=== PATIENT | female | born 1940 | race Caucasian/White ===

== ENCOUNTER → 2016-04-04 | Outpatient (CLI) | payer OTHER ==
[~2016-04-04] MED LIST: ASPCH81X PO; ASPI81TA28 PO; ATOR10TA88 PO; CALC-51 PO; CARV25TA2 PO; CHOL100010 PO; CZR25 PO; LEVO100T7 PO; LOSA1TAB PO; LSX40 PO; PRT/20 PO
--- NOTE | 2016-04-04 14:06 | DIAGNOSTIC IMAGING REPORT ---
LUMBAR SPINE 5 VIEWS HISTORY: Pain ACUTE LOW BACK PAIN COMPARISON: None. FINDINGS: There is no fracture. No subluxation. Moderate to rather significant degenerative intervertebral disc changes throughout. This is most noticeable from L3 through S1. Packing disc are identified from L3 through the superior endplate of S1. Mild reactive degenerative sclerosis of the vertebral endplates. No evidence for subluxation. No compression deformity. IMPRESSION: Moderate rather significant degenerative change of the mid to lower lumbar spine. No acute bony abnormality. Electronically signed by: Sunny Gibson M.D. 04/04/2016 2:04 PM Dictated Date/Time: 04/04/2016 2:02 PM
== END | disposition home or self-care (01) ==
LOC: C.LAB1850 13:42
PROVIDERS: ATTEND Family Medicine
DX: M54.5 Low back pain (principal)

== ENCOUNTER → 2016-05-22 | Outpatient (CLI) | payer OTHER ==
--- NOTE | 2016-05-22 07:35 | DIAGNOSTIC IMAGING REPORT ---
CHEST CT WITHOUT CONTRAST CT DOSE: 253.81 mGy.cm HISTORY: Pulmonary nodule 08/14/2015 TECHNIQUE: Multiaxial CT images of the chest were performed without contrast. COMPARISON: 08/14/2015 FINDINGS: Lungs are now considered clear. No significant pulmonary nodularity. Trace pleural fluid right base is resolved. Lungs currently are considered clear. Several small hepatic cysts stable. Mild stable cardiomegaly. IMPRESSION: Improved exam with no significant pulmonary nodularity at the current time. Mild stable cardiomegaly. Electronically signed by: Sunny Gibson M.D. 05/22/2016 7:34 AM Dictated Date/Time: 05/22/2016 7:30 AM
== END | disposition home or self-care (01) ==
LOC: C.CTS 06:39
PROVIDERS: ATTEND Internal Medicine Pulmonary Disease
DX: R91.8 Other nonspecific abnormal finding of lung field (principal)

== ENCOUNTER → 2016-09-02 | Outpatient (CLI) | payer OTHER ==
--- NOTE | 2016-09-02 08:59 | DIAGNOSTIC IMAGING REPORT ---
MRI LUMBAR SPINE W/O CONTRAST CLINICAL HISTORY: M54.5,M79.604 LOW BACK PAIN WITH LEFT LEG RADICULOPATHY. TECHNIQUE: Sagittal and axial T1, T2 and STIR images were obtained. COMPARISON STUDY: Conventional radiographic study dated 04-19 OBSERVATIONS: There are no areas of marrow replacement to indicate neoplasm. Degenerative endplate marrow signal changes are present most pronounced the L3-4 and L5-S1 levels. L1-2: There is a mild circumferential disc bulge. There is mild spinal stenosis. There is mild right-sided foraminal narrowing. L2-3: There is a circumferential disc bulge. There is mild to moderate spinal stenosis. There is no significant foraminal narrowing. L3-4: There is a circumferential disc bulge. There is moderate spinal stenosis. There is bilateral foraminal narrowing left greater than right. L4-5: There is a circumferential disc bulge and small broad-based central disc protrusion. There is moderate spinal stenosis. There is mild bilateral foraminal narrowing. L5-S1: There is a circumferential disc bulge. There is no significant spinal stenosis. There is moderate right-sided foraminal narrowing. The conus medullaris and cauda equina appear normal. IMPRESSION: 1. 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 Multilevel foraminal narrowing Electronically signed by: Ward Combs M.D. 09/02/2016 8:57 AM Dictated Date/Time: 09/02/2016 8:53 AM
== END | disposition home or self-care (01) ==
LOC: C.MRI 07:20
PROVIDERS: ATTEND Family Medicine
DX: M54.5 Low back pain (principal); M79.604 Pain in right leg

== ENCOUNTER → 2016-09-27 | Outpatient (CLI) | payer OTHER ==
[~2016-09-27] MED LIST changes: -ASPI81TA28 PO; -CZR25 PO; -PRT/20 PO
--- NOTE | 2016-09-27 12:56 | MAMMOGRAPHY REPORT ---
BILATERAL DIGITAL SCREENING MAMMOGRAM WITH CAD: 09/27/2016 CLINICAL HISTORY: Routine screening. Patient has no complaints. TECHNIQUE: Current study was also evaluated with a Computer Aided Detection (CAD) system. Bilateral CC and MLO views were obtained. COMPARISON: Comparison is made to exams dated: 09/22/2015 mammogram, 09/16/2013 mammogram, 09/19/2014 m ammogram, 09/15/2012 mammogram, 09/11/2011 mammogram, and 09/10/2010 mammogram - [facility] enter. BREAST COMPOSITION: There are scattered areas of fibroglandular density in both breasts. FINDINGS: No suspicious masses, calcifications, or areas of architectural distortion are noted in ei ther breast. There has been no significant interval change compared to prior exams. Scattered bilate ral benign-appearing calcifications are not significantly changed. A pacemaker obscures portions of the left pectoralis muscle and superior breast on the MLO view. IMPRESSION: ACR BI-RADS CATEGORY 2: BENIGN There is no mammographic evidence of malignancy. A 1 year screening mammogram is recommended. The pa tient will receive written notification of the results. Approximately 10% of breast cancers are not detected with mammography. A negative mammographic report should not delay biopsy if a clinically suggestive mass is present. Batsheva Han M.D. ah/:09/27/2016 10:42:57 Director Product Management: Ramona VERA)(Aníbal), [facility] letter sent: Normal 1/2 BI-RADS Code: ACR BI-RADS Category 2: Benign
== END | disposition home or self-care (01) ==
LOC: C.MAMM 10:06
PROVIDERS: ATTEND Family Medicine
DX: Z12.31 Encounter for screening mammogram for malignant neoplasm of breast (principal)

== ENCOUNTER → 2016-10-29 | Day surgery (SDC) | payer OTHER ==
[2016-09-13 12:26] VITALS: Ht 154.9 cm; Wt 72.7 kg
[~2016-10-29] VITALS: Ht 154.9 cm; Wt 72.7 kg
[~2016-10-29] MED LIST changes: +500ML BSS 0.3ML EPI 1:1000PF IRRIG ONE; +ACETAMINOPHEN 325 MG TAB PO PRN; +AMVISC PLUS 0.8ML SYRINGE INT OCU ONE; +ATROPINE SULFATE 0.1 MG/ML 5ML SYR IV PRN; +BSS FLUSH ONE; +EpHEDrine SULFATE INJ 50 MG/ML AMP IV PRN; +EpINEphrine INJ 1MG/ML AMP 1 MG/ML AMP ONE; +LACTATED RINGER'S 1000ML 500 ML IV SCH; +LIDOCAINE 3.5% OPH GEL PER APPLICATION CHARGE ONE; +LIDOCAINE HCL 1% MPF 2 ML VIAL ONE; +MIDAZOLAM HCL 1 MG/ML 2ML VIAL ONE; +OCUCOAT 1 ML SOLN IO ONE; +POVIDONE-IODINE OP SOLN 30 ML BTL ONE; +PROPARACAINE 0.5% OP SOLN PER DROP CHARGE OPR SCH; +TOBRAMYCIN/DEXAMETHASONE OPH OINT PER APPLN CHARGE ONE
[2016-10-29] MEDS: PHENYLEPHRINE HCL 2.5% OP SOLN PER DROP CHARGE OPR SCH ×2 (08:31→08:36)
[2016-10-29] MEDS: TROPICAMIDE 1% OP SOLN PER DROP CHARGE OPR SCH ×2 (08:32→08:37)
[2016-10-29] MEDS: CYCLOPENTOLATE HCL 1% OP SOLN PER DROP CHARGE OPR SCH ×2 (08:33→08:38)
[2016-10-29] MEDS: KETOROLAC 0.5% OP SOLN PER DROP CHARGE OPR SCH ×2 (08:34→08:39)
[2016-10-29] MEDS: GATIFLOXACIN OP SOLN PER DROP CHARGE OPR SCH ×2 (08:35→08:49)
--- NOTE | 2016-10-29 08:38 | History & Physical Bridge - SC ---
H&P Re-Evaluation Bridge Note: I have examined the patient, reviewed the History & Physical and in the interval since the performance of the History & Physical I have noted the following changes of clinical significance: Diagnosis: Right Cataract Procedure: Right Cataract Removal with Lens Implant No changes noted
--- NOTE | 2016-10-29 09:21 | Discharge Instructions-SurgCtr ---
Discharge Instructions Date of Service Oct 29, 2016. Visit Reason for Visit: Cataract Right Eye Discharge Discharge Diagnosis / Problem: cataract Discharge Goals Goal(s): Improve function Activity Recommendations Activity Limitations: per Instructions/Follow-up section Anesthesia . Post Anesthesia Instructions: If you have had General Anesthesia or IV Sedation: * Do not drive today. * Resume driving when surgeon permits. * Do not make important decisions or sign legal documents today. * Call surgeon for: 1. Temperature elevations greater than 101 degrees F. 2. Uncontrollable pain. 3. Excessive bleeding. 4. Persistent nausea and vomiting. 5. Medication intolerance (nausea, vomiting or rash). * For nausea and vomiting use only clear liquids such as: tea, soda, bouillon until nausea subsides, then gradually increase diet as tolerated. * If you have any concerns or questions, call your surgeon's office. If physician is unavailable and it is an emergency, call 911 or go to the nearest emergency room. . Instructions / Follow-Up Instructions / Follow-Up ACTIVITY RECOMMENDATIONS: * No strenuous lifting, jogging or running for 4 days * No swimming or yard work for 1 week. * Limited bending is permitted, such as putting on shoes. RETURN TO SCHOOL/WORK: No work until seen by physician in office. MEDICATIONS: Resume previous medications unless instructed otherwise by your surgeon. This includes eye drops for glaucoma. Zymaxid/Gatifloxacin (espinal cap) - one drop every 2 hours until bedtime Nevanac/Ilevro/Prolensa/Ketorolac (kendall cap) - one drop every 4 hours until bedtime Prednisolone/Durezol (white/pink cap, SHAKE WELL) - one drop every 2 hours until bedtime Starting tomorrow - all 3 drops every 4 hours until seen in the office Optive drops - as needed for discomfort SPECIAL CARE INSTRUCTIONS: * Wear eyeshield when sleeping, for four nights. * You may wear your own glasses or sunglasses while awake. * You may read or watch TV * You may shower and wash your face, but be gentle around the eye and pat dry. * Blurry vision and mild irritation are normal. * Call office if pain is more severe or vision becomes dark at . FOLLOW UP VISIT: Follow-up with Dr Nolasco tomorrow. Diet Recommendations Home Diet: resume previous diet Procedures Procedures Performed: Right Cataract Phacoemulsification With Intraocular Lens Implant Pending Studies Studies pending at discharge: no Medical Emergencies . Who to Call and When: Medical Emergencies: If at any time you feel your situation is an emergency, please call 911 immediately. . Non-Emergent Contact Non-Emergency issues call your: Coal Cager . . "Provider Documentation" section prepared by Maxim Nolasco. .
--- NOTE | 2016-10-29 09:22 | [facility] Operative Report ---
Operative Report Date of Service Oct 29, 2016. Operative Report 1. PREOPERATIVE DIAGNOSIS: Cataract of the right eye. 2. POSTOPERATIVE DIAGNOSIS: Same. 3. PROCEDURE: Phacoemulsification with intraocular lens implantation of the right eye. SURGEON: Dr. Maxim Nolasco. ANESTHESIA: Topical Lidocaine gel, 1% Non- Preserved intracameral Lidocaine, and monitored intravenous sedation. INDICATIONS FOR THE PROCEDURE: The patient is a 76 - year-old female with a history of cataract of the right eye causing significant visual impairment. The details of the proposed procedure were explained to the patient who asked appropriate questions and following discussion of all risks, benefits and alternatives agreed to have the procedure done. 4. OPERATION AND FINDINGS: DESCRIPTION OF PROCEDURE: After informed consent was obtained, the patient was brought to the Operating Room at the [facility]. The patient was placed in a supine position and then the right eye was prepped and draped in the usual sterile fashion for intraocular surgery. A drop of topical Lidocaine gel was placed in the operative eye. A wire lid speculum was then placed in the fornices. A corneal paracentesis was then created temporally. The Non-Preserved Lidocaine was then instilled into the anterior chamber. The anterior chamber was then pressurized with viscoelastic. A 2.0 mm clear corneal incision was then created temporally. A cystotome was inserted into the anterior chamber and used to create a tear in the anterior lens capsule. This capsular tear was then used to create a small flap and the flap was dragged in a counterclockwise direction in order to create a continuous curvilinear capsulorrhexis. Hydrodissection was accomplished with balanced salt solution. Phacoemulsification of the lens nucleus was then performed in a standard [id number] technique. The phaco time was 26 seconds with an average power of 17 %. The remaining cortical material was removed using irrigation aspiration. The capsular bag was then filled with viscoelastic. A Bausch & Lomb MI60L +19.0 diopters lens was then loaded into the injector and injected into the capsular bag. The remaining viscoelastic was removed with the irrigation aspiration handpiece. The wound was hydrated and then checked and found to be watertight. The intraocular pressure was checked and found to be adequate. The wire lid speculum was removed and the patient's face was cleaned and dried. TobraDex ointment was placed in the inferior fornix. The patient was discharged to the Recovery Room having tolerated the procedure well. There were no complications. The patient will be seen tomorrow in the office for follow-up. I attest to the content of the Intraoperative Record and any orders documented therein. Any exceptions are noted below.
[2016-10-29 09:23] VITALS: TEMP 36.7
--- NOTE | 2016-10-29 09:29 | Anesthesia Progress Nt - [facility] ---
Anesthesia Post Op Note Date & Time Oct 29, 2016 at 09:29 Vital Signs Pain Intensity: 0 Vital Signs Past 12 Hours Date Time Temp Pulse Resp B/P (MAP) Pulse Ox O2 Delivery O2 Flow Rate FiO2 10/29/16 09:23 36.7 64 20 135/80 (98) 95 Room Air 10/29/16 08:21 36.9 66 20 135/82 (99) 98 Room Air Notes Mental Status: alert / awake / arousable, participated in evaluation Pt Amnestic to Procedure: Yes Nausea / Vomiting: adequately controlled Pain: adequately controlled Airway Patency, RR, SpO2: stable & adequate BP & HR: stable & adequate Hydration State: stable & adequate Anesthetic Complications: no major complications apparent
[2016-10-29 09:42] VITALS: BP 126/81; PULSE 66; O2SAT 98
== END | disposition home or self-care (01) ==
LOC: X.SURG 07:57
PROVIDERS: ATTEND Ophthalmology
DX: H26.9 Unspecified cataract (principal); Z90.710 Acquired absence of both cervix and uterus

== ENCOUNTER → 2016-11-19 | Day surgery (SDC) | payer OTHER ==
[2016-11-07 11:01] VITALS: Ht 154.9 cm; Wt 72.7 kg
[~2016-11-19] VITALS: Ht 154.9 cm; Wt 72.7 kg
[~2016-11-19] MED LIST changes: +PROPARACAINE 0.5% OP SOLN PER DROP CHARGE OPL SCH; -PROPARACAINE 0.5% OP SOLN PER DROP CHARGE OPR SCH
[2016-11-19] MEDS: PHENYLEPHRINE HCL 2.5% OP SOLN PER DROP CHARGE OPL SCH ×2 (08:58→09:05)
[2016-11-19] MEDS: TROPICAMIDE 1% OP SOLN PER DROP CHARGE OPL SCH ×2 (08:59→09:06)
[2016-11-19] MEDS: CYCLOPENTOLATE HCL 1% OP SOLN PER DROP CHARGE OPL SCH ×2 (09:00→09:07)
[2016-11-19] MEDS: KETOROLAC 0.5% OP SOLN PER DROP CHARGE OPL SCH ×2 (09:02→09:08)
[2016-11-19] MEDS: GATIFLOXACIN OP SOLN PER DROP CHARGE OPL SCH ×2 (09:03→09:13)
--- NOTE | 2016-11-19 09:14 | History & Physical Bridge - SC ---
H&P Re-Evaluation Bridge Note: I have examined the patient, reviewed the History & Physical and in the interval since the performance of the History & Physical I have noted the following changes of clinical significance: Diagnosis: Left Cataract Procedure: Left Cataract Removal with Lens Implant No changes noted
--- NOTE | 2016-11-19 09:58 | Discharge Instructions-SurgCtr ---
Discharge Instructions Date of Service Nov 19, 2016. Visit Reason for Visit: Cataract Left Eye Discharge Discharge Diagnosis / Problem: cataract Discharge Goals Goal(s): Improve function Activity Recommendations Activity Limitations: per Instructions/Follow-up section Anesthesia . Post Anesthesia Instructions: If you have had General Anesthesia or IV Sedation: * Do not drive today. * Resume driving when surgeon permits. * Do not make important decisions or sign legal documents today. * Call surgeon for: 1. Temperature elevations greater than 101 degrees F. 2. Uncontrollable pain. 3. Excessive bleeding. 4. Persistent nausea and vomiting. 5. Medication intolerance (nausea, vomiting or rash). * For nausea and vomiting use only clear liquids such as: tea, soda, bouillon until nausea subsides, then gradually increase diet as tolerated. * If you have any concerns or questions, call your surgeon's office. If physician is unavailable and it is an emergency, call 911 or go to the nearest emergency room. . Diet Recommendations Home Diet: resume previous diet Procedures Procedures Performed: Left Cataract Phacoemulsification With Intraocular Lens Implant Pending Studies Studies pending at discharge: no Medical Emergencies . Who to Call and When: Medical Emergencies: If at any time you feel your situation is an emergency, please call 911 immediately. . Non-Emergent Contact Non-Emergency issues call your: Branch Manager Trainee . . "Provider Documentation" section prepared by Maxim Nolasco. .
--- NOTE | 2016-11-19 09:58 | [facility] Operative Report ---
Operative Report Date of Service Nov 19, 2016. Operative Report 1. PREOPERATIVE DIAGNOSIS: Cataract of the left eye. 2. POSTOPERATIVE DIAGNOSIS: Same. 3. PROCEDURE: Phacoemulsification with intraocular lens implantation of the left eye. SURGEON: Dr. Maxim Nolasco. ANESTHESIA: Topical Lidocaine gel, 1% Non- Preserved intracameral Lidocaine, and monitored intravenous sedation. INDICATIONS FOR THE PROCEDURE: The patient is a 76 - year-old female with a history of cataract of the left eye causing significant visual impairment. The details of the proposed procedure were explained to the patient who asked appropriate questions and following discussion of all risks, benefits and alternatives agreed to have the procedure done. 4. OPERATION AND FINDINGS: DESCRIPTION OF PROCEDURE: After informed consent was obtained, the patient was brought to the Operating Room at the [facility]. The patient was placed in a supine position and then the left eye was prepped and draped in the usual sterile fashion for intraocular surgery. A drop of topical Lidocaine gel was placed in the operative eye. A wire lid speculum was then placed in the fornices. A corneal paracentesis was then created temporally. The Non-Preserved Lidocaine was then instilled into the anterior chamber. The anterior chamber was then pressurized with viscoelastic. A 2.0 mm clear corneal incision was then created temporally. A cystotome was inserted into the anterior chamber and used to create a tear in the anterior lens capsule. This capsular tear was then used to create a small flap and the flap was dragged in a counterclockwise direction in order to create a continuous curvilinear capsulorrhexis. Hydrodissection was accomplished with balanced salt solution. Phacoemulsification of the lens nucleus was then performed in a standard [id number]-eenbuzm technique. The phaco time was 20 seconds with an average power of 15 %. The remaining cortical material was removed using irrigation aspiration. The capsular bag was then filled with viscoelastic. A Bausch & Lomb MI60L +18.5 diopters lens was then loaded into the injector and injected into the capsular bag. The remaining viscoelastic was removed with the irrigation aspiration handpiece. The wound was hydrated and then checked and found to be watertight. The intraocular pressure was checked and found to be adequate. The wire lid speculum was removed and the patient's face was cleaned and dried. TobraDex ointment was placed in the inferior fornix. The patient was discharged to the Recovery Room having tolerated the procedure well. There were no complications. The patient will be seen tomorrow in the office for follow-up. I attest to the content of the Intraoperative Record and any orders documented therein. Any exceptions are noted below.
[2016-11-19 10:00] VITALS: TEMP 36.5
[2016-11-19 10:15] VITALS: BP 118/74; PULSE 66; O2SAT 96
--- NOTE | 2016-11-19 10:22 | Anesthesia Progress Nt - [facility] ---
Anesthesia Post Op Note Date & Time Nov 19, 2016 at 10:22 Vital Signs Pain Intensity: 0 Vital Signs Past 12 Hours Date Time Temp Pulse Resp B/P (MAP) Pulse Ox O2 Delivery O2 Flow Rate FiO2 11/19/16 10:15 66 20 118/74 (89) 96 Room Air 11/19/16 10:00 36.5 63 16 123/74 (90) 97 Room Air 11/19/16 08:50 36.4 64 16 116/79 (91) 96 Room Air Notes Mental Status: alert / awake / arousable, participated in evaluation Pt Amnestic to Procedure: Yes Nausea / Vomiting: adequately controlled Pain: adequately controlled Airway Patency, RR, SpO2: stable & adequate BP & HR: stable & adequate Hydration State: stable & adequate Anesthetic Complications: no major complications apparent
== END | disposition home or self-care (01) ==
LOC: X.SURG 08:25
PROVIDERS: ATTEND Ophthalmology
DX: H26.9 Unspecified cataract (principal)

== ENCOUNTER → 2017-03-05 | Day surgery (SDC) | payer OTHER ==
[2017-02-10 15:26] VITALS: Ht 154.9 cm; Wt 71.8 kg
[~2017-03-05] VITALS: Ht 154.9 cm; Wt 71.8 kg
[~2017-03-05] MED LIST changes: -500ML BSS 0.3ML EPI 1:1000PF IRRIG ONE; -ACETAMINOPHEN 325 MG TAB PO PRN; -AMVISC PLUS 0.8ML SYRINGE INT OCU ONE; +ATOR10TA82 PO; -ATOR10TA88 PO; -ATROPINE SULFATE 0.1 MG/ML 5ML SYR IV PRN; -BSS FLUSH ONE; -EpHEDrine SULFATE INJ 50 MG/ML AMP IV PRN; -EpINEphrine INJ 1MG/ML AMP 1 MG/ML AMP ONE; +IOPAMIDOL INJ 61% 15 ML VIAL ONE; -LACTATED RINGER'S 1000ML 500 ML IV SCH; -LIDOCAINE 3.5% OPH GEL PER APPLICATION CHARGE ONE; -LIDOCAINE HCL 1% MPF 2 ML VIAL ONE; +LIDOCAINE HCL 1% MPF 5 ML VIAL ONE; -MIDAZOLAM HCL 1 MG/ML 2ML VIAL ONE; -OCUCOAT 1 ML SOLN IO ONE; -POVIDONE-IODINE OP SOLN 30 ML BTL ONE; -PROPARACAINE 0.5% OP SOLN PER DROP CHARGE OPL SCH; +SODIUM CHLORIDE 0.9% INJ 10 ML VIAL ONE; -TOBRAMYCIN/DEXAMETHASONE OPH OINT PER APPLN CHARGE ONE
--- NOTE | 2017-03-05 15:19 | History & Physical Bridge - SC ---
H&P Re-Evaluation Bridge Note: I have examined the patient, reviewed the History & Physical and in the interval since the performance of the History & Physical I have noted the following changes of clinical significance: No changes noted
[2017-03-05 15:41] VITALS: TEMP 36.9
--- NOTE | 2017-03-05 15:44 | Discharge Instructions ---
Discharge Instructions Date of Service Mar 05, 2017. Visit Reason for Visit: Lumbar Radiculopathy Discharge Discharge Diagnosis / Problem: Left leg pain Discharge Goals Goal(s): Decrease discomfort, Improve function Medications Stopped Medications Name(s): ASA- LAST DOSE FRIDAY Activity Recommendations Activity Limitations: resume your previous activity Anesthesia . Post Anesthesia Instructions: If you have had General Anesthesia or IV Sedation: * Do not drive today. * Resume driving when surgeon permits. * Do not make important decisions or sign legal documents today. * Call surgeon for: 1. Temperature elevations greater than 101 degrees F. 2. Uncontrollable pain. 3. Excessive bleeding. 4. Persistent nausea and vomiting. 5. Medication intolerance (nausea, vomiting or rash). * For nausea and vomiting use only clear liquids such as: tea, soda, bouillon until nausea subsides, then gradually increase diet as tolerated. * If you have any concerns or questions, call your surgeon's office. If physician is unavailable and it is an emergency, call 911 or go to the nearest emergency room. . Diet Recommendations Recommended Home Diet: resume previous diet Procedures Procedures Performed: LUMBAR EPIDURAL STEROID INJECTION Pending Studies Studies pending at discharge: no Medical Emergencies . Who to Call and When: Medical Emergencies: If at any time you feel your situation is an emergency, please call 911 immediately. . Non-Emergent Contact Non-Emergency issues call your: Specialist . . "Provider Documentation" section prepared by Cecilio Alvarenga. .
[2017-03-05 15:49] VITALS: BP 133/82; PULSE 68; O2SAT 99
--- NOTE | 2017-03-05 16:00 | OPERATIVE REPORT ---
DATE OF OPERATION: 03/05/2017 PREOPERATIVE DIAGNOSIS: L4-L5 stenosis with left lower extremity radiculopathy. POSTOPERATIVE DIAGNOSIS: Same. PROCEDURE: Left paramedian L5-S1 intralaminar epidural steroid injection under fluoroscopic guidance. INDICATIONS: The patient is a 76-year-old white female, presents with lumbar spinal stenosis with lower extremity radicular pain that is not responding to conservative measures of medications and therapy. She presents today for an epidural injection to provide her with relief. PHYSICAL EXAMINATION: Pleasant female seated comfortably. She has no issues with forward flexion or extension. She has normal lower extremity strength. Negative seated straight leg raises, intact sensation in her right lower extremity and in her left lower extremity, she has decreased left L5 dermatomal distributions sensation. CONSENT: Verbal and written consent was obtained from the patient. Risks and benefits were reviewed. Risks include but are not limited to epidural abscess, epidural hematoma, allergic reaction, dural puncture; the patient wishes to proceed. DESCRIPTION OF PROCEDURE: The patient was taken back to the special procedures room of [facility] where she was maintained in a prone position. Backside was cleansed with Betadine x3 and a dry sterile dressing was applied. Fluoroscope was used to identify the L5-S1 intralaminar space and overlying skin on the left side was anesthetized with 4 mL of lidocaine 1% with a 25 gauge 1.5-inch needle. A 22-gauge 3.5 inch Tuohy needle was then directed down towards the intralaminar space. It was advanced under lateral fluoroscopic guidance and loss of resistance was noted at a depth of just over 6 cm. Isovue-300 contrast 1 mL was injected in which demonstrated epidural uptake pattern. She then underwent injection after negative aspiration of 40 mg of Depo-Medrol and 4 mL of preservative free sodium chloride. Injection was well tolerated. DISPOSITION: 1. The patient is taken out into the discharge recovery area where she will be discharged home once discharge criteria have been met. 2. Follow up in the [facility] office in 2-4 weeks. I attest to the content of the Intraoperative Record and any orders documented therein. Any exception s are noted below.
== END | disposition home or self-care (01) ==
LOC: X.SURG 14:15
PROVIDERS: ATTEND Physical Medicine & Rehabilitation
DX: M48.061 Spinal stenosis, lumbar region without neurogenic claudication (principal); M54.16 Radiculopathy, lumbar region; Z79.82 Long term (current) use of aspirin

== ENCOUNTER → 2017-10-01 | Outpatient (CLI) | payer OTHER ==
[~2017-10-01] MED LIST changes: -IOPAMIDOL INJ 61% 15 ML VIAL ONE; -LIDOCAINE HCL 1% MPF 5 ML VIAL ONE; -SODIUM CHLORIDE 0.9% INJ 10 ML VIAL ONE
--- NOTE | 2017-10-01 14:56 | MAMMOGRAPHY REPORT ---
BILATERAL DIGITAL SCREENING MAMMOGRAM TOMOSYNTHESIS WITH CAD: 10/01/2017 CLINICAL HISTORY: Routine screening. Patient has no complaints. TECHNIQUE: The study was acquired using full field digital technology and interpreted from soft copy. Breast tomosynthesis in addition to standard 2D mammography was performed. Current study was also ev aluated with a Computer Aided Detection (CAD) system. COMPARISON: Comparison is made to exams dated: 09/27/2016 mammogram, 09/22/2015 mammogram, 09/19/2014 m ammogram, 09/16/2013 mammogram, 09/15/2012 mammogram, and 09/11/2011 mammogram - [facility] enter. BREAST COMPOSITION: There are scattered areas of fibroglandular density in both breasts. FINDINGS: No suspicious masses, calcifications, or areas of architectural distortion are noted in either breast . There has been no significant interval change compared to prior exams. Scattered bilateral benign- appearing calcifications are not significantly changed. A pacemaker obscures portions of the left pe ctoralis muscle and superior breast on the MLO view. IMPRESSION: ACR BI-RADS CATEGORY 2: BENIGN There is no mammographic evidence of malignancy. A 1 year screening mammogram is recommended.( 019) The patient will receive written notification of the results. Some breast cancers are not detected with mammography. A negative mammographic report should not sandy y biopsy if a clinically suggestive mass is present. Batsheva Han M.D. ah/:10/01/2017 09:40:29 Fabric Worker Foreman: Ramona Kulkarni RT(R)(M), [facility] letter sent: Normal 1/2 BI-RADS Code: ACR BI-RADS Category 2: Benign
== END | disposition home or self-care (01) ==
LOC: C.MAMM 08:46
PROVIDERS: ATTEND Family Medicine
DX: Z12.31 Encounter for screening mammogram for malignant neoplasm of breast (principal)

== ENCOUNTER 2020-07-18 19:06 | Observation (INO) ==
[2020-07-18 21:08] LABS: Basophils # (auto) 0.03 K/uL (0-0.2); Basophils % (auto) 0.5 %; Eosinophils # (auto) 0.14 K/uL (0-0.5); Eosinophils % (auto) 2.3 %; Hematocrit (blood only) 38.9 % (37-47); Hemoglobin 13.4 g/dL (12.0-16.0); Lymphocytes # (auto) 1.06 K/uL (1.2-3.4); Lymphocytes % (auto) 17.4 %; Mean Corpuscular Hemoglobin 32.3 pg (25-34); Mean Corpuscular Hgb Conc 34.4 g/dL (32-36); Mean Corpuscular Volume 93.7 fL (80-100); Monocytes # (auto) 0.59 K/uL (0.11-0.59); Monocytes % (auto) 9.7 %; Neutrophils # (auto) 4.26 K/uL (1.4-6.5); Neutrophils % (auto) 70.1 %; Platelet Count 154 K/uL (130-400); RDW Coefficient of Variation 14.6 % (11.5-14.5); RDW Standard Deviation 50.6 fL (36.4-46.3); Red Blood Count 4.15 M/uL (4.2-5.4); White Blood Count 6.08 K/uL (4.8-10.8)
[2020-07-18 21:15] LABS: Calcium 9.5 mg/dl (8.5-10.1); Creatinine Clr Calc Pharmacy 36.6 ml/min; Est GFR (African American) 57.3 ml/min; Est GFR (Non-African American) 49.4 ml/min; Magnesium 2.4 mg/dl (1.8-2.4); Potassium 4.5 mmol/L (3.5-5.1)
[2020-07-18 21:18] LABS: INR 1.1 (0.9-1.1); Partial Thromboplastin Time 25.6 Seconds (21.0-31.0)
--- NOTE | 2020-07-18 21:25 | Emergency Department Note ---
Impression & Plan Defibrillator discharge, Cardiomyopathy, SOB (shortness of breath), CHF (congestive heart failure) ED Provider Note NAME: SHAWN MENDOZA AGE: 80 SEX: F : 1940 ARRIVES VIA: Walk-In INFORMANT: [Patient] ED PROVIDER(S): [Pablito Abebe MD] CHIEF COMPLAINT: Defibrillator firing HISTORY OF PRESENT ILLNESS: The patient is an 80-year-old female who states at around 530 or so, about 4 hours ago, she was sitting and started to feel somewhat lightheaded. She states that suddenly, she was shocked by her defibrillator. The patient states that she has noticed some shortness of breath lately. She was pretty active today but was not involved in activity when this happened. She has not had chest pain. No vomiting or diarrhea. No fever. No cough or congestion. She states that her defibrillator/pacer was placed in 2015 and it has never went off. REVIEW OF SYSTEMS: See HPI for pertinent positives and negatives. A total of ten systems were reviewed and were otherwise negative. PMHx/PSHx: See Below SOCIAL HISTORY: See Below. PHYSICAL EXAM: GENERAL: Patient is in no acute distress. HEENT: No acute trauma, normocephalic atraumatic, mucous membranes moist, no nasal congestion, no scleral icterus. NECK: No stridor, no adenopathy, no meningismus, trachea is midline. LUNGS: Clear to auscultation bilaterally, no wheeze, no rhonchi, breath sounds equal. HEART: Without murmurs gallops or rubs, regular rate and rhythm. ABDOMEN: Soft, nontender, bowel sounds positive, no hernias, no peritonitis. EXTREMITIES: No cyanosis, mild bilateral pedal edema, full range of motion of all the joints without pain or difficulty, no signs for acute trauma. NEUROLOGIC: Oriented x 3, no acute motor or sensory deficits, no focal weakness. SKIN: No rash, no jaundice, no diaphoresis. DIFFERENTIAL DIAGNOSIS: Cardiac ischemia, aortic dissection, pulmonary embolism, pneumothorax, V. tach or V. fib, defibrillator misfire, electrolyte imbalance, pneumonia, pericarditis, myocarditis, esophageal rupture, GERD, cholecystitis, pancreatitis, musculoskeletal, as well as other pathologies. EMERGENCY DEPARTMENT COURSE/PROCEDURES: ECG: Indication was defibrillator firing. The ECG shows a normal sinus rhythm with a rate of 81. The QTc is 462. There is a nonspecific interventricular block. There is no ST elevation, no PVCs. There are some inverted T waves noted laterally. Compared to an ECG from 02 May 2015, there is no significant change. Continuous Cardiac Monitoring: An order was placed for continuous cardiac monitoring. The monitor shows a rate of 74 with normal sinus rhythm. MEDICAL DECISION MAKING: There is no leukocytosis or concerning anemia. There is a normal platelet count. No coagulopathy. No significant electrolyte abnormality or kidney failure. No worrisome liver enzyme elevation. No pancreatitis. The patient appeared to be in a euthyroid state. ECG shows a normal sinus rhythm, there was no acute ischemia. Cardiac enzyme testing x1 is slightly elevated making cardiac injury or strain more likely. BNP was elevated consistent with CHF. Chest film does show cardiomegaly and CHF. There was no pneumothorax. Covid test returned negative. The patient presents after a defibrillator discharge. Her work-up suggest heart failure. She does have an elevated troponin. Her defibrillator was interrogated and she had a bout of V. tach/V. fib for which a shock was administered. I did speak with cardiology. The patient is being hospitalized. The patient was given a 40 mg dose of IV Lasix to help promote diuresis. I spoke to the patient about her findings, I did speak with case management. The on-call hospitalist was consulted. Past Med/Surg History Medical History Dyslipidemia HFrEF (heart failure with reduced ejection fraction) EF 20-25% 06/21 HTN (hypertension) Hypothyroidism Presence of combination internal cardiac defibrillator (ICD) and pacemaker Surgical History History of bladder surgery History of hysterectomy Social History Smoking Status: Never smoker Feels Safe at Home: Yes Allergies Allergies Allergy/AdvReac Type Severity Reaction Status Date / Time No Known Allergies Allergy Verified 07/18/20 20:55 Home Meds Home Medications Medication Instructions Recorded Confirmed aspirin 81 mg PO DAILY 06/24/18 07/18/20 atorvastatin 5 mg PO HS 06/24/18 07/18/20 cholecalciferol (vitamin D3) 1,000 unit PO DAILY 06/24/18 07/18/20 levothyroxine 100 mcg PO QAM 06/24/18 07/18/20 Previous Rx's Medication Instructions Recorded carvedilol 25 mg tablet 25 mg PO BID #180 tab 08/09/19 losartan 25 mg tablet 25 mg PO QPM #90 tab 08/09/19 furosemide 40 mg tablet 40 mg PO Q OTHER DAY PRN #45 tab 08/10/19 Results & Data (ED) Vital Signs Vital Signs - 24 hr 07/18/20 19:15 07/18/20 19:20 07/18/20 19:37 Temperature 36.2 C L Temperature Source Temporal Artery Scan Pulse Rate 86 74 Pulse Rate from SpO2 Sensor 73 Respiratory Rate 16 31 H Respiratory Effort / Characteristics Respiratory Depth Normal Normal Respiratory Pattern Blood Pressure 143/91 H 137/86 Blood Pressure Mean 108 103 Blood Pressure Position Sitting Pulse Oximetry 97 97 Oxygen Delivery Method Room Air Room Air Room Air Sepsis Recent Fever Within 48 Hours No Sepsis New/Unexplained Change in Mental Status No Sepsis Action Taken by Nursing No Action Required 07/18/20 19:41 07/18/20 20:00 07/18/20 20:05 Temperature Temperature Source Pulse Rate 74 74 Pulse Rate from SpO2 Sensor 73 74 Respiratory Rate 18 24 Respiratory Effort / Characteristics Non-Labored Spontaneous Respiratory Depth Normal Respiratory Pattern Regular Blood Pressure 126/84 136/85 Blood Pressure Mean 98 102 Blood Pressure Position Pulse Oximetry 96 97 Oxygen Delivery Method Room Air Room Air Room Air Sepsis Recent Fever Within 48 Hours Sepsis New/Unexplained Change in Mental Status Sepsis Action Taken by Nursing 07/18/20 20:30 07/18/20 21:00 07/18/20 21:30 Temperature Temperature Source Pulse Rate 74 80 76 Pulse Rate from SpO2 Sensor 74 80 76 Respiratory Rate 26 H 28 H 26 H Respiratory Effort / Characteristics Respiratory Depth Respiratory Pattern Blood Pressure 136/91 116/85 137/87 Blood Pressure Mean 106 95 103 Blood Pressure Position Pulse Oximetry 96 98 96 Oxygen Delivery Method Room Air Room Air Room Air Sepsis Recent Fever Within 48 Hours Sepsis New/Unexplained Change in Mental Status Sepsis Action Taken by Nursing 07/18/20 21:58 07/18/20 22:00 07/18/20 22:37 Temperature Temperature Source Pulse Rate 86 86 79 Pulse Rate from SpO2 Sensor 87 85 79 Respiratory Rate 31 H 28 H 27 H Respiratory Effort / Characteristics Respiratory Depth Respiratory Pattern Blood Pressure 155/102 H 165/109 H 150/95 H Blood Pressure Mean 119 127 113 Blood Pressure Position Pulse Oximetry 94 95 97 Oxygen Delivery Method Room Air Room Air Room Air Sepsis Recent Fever Within 48 Hours Sepsis New/Unexplained Change in Mental Status Sepsis Action Taken by Nursing 07/18/20 23:30 Temperature Temperature Source Pulse Rate 85 Pulse Rate from SpO2 Sensor 84 Respiratory Rate 24 Respiratory Effort / Characteristics Respiratory Depth Respiratory Pattern Blood Pressure 161/69 H Blood Pressure Mean 99 Blood Pressure Position Pulse Oximetry 96 Oxygen Delivery Method Room Air Sepsis Recent Fever Within 48 Hours Sepsis New/Unexplained Change in Mental Status Sepsis Action Taken by Usp Medications Current Medication List: was personally reviewed by me Laboratory Data Attestation: I reviewed the patient's lab results. Result diagrams: 07/18/20 19:36 07/18/20 19:36 Lab Results 07/18/20 07/18/20 07/18/20 Range/Units 19:36 19:36 19:36 WBC 6.08 (4.8-10.8) K/uL RBC 4.15 L (4.2-5.4) M/uL Hgb 13.4 (12.0-16.0) g/dL Hct 38.9 (37-47) % MCV 93.7 (80-100) fL MCH 32.3 (25-34) pg MCHC 34.4 (32-36) g/dL RDW Std Deviation 50.6 H (36.4-46.3) fL RDW Coeff of Sumanth 14.6 H (11.5-14.5) % Plt Count 154 (130-400) K/uL MPV 11.0 H (7.4-10.4) fL Immature Gran % (Auto) 0.0 % Neut % (Auto) 70.1 % Lymph % (Auto) 17.4 % [place] % (Auto) 9.7 % Eos % (Auto) 2.3 % Baso % (Auto) 0.5 % Neut # (Auto) 4.26 (1.4-6.5) K/uL Lymph # (Auto) 1.06 L (1.2-3.4) K/uL [place] # (Auto) 0.59 (0.11-0.59) K/uL Eos # (Auto) 0.14 (0-0.5) K/uL Baso # (Auto) 0.03 (0-0.2) K/uL Immature Gran # (Auto) 0.00 (0.00-0.02) K/uL PT 11.0 (9.0-12.0) Seconds INR 1.1 (0.9-1.1) APTT 25.6 (21.0-31.0) Seconds PTT Ratio 1.0 Sodium 139 (136-145) mmol/L Potassium 4.5 (3.5-5.1) mmol/L Chloride 107 (98-107) mmol/L Carbon Dioxide 26 (21-32) mmol/L Anion Gap 6.0 (3-11) BUN 24 H (7-18) mg/dl Creatinine 1.05 (0.6-1.2) mg/dl Est Cr Clr Drug Dosing 36.6 ml/min Est GFR ( Amer) 57.3 ml/min Est GFR (Non-Af Amer) 49.4 ml/min BUN/Creatinine Ratio 23.0 H (10-20) Glucose 101 H (70-99) mg/dl Calcium 9.5 (8.5-10.1) mg/dl Magnesium 2.4 (1.8-2.4) mg/dl Total Bilirubin 0.7 (0.2-1) mg/dl AST 71 H (15-37) U/L ALT 60 (12-78) U/L Alkaline Phosphatase 93 (45-117) U/L Troponin I 0.070 H* (0-0.045) ng/ml NT-Pro-B Natriuret Pep 6744 H (0-1800) pg/ml Total Protein 6.8 (6.4-8.2) gm/dl Albumin 4.0 (3.4-5.0) gm/dl Globulin 2.8 (2.5-4.0) gm/dl Albumin/Globulin Ratio 1.4 (0.9-2) Lipase 150 (73-393) U/L TSH 4.040 (0.300-4.500) uIu/ml COVID-19 Eval Order SARS-CoV-2 (PCR) (Negative) 07/18/20 07/18/20 Range/Units 22:32 22:32 WBC (4.8-10.8) K/uL RBC (4.2-5.4) M/uL Hgb (12.0-16.0) g/dL Hct (37-47) % MCV (80-100) fL MCH (25-34) pg MCHC (32-36) g/dL RDW Std Deviation (36.4-46.3) fL RDW Coeff of Sumanth (11.5-14.5) % Plt Count (130-400) K/uL MPV (7.4-10.4) fL Immature Gran % (Auto) % Neut % (Auto) % Lymph % (Auto) % [place] % (Auto) % Eos % (Auto) % Baso % (Auto) % Neut # (Auto) (1.4-6.5) K/uL Lymph # (Auto) (1.2-3.4) K/uL [place] # (Auto) (0.11-0.59) K/uL Eos # (Auto) (0-0.5) K/uL Baso # (Auto) (0-0.2) K/uL Immature Gran # (Auto) (0.00-0.02) K/uL PT (9.0-12.0) Seconds INR (0.9-1.1) APTT (21.0-31.0) Seconds PTT Ratio Sodium (136-145) mmol/L Potassium (3.5-5.1) mmol/L Chloride (98-107) mmol/L Carbon Dioxide (21-32) mmol/L Anion Gap (3-11) BUN (7-18) mg/dl Creatinine (0.6-1.2) mg/dl Est Cr Clr Drug Dosing ml/min Est GFR ( Amer) ml/min Est GFR (Non-Af Amer) ml/min BUN/Creatinine Ratio (10-20) Glucose (70-99) mg/dl Calcium (8.5-10.1) mg/dl Magnesium (1.8-2.4) mg/dl Total Bilirubin (0.2-1) mg/dl AST (15-37) U/L ALT (12-78) U/L Alkaline Phosphatase (45-117) U/L Troponin I (0-0.045) ng/ml NT-Pro-B Natriuret Pep (0-1800) pg/ml Total Protein (6.4-8.2) gm/dl Albumin (3.4-5.0) gm/dl Globulin (2.5-4.0) gm/dl Albumin/Globulin Ratio (0.9-2) Lipase (73-393) U/L TSH (0.300-4.500) uIu/ml COVID-19 Eval Order Covid19 at [facility] SARS-CoV-2 (PCR) NEGATIVE (Negative) Administered Medications Discontinued Medications Furosemide (Furosemide 40 Mg/4 Ml Vial) 40 mg IV NOW STA Stop: 07/18/20 21:44 Last Admin: 07/18/20 21:58 Dose: 40 mg Documented by: [id number] Imaging Data Attestation: I personally reviewed and interpreted this imaging study as follows: My Impression: Chest x-ray: There is cardiomegaly. Mild CHF is present. No pneumothorax. Discharge Plan Visit Data Chief Complaint: Cardiac Assessment Stated Complaint: PACE MAKER WENT OFF ED Provider: Pablito Abebe Discharge Problem: Defibrillator discharge, Cardiomyopathy, SOB (shortness of breath), CHF (congestive heart failure) Patient Disposition: Admitted As Inpatient Condition: Fair Forms Stand Alone Forms: My [facility] Prescriptions Prescriptions: No Action carvedilol 25 mg tablet 25 mg PO BID Qty: 180 RF: 3 losartan 25 mg tablet 25 mg PO QPM Qty: 90 RF: 3 furosemide 40 mg tablet 40 mg PO Q OTHER DAY PRN (Reason: Weight Gain) Qty: 45 RF: 3 aspirin 81 mg Tablet,Chewable 81 mg PO DAILY RF: 0 atorvastatin 10 mg Tablet 5 mg PO HS RF: 0 levothyroxine 100 mcg Tablet 100 mcg PO QAM RF: 0 cholecalciferol (vitamin D3) 1,000 unit Tablet 1,000 unit PO DAILY RF: 0 Referrals Referrals: Yamilet Soto MD [Primary Care Provider] - Discharge Problem: Cardiomyopathy Qualifiers: Cardiomyopathy type: unspecified Qualified Code(s): I42.9 - Cardiomyopathy, unspecified CHF (congestive heart failure) Qualifiers: Heart failure type: systolic Heart failure chronicity: acute on chronic Qualified Code(s): I50.23 - Acute on chronic systolic (congestive) heart failure
[2020-07-18 21:32] LABS: Albumin Globulin Ratio 1.4 (0.9-2); Bilirubin,Total 0.7 mg/dl (0.2-1); Globulin 2.8 gm/dl (2.5-4.0); Thyroid Stimulating Hormone 4.04 uIu/ml (0.300-4.500); Total Protein 6.8 gm/dl (6.4-8.2); Troponin I 0.07 ng/ml (0-0.045)
[2020-07-18] MEDS ORDERED: FUROSEMIDE 40 MG/4 ML VIAL IV STA (21:43)
--- NOTE | 2020-07-18 22:12 | History & Physical Report ---
Date of Service July 18, 2020 Assessment & Plan (1) Acute exacerbation of congestive heart failure: 80 yo F with hx HFrEF (20-25), cardiomyopathy s/p ICD placement, HLD, HTN, who presents to the ED for CHF exacerbation and ICD firing. CHF Exacerbation - elevated proBNP to 6744, no prior level for comparison - lungs without crackles or rhonchi on exam - recent 2-3 pound weight gain without taking lasix today as directed - 40 IV lasix in ED. takes 40 PO every other day at home. - monitor I/O, daily weights - CXR showing some right sided pulm edema without focal infiltrate Defibrillator activation - dysrythmia possibly secondary to acute hypoxia/fluid overload? - Dynadmic analysis states Vtach/Fib was identified rhythm (selected strips to do not appear to have these shockable rhythms?) - cardiology consult for medication change guidance Elevated troponin - likely secondary to heart pressure from CHF exacerbation - will continue to trend Chronic Conditions HFrEF: cont carvedilol, losartan HLD: cont statin Hypothyroidim: cont levothyroxine PRNs -- miralax, zofran, tylenol, simethicone, nitroglycerin, mag-ox, melatonin DVT ppx: daily ASA FEN/GI; low salt, heart healthy Code status: full code Dispo: PCU (2) Elevated troponin: (3) HFrEF (heart failure with reduced ejection fraction): (4) Cardiomyopathy: (5) CAD (coronary artery disease): (6) History of bladder surgery: (7) History of hysterectomy: (8) Presence of combination internal cardiac defibrillator (ICD) and pacemaker: (9) Dyslipidemia: (10) Hypothyroidism: (11) HTN (hypertension): History of Present Illness 80 yo F with hx HFrEF (20-25%), placement of ICD/Defibrillator, CAD, HLD, HTN, Hypothyroidism who presents to ER with complaint of SOB and Defibrillator firing. She states that she normally takes lasix PO every other day or when she feels short of breath or gains weight for a few days. She states that she has had somewhat worsening shortness of breath recently, and feels more tuckered out when she walks to the bathroom. She denies having recently take her lasix despite having gained 2-3 pounds at home and feeling more short of breath. Earlier today she was sitting on the bench on her porch, started feeling short of breath and like her "head felt funny" and then suddenly felt her defibrillator shock her. This occurred around 6:30 pm on 07/18/20. She has never had a shock before. She denies any other symptoms. Primary Care Provider: Yamilet Soto MD Allergies Allergy/AdvReac Type Severity Reaction Status Date / Time No Known Allergies Allergy Verified 07/18/20 20:55 Home Medications Medication Instructions Recorded Confirmed Type aspirin 81 mg PO DAILY 06/24/18 07/18/20 History atorvastatin 5 mg PO HS 06/24/18 07/18/20 History cholecalciferol (vitamin D3) 1,000 unit PO DAILY 06/24/18 07/18/20 History levothyroxine 100 mcg PO QAM 06/24/18 07/18/20 History carvedilol 25 mg tablet 25 mg PO BID #180 tab 08/09/19 07/18/20 Rx losartan 25 mg tablet 25 mg PO QPM #90 tab 08/09/19 07/18/20 Rx furosemide 40 mg tablet 40 mg PO Q OTHER DAY PRN #45 tab 08/10/19 07/18/20 Rx Past Med/Surg History Medical History Dyslipidemia HFrEF (heart failure with reduced ejection fraction) EF 20-25% 06/21 HTN (hypertension) Hypothyroidism Presence of combination internal cardiac defibrillator (ICD) and pacemaker Surgical History History of bladder surgery History of hysterectomy Social History Smoking Status: Never smoker Hx Alcohol Use: No Hx Substance Use: No Preferred Language: Hong Konger Communication Ability: Effective Asset Protection Associate Required: No Beliefs That Will Affect Care: None Current Living Situation: Spouse Current Living Situation Comment: House, one story, laundry in the basement Other Information That Helps Us Care for You: No Feels Safe at Home: Yes Safety Concerns: Feels Safe At This Time Assistive Devices: Denture - Upper, Denture - Lower and Glasses Review of Systems Constitutional: + weight gain; no fever, no chills, no sweats and no fatigue Eyes: no blind spots and no discharge Ear, Nose, Mouth, Throat: no hearing loss and no nasal congestion Respiratory: + dyspnea and + dyspnea on exertion; no cough Cardiovascular: no chest pain, no dyspnea on exertion and no edema Gastrointestinal: no abdominal pain, no nausea, no vomiting, no constipation, no diarrhea/loose stools and no blood in stools Genitourinary: no dysuria Musculoskeletal: no joint pain and no myalgia Neurologic: + dizziness and + headache(s); no gait abnormality, no falls, no tingling and no numbness Endocrine: no fatigue Physical Exam Physical Exam: Constitutional: thin elderly female, sitting comfortably in bed. Eyes: EOMI, pupils equal and reactive bilaterally, no scleral icterus Cardiac: RRR, no murmurs, gallops or rubs. Normal S1, S2, ICD/defibrillator present on L mid chest Pulm: CTA BL, no wheezes, rhonchi, crackles or rubs, moving air well throughout both lungs Abd: soft, nontender, nondistended, normal bowel sounds, no rebound or guarding Extremities: 2+ peripheral pulses, no edema Neuro: no focal deficits, moving all 4 limbs, A&Ox3 Results & Data Results & Data ([facility]) Vital Signs (Past 12 Hours) Vital Signs Temp Pulse Resp BP Pulse Ox 07/18/20 22:00 86 28 H 165/109 H 95 07/18/20 21:58 86 31 H 155/102 H 94 07/18/20 21:30 76 26 H 137/87 96 07/18/20 21:00 80 28 H 116/85 98 07/18/20 20:30 74 26 H 136/91 96 07/18/20 20:00 74 24 136/85 97 07/18/20 19:41 74 18 126/84 96 07/18/20 19:37 74 31 H 137/86 97 07/18/20 19:15 36.2 C L 86 16 143/91 H 97 Laboratory Results WBC 6.08 K/uL (4.8-10.8) 07/18/20 19:36 RBC 4.15 M/uL (4.2-5.4) L 07/18/20 19:36 Hgb 13.4 g/dL (12.0-16.0) 07/18/20 19:36 Hct 38.9 % (37-47) 07/18/20 19:36 MCV 93.7 fL (80-100) 07/18/20 19:36 MCH 32.3 pg (25-34) 07/18/20 19:36 MCHC 34.4 g/dL (32-36) 07/18/20 19:36 RDW Std Deviation 50.6 fL (36.4-46.3) H 07/18/20 19:36 RDW Coeff of Sumanth 14.6 % (11.5-14.5) H 07/18/20 19:36 Plt Count 154 K/uL (130-400) 07/18/20 19:36 MPV 11.0 fL (7.4-10.4) H 07/18/20 19:36 Immature Gran % (Auto) 0.0 % 07/18/20 19:36 Neut % (Auto) 70.1 % 07/18/20 19:36 Lymph % (Auto) 17.4 % 07/18/20 19:36 Owen % (Auto) 9.7 % 07/18/20 19:36 Eos % (Auto) 2.3 % 07/18/20 19:36 Baso % (Auto) 0.5 % 07/18/20 19:36 Neut # (Auto) 4.26 K/uL (1.4-6.5) 07/18/20 19:36 Lymph # (Auto) 1.06 K/uL (1.2-3.4) L 07/18/20 19:36 Owen # (Auto) 0.59 K/uL (0.11-0.59) 07/18/20 19:36 Eos # (Auto) 0.14 K/uL (0-0.5) 07/18/20 19:36 Baso # (Auto) 0.03 K/uL (0-0.2) 07/18/20 19:36 Immature Gran # (Auto) 0.00 K/uL (0.00-0.02) 07/18/20 19:36 PT 11.0 Seconds (9.0-12.0) 07/18/20 19:36 INR 1.1 (0.9-1.1) 07/18/20 19:36 APTT 25.6 Seconds (21.0-31.0) 07/18/20 19:36 PTT Ratio 1.0 07/18/20 19:36 Sodium 139 mmol/L (136-145) 07/18/20 19:36 Potassium 4.5 mmol/L (3.5-5.1) 07/18/20 19:36 Chloride 107 mmol/L (98-107) 07/18/20 19:36 Carbon Dioxide 26 mmol/L (21-32) 07/18/20 19:36 Anion Gap 6.0 (3-11) 07/18/20 19:36 BUN 24 mg/dl (7-18) H 07/18/20 19:36 Creatinine 1.05 mg/dl (0.6-1.2) 07/18/20 19:36 Est Cr Clr Drug Dosing 36.6 ml/min 07/18/20 19:36 Est GFR ( Amer) 57.3 ml/min 07/18/20 19:36 Est GFR (Non-Af Amer) 49.4 ml/min 07/18/20 19:36 BUN/Creatinine Ratio 23.0 (10-20) H 07/18/20 19:36 Glucose 101 mg/dl (70-99) H 07/18/20 19:36 Calcium 9.5 mg/dl (8.5-10.1) 07/18/20 19:36 Magnesium 2.4 mg/dl (1.8-2.4) 07/18/20 19:36 Total Bilirubin 0.7 mg/dl (0.2-1) 07/18/20 19:36 AST 71 U/L (15-37) H 07/18/20 19:36 ALT 60 U/L (12-78) 07/18/20 19:36 Alkaline Phosphatase 93 U/L (45-117) 07/18/20 19:36 Troponin I 0.070 ng/ml (0-0.045) H* 07/18/20 19:36 NT-Pro-B Natriuret Pep 6744 pg/ml (0-1800) H 07/18/20 19:36 Total Protein 6.8 gm/dl (6.4-8.2) 07/18/20 19:36 Albumin 4.0 gm/dl (3.4-5.0) 07/18/20 19:36 Globulin 2.8 gm/dl (2.5-4.0) 07/18/20 19:36 Albumin/Globulin Ratio 1.4 (0.9-2) 07/18/20 19:36 Lipase 150 U/L (73-393) 07/18/20 19:36 TSH 4.040 uIu/ml (0.300-4.500) 07/18/20 19:36 COVID-19 Eval Order Covid19 at [facility] 07/18/20 22:32 SARS-CoV-2 (PCR) NEGATIVE (Negative) 07/18/20 22:32 Supervising Physician Co-Signing Physician Notes Patient seen and examined, chart reviewed, case discussed with Dr. Johnson and I agree with her assessment and plan as documented above. Briefly, patient is an 80yo female with history of idiopathic cardiomyopathy, EF of 20-25% per echo 06/2020 s/p dual chamber ICD placement presenting with ICD discharge. Patient states that she was in her usual state of health this evening - then her heal felt "fuzzy" and lightheaded and her AICD fired. She denies CP, palpitations. No previous AICD discharges. She does admit to 2-3# weight gain as well as MONTIEL/dyspnea over the last several days. On exam she is afebrile, HD stable, NAD, resting comfortbly in bed HEENT- NC/AT, PERRL, MMM, Neck supple, No JVD Heart - +S1/S2, regular, no m/r/g, AICD left anterior chest wall Lungs - +bibasilar crackles Abd - +BS, soft, NT/ND Ext - No edema, 2+ pulses Labs and images reviewed - elevated BNP of 6744 with unknown baseline, troponin mildly elevated at 0.07 Assessment/plan - 80yo female with cardiomyopathy, EF of 20-25%, ICD in place presenting with ICD firing. Interrogation comments on VT/VF with one shock delivered. ?CHF exacerbation as underlying cause of arrhythmia -Monitor on telemetry -Continue Carvedilol -Maintain electrolytes -Lasix 40mg IV given - monitor response, redose if needed -Cardiology consultation appreciated -Remainder of plan as above Resident Activity Tracking Resident Involvement: Resident Care Provided Care Provided: Adult [facility] Medicine
[2020-07-19] MEDS ORDERED: NITROGLYCERIN SL 0.4 MG/TAB TAB SL PRN (01:25)
[2020-07-19] MEDS ORDERED: MAGNESIUM HYDROXIDE SUSP 30 ML UDC PO PRN (01:25)
[2020-07-19] MEDS ORDERED: POLYETHYLENE (MIRALAX) 17 GM PACK PO PRN (01:25)
[2020-07-19] MEDS ORDERED: ONDANSETRON INJ 2 MG/ML 2 ML VIAL IV PRN (01:25)
[2020-07-19] MEDS ORDERED: ACETAMINOPHEN 325 MG TAB PO PRN (01:25)
[2020-07-19] MEDS ORDERED: ALUMINUM/MAGNESIUM SUSP 30 ML UDC PO PRN (01:25)
[2020-07-19] MEDS ORDERED: MELATONIN 3 MG TAB PO PRN (02:05)
--- NOTE | 2020-07-19 05:18 | Billing Data ---
Date of Service July 18, 2020 Coding Level of Care Code 25344 OBS Care - Level 3
[2020-07-19] MEDS ORDERED: LEVOTHYROXINE SODIUM 100 MCG TABLET PO SCH (06:30)
--- NOTE | 2020-07-19 07:08 | XRay Report ---
XR chest 1V portable CLINICAL HISTORY: Chest Pain COMPARISON STUDY: April 29, 2015 FINDINGS: No pneumothorax. No pleural effusion. Diffuse reticular opacities are again seen at bilateral lungs, appear worsening mostly in bilateral b asis and associated with mild airspace component at the right lower lungs. Cardiomediastinal silhouette remains moderately enlarged. Aorta is calcified. Pulmonary vasculature is indistinct.. Osseous structures: unremarkable, vertebral bodies are poorly seen. Interval placement of left-sided dual lead AICD with battery pack partially obscuring left lung paren chyma. IMPRESSION: 1. CHF pattern. Pulmonary edema. No pleural effusion. Short-term follow-up with PA and lateral chest radiograph is suggested. 2. Interval placement of left-sided pacemaker. ACT 112: Negative or not required by law. The above report was generated using voice recognition software. It may contain grammatical, syntax o r spelling errors. Electronically signed by: Dolores Rene DO 07/19/2020 9:49 AM
[2020-07-19] MEDS ORDERED: carvediloL 25 MG TAB PO SCH (09:00)
[2020-07-19] MEDS ORDERED: ASPIRIN 81 MG ECTAB PO SCH (09:00)
[2020-07-19] MEDS ORDERED: CHOLECALCIFEROL 1,000 UNITS 25 MCG TAB PO SCH (09:00)
[2020-07-19] MEDS ORDERED: AMIODARONE 200 MG TAB PO SCH (09:45)
--- NOTE | 2020-07-19 12:47 | Electrocardiogram Report ---
Test Reason : Blood Pressure : / mmHG Vent. Rate : 081 BPM Atrial Rate : 081 BPM P-R Int : 172 ms QRS Dur : 126 ms QT Int : 398 ms P-R-T Axes : 061 -53 108 degrees QTc Int : 462 ms Normal sinus rhythm Possible Left atrial enlargement Left axis deviation Non-specific intra-ventricular conduction block T wave abnormality, consider lateral ischemia Abnormal ECG When compared with ECG of 02-MAY-2015 15:06, Nonspecific T wave abnormality no longer evident in Inferior leads T wave amplitude has increased in Anterior leads T wave inversion now evident in Lateral leads Confirmed by Sukh Barreto ([id number]) on 07/19/2020 12:47:00 PM Referred By: REFERRED SELF Confirmed By:Víctor Barreto
--- NOTE | 2020-07-19 15:46 | Discharge Summary ---
Date of Service July 19, 2020 Admission HPI Per Admitting Provider 80 yo F with hx HFrEF (20-25%), placement of ICD/Defibrillator, CAD, HLD, HTN, Hypothyroidism who presents to ER with complaint of SOB and Defibrillator firing. She states that she normally takes lasix PO every other day or when she feels short of breath or gains weight for a few days. She states that she has had somewhat worsening shortness of breath recently, and feels more tuckered out when she walks to the bathroom. She denies having recently take her lasix despite having gained 2-3 pounds at home and feeling more short of breath. Earlier today she was sitting on the bench on her porch, started feeling short o f breath and like her "head felt funny" and then suddenly felt her defibrillator shock her. This occurred around 6:30 pm on 07/18/20. She has never had a shock before. She denies any other symptoms. Admission Exam Per Admitting Provider Constitutional: thin elderly female, sitting comfortably in bed. Eyes: EOMI, pupils equal and reactive bilaterally, no scleral icterus Cardiac: RRR, no murmurs, gallops or rubs. Normal S1, S2, ICD/defibrillator present on L mid chest Pulm: CTA BL, no wheezes, rhonchi, crackles or rubs, moving air well throughout both lungs Abd: soft, nontender, nondistended, normal bowel sounds, no rebound or guarding Extremities: 2+ peripheral pulses, no edema Neuro: no focal deficits, moving all 4 limbs, A&Ox3 Principal Diagnosis defibrillator firing Discharge Exam Constitutional WD/WN, vitals as above Eyes PERRL, conjunctivae normal, anicteric sclerae Respiratory normal respiratory effort, lungs clear to auscultation Auscultation: no crackles, no rales, no rhonchi and no wheezes Cardiovascular Rate/Rhythm: regular rate and regular rhythm Heart Sounds: no gallop, no murmur and no cardiac rub Vessels: normal peripheral pulses; no JVD Extremities: no edema Skin no rashes, warm and dry Psychiatric Orientation: alert and oriented x 3 Discharge Data Allergies Allergy/AdvReac Type Severity Reaction Status Date / Time No Known Allergies Allergy Verified 07/18/20 20:55 Consultations 07/18/20 21:58 ED Decision to Admit Stat 07/19/20 01:25 Consult Cardiology Routine Hospital Course (1) Acute exacerbation of congestive heart failure: Juanita Kamara is a 80 y/o female with history of Heart Failure with reduced Ejection Fraction (20-25%), cardiomyopathy s/p ICD placement, HLD, HTN, who presents to the ED for ICD firing. Defibrillator activation: - [employer] analysis states Vtach/Fib was identified rhythm with one firing and return to paced rhythm - cardiology consulted recommended initiation of Amiodarone 200mg BID for likely minimum Congestive Heart Failure: - elevated proBNP to 6744 on admission - CXR showing some right sided pulm edema without focal infiltrate - no focal findings on examination - 40 IV lasix in ED. takes 40 PO every other day at home. - monitor I/O, daily weights Chronic Conditions HFrEF: cont carvedilol, losartan HLD: cont statin Hypothyroidim: cont levothyroxine (2) Elevated troponin: (3) HFrEF (heart failure with reduced ejection fraction): (4) Cardiomyopathy: (5) CAD (coronary artery disease): (6) History of bladder surgery: (7) History of hysterectomy: (8) Presence of combination internal cardiac defibrillator (ICD) and pacemaker: (9) Dyslipidemia: (10) Hypothyroidism: (11) HTN (hypertension): Total Time Total Time Spent Total Time Spent (In Minutes): >30 Discharge Plan Discharge Items Patient Disposition: Home - Self-Care Reason For Visit: DEFIBRILLATOR FIRED, CHF Discharge Diagnosis: ventricular tachycardia Condition on Discharge: Fair Activity: Per Instructions section Non-emergency contact: Primary Care Provider and Lye Machine Operator Call non-emergency contact if: you have any medication questions and your symptoms worsen Follow-up/Referrals: Yamilet Soto MD [Primary Care Provider] - Diet: Heart Healthy Addtl Attending Provider Instructions: You were seen and admitted following your defibrillator firing. On review of your electrical activity on your pacemaker, your heart rate was very high which caused the firing. We discussed this with the male impersonator for concerns of need for a new medication to keep your heart rate better controlled and preventing this abnormal rhythm. For this you have been started on Amiodarone that you should continue to take over the next several months at minimum. During this time you should have follow-up with Dr. Alvarado and the cardiology group to continue to monitor the electrical activity of your heart. Pending Studies at Discharge: No Stand-Alone Forms: My [facility] [employer], Smoking Cessation Medications and DC Order Prescriptions: New amiodarone 200 mg Tablet 200 mg PO BIDM 30 Days Qty: 60 RF: 0 Continued carvedilol 25 mg tablet 25 mg PO BID Qty: 180 RF: 3 losartan 25 mg tablet 25 mg PO QPM Qty: 90 RF: 3 furosemide 40 mg tablet 40 mg PO Q OTHER DAY PRN (Reason: Weight Gain) Qty: 45 RF: 3 aspirin 81 mg Tablet,Chewable 81 mg PO DAILY RF: 0 atorvastatin 10 mg Tablet 5 mg PO HS RF: 0 levothyroxine 100 mcg Tablet 100 mcg PO QAM RF: 0 cholecalciferol (vitamin D3) 1,000 unit Tablet 1,000 unit PO DAILY RF: 0 Discharge Orders: Discharge Order (Routine); Ordered 07/19/20 Ordered By: Ernst Alexandre Admission Data Admit Date/Time: 07/18/20 22:44 Attending Provider: Donato Farley Admit Provider: Nisreen Johnson Primary Care Provider: Yamilet Soto Other Providers: Tere Don ; Félix Turcios Other Interventions: Discharge Summary Assessment (RN) Last Done: 07/19/20 16:19 Supervising Physician Co-Signing Physician Notes Patient seen and examined with PGY-2 Dr. Alexandre. Agree with history, exam find ings, assessment and plan of care as outlined. In brief, Ms. Kamara is an 80 year old female with history of cardiomyopathy with ICD admitted after ICD fired. She is feeling well. No complaints. Denies dyspnea. Well appearing. Heart with regular rate. No murmur or rub. Lungs are clear to auscultation. 1. HFrEF. in exacerbation. Pulmonary edema on chest x-ray. sp IV lasix. 2. ICD firing. Due to rate above 188/min. Started amio. Appreciate cardiology recommendations. Follow up with cardiolgy as an outpatient in 2-3 weeks. 3. elevated troponin. Likely demand. Dispo: discharge home. I personally spent 35 minutes discharge planning for this patient. Resident Activity Tracking Resident Involvement: Resident Care Provided Care Provided: Adult [facility] Medicine
--- NOTE | 2020-07-19 16:55 | Cardiology Consultation ---
Date of Consultation July 19, 2020 Assessment & Plan (1) Defibrillator discharge: -appropriate, successful defibrillation. -device parameters reviewed with Dr. Barreto. -no changes necessary to the device. -suggest starting amiodarone 200 mg b.i.d. for total of 6 months. (2) Elevated troponin: -minor elevation likely secondary to the defibrillator discharge. -no need for further cardiac evaluation. (3) Cardiomyopathy: -ejection fraction has been stable at 20 to 25%. -nonischemic, idiopathic etiology. (4) HFrEF (heart failure with reduced ejection fraction): -continue carvedilol and losartan. -the patient follows daily weights and sliding-scale diuretics at home. (5) CAD (coronary artery disease): -minor disease at time of catheterization in August 2004. History of Present Illness Attending Physician: Donato Farley DO History of Present Illness Mrs. Kamara is an 80-year-old female admitted yesterday after a defibrillator discharge. This consultation was ordered to assist in her cardiac management. Of note, the patient is well known to me from the outpatient setting. The patient was in her usual state of health until yesterday. She explains that she was quite vigorous working in her garden. She also avoided at dose of Lasix earlier in the day despite a 3 lb weight gain. While seated on a bench in her garden, she began to feel woozy and then received a defibrillator discharge. This occurred at approximately 6:30 p.m.. The patient then proceeded to the emergency room for further care. On arrival here, her device was interrogated. She was found to have an episode of ventricular fibrillation which was successfully defibrillated. Hospitalization was recommended. This represents the 1st defibrillation the patient has received since her device was placed back in May 2015. The patient does carry a history of nonobstructive coronary disease. A 20% LAD stenosis was found at the time a cardiac catheterization in August 2004. The patient has had a longstanding history of an idiopathic, nonischemic cardiomyopathy. An echocardiogram performed last month noted a dilated left ventricle with severe global hypokinesis and an ejection fraction of 20-25%. The patient has been managing her volume status well as an outpatient. Her dry weight is 156 lb with a trigger weight of 159 lb. She typically takes Lasix 40 mg as needed for weight gain. However, she is extremely cautious as she was once told that Lasix can injure her kidneys. Her medications reviewed in detail. Past medical and surgical history 1. Nonobstructive coronary artery disease-see above 2. Idiopathic, nonischemic cardiomyopathy-see above 3. Chronic systolic CHF 4. Dual chamber ICD-May 2015 5. Hypertension 6. Hypercholesterolemia 7. Hypothyroidism 8. Hysterectomy 9. History of bladder surgery Social history and lives with her No tobacco alcohol. Family history Noncontributory Review of systems A 10 point review systems was undertaken and negative except that described above. Allergies Allergy/AdvReac Type Severity Reaction Status Date / Time No Known Allergies Allergy Verified 07/18/20 20:55 Home Medications Medication Instructions Recorded Confirmed Type aspirin 81 mg PO DAILY 06/24/18 07/18/20 History atorvastatin 5 mg PO HS 06/24/18 07/18/20 History cholecalciferol (vitamin D3) 1,000 unit PO DAILY 06/24/18 07/18/20 History levothyroxine 100 mcg PO QAM 06/24/18 07/18/20 History carvedilol 25 mg tablet 25 mg PO BID #180 tab 08/09/19 07/18/20 Rx losartan 25 mg tablet 25 mg PO QPM #90 tab 08/09/19 07/18/20 Rx furosemide 40 mg tablet 40 mg PO Q OTHER DAY PRN #45 tab 08/10/19 07/18/20 Rx amiodarone 200 mg PO BIDM 30 Days #60 tab 07/19/20 Rx Patient History Medical History Dyslipidemia HFrEF (heart failure with reduced ejection fraction) EF 20-25% 06/21 HTN (hypertension) Hypothyroidism Presence of combination internal cardiac defibrillator (ICD) and pacemaker Surgical History History of bladder surgery History of hysterectomy Social History Smoking Status: Never smoker Hx Alcohol Use: No Hx Substance Use: No Preferred Language: Slovenian Communication Ability: Effective Vendor Analyst Required: No Beliefs That Will Affect Care: None Current Living Situation: Spouse Current Living Situation Comment: House, one story, laundry in the basement Other Information That Helps Us Care for You: No Feels Safe at Home: Yes Safety Concerns: Feels Safe At This Time Assistive Devices: Denture - Upper, Denture - Lower and Glasses Physical Exam Physical Exam: In general is well-developed well-nourished white female no acute distress. HEENT exam is negative. Neck is supple with full carotid upstrokes. No carotid bruits. Jugular is pressure is flat at 90. There is no thyromegaly. Cardiovascular exam reveals a regular rhythm with distant heart sounds. No obvious murmurs. No S3. Lungs are clear without rales, rhonchi or wheezes. Abdomen is soft nontender without bruits. Chest reveals a palpable device in the left subclavicular region. Extremities reveal intact radial artery pulses bilaterally. There is no peripheral edema. Results & Data ([facility]) Vital Signs (Past 12 Hours) Vital Signs Temp Pulse Resp BP Pulse Ox 07/19/20 16:19 36.8 C 89 18 125/65 95 07/19/20 15:00 36.8 C 89 18 125/65 95 07/19/20 11:00 36.5 C 63 17 111/62 95 07/19/20 07:12 36.7 C 60 17 116/63 95 Laboratory Results CBC notes hemoglobin 13.4, hematocrit 38.9, white count 6.08, and platelet count of [id number]. Electrolytes note a sodium of 139, potassium 4.5, chloride 107, bicarb 26, BUN 24, creatinine 1.05, glucose of 101. Initial troponin was 0.07 with a follow-up value of 0.215. BNP was elevated 6744. TSH is 4.04. Diagnostic Findings EKG notes normal sinus rhythm with left axis deviation and nonspecific interventricular conduction delay. Chest x-ray notes significant cardiomegaly and mild congestive changes. PG Care Time/CCT Total # of Minutes Spent Total Time Spent with Patient: Total time spent is greater than 50% in coordination of care (as documented) at patient's floor/unit and/or counseling patient: Coding Level of Care Code 41462 OBS Care - Level 3 Diagnoses Defibrillator discharge Z45.02 Elevated troponin R77.8 Cardiomyopathy I42.9 Cardiomyopathy type: unspecified HFrEF (heart failure with reduced ejection fraction) I50.20 CAD (coronary artery disease) I25.10 (1) Cardiomyopathy Cardiomyopathy type: unspecified Qualified Code(s): I42.9 - Cardiomyopathy, unspecified
[2020-07-19] MEDS ORDERED: ATORVASTATIN 10 MG TAB PO SCH (21:00)
[2020-07-19] MEDS ORDERED: LOSARTAN POTASSIUM 25 MG TAB PO SCH (21:00)
== END 2020-07-19 16:45 | disposition home or self-care (01) ==
LOC: 2E 19:06 → ED 19:06 → SUATTDRO 22:44 → 2E 07-19 02:45

== ENCOUNTER 2020-09-22 16:08 | Observation (INO) ==
[2020-09-22 18:24] LABS: Basophils # (auto) 0.01 K/uL (0-0.2); Basophils % (auto) 0.1 %; Eosinophils # (auto) 0.11 K/uL (0-0.5); Eosinophils % (auto) 1.4 %; Hematocrit (blood only) 41.2 % (37-47); Hemoglobin 13.3 g/dL (12.0-16.0); Immature Granulocytes # (auto) 0.01 K/uL (0.00-0.02); Immature Granulocytes % (auto) 0.1 %; Lymphocytes # (auto) 0.78 K/uL (1.2-3.4); Lymphocytes % (auto) 10.2 %; Mean Corpuscular Hemoglobin 30.5 pg (25-34); Mean Corpuscular Hgb Conc 32.3 g/dL (32-36); Mean Corpuscular Volume 94.5 fL (80-100); Mean Platelet Volume 10.4 fL (7.4-10.4); Monocytes # (auto) 0.48 K/uL (0.11-0.59); Monocytes % (auto) 6.3 %; Neutrophils # (auto) 6.22 K/uL (1.4-6.5); Neutrophils % (auto) 81.9 %; Platelet Count 197 K/uL (130-400); RDW Coefficient of Variation 15.3 % (11.5-14.5); RDW Standard Deviation 52.7 fL (36.4-46.3); Red Blood Count 4.36 M/uL (4.2-5.4); White Blood Count 7.61 K/uL (4.8-10.8)
[2020-09-22 18:27] LABS: Base Excess VBG 3.1 mEq/L; HCO3 VBG 28 mmol/L; PCO2 VBG 43 mmHg (38-50); PO2 VBG 32 mmHg; pH VBG 7.43 (7.36-7.41)
[2020-09-22 18:28] LABS: Oxygen Saturation VBG < 60.0 %
[2020-09-22 18:33] LABS: INR 1.1 (0.9-1.1); Partial Thromboplastin Time 25.3 Seconds (21.0-31.0); Prothrombin Time 11.5 Seconds (9.0-12.0)
[2020-09-22 18:39] LABS: BUN Creatinine Ratio 15.2 (10-20); Blood Urea Nitrogen 22 mg/dl (7-18); Calcium 8.9 mg/dl (8.5-10.1); Carbon Dioxide 27 mmol/L (21-32); Chloride 106 mmol/L (98-107); Creatinine Clr Calc Pharmacy 27.1 ml/min; Est GFR (African American) 38.1 ml/min; Est GFR (Non-African American) 32.9 ml/min; Glucose 106 mg/dl (70-99); Lipase 108 U/L (73-393); Magnesium 2.5 mg/dl (1.8-2.4); Potassium 4.5 mmol/L (3.5-5.1); Sodium 139 mmol/L (136-145)
[2020-09-22 19:01] LABS: NT Pro B Type Natriuretic Pept 8532 pg/ml (0-1800); Troponin I < 0.015 ng/ml (0-0.045)
--- NOTE | 2020-09-22 20:15 | Ultrasound Report ---
US venous doppler LE LT CLINICAL HISTORY: ro dvt COMPARISON STUDY: June 24, 2018. FINDINGS: Real-time and color flow Doppler imaging were performed. Flow was seen within the femoral, popliteal and calf veins with no intraluminal thrombus demonstrated. The saphenous vein is patent. IMPRESSION: No evidence of deep venous thrombosis. ACT 112: Negative or not required by law. The above report was generated using voice recognition software. It may contain grammatical, syntax o r spelling errors. Electronically signed by: Dolores Rene DO 09/22/2020 8:14 PM
[2020-09-22] MEDS ORDERED: FUROSEMIDE 40 MG/4 ML VIAL IV STA (20:44)
--- NOTE | 2020-09-22 21:03 | XRay Report ---
XR chest 1V portable CLINICAL HISTORY: Chest Pain COMPARISON STUDY: Chest radiograph July 18, 2020. FINDINGS: A left subclavian pacer/AICD is in place. Cardiomegaly is unchanged. There is mild pulmonar y edema. No pneumothorax or pleural effusion is noted. Minimal bibasilar opacities are present. IMPRESSION: 1. Mild interstitial pulmonary edema. Cardiomegaly. 2. Minimal bibasilar opacities. ACT 112: Negative or not required by law. Electronically signed by: Elias Heard M.D. 09/22/2020 9:01 PM
--- NOTE | 2020-09-22 21:06 | History & Physical Report ---
Date of Service September 22, 2020 Assessment & Plan (1) Cardiomyopathy: Plan: Juanita is an 80-year-old female with a notable past medical history of HFrEF (last ejection fraction = _%), coronary artery disease, hypothyroidism, hypertension, hyperlipidemia who presented to [facility] for evaluation of shortness of breath, subsequently found to have features of volume overload - likely secondary to acute HFrEF. Shortness of Breath * Suspect secondary to acute HFrEF * Not requiring supplemental oxygen upon arrival. ABG stable, just mildly alkalotic. * CXR revealing pulmonary vascular congestion, mild pulmonary edema, no obvious infiltrates c/f infection * Wells = 0 - low suspicion for PE * Patient on amiodarone, do not believe that her current set of symptoms is secondary to toxicities/interstitial pneumonitis based on lack of other symptoms and x-ray. * ECG without any acute repolarization or conduction abnormalities, troponin < 0.015 on arrival Acute HFrEF -- HFrEF s/p AICD placement * Last TTE, 06/27, demonstrating: dilated LV with significantly decreased function and hypokinesis - EF 20-25% * Per review of notes -- dry weight 156 lb, trigger weight 159; typically takes Lasix 20mg PO p.r.n. for weight gain * Weight on arrival here at ~160lb -- just above trigger weight * s/p Lasix 40mg IV x 1 in the ED * Schedule additional Lasix 40mg IV x 1 in the AM * Monitor I+O * Daily weight * Advised dietary modifications - suspect acute exacerbation could be due to high-salt in diet * Continue Coreg Acute Kidney Injury * On arrival, found to have BUN 22, Cr 1.47 (baseline ~20s/1.0) * Suspect secondary to ongoing diuretic use, intravascular depletion * Promote PO intake * Avoid nephrotoxins * Hold Losartan * BMP in AM History of Defibrillator Discharge * Occurred prior to last hospitalization in July * Continue with amiodarone 200mg PO b.i.d. until January (6 month course) * Follows with [facility] Card[facility] as outpatient Hypothyroidism * Continue home levothyroxine CAD (non-obstructive) * HF management as above * Continue atorvastatin Dispo: [facility] w/ Tele Diet: HH, low sodium PPX: SCDs Code: FULL CODE (2) SOB (shortness of breath): (3) CHF (congestive heart failure): (4) Elevated troponin: (5) Acute exacerbation of congestive heart failure: (6) HFrEF (heart failure with reduced ejection fraction): (7) CAD (coronary artery disease): (8) History of bladder surgery: (9) Hypothyroidism: (10) HTN (hypertension): (11) Dyslipidemia: History of Present Illness Primary Care Provider: Yamilet Soto MD Juanita is an 80-year-old female with a notable past medical history of HFrEF (last ejection fraction in 06/2020 = 20-25%), coronary artery disease, hypothyroidism, hypertension, hyperlipidemia who presented to [facility] for evaluation of shortness of breath. Of note, patient was also recently seen and discharged from our hospital on 07/19/20 the following a defibrillator discharge; she was started on amiodarone 200 mg twice daily following this. Patient reports that she was in her normal health up until a few days ago. Around that time, she does report that she began getting progressively more shortness of breath with any sort of exertion, most notably going up the stairs. She says also over the last 2 days or so, she has been having trouble sleepingshe does say she has had to prop herself up, and has had paroxysmal nocturnal dyspnea ( endorses this, and says she has some shallow breathing throughout the process 2). She denies any chest pain or palpitations throughout all this. Normally, she says that her dry weight is close to 154 to 156 pounds. She weighed herself this morning, noticed it was closer to 161 pounds. She has been taking 40 of Lasix daily, which is increased from her prior every other day regimen. She denies any other symptoms during this timeno fevers, chills, night sweats, no cough, no nausea, vomiting, diarrhea. I did spend significant time reviewing her diet, she does endorse occasionally eating soup, cured meats like ham, potatoes. No major changes recently. Socially, she was at home with her . She denies any tobacco, alcohol, or recreational drug use. In the ED, patient was found to be hemodynamically stable and oxygenating appropriately on room air. No tachypnea. Labs were significant for a mild CHRIS, normal blood counts, increased weight (approximately 160 pounds), mildly elevated BNP, normal troponin. Chest x-ray demonstrated mild interstitial pulmonary edema with cardiomegaly. Venous Dopplers were also performed of the lower extremities, which did not reveal any evidence of DVT. She was given Lasix 40 mg IV X1. Allergies Allergy/AdvReac Type Severity Reaction Status Date / Time No Known Allergies Allergy Verified 09/22/20 21:02 Home Medications Medication Instructions Recorded Confirmed Type atorvastatin 10 mg tablet (Lipitor) 5 mg PO HS 06/24/18 09/22/20 History cholecalciferol (vitamin D3) 25 1,000 unit PO BID 06/24/18 09/22/20 History mcg (1,000 unit) tablet (Vitamin D3) levothyroxine 100 mcg tablet 100 mcg PO QAM 06/24/18 09/22/20 History (Synthroid) carvedilol 25 mg tablet 25 mg PO BID #180 tab 08/09/19 09/22/20 Rx amiodarone 200 mg tablet (Pacerone) 200 mg PO BIDM 09/22/20 09/22/20 History aspirin 81 mg tablet,delayed 81 mg PO QDL 09/22/20 09/22/20 History release (Aspirin Low Dose) losartan 25 mg tablet (Cozaar) 25 mg PO HS 09/22/20 09/22/20 History furosemide 40 mg tablet (Lasix) 40 mg PO QAM #0 tab 09/23/20 09/22/20 Rx Past Med/Surg History Medical History Dyslipidemia HFrEF (heart failure with reduced ejection fraction) EF 20-25% 06/21 HTN (hypertension) Hypothyroidism Presence of combination internal cardiac defibrillator (ICD) and pacemaker Surgical History History of bladder surgery History of hysterectomy Social History Smoking Status: Never smoker Hx Alcohol Use: No Hx Substance Use: No Preferred Language: Croatian Communication Ability: Effective Science Technicians Required: No Beliefs That Will Affect Care: None Current Living Situation: Spouse Feels Safe at Home: Yes Assistive Devices: Glasses Review of Systems Review of Systems: Constitutional: Denies fever, chills, malaise Eyes: Denies double vision, vision change, eye pain ENT: Denies ear pain, sore throat, sinus pain Cardiovascular: Denies Chest pain, chest pressure, palpitations Respiratory: Per HPI Gastrointestinal: Denies abdominal pain, nausea, vomiting, constipation, diarrhea Genitourinary: Denies urinary symptoms including dysuria Musculoskeletal: Denies weakness, muscle aches/pain, joint aches/pain Integumentary:Denies rash, lesions, bruising Neurological: Denies headache, numbness, tingling, focal weakness Physical Exam Physical Exam: General: Well-appearing 80-year-old female who is lying back in her hospital bed, relaxed, upon my arrival. She is freely conversive and alert and oriented throughout her discussion. No acute distress. HEENT: NCAT. Eyes - Sclera are white, anicteric, and without injection. PERRL. EOMs display full ROM bilaterally. Mouth - MMM with no tonsillar edema or exudates. Jugular venous pulse was visible approximately 1 to 2 fingerbreadths above the right clavicle at 30 degrees. Cardiac: Normal rate and regular rhythm; S1 and S2 present with no murmurs, rubs, or gallops. Pulmonary: Good respiratory effort with symmetric expansion of the chest. No use of accessory muscles. Auscultation of the lungs did reveal faint crackles at the base of the left lung, as well as soft, but intermittent wheezes heard throughout the upper lobes of both the right and left lungs. Abdominal: Normoactive bowel sounds. Abdomen was soft, nondistended, and non- tender to palpation. Extremities: Upper and lower extremities are warm and well perfused. Radial and dorsalis pedis pulses were 2+ b/l. Capillary refill assessed in UE was < 3 sec. Psych: Well-developed, well-nourished, appropriately dressed for occasion. Behavior is cooperative and appropriate. Affect is WNL. Insight is appropriate. Results & Data Results & Data ([facility]) Vital Signs (Past 12 Hours) Vital Signs Temp Pulse Pulse Resp BP BP Pulse Ox 09/22/20 19:53 61 124/89 97 09/22/20 18:49 60 20 125/84 96 09/22/20 16:15 36.5 C 79 18 119/78 96 Supervising Physician Co-Signing Physician Notes Patient seen and examined, chart reviewed, case discussed with Dr. Ashraf and I agree with his assessment and plan as above. In brief, Juanita Kamara is an 80yo female with history of CHF (EF of 20-25% per echo in June), CAD, Hypothyroidism, HTN presenting with volume overload - SOB and MONTIEL. CXR with pulmonary vascular congestion. NO distress On exam she is afebrile, HD stable, NAD Skin warm, dry and intact HEENT - NC/AT, PERRL, MMM, mild JVD Heart - +S1/S2, regular, no m/r/g Lungs - Bibasilar crackles, no rhonchi/wheezes Abd - +BS, soft, NT/ND Ext - Warm, well perfused, no clubbing/cyanosis/edema Labs and images reviewed. Mildly elevated Cr of 1.47 from baseline of 1 Assessment/Plan -Suspect mild exacerbation of CHF. Lasix given. Will monitor overnignt response, I/Os and daily weights -Encourage dietary compliance -Hold nephrotoxic agents. Monitor BUN/Cr and electrolytes -Remainder of plan as above Resident Activity Tracking Resident Involvement: Resident Care Provided Care Provided: Adult Hospital Medicine (1) CHF (congestive heart failure) Heart failure chronicity: acute on chronic Heart failure type: systolic Qualified Code(s): I50.23 - Acute on chronic systolic (congestive) heart failure (2) Cardiomyopathy Cardiomyopathy type: unspecified Qualified Code(s): I42.9 - Cardiomyopathy, unspecified
[2020-09-22] MEDS ORDERED: POLYETHYLENE (MIRALAX) 17 GM PACK PO PRN (23:23)
[2020-09-22] MEDS ORDERED: ONDANSETRON INJ 2 MG/ML 2 ML VIAL IV PRN (23:23)
[2020-09-22] MEDS ORDERED: ACETAMINOPHEN 325 MG TAB PO PRN (23:23)
--- NOTE | 2020-09-23 00:04 | Emergency Department Note ---
History of Present Illness General Chief Complaint: Shortness of Breath/Dyspnea Stated Complaint: CAN'T SLEEP, SOB Time Seen by Provider: 09/22/20 17:48 History of Present Illness Provider Complaint: shortness of breath Onset (ago): day(s) (3) Severity: moderate Consistency/Duration: + progressively worsening Relieved By: + upright position Exacerbated By: + lying flat; not by new medication, not by coughing or not by deep breaths Context: no recent illness, no choking/aspiration, no recent travel, no trauma/injury or no CO exposure Known history of: congestive heart failure Associated symptoms: + orthopnea and + lower extremity pain (LLE); no chest pain, no pain with inspiration, no fever, no wheezing, no sputum production, no hemoptysis, no diaphoresis, no nausea/vomiting, no abdominal pain, no rash, no dizziness or no lightheadedness Home Medications Medication Instructions Recorded Confirmed Type atorvastatin 10 mg tablet (Lipitor) 5 mg PO HS 06/24/18 09/22/20 History cholecalciferol (vitamin D3) 25 1,000 unit PO BID 06/24/18 09/22/20 History mcg (1,000 unit) tablet (Vitamin D3) levothyroxine 100 mcg tablet 100 mcg PO QAM 06/24/18 09/22/20 History (Synthroid) carvedilol 25 mg tablet 25 mg PO BID #180 tab 08/09/19 09/22/20 Rx amiodarone 200 mg tablet (Pacerone) 200 mg PO BIDM 09/22/20 09/22/20 History aspirin 81 mg tablet,delayed 81 mg PO QDL 09/22/20 09/22/20 History release (Aspirin Low Dose) furosemide 40 mg tablet (Lasix) 40 mg PO Q OTHER DAY PRN 09/22/20 09/22/20 History losartan 25 mg tablet (Cozaar) 25 mg PO HS 09/22/20 09/22/20 History Allergies Allergy/AdvReac Type Severity Reaction Status Date / Time No Known Allergies Allergy Verified 09/22/20 21:02 Past Med/Surg History Medical History Dyslipidemia HFrEF (heart failure with reduced ejection fraction) EF 20-25% 06/21 HTN (hypertension) Hypothyroidism Presence of combination internal cardiac defibrillator (ICD) and pacemaker Surgical History History of bladder surgery History of hysterectomy Social History Smoking Status: Never smoker Hx Alcohol Use: No Hx Substance Use: No Preferred Language: Burkinan Communication Ability: Effective Senior Technical Analyst Required: No Beliefs That Will Affect Care: None Current Living Situation: Spouse Feels Safe at Home: Yes Assistive Devices: None Review of Systems A total of 10 systems reviewed and were otherwise negative Physical Exam Vital Signs: Vital Signs - 24 hr 09/22/20 16:15 09/22/20 18:49 09/22/20 19:53 Temperature 36.5 C Temperature Source Temporal Artery Sc an Pulse Rate 79 Pulse Rate [Apical ] 60 61 Pulse Rhythm Regular Respiratory Rate 18 20 Respiratory Effort / Characteristics Non-Labored Sponta neous Respiratory Depth Normal Respiratory Patter n Regular Blood Pressure 119/78 Blood Pressure [Le ft Arm] 125/84 124/89 Blood Pressure Narcisa n 91 Blood Pressure Narcisa n [Left Arm] 97 100 Pulse Oximetry 96 96 97 Oxygen Delivery Me thod Room Air Room Air Room Air Oxygen Flow Rate Sepsis Recent Feve r Within 48 Hours No Sepsis New/Unexpla ined Change in Men omar Status No Sepsis Action Take n by Nursing No Action Required 09/22/20 21:20 09/22/20 21:46 Temperature Temperature Source Pulse Rate Pulse Rate [Apical ] 63 Pulse Rhythm Respiratory Rate Respiratory Effort / Characteristics Respiratory Depth Respiratory Patter n Blood Pressure Blood Pressure [Le ft Arm] 132/97 Blood Pressure Narcisa n Blood Pressure Narcisa n [Left Arm] 108 Pulse Oximetry 96 Oxygen Delivery Me thod Room Air Room Air Oxygen Flow Rate 96 Sepsis Recent Feve r Within 48 Hours Sepsis New/Unexpla ined Change in Men omar Status Sepsis Action Take n by Nursing Physical Exam: Physical Exam GENERAL: She is oriented to person, place, and time. She appears well-developed and well-nourished. She does not appear distressed. HENT: Exam performed. -Head: Normocephalic and atraumatic. -Right Ear: External ear normal. No mastoid tenderness. -Left Ear: External ear normal. No mastoid tenderness. -Mouth/Throat: The oropharynx is clear and moist. No trismus in the jaw. No dental abscesses or uvula swelling. No oropharyngeal exudate or tonsillar abscesses. EYES: Conjunctivae and EOM are normal. Pupils are equal, round, and reactive to light. Right eye exhibits no discharge. Left eye exhibits no discharge. No scleral icterus. NECK: Normal range of motion. Neck supple. No JVD present. No spinous process tenderness present. No carotid bruit present. No rigidity. No tracheal deviation and normal range of motion present. No Brudzinski's sign and no Kernig's sign noted. CV: Normal rate, regular rhythm, normal heart sounds and intact distal pulses. There is no peripheral edema. Palpable radial pulses bue. PULM/CHEST: Inspiratory rales at the bases. -Chest Wall: She exhibits no tenderness. ABD: The abdomen is soft. Bowel sounds are normal. She has no distension. No mass is present. There is no tenderness. There is no rebound, no guarding, no Hou's sign and no tenderness at McBurney's point. Rovsig negative MUSC/SKEL: Normal range of motion. There is no peripheral edema, tenderness or deformity. LYMPH: No cervical adenopathy. NEURO: She is alert and oriented to person, place, and time. She has normal strength. No cranial nerve deficit or sensory deficit. Coordination and gait normal. GCS eye subscore is 4. GCS verbal subscore is 5. GCS motor subscore is 6. Cerebellar tests wnl. SKIN: Skin is warm and dry. She is not diaphoretic. PSYCH: She has a normal mood and affect. Behavior is normal. Judgment and thought content normal. Course Course 174: The patient was evaluated in room C6. A complete history and physical exam was performed Cardiac monitoring: An order was placed for continuous cardiac monitoring. The monitor shows a rate of 60 with paced rhythm 2044: Vital signs stable. Labs show an elevated proBNP of 8532. Troponin negative. Imaging shows cardiomegaly with cephalization. Ultrasound negative for DVT. Patient given Lasix 40 mg IV push [facility]. Administered Medications Discontinued Medications Furosemide (Furosemide 40 Mg/4 Ml Vial) 40 mg IV NOW STA Stop: 09/22/20 20:45 Last Admin: 09/22/20 21:02 Dose: 40 mg Documented by: [id number] Medical Decision Making Laboratory Data Result diagrams: 09/22/20 18:11 09/22/20 18:11 Lab Results 09/22/20 09/22/20 09/22/20 Range/Units 18:11 18:11 18:11 WBC 7.61 (4.8-10.8) K/uL RBC 4.36 (4.2-5.4) M/uL Hgb 13.3 (12.0-16.0) g/dL Hct 41.2 (37-47) % MCV 94.5 (80-100) fL MCH 30.5 (25-34) pg MCHC 32.3 (32-36) g/dL RDW Std Deviation 52.7 H (36.4-46.3) fL RDW Coeff of Sumanth 15.3 H (11.5-14.5) % Plt Count 197 (130-400) K/uL MPV 10.4 (7.4-10.4) fL Immature Gran % (Auto) 0.1 % Neut % (Auto) 81.9 % Lymph % (Auto) 10.2 % [place] % (Auto) 6.3 % Eos % (Auto) 1.4 % Baso % (Auto) 0.1 % Neut # (Auto) 6.22 (1.4-6.5) K/uL Lymph # (Auto) 0.78 L (1.2-3.4) K/uL [place] # (Auto) 0.48 (0.11-0.59) K/uL Eos # (Auto) 0.11 (0-0.5) K/uL Baso # (Auto) 0.01 (0-0.2) K/uL Immature Gran # (Auto) 0.01 (0.00-0.02) K/uL PT 11.5 (9.0-12.0) Seconds INR 1.1 (0.9-1.1) APTT 25.3 (21.0-31.0) Seconds PTT Ratio 1.0 VBG pH 7.43 H (7.36-7.41) VBG pCO2 43 (38-50) mmHg VBG pO2 32 mmHg VBG HCO3 28 mmol/L VBG O2 Saturation < 60.0 % VBG Base Excess 3.1 mEq/L Barometric Pressure 735.1 mm/Hg Sodium (136-145) mmol/L Potassium (3.5-5.1) mmol/L Chloride (98-107) mmol/L Carbon Dioxide (21-32) mmol/L Anion Gap (3-11) BUN (7-18) mg/dl Creatinine (0.6-1.2) mg/dl Est Cr Clr Drug Dosing ml/min Est GFR ( Amer) ml/min Est GFR (Non-Af Amer) ml/min BUN/Creatinine Ratio (10-20) Glucose (70-99) mg/dl Calcium (8.5-10.1) mg/dl Magnesium (1.8-2.4) mg/dl Troponin I (0-0.045) ng/ml NT-Pro-B Natriuret Pep (0-1800) pg/ml Lipase (73-393) U/L COVID-19 Eval Order SARS-CoV-2 (PCR) (Negative) 09/22/20 09/22/20 09/22/20 Range/Units 18:11 19:50 19:50 WBC (4.8-10.8) K/uL RBC (4.2-5.4) M/uL Hgb (12.0-16.0) g/dL Hct (37-47) % MCV (80-100) fL MCH (25-34) pg MCHC (32-36) g/dL RDW Std Deviation (36.4-46.3) fL RDW Coeff of Sumanth (11.5-14.5) % Plt Count (130-400) K/uL MPV (7.4-10.4) fL Immature Gran % (Auto) % Neut % (Auto) % Lymph % (Auto) % [place] % (Auto) % Eos % (Auto) % Baso % (Auto) % Neut # (Auto) (1.4-6.5) K/uL Lymph # (Auto) (1.2-3.4) K/uL [place] # (Auto) (0.11-0.59) K/uL Eos # (Auto) (0-0.5) K/uL Baso # (Auto) (0-0.2) K/uL Immature Gran # (Auto) (0.00-0.02) K/uL PT (9.0-12.0) Seconds INR (0.9-1.1) APTT (21.0-31.0) Seconds PTT Ratio VBG pH (7.36-7.41) VBG pCO2 (38-50) mmHg VBG pO2 mmHg VBG HCO3 mmol/L VBG O2 Saturation % VBG Base Excess mEq/L Barometric Pressure mm/Hg Sodium 139 (136-145) mmol/L Potassium 4.5 (3.5-5.1) mmol/L Chloride 106 (98-107) mmol/L Carbon Dioxide 27 (21-32) mmol/L Anion Gap 6.0 (3-11) BUN 22 H (7-18) mg/dl Creatinine 1.47 H (0.6-1.2) mg/dl Est Cr Clr Drug Dosing 27.1 ml/min Est GFR ( Amer) 38.1 ml/min Est GFR (Non-Af Amer) 32.9 ml/min BUN/Creatinine Ratio 15.2 (10-20) Glucose 106 H (70-99) mg/dl Calcium 8.9 (8.5-10.1) mg/dl Magnesium 2.5 H (1.8-2.4) mg/dl Troponin I < 0.015 (0-0.045) ng/ml NT-Pro-B Natriuret Pep 8532 H (0-1800) pg/ml Lipase 108 (73-393) U/L COVID-19 Eval Order Covid19 at [facility] SARS-CoV-2 (PCR) NEGATIVE (Negative) Imaging Data Radiologist's Impression: Chest X-Ray 09/22/20 17:56 XR chest 1V portable CLINICAL HISTORY: Chest Pain COMPARISON STUDY: Chest radiograph July 18, 2020. FINDINGS: A left subclavian pacer/AICD is in place. Cardiomegaly is unchanged. There is mild pulmonary edema. No pneumothorax or pleural effusion is noted. Minimal bibasilar opacities are present. IMPRESSION: 1. Mild interstitial pulmonary edema. Cardiomegaly. 2. Minimal bibasilar opacities. ACT 112: Negative or not required by law. Electronically signed by: Elias Heard M.D. 09/22/2020 9:01 PM Venous Doppler Study 09/22/20 17:56 US venous doppler LE CLINICAL HISTORY: ro dvt COMPARISON STUDY: June 24, 2018. FINDINGS: Real-time and color flow Doppler imaging were performed. Flow was seen within the femoral, popliteal and calf veins with no intraluminal thrombus dem onstrated. The saphenous vein is patent. IMPRESSION: No evidence of deep venous thrombosis. ACT 112: Negative or not required by law. The above report was generated using voice recognition software. It may contain grammatical, syntax or spelling errors. Electronically signed by: Dolores Rene DO 09/22/2020 8:14 PM ECG Data Interpretation: Paced rhythm with a rate of 61. UT 236 QRS [address] elevation or ST depression. [facility] Narrative 1748: The patient was evaluated in room C6. A complete history and physical exam was performed Cardiac monitoring: An order was placed for continuous cardiac monitoring. The monitor shows a rate of 60 with paced rhythm 2044: Vital signs stable. Labs show an elevated proBNP of 8532. Troponin nega tive. Imaging shows cardiomegaly with cephalization. Ultrasound negative for DVT. Patient given Lasix 40 mg IV push [facility]. Impression & Plan CHF (congestive heart failure) Discharge Plan Visit Data Chief Complaint: Shortness of Breath/Dyspnea Stated Complaint: CAN'T SLEEP, SOB ED Provider: Rj Gonzalez Discharge Problem: CHF (congestive heart failure) Patient Disposition: Admitted As Inpatient Discharge Instructions Interventions: ED Discharge Assessment Last Done: 09/22/20 22:46 Discharge Problem: CHF (congestive heart failure) Qualifiers: Heart failure type: unspecified Heart failure chronicity: acute on chronic Qualified Code(s): I50.9 - Heart failure, unspecified
[2020-09-23] MEDS ORDERED: LEVOTHYROXINE SODIUM 100 MCG TABLET PO SCH (06:30)
[2020-09-23] MEDS ORDERED: AMIODARONE 200 MG TAB PO SCH (08:00)
[2020-09-23] MEDS ORDERED: FUROSEMIDE 40 MG in SYRINGE 0 ML IV ONE (08:00)
[2020-09-23] MEDS ORDERED: FUROSEMIDE 40 MG/4 ML VIAL IV ONE (08:00)
[2020-09-23 08:13] LABS: Basophils # (auto) 0.02 K/uL (0-0.2); Basophils % (auto) 0.3 %; Eosinophils % (auto) 1.5 %; Hematocrit (blood only) 38.2 % (37-47); Hemoglobin 12.5 g/dL (12.0-16.0); Immature Granulocytes # (auto) 0.02 K/uL (0.00-0.02); Immature Granulocytes % (auto) 0.3 %; Lymphocytes # (auto) 0.82 K/uL (1.2-3.4); Lymphocytes % (auto) 12.4 %; Mean Corpuscular Hemoglobin 30.2 pg (25-34); Mean Corpuscular Hgb Conc 32.7 g/dL (32-36); Mean Corpuscular Volume 92.3 fL (80-100); Monocytes # (auto) 0.46 K/uL (0.11-0.59); Monocytes % (auto) 6.9 %; Neutrophils % (auto) 78.6 %; Platelet Count 174 K/uL (130-400); RDW Coefficient of Variation 15.3 % (11.5-14.5); RDW Standard Deviation 51.5 fL (36.4-46.3); Red Blood Count 4.14 M/uL (4.2-5.4); White Blood Count 6.62 K/uL (4.8-10.8)
[2020-09-23 08:29] LABS: BUN Creatinine Ratio 17.3 (10-20); Calcium 8.8 mg/dl (8.5-10.1); Creatinine Clr Calc Pharmacy 31.2 ml/min; Est GFR (African American) 46.4 ml/min
[2020-09-23] MEDS ORDERED: CHOLECALCIFEROL 1,000 UNITS 25 MCG TAB PO SCH (09:00)
[2020-09-23] MEDS ORDERED: carvediloL 25 MG TAB PO SCH (09:00)
--- NOTE | 2020-09-23 09:35 | Electrocardiogram Report ---
Test Reason : Blood Pressure : / mmHG Vent. Rate : 061 BPM Atrial Rate : 061 BPM P-R Int : 236 ms QRS Dur : 156 ms QT Int : 472 ms P-R-T Axes : 004 -54 118 degrees QTc Int : 475 ms Atrial-paced rhythm with prolonged AV conduction Left axis deviation Non-specific intra-ventricular conduction delay Abnormal ECG When compared with ECG of 18-JUL-2020 19:27, Electronic atrial pacemaker has replaced Sinus rhythm Confirmed by Cachorro Shine ([id number]) on 09/23/2020 9:34:47 AM Referred By: Yamilet Soto Confirmed By:Cachorro Shine
[2020-09-23] MEDS ORDERED: ASPIRIN 81 MG ECTAB PO SCH (11:30)
[2020-09-23] MEDS ORDERED: ATORVASTATIN 10 MG TAB PO SCH (21:00)
--- NOTE | 2020-09-24 02:04 | Billing Data ---
Date of Service September 22, 2020 Coding Level of Care Code OBSERV/HOSP SAME DATE LVL 2
--- NOTE | 2020-09-26 16:21 | Discharge Summary ---
Date of Service September 23, 2020 Admission HPI Per Admitting Provider Juanita is an 80-year-old female with a notable past medical history of HFrEF (last ejection fraction in 06/2020 = 20-25%), coronary artery disease, hypothyroidism, hypertension, hyperlipidemia who presented to [facility] for evaluation of shortness of breath. Of note, patient was also recently seen and discharged from our hospital on 07/19/20 the following a defibrillator discharge; she was started on amiodarone 200 mg twice daily following this. Patient reports that she was in her normal health up until a few days ago. Around that time, she does report that she began getting progressively more shortness of breath with any sort of exertion, most notably going up the stairs. She says also over the last 2 days or so, she has been having trouble sleepingshe does say she has had to prop herself up, and has had paroxysmal nocturnal dyspnea ( endorses this, and says she has some shallow breathing throughout the process 2). She denies any chest pain or palpitations throughout all this. Normally, she says that her dry weight is close to 154 to 156 pounds. She weighed herself this morning, noticed it was closer to 161 pounds. She has been taking 40 of Lasix daily, which is increased from her prior every other day regimen. She denies any other symptoms during this timeno fevers, chills, night sweats, no cough, no nausea, vomiting, diarrhea. I did spend significant time reviewing her diet, she does endorse occasionally eating soup, cured meats like ham, potatoes. No major changes recently. Socially, she was at home with her . She denies any tobacco, alcohol, or recreational drug use. In the ED, patient was found to be hemodynamically stable and oxygenating appropriately on room air. No tachypnea. Labs were significant for a mild CHRIS, normal blood counts, increased weight (approximately 160 pounds), mildly elevated BNP, normal troponin. Chest x-ray demonstrated mild interstitial pulmonary edema with cardiomegaly. Venous Dopplers were also performed of the lower extremities, which did not reveal any evidence of DVT. She was given Lasix 40 mg IV X1. Admission Exam Per Admitting Provider General: Well-appearing 80-year-old female who is lying back in her hospital bed, relaxed, upon my arrival. She is freely conversive and alert and oriented throughout her discussion. No acute distress. HEENT: NCAT. Eyes - Sclera are white, anicteric, and without injection. PERRL. EOMs display full ROM bilaterally. Mouth - MMM with no tonsillar edema or exudates. Jugular venous pulse was visible approximately 1 to 2 fingerbreadths above the right clavicle at 30 degrees. Cardiac: Normal rate and regular rhythm; S1 and S2 present with no murmurs, rubs, or gallops. Pulmonary: Good respiratory effort with symmetric expansion of the chest. No use of accessory muscles. Auscultation of the lungs did reveal faint crackles at the base of the left lung, as well as soft, but intermittent wheezes heard throughout the upper lobes of both the right and left lungs. Abdominal: Normoactive bowel sounds. Abdomen was soft, nondistended, and non- tender to palpation. Extremities: Upper and lower extremities are warm and well perfused. Radial and dorsalis pedis pulses were 2+ b/l. Capillary refill assessed in UE was < 3 sec. Psych: Well-developed, well-nourished, appropriately dressed for occasion. Behavior is cooperative and appropriate. Affect is WNL. Insight is appropriate. Principal Diagnosis Acute heart failure with reduced ejection fraction Discharge Exam Constitutional WD/WN, vitals as above Eyes + anicteric sclerae; normal pupil size ENMT external ear and nose normal, oropharynx normal Neck trachea midline, no thyromegaly Respiratory normal respiratory effort; no respiratory distress Auscultation: + diminished lung sounds (bibasal); no crackles and no rales Cardiovascular RRR, no murmur, no edema Gastrointestinal (Abdomen) normal bowel sounds, soft, nontender, no hepatosplenomegaly Skin no rashes, warm and dry Discharge Data Allergies Allergy/AdvReac Type Severity Reaction Status Date / Time No Known Allergies Allergy Verified 09/22/20 21:02 Consultations 09/22/20 20:44 ED Decision to Admit Stat 09/23/20 12:18 [facility] CHF Program Referral Routine Ordered Studies 09/22/20 17:56 US venous doppler LE LT Stat Hospital Course (1) Cardiomyopathy: (2) SOB (shortness of breath): (3) CHF (congestive heart failure): (4) Elevated troponin: (5) Acute exacerbation of congestive heart failure: (6) HFrEF (heart failure with reduced ejection fraction): (7) CAD (coronary artery disease): (8) History of bladder surgery: (9) Hypothyroidism: (10) HTN (hypertension): (11) Dyslipidemia: Juanita Kamara is an 80 year old female with known congestive heart failure observed overnight due to shortness of breath. She was diagnosed with acute on chronic congestive heart failure. This was treated with intravenous lasix and she made a rapid recovery to her baseline overnight. She will be transitioned to Lasix 40mg PO daily on discharge. Recommend following up with the [facility] Heart failure clinic, number provided for the patient to call. Total Time Total Time Spent Total Time Spent (In Minutes): 35 Discharge Plan Discharge Items Patient Disposition: Home - Self-Care Reason For Visit: ACUTE HFREF Discharge Diagnosis: Acute congestive heart failure Activity: Resume your previous activity Non-emergency contact: Direct Service Worker Call non-emergency contact if: you have any medication questions and your symptoms worsen Follow-up/Referrals: Yamilet Soto MD [Primary Care Provider] - (No follow up required) Valorie Maya PA-C [Physician Government Documents Librarian] - 10/02/20 10:30 am (Follow up in the next week) Diet: Heart Healthy and Low Sodium (2gm) Addtl Attending Provider Instructions: You were observed overnight due to shortness of breath. You were diagnosed with acute on chronic congestive heart failure. This was treated with intravenous lasix and will be transitioned to Lasix 40mg PO daily on discharge. Please call the number above to make an appointment within the next week for the [facility] heart failure clinic. Continue to weigh yourself daily and bring these results to your clinic appointment. Kind regards, Dr Braden Hernandez Pending Studies at Discharge: No Stand-Alone Forms: My [facility] [employer], Smoking Cessation Medications and DC Order Prescriptions: Continued carvedilol 25 mg tablet 25 mg PO BID Qty: 180 RF: 3 atorvastatin [Lipitor] 10 mg Tablet 5 mg PO HS RF: 0 levothyroxine [Synthroid] 100 mcg Tablet 100 mcg PO QAM RF: 0 cholecalciferol (vitamin D3) [Vitamin D3] 1,000 unit Tablet 1,000 unit PO BID RF: 0 aspirin [Aspirin Low Dose] 81 mg Tablet,Delayed Release (Dr/Ec) 81 mg PO QDL RF: 0 amiodarone [Pacerone] 200 mg tablet 200 mg PO BIDM RF: 0 losartan [Cozaar] 25 mg tablet 25 mg PO HS RF: 0 Changed furosemide [Lasix] 40 mg tablet 40 mg PO QAM Qty: 0 RF: 0 Discharge Orders: Discharge Order (Routine); Ordered 09/23/20 Ordered By: Braden Henao/Other Patient Handouts: Heart Failure Dc Admission Data Admit Date/Time: 09/22/20 21:56 Attending Provider: Braden Hernandez Admit Provider: Jarod Ashraf Primary Care Provider: Yamilet Soto Other Providers: Tere Don ; Valorie Maya Other Interventions: Discharge Summary Assessment (RN) Last Done: 09/23/20 13:10 Coding Level of Care Code 77819 OBS Care - Discharge Diagnoses Cardiomyopathy I42.9 Cardiomyopathy type: unspecified SOB (shortness of breath) R06.02 CHF (congestive heart failure) I50.9 Heart failure chronicity: acute on chronic Heart failure type: unspecified Elevated troponin R77.8 Acute exacerbation of congestive heart failure I50.9 HFrEF (heart failure with reduced ejection fraction) I50.20 CAD (coronary artery disease) I25.10 History of bladder surgery Z98.890 Hypothyroidism E03.9 HTN (hypertension) I10 Dyslipidemia E78.5
== END 2020-09-23 15:06 | disposition home or self-care (01) ==
LOC: 2W 16:08 → ED 16:08 → SUATTDRO 21:56 → 2W 22:46

== ENCOUNTER 2021-01-08 19:52 | Inpatient (IN) ==
--- NOTE | 2021-01-08 20:33 | XRay Report ---
XR chest 1V portable CLINICAL HISTORY: SOB TECHNIQUE: Single frontal radiograph of the chest was obtained. Comparison: Comparison is made to chest one view 09/22/2020 FINDINGS: Dual lead pacemaker defibrillator is noted. Cardiomegaly is noted. Prominence and indistinctness of t he vasculature is seen with curly B lines. Diffuse airspace opacities are seen. No evidence of pleura l effusion or pneumothorax. IMPRESSION: Moderate to severe pulmonary edema with diffuse airspace opacities which may represent atelectasis, p neumonia, and/or aspiration. ACT 112: Negative or not required by law. Electronically signed by: Michael Pena M.D. 01/08/2021 8:32 PM
[2021-01-08] MEDS ORDERED: FUROSEMIDE 40 MG/4 ML VIAL IV ONE (21:56)
--- NOTE | 2021-01-08 22:03 | Emergency Department Note ---
Impression & Plan Pulmonary edema, Respiratory failure with hypoxia, Acute congestive heart failure ED Provider Note Name: SHAWN MENDOZA Age: 80 Sex: F Arrives Via: Walk-In Informant: Patient, Daughter ED Provider: Rakesh Montenegro MD Chief Complaint: shortness of breath Impression: As Per Impressions above Medical Decision Makin yr old female with extensive PMH including known cardiomyopathy with EF 20- 25% on daily lasix. She notes mild runny nose and cough starting last week. Tested for covid which at that time negative. Runny nose improved but shortness of breath worsening. Associated with continued cough and leg swelling. On exam diffuse crackles all lung sounds and she very much appears CHF exacerbation. O2 sats on my evaluation she is 65% on room air and somewhat cyanotic. She was empirically given Lasix 40mg IV. Labs, imaging, ekg obtained. [place] [address] consistent with chf. UOP increasing while here and able to titrate off NRB to NC. Hospitalist consulted for further management. Prior Medical Record and Triage/Nursing Notes reviewed by Me Additional history obtained from chart Differentials:Reactive airway disease, pneumonia, pneumothorax, COPD, CHF, infections, cardiac ischemia, pulmonary embolism, musculoskeletal, gastrointestinal, as well as other pathologies. Vital Signs: reviewed and remarkable for no significant abnormalities Interventions: saline lock, lasix 40mg iv Labs:Reviewed and remarkable for ++BNP Imaging:X ray results are stated below per my interpretation: Chest: 1 view: Pulmonary edema EKG:Per My Interpretation: Indication Shortness of breath: Atrial paced 76 bpm, qtc 510. No Ectopy. No Ischemia. Compared to EKG 09/22/20, no significant changes. Cardiac/Tele Monitoring: Cardiac Monitoring: An Order was placed for continuous cardiac monitoring. The monitor shows a rate of 70 with a paced rhythm. Consults:Dr Irwin ROGERS Hospitalist Plan: Disposition:Hospitalization. Condition: Good History of Present Illness:80 yr old female arrives for evaluation of shortness of breath. Patient with some cough and low grade fevers last week. Covid testing obtained which returned negative yesterday. Patient breathing worsening over the few days. Today feeling very shob and unable to ambulate or even talk without severe weakness. Home O2 monitor was in the low 80s and thus she was given an extra dose of her 40mg Lasix PO. No significant increase in UOP and given worsening hypoxia sent to ED for evaluation. Patient states she feels weak and short of breath. No fevers, chills, syncope, chest pain, back pain, or other symptoms. No falls trauma, injuries. Talking makes worse, rest makes better. History of CHF though this is much more severe than previous. ROS: See above HPI for pertinent positives & negatives. A total of 10 systems reviewed and were otherwise negative. Past Medical History:See Below Past Surgical History:See Below Family History:See Below Social History:See Below Home Medications:See Below Allergies:amoxicillin Vitals:Blood Pressure: 117/75, Pulse 76, RR 18, O2 64% on RA Physical Exam: GENERAL: Patient is ill appearing and in mild distress. Perioral cyanosis EYES: No scleral icterus, unremarkable pupils. ENT: Mucous membranes moist, no nasal congestion. NECK: No masses appreciated, nomeningismus, trachea is midline. RESPIRATORY: Diffuse crackles moderate dyspnea/tachypnea CARDIOVASCULAR: Regular rate and rhythm.No murmurs, rubs, gallops appreciated. GASTROINTESTINAL: Abdomen soft, non-tender, no peritonitis.Bowel sounds positive.No masses appreciated. BACK: No midline tenderness, no CVA tenderness EXTREMITIES: Normal motion all extremities, no cyanosis, no edema. NEUROLOGIC: Alert and oriented, no acute motor or sensory deficits, no focal weakness, cranial nerves grossly intact. SKIN: Pale, no rash, no jaundice, no diaphoresis. PSYCH: Appropriate GCS: 15 ED Course: Times/Reassessments: vastly improved on NRB O2 and sats normalized. Starting to urinate and able to titrate to NC O2 Rakesh Montenegro MD Past Med/Surg History Medical History (Updated 01/08/21 @ 23:43 by Rakesh Montenegro MD) Dyslipidemia HFrEF (heart failure with reduced ejection fraction) EF 20-25% 06/21 HTN (hypertension) Hypothyroidism Presence of combination internal cardiac defibrillator (ICD) and pacemaker Surgical History (Updated 10/02/20 @ 11:27 by Valorie Maya PA-C) History of bladder surgery History of hysterectomy Social History Smoking Status: Never smoker Hx Alcohol Use: No Hx Substance Use: No Preferred Language: Amharic Communication Ability: Effective Senior Data Developer Required: No Beliefs That Will Affect Care: None Current Living Situation: Spouse Feels Safe at Home: Yes Assistive Devices: Glasses Allergies Allergies Allergy/AdvReac Type Severity Reaction Status Date / Time amoxicillin AdvReac Unknown Rash Unverified 01/08/21 22:30 Home Meds Home Medications Medication Instructions Recorded Confirmed atorvastatin 10 mg tablet (Lipitor) 5 mg PO HS 06/24/18 01/08/21 levothyroxine 100 mcg tablet 100 mcg PO QAM 06/24/18 01/08/21 (Synthroid) aspirin 81 mg tablet,delayed 81 mg PO QDL 09/22/20 01/08/21 release (Aspirin Low Dose) cholecalciferol (vitamin D3) 25 1,000 unit PO DAILY tab 10/31/20 01/08/21 mcg (1,000 unit) tablet (Vitamin D3) furosemide 40 mg tablet (Lasix) 40 mg PO DAILY 01/08/21 01/08/21 Previous Rx's Medication Instructions Recorded carvedilol 25 mg tablet 25 mg PO BID #180 tab 10/27/20 amiodarone 200 mg tablet (Pacerone) 200 mg PO DAILY #90 tab 12/01/20 Results & Data (ED) Vital Signs Vital Signs - 24 hr 01/08/21 20:01 01/08/21 22:00 01/08/21 22:05 Pulse Rate 76 Pulse Rate [Right Finger] Pulse Rhythm [Right Finger] Pulse Strength [Right Finger] Respiratory Rate 18 Respiratory Effort / Characteristics Spontaneous Labored Short of Breath SOB on Exertion Respiratory Depth Respiratory Pattern Regular Blood Pressure 117/75 Blood Pressure [Left Arm] Blood Pressure Mean 89 Blood Pressure Mean [Left Arm] Blood Pressure Position Sitting Blood Pressure Position [Left Arm] Pulse Oximetry 96 79 L Oxygen Delivery Method Room Air Room Air Non-rebreather Oxygen Flow Rate 9 Sepsis Recent Fever Within 48 Hours No Sepsis New/Unexplained Change in Mental Status No Sepsis Action Taken by Nursing No Action Required Pulse Oximetry Post Tiitration 99 01/08/21 23:30 Pulse Rate Pulse Rate [Right Finger] 74 Pulse Rhythm [Right Finger] Regular Pulse Strength [Right Finger] Normal Respiratory Rate 26 H Respiratory Effort / Characteristics Non-Labored Spontaneous SOB on Exertion Respiratory Depth Normal Respiratory Pattern Tachypnea Blood Pressure Blood Pressure [Left Arm] 120/69 Blood Pressure Mean Blood Pressure Mean [Left Arm] 86 Blood Pressure Position Blood Pressure Position [Left Arm] Lying Pulse Oximetry 95 Oxygen Delivery Method Nasal Cannula Oxygen Flow Rate 6 Sepsis Recent Fever Within 48 Hours Sepsis New/Unexplained Change in Mental Status Sepsis Action Taken by Nursing Pulse Oximetry Post Tiitration Laboratory Data Result diagrams: 01/08/21 22:08 01/08/21 22:08 Lab Results 01/08/21 01/08/21 01/08/21 Range/Units 22:08 22:08 22:08 WBC 9.41 (4.8-10.8) K/uL RBC 4.71 (4.2-5.4) M/uL Hgb 14.2 (12.0-16.0) g/dL Hct 43.1 (37-47) % MCV 91.5 (80-100) fL MCH 30.1 (25-34) pg MCHC 32.9 (32-36) g/dL RDW Std Deviation 54.3 H (36.4-46.3) fL RDW Coeff of Sumanth 16.1 H (11.5-14.5) % Plt Count 248 (130-400) K/uL MPV 10.7 H (7.4-10.4) fL Immature Gran % (Auto) 0.4 % Neut % (Auto) 85.4 % Lymph % (Auto) 6.9 % [place] % (Auto) 5.8 % Eos % (Auto) 1.3 % Baso % (Auto) 0.2 % Neut # (Auto) 8.03 H (1.4-6.5) K/uL Lymph # (Auto) 0.65 L (1.2-3.4) K/uL [place] # (Auto) 0.55 (0.11-0.59) K/uL Eos # (Auto) 0.12 (0-0.5) K/uL Baso # (Auto) 0.02 (0-0.2) K/uL Immature Gran # (Auto) 0.04 H (0.00-0.02) K/uL PT 11.9 (9.0-12.0) Seconds INR 1.2 H (0.9-1.1) APTT 25.8 (21.0-31.0) Seconds PTT Ratio 1.0 VBG pH (7.36-7.41) VBG pCO2 (38-50) mmHg VBG pO2 mmHg VBG HCO3 mmol/L VBG O2 Saturation % VBG Base Excess mEq/L Sodium 133 L (136-145) mmol/L Potassium 3.8 (3.5-5.1) mmol/L Chloride 98 (98-107) mmol/L Carbon Dioxide 26 (21-32) mmol/L Anion Gap 9.0 (3-11) BUN 28 H (7-18) mg/dl Creatinine 1.60 H (0.6-1.2) mg/dl Est Cr Clr Drug Dosing 24.9 ml/min Est GFR ( Amer) 34.4 ml/min Est GFR (Non-Af Amer) 29.7 ml/min BUN/Creatinine Ratio 17.3 (10-20) Glucose 123 H (70-99) mg/dl Calcium 9.4 (8.5-10.1) mg/dl Magnesium 2.2 (1.8-2.4) mg/dl Total Bilirubin 1.0 (0.2-1) mg/dl AST 39 H (15-37) U/L ALT 34 (12-78) U/L Alkaline Phosphatase 100 (45-117) U/L Troponin I < 0.015 (0-0.045) ng/ml NT-Pro-B Natriuret Pep 92853 H (0-1800) pg/ml Total Protein 8.0 (6.4-8.2) gm/dl Albumin 2.8 L (3.4-5.0) gm/dl Globulin 5.2 H (2.5-4.0) gm/dl Albumin/Globulin Ratio 0.5 L (0.9-2) COVID-19 Eval Order SARS-CoV-2 (PCR) (Negative) 01/08/21 01/08/21 01/08/21 Range/Units 22:08 22:08 22:38 WBC (4.8-10.8) K/uL RBC (4.2-5.4) M/uL Hgb (12.0-16.0) g/dL Hct (37-47) % MCV (80-100) fL MCH (25-34) pg MCHC (32-36) g/dL RDW Std Deviation (36.4-46.3) fL RDW Coeff of Sumanth (11.5-14.5) % Plt Count (130-400) K/uL MPV (7.4-10.4) fL Immature Gran % (Auto) % Neut % (Auto) % Lymph % (Auto) % [place] % (Auto) % Eos % (Auto) % Baso % (Auto) % Neut # (Auto) (1.4-6.5) K/uL Lymph # (Auto) (1.2-3.4) K/uL [place] # (Auto) (0.11-0.59) K/uL Eos # (Auto) (0-0.5) K/uL Baso # (Auto) (0-0.2) K/uL Immature Gran # (Auto) (0.00-0.02) K/uL PT (9.0-12.0) Seconds INR (0.9-1.1) APTT (21.0-31.0) Seconds PTT Ratio VBG pH 7.42 H (7.36-7.41) VBG pCO2 45 (38-50) mmHg VBG pO2 22 mmHg VBG HCO3 29 mmol/L VBG O2 Saturation < 60.0 % VBG Base Excess 3.9 mEq/L Sodium (136-145) mmol/L Potassium (3.5-5.1) mmol/L Chloride (98-107) mmol/L Carbon Dioxide (21-32) mmol/L Anion Gap (3-11) BUN (7-18) mg/dl Creatinine (0.6-1.2) mg/dl Est Cr Clr Drug Dosing ml/min Est GFR ( Amer) ml/min Est GFR (Non-Af Amer) ml/min BUN/Creatinine Ratio (10-20) Glucose (70-99) mg/dl Calcium (8.5-10.1) mg/dl Magnesium (1.8-2.4) mg/dl Total Bilirubin (0.2-1) mg/dl AST (15-37) U/L ALT (12-78) U/L Alkaline Phosphatase (45-117) U/L Troponin I (0-0.045) ng/ml NT-Pro-B Natriuret Pep (0-1800) pg/ml Total Protein (6.4-8.2) gm/dl Albumin (3.4-5.0) gm/dl Globulin (2.5-4.0) gm/dl Albumin/Globulin Ratio (0.9-2) COVID-19 Eval Order Covid19 at [facility] SARS-CoV-2 (PCR) NEGATIVE (Negative) Administered Medications Discontinued Medications Furosemide (Furosemide 40 Mg/4 Ml Vial) 40 mg IV ONE ONE Stop: 01/08/21 21:57 Last Admin: 01/08/21 22:18 Dose: 40 mg Documented by: [id number] Imaging Data Radiologist's Impression: Chest X-Ray 01/08/21 20:04 XR chest 1V portable CLINICAL HISTORY: SOB TECHNIQUE: Single frontal radiograph of the chest was obtained. Comparison: Comparison is made to chest one view 09/22/2020 FINDINGS: Dual lead pacemaker defibrillator is noted. Cardiomegaly is noted. Prominence and indistinctness of the vasculature is seen with curly B lines. Diffuse airspace opacities are seen. No evidence of pleural effusion or pneumothorax. IMPRESSION: Moderate to severe pulmonary edema with diffuse airspace opacities which may represent atelectasis, pneumonia, and/or aspiration. ACT 112: Negative or not required by law. Electronically signed by: Michael Pena M.D. 01/08/2021 8:32 PM Discharge Plan Visit Data Chief Complaint: Shortness of Breath/Dyspnea Stated Complaint: COUGH, SOB, LOW OX (80), HEART HISTORY ED Provider: Rakesh Montenegro Discharge Problem: Pulmonary edema, Respiratory failure with hypoxia, Acute congestive heart failure Forms Stand Alone Forms: [employer] Prescriptions Prescriptions: No Action carvedilol 25 mg tablet 25 mg PO BID Qty: 180 RF: 3 amiodarone [Pacerone] 200 mg tablet 200 mg PO DAILY Qty: 90 RF: 3 atorvastatin [Lipitor] 10 mg Tablet 5 mg PO HS RF: 0 levothyroxine [Synthroid] 100 mcg Tablet 100 mcg PO QAM RF: 0 cholecalciferol (vitamin D3) [Vitamin D3] 25 mcg (1,000 unit) tablet 1,000 unit PO DAILY RF: 0 aspirin [Aspirin Low Dose] 81 mg Tablet,Delayed Release (Dr/Ec) 81 mg PO QDL RF: 0 furosemide [Lasix] 40 mg tablet 40 mg PO DAILY RF: 0 Referrals Referrals: Yamilet Soto MD [Primary Care Provider] - Discharge Problem: Pulmonary edema Qualifiers: Chronicity: acute Qualified Code(s): J81.0 - Acute pulmonary edema Respiratory failure with hypoxia Qualifiers: Chronicity: acute Qualified Code(s): J96.01 - Acute respiratory failure with hypoxia Acute congestive heart failure Qualifiers: Heart failure type: combined systolic and diastolic Qualified Code(s): I50.41 - Acute combined systolic (congestive) and diastolic (congestive) heart failure
[2021-01-08 22:26] LABS: Basophils # (auto) 0.02 K/uL (0-0.2); Basophils % (auto) 0.2 %; Eosinophils # (auto) 0.12 K/uL (0-0.5); Eosinophils % (auto) 1.3 %; Hematocrit (blood only) 43.1 % (37-47); Hemoglobin 14.2 g/dL (12.0-16.0); Immature Granulocytes # (auto) 0.04 K/uL (0.00-0.02); Immature Granulocytes % (auto) 0.4 %; Lymphocytes # (auto) 0.65 K/uL (1.2-3.4); Lymphocytes % (auto) 6.9 %; Mean Corpuscular Hemoglobin 30.1 pg (25-34); Mean Corpuscular Hgb Conc 32.9 g/dL (32-36); Mean Corpuscular Volume 91.5 fL (80-100); Mean Platelet Volume 10.7 fL (7.4-10.4); Monocytes # (auto) 0.55 K/uL (0.11-0.59); Monocytes % (auto) 5.8 %; Neutrophils # (auto) 8.03 K/uL (1.4-6.5); Neutrophils % (auto) 85.4 %; Platelet Count 248 K/uL (130-400); RDW Coefficient of Variation 16.1 % (11.5-14.5); RDW Standard Deviation 54.3 fL (36.4-46.3); Red Blood Count 4.71 M/uL (4.2-5.4); White Blood Count 9.41 K/uL (4.8-10.8)
[2021-01-08 22:43] LABS: Alanine Aminotransferase 34 U/L (12-78); Albumin Level 2.8 gm/dl (3.4-5.0); Aspartate Aminotransferase 39 U/L (15-37); BUN Creatinine Ratio 17.3 (10-20); Blood Urea Nitrogen 28 mg/dl (7-18); Calcium 9.4 mg/dl (8.5-10.1); Carbon Dioxide 26 mmol/L (21-32); Chloride 98 mmol/L (98-107); Creatinine Clr Calc Pharmacy 24.9 ml/min; Est GFR (African American) 34.4 ml/min; Est GFR (Non-African American) 29.7 ml/min; Glucose 123 mg/dl (70-99); Magnesium 2.2 mg/dl (1.8-2.4); Potassium 3.8 mmol/L (3.5-5.1); Sodium 133 mmol/L (136-145)
[2021-01-08 22:48] LABS: Albumin Globulin Ratio 0.5 (0.9-2); Alkaline Phosphatase 100 U/L (45-117); Globulin 5.2 gm/dl (2.5-4.0); NT Pro B Type Natriuretic Pept 11024 pg/ml (0-1800); Troponin I < 0.015 ng/ml (0-0.045)
[2021-01-08 22:50] LABS: Base Excess VBG 3.9 mEq/L; HCO3 VBG 29 mmol/L; PCO2 VBG 45 mmHg (38-50); PO2 VBG 22 mmHg; pH VBG 7.42 (7.36-7.41)
[2021-01-08 22:52] LABS: INR 1.2 (0.9-1.1); Partial Thromboplastin Time 25.8 Seconds (21.0-31.0); Prothrombin Time 11.9 Seconds (9.0-12.0)
[2021-01-08 22:53] LABS: Oxygen Saturation VBG < 60.0 %
--- NOTE | 2021-01-08 23:32 | History & Physical Report ---
Date of Service January 08, 2021 Assessment & Plan (1) Pulmonary edema: Plan: 80 yo F with HFrEF 20-25% s/p ICD and pacer placement, admitted for acute CHF exacerbation. Hypoxia due to Acute CHF exacerbation - lasix 40 mg IV x2 in ER, continue BID - monitor I/O - dry weight ~150-153 lb per patient report/cardiology documentation - last echo 06/2020, no need to repeat at this time - troponin negative - not on oxygen at home - proBNP 11k - CXR showing mod-severe pulm edema - wean oxygen as able, goal O2 >90% - carvedilol held for low blood pressures in ER, continue home amiodarone CKD Zaaga2f/4 - baseline GFR ~30, 29.7 today - monitor fluid balance as above, gentle hydration CAD - cont statin, aspirin Hypothyroidism - cont levothyroxine DVT ppx: ambulate ad citlalli FEN/GI: heart healthy, low sodium Bowel regimen: prn miralax Code Status: DNR/DNI Dispo: Med/tele (2) Respiratory failure with hypoxia: (3) Acute congestive heart failure: (4) HFrEF (heart failure with reduced ejection fraction): (5) Presence of combination internal cardiac defibrillator (ICD) and pacemaker: (6) Hypothyroidism: History of Present Illness Primary Care Provider: Yamilet Soto MD 80 yo F with hx HFrEF EF 20-25%, s/p ICD placement, CAD, HTN, Hypothyroidism who came to the ER for worsening dry cough and shortness of breath. States that a week ago she had a low grade (99F) fever a few days after getting her flu shot, and has been having some nasal drip and myalgias. In the last few days, she's been waking up in the middle of the night SOB, and had to sleep on 2 pillows instead of her usual 1 last night due to difficulty breathing while laying down. She weighs herself daily and denied having any recent weight gain, but does have peripheral swelling. She called Valorie Pink today who instructed her to double her daily 40 mg lasix to 80 mg, and directed her to the ER when that didn't improve her symptoms. She denies any chest pain. SHe is dyspneic with exertion. She denies any chills, nausea, diarrhea. She hasn't had much of an appetite. No dizziness or headaches. No weakness. Allergies Allergy/AdvReac Type Severity Reaction Status Date / Time amoxicillin AdvReac Unknown Rash Unverified 01/08/21 22:30 Home Medications Medication Instructions Recorded Confirmed Type atorvastatin 10 mg tablet (Lipitor) 5 mg PO HS 06/24/18 01/08/21 History levothyroxine 100 mcg tablet 100 mcg PO QAM 06/24/18 01/08/21 History (Synthroid) aspirin 81 mg tablet,delayed 81 mg PO QDL 09/22/20 01/08/21 History release (Aspirin Low Dose) carvedilol 25 mg tablet 25 mg PO BID #180 tab 10/27/20 01/08/21 Rx cholecalciferol (vitamin D3) 25 1,000 unit PO DAILY tab 10/31/20 01/08/21 History mcg (1,000 unit) tablet (Vitamin D3) amiodarone 200 mg tablet (Pacerone) 200 mg PO DAILY #90 tab 12/01/20 01/08/21 Rx furosemide 40 mg tablet (Lasix) 40 mg PO DAILY 01/08/21 01/08/21 History Past Med/Surg History Medical History (Updated 01/09/21 @ 08:47 by Valorie Mcdowell PA-C) Dyslipidemia HFrEF (heart failure with reduced ejection fraction) EF 20-25% 06/21 HTN (hypertension) Hypothyroidism Presence of combination internal cardiac defibrillator (ICD) and pacemaker Surgical History (Updated 10/02/20 @ 11:27 by Valorie Maya PA-C) History of bladder surgery History of hysterectomy Social History Smoking Status: Never smoker Hx Alcohol Use: No Hx Substance Use: No Preferred Language: Turkmen Communication Ability: Effective Electrical & Instrumentation Supervisor Required: No Beliefs That Will Affect Care: None marital status: Current Living Situation: Spouse Other Information That Helps Us Care for You: No Feels Safe at Home: Yes Safety Concerns: Feels Safe At This Time Assistive Devices: None Review of Systems Review of Systems: All systems reviewed & are unremarkable except as noted in Subjective Physical Exam Physical Exam: Constitutional: elderly female, in no apparent distress, sitting comfortably in bed. Eyes: EOMI, pupils equal and reactive bilaterally, no scleral icterus Cardiac: RRR, no murmurs, gallops or rubs. Normal S1, S2, no visible jvd Pulm: mild bibasilar crackles, no extra work of breathing on 6L NC Abd: soft, nontender, nondistended, normal bowel sounds, no rebound or guarding Extremities: 1+ peripheral pulses, 3+ pitting edema to ankles bilaterally Neuro: no focal deficits, moving all 4 limbs, A&Ox3 Results & Data Results & Data ([facility]) Vital Signs (Past 12 Hours) Vital Signs Pulse Resp BP Pulse Ox 01/08/21 22:04 79 L 01/08/21 20:01 76 18 117/75 96 01/08/21 19:54 79 L Laboratory Results Laboratory Results WBC 9.41 K/uL (4.8-10.8) 01/08/21 22:08 RBC 4.71 M/uL (4.2-5.4) 01/08/21 22:08 Hgb 14.2 g/dL (12.0-16.0) 01/08/21 22:08 Hct 43.1 % (37-47) 01/08/21 22:08 MCV 91.5 fL (80-100) 01/08/21 22:08 MCH 30.1 pg (25-34) 01/08/21 22:08 MCHC 32.9 g/dL (32-36) 01/08/21 22:08 RDW Std Deviation 54.3 fL (36.4-46.3) H 01/08/21 22:08 RDW Coeff of Sumanth 16.1 % (11.5-14.5) H 01/08/21 22:08 Plt Count 248 K/uL (130-400) 01/08/21 22:08 MPV 10.7 fL (7.4-10.4) H 01/08/21 22:08 Immature Gran % (Auto) 0.4 % 01/08/21 22:08 Neut % (Auto) 85.4 % 01/08/21 22:08 Lymph % (Auto) 6.9 % 01/08/21 22:08 [place] % (Auto) 5.8 % 01/08/21 22:08 Eos % (Auto) 1.3 % 01/08/21 22:08 Baso % (Auto) 0.2 % 01/08/21 22:08 Neut # (Auto) 8.03 K/uL (1.4-6.5) H 01/08/21 22:08 Lymph # (Auto) 0.65 K/uL (1.2-3.4) L 01/08/21 22:08 [place] # (Auto) 0.55 K/uL (0.11-0.59) 01/08/21 22:08 Eos # (Auto) 0.12 K/uL (0-0.5) 01/08/21 22:08 Baso # (Auto) 0.02 K/uL (0-0.2) 01/08/21 22:08 Immature Gran # (Auto) 0.04 K/uL (0.00-0.02) H 01/08/21 22:08 PT 11.9 Seconds (9.0-12.0) 01/08/21 22:08 INR 1.2 (0.9-1.1) H 01/08/21 22:08 APTT 25.8 Seconds (21.0-31.0) 01/08/21 22:08 PTT Ratio 1.0 01/08/21 22:08 VBG pH 7.42 (7.36-7.41) H 01/08/21 22:38 VBG pCO2 45 mmHg (38-50) 01/08/21 22:38 VBG pO2 22 mmHg 01/08/21 22:38 VBG HCO3 29 mmol/L 01/08/21 22:38 VBG O2 Saturation < 60.0 % 01/08/21 22:38 VBG Base Excess 3.9 mEq/L 01/08/21 22:38 Sodium 133 mmol/L (136-145) L 01/08/21 22:08 Potassium 3.8 mmol/L (3.5-5.1) 01/08/21 22:08 Chloride 98 mmol/L (98-107) 01/08/21 22:08 Carbon Dioxide 26 mmol/L (21-32) 01/08/21 22:08 Anion Gap 9.0 (3-11) 01/08/21 22:08 BUN 28 mg/dl (7-18) H 01/08/21 22:08 Creatinine 1.60 mg/dl (0.6-1.2) H 01/08/21 22:08 Est Cr Clr Drug Dosing 24.9 ml/min 01/08/21 22:08 Est GFR ( Amer) 34.4 ml/min 01/08/21 22:08 Est GFR (Non-Af Amer) 29.7 ml/min 01/08/21 22:08 BUN/Creatinine Ratio 17.3 (10-20) 01/08/21 22:08 Glucose 123 mg/dl (70-99) H 01/08/21 22:08 Calcium 9.4 mg/dl (8.5-10.1) 01/08/21 22:08 Magnesium 2.2 mg/dl (1.8-2.4) 01/08/21 22:08 Total Bilirubin 1.0 mg/dl (0.2-1) 01/08/21 22:08 AST 39 U/L (15-37) H 01/08/21 22:08 ALT 34 U/L (12-78) 01/08/21 22:08 Alkaline Phosphatase 100 U/L (45-117) 01/08/21 22:08 Troponin I < 0.015 ng/ml (0-0.045) 01/08/21 22:08 NT-Pro-B Natriuret Pep 70138 pg/ml (0-1800) H 01/08/21 22:08 Total Protein 8.0 gm/dl (6.4-8.2) 01/08/21 22:08 Albumin 2.8 gm/dl (3.4-5.0) L 01/08/21 22:08 Globulin 5.2 gm/dl (2.5-4.0) H 01/08/21 22:08 Albumin/Globulin Ratio 0.5 (0.9-2) L 01/08/21 22:08 COVID-19 Eval Order Covid19 at [facility] 01/08/21 22:08 SARS-CoV-2 (PCR) NEGATIVE (Negative) 01/08/21 22:08 Impressions Chest X-Ray 01/08/21 20:04 XR chest 1V portable CLINICAL HISTORY: SOB TECHNIQUE: Single frontal radiograph of the chest was obtained. Comparison: Comparison is made to chest one view 09/22/2020 FINDINGS: Dual lead pacemaker defibrillator is noted. Cardiomegaly is noted. Prominence and indistinctness of the vasculature is seen with curly B lines. Diffuse airspace opacities are seen. No evidence of pleural effusion or pneumothorax. IMPRESSION: Moderate to severe pulmonary edema with diffuse airspace opacities which may represent atelectasis, pneumonia, and/or aspiration. ACT 112: Negative or not required by law. Electronically signed by: Michael Pena M.D. 01/08/2021 8:32 PM Supervising Physician Co-Signing Physician Notes Attending addendum: I have physically seen this patient, have supervised the medical residents activities, and agree with the H&P unless as otherwise noted. Assessment and Plan: Pulmonary edema/CHF exacerbation/acute on chronic respiratory failure with hypoxia/CAD/hypertension/HFrEF The patient will be admitted to telemetry for serial cardiac enzymes, serial EKG's, cardiac rhythm monitoring and a 2-D echocardiogram with Dopplers. Lasix 40 mg IV given in ED Continue Lasix 40 mg IV twice daily If does not respond to IV Lasix, with history of EF 20 to 25%, may require dobutamine infusion Continue amiodarone, resume carvedilol as blood pressure allows Follow serial CBC with differential, chemistry profile and magnesium levels CKD stage IIIb/IV- Serial laboratories as noted, following closely with addition of IV Lasix. If creatinine worsening, may be argument to place on IV dobutamine Remaining orders and notations as noted Resident Activity Tracking Resident Involvement: Resident Care Provided Care Provided: Adult Hospital Medicine (1) Respiratory failure with hypoxia Chronicity: acute Qualified Code(s): J96.01 - Acute respiratory failure with hypoxia (2) Acute congestive heart failure Heart failure type: combined systolic and diastolic Qualified Code(s): I50.41 - Acute combined systolic (congestive) and diastolic (congestive) heart failure (3) Pulmonary edema Chronicity: acute Qualified Code(s): J81.0 - Acute pulmonary edema
[2021-01-09] MEDS ORDERED: ACETAMINOPHEN 325 MG TAB PO PRN (04:45)
[2021-01-09] MEDS ORDERED: MAGNESIUM HYDROXIDE SUSP 30 ML UDC PO PRN (04:45)
[2021-01-09] MEDS ORDERED: NITROGLYCERIN SL 0.4 MG/TAB TAB SL PRN (04:45)
[2021-01-09] MEDS ORDERED: ONDANSETRON INJ 2 MG/ML 2 ML VIAL IV PRN (04:45)
[2021-01-09] MEDS: LEVOTHYROXINE SODIUM 100 MCG TABLET PO SCH (05:44)
[2021-01-09] MEDS: AMIODARONE 200 MG TAB PO SCH (08:33)
[2021-01-09] MEDS: FUROSEMIDE 40 MG/4 ML VIAL IV SCH ×2 (08:33→21:09)
--- NOTE | 2021-01-09 08:47 | Hospitalist Progress Note ---
Date of Service January 09, 2021 Assessment & Plan (1) CHF exacerbation: Plan: - patient presented with ~10 day h/o increasing SOB, subjective F/C, URI symptoms which progressed into worsening SOB, increased edema,dry cough, 2-3 pillow orthopnea and PND. Son recently ill - patient with known CHF and severe LVD (has ICD, on BB and lasix daily)-- follows CHF clinic - covid is negative - CXR showing severe pulm edema with elevated BNP of 11,024 - troponin negative - although there is definitely a component of uncompensated CHF, I am suspicious that patient could possibly have a concurrent PNA as well - obtain CT of the chest to help differentiate - continue lasix 40mg IV Q12 hour - monitor I&O's/daily weights closely. Goal fluid balance= -1L/24 hours - fluid/sodium restrict - consider trial of Zaroxolyn if necessary - continue supplemental O2 to maintain pulse ox >/=92% - add topical nitropaste for preload reduction (reviewed echo and no evidence of that would pose contraindication). BP may not tolerate-- will watch closely - continue BB for afterload reduction (currently on Coreg 25mg BID-- may need to adjust this dose pending BP tolerability to allow for added diuresis) - patient currently not on ACEI/ARB given reported h/o hypotension with this in the past. Would also not tolerate Entresto (although would be great med given poor EF) - Echo done 06/2020: EF 20-25% with severe global hypokinesia. no sig. change from 2019. No need to update this at this time - consult Valorie Maya PA-C (CHF clinic)-- appreciate recommendations (2) Respiratory failure with hypoxia: Plan: - presented with pulse ox 76% on RA. - VBG without hypocapnia - pulse ox currently stable on supplemental O2-- see above (3) CHRIS (acute kidney injury): Plan: - may have a component of cardio-renal syndrome given uncompensated CHF - either way: a degree of renal dysfunction necessary to keep her CHF compensated at this time - presenting Cr. 1.6 (baseline ~1.2-1.4) - monitor closely and renally adjust meds when necessary (4) Cardiomyopathy: Plan: - severe LVF (EF 20-25%) - ICD in place - on BB - no JEAN-PAUL/ARB given issues with hypotension in past - likely not candidate for Entresto given issues with BP from ARB in past - patient noted to be on Amiodarone. With review of old records, this was d/t defibrillator discharge August 2020. Has since has interrogation (showing no dysrhythmia). Is to be on this x6 months (Jan) (5) CAD (coronary artery disease): Plan: - continue ASA, Lipitor, BB - no evidence of ACS (6) Hypothyroidism: Plan: - continue Synthroid (7) HTN (hypertension): Plan: - continue BB and monitor closely (for hypotension-- see above) Admission and Anticipated Discharge Date Admission Date: January 09, 2021 Subjective Patient seen on daily rounds today. Hospitalized yesterday with acute on compensated CHF. Patient with severe LV dysfunction (last EF 20 to 25%). Takes Lasix 40 mg daily. Establish with the CHF clinic and notified to increase Lasix to 80 mg over the past 48 hours. Despite this, no change in symptoms which prompted her evaluation into the ED. Patient was found to be hypoxic at 79% on room air but was otherwise hemodynamically stable. BNP was 11,000. Chest x-ray showed severe pulmonary edema with diffuse opacities consistent with atelectasis versus pneumonia. Upon further questioning, patient reports approximately a 2-week history of respiratory symptoms. Started with rhinorrhea, sore throat, and a dry cough along with subjective fevers and chills. Reports that her son was sick with similar symptoms. Son recovered but patient unfortunately did not. Her symptoms have been progressive now with associated orthopnea (2-3 pillow) and PND. Review of Systems Review of Systems: All systems reviewed and are unremarkable except as noted in HPI and below Reports subjective fevers/ chills, rhinorrhea, fatigue, malaise, dry cough, shortness of breath, dyspnea on exertion, two-pillow orthopnea, PND, peripheral edema. Otherwise, denies headache, chest pain, palpitations, abdominal pain, nausea, vomiting, diarrhea, constipation, dysuria, hematuria, frequency, back pain, joint pain or swelling, easy bruising or bleeding, skin lesions or rashes. Physical Exam Physical Exam: General: Resting comfortably in her hospital bed. Breathing comfortably on supplemental oxygen. Persistent dry cough noted. NAD. HEENT: Head is AT/NC buccal mucosa is moist and pink Neck: Mild JVD with + hepatojugular reflex Cardiac: RRR with 2/6 KLAUS Lungs: Breathing comfortably on supplemental oxygen. No accessory muscle use. Diminished breath sounds throughout with bibasilar crackles. Positive egophony in the right base Abdomen: Normoactive X4. Abdomen mildly distended but soft and nontender in all quadrants Extremities: +1 pitting edema of the bilateral lower extremities that does not track above the knee. No sacral edema Neuro: A&O X4 cranial nerves II through XII are grossly intact no focal neuro deficits Skin: No obvious skin lesions or rashes Psych: Appropriate affect pleasant and cooperative Results & Data Results & Data ([facility]) Vital Signs (Past 12 Hours) Vital Signs Temp Pulse Pulse Resp BP BP Pulse Ox 01/09/21 07:57 36.7 C 61 18 118/69 90 01/09/21 07:22 62 01/09/21 05:13 36.7 C 62 20 127/80 91 01/09/21 04:52 68 01/09/21 04:45 36.7 C 62 22 127/80 91 01/09/21 02:27 68 24 96 01/09/21 02:26 96 01/09/21 01:28 60 22 118/67 95 01/08/21 23:30 74 26 H 120/69 95 01/08/21 22:00 79 L Laboratory Results 01/09/21 08:51 01/09/21 08:51 PG Care Time/CCT Total # of Minutes Spent Total Time Spent with Patient: Total time spent is greater than 50% in coordination of care (as documented) at patient's floor/unit and/or counseling patient: Coding Level of Care Code 58680 Subseq Hosp Care Lvl 3 Diagnoses CHF exacerbation I50.9 Respiratory failure with hypoxia J96.01 Chronicity: acute CHRIS (acute kidney injury) N17.9 Cardiomyopathy I42.9 Cardiomyopathy type: unspecified CAD (coronary artery disease) I25.10 Hypothyroidism E03.9 HTN (hypertension) I10 (1) Respiratory failure with hypoxia Chronicity: acute Qualified Code(s): J96.01 - Acute respiratory failure with hypoxia (2) Cardiomyopathy Cardiomyopathy type: unspecified Qualified Code(s): I42.9 - Cardiomyopathy, unspecified
[2021-01-09] MEDS ORDERED: carvediloL 25 MG TAB PO SCH (09:00)
[2021-01-09 09:03] LABS: Basophils # (auto) 0.02 K/uL (0-0.2); Basophils % (auto) 0.2 %; Eosinophils # (auto) 0.07 K/uL (0-0.5); Eosinophils % (auto) 0.7 %; Hematocrit (blood only) 37.8 % (37-47); Hemoglobin 12.5 g/dL (12.0-16.0); Immature Granulocytes # (auto) 0.04 K/uL (0.00-0.02); Immature Granulocytes % (auto) 0.4 %; Lymphocytes % (auto) 5.8 %; Mean Corpuscular Hgb Conc 33.1 g/dL (32-36); Mean Corpuscular Volume 90.9 fL (80-100); Mean Platelet Volume 9.8 fL (7.4-10.4); Monocytes # (auto) 0.48 K/uL (0.11-0.59); Monocytes % (auto) 4.7 %; Neutrophils # (auto) 9.07 K/uL (1.4-6.5); Neutrophils % (auto) 88.2 %; Platelet Count 216 K/uL (130-400); Red Blood Count 4.16 M/uL (4.2-5.4); White Blood Count 10.28 K/uL (4.8-10.8)
[2021-01-09 09:34] LABS: BUN Creatinine Ratio 20.1 (10-20); Calcium 8.7 mg/dl (8.5-10.1); Creatinine Clr Calc Pharmacy 30.5 ml/min; Est GFR (African American) 45.1 ml/min; Est GFR (Non-African American) 38.9 ml/min; Magnesium 2.1 mg/dl (1.8-2.4); Potassium 3.4 mmol/L (3.5-5.1)
--- NOTE | 2021-01-09 10:20 | CT Scan Report ---
CT chest diagnostic wo con CLINICAL HISTORY: Cough and shortness of breath. Evaluate for possible recurrent pneumonia. COMPARISON STUDY: Portable chest from 01/08/2021 CT DOSE: 413.97 mGycm TECHNIQUE: Standard CT of the Chest was performed without IV contrast. A dose lowering technique was utilized adhering to the principles of ALARA. FINDINGS: Airway: The airway is clear. No endobronchial lesion is identified. Lungs: Extensive groundglass opacities are present throughout both lungs characteristic of a viral ty pe pneumonitis and Covid 19 pneumonia. The lungs are otherwise clear of confluent alveolar opacities, air bronchograms or pulmonary nodules. There is no evidence for interstitial edema. Pleura: There is no evidence for pleural effusion. There is no evidence for pneumothorax. Mediastinum: There is no evidence for pathologic adenopathy on these limited noncontrast images. Smal l reactive lymph nodes are present. The heart is mildly to moderately enlarged. Permanent cardiac pac er is in place. Coronary artery calcification is present. The thoracic aorta is within normal limits. Atherotic calcification is present involving the thoracic aorta and origins of great vessels. There is no evidence for pericardial effusion. Upper abdomen: The adrenal glands are normal bilaterally. Is evidence for small hepatic cysts. Osseous structures: There is no acute osseous pathology. IMPRESSION: 1. Extensive groundglass opacities are present throughout both lungs characteristic of a viral type p neumonitis and Covid 19 pneumonia. 2. No evidence for interstitial edema. 3. Cardiomegaly with coronary artery calcification. ACT 112: Negative or not required by law. Electronically signed by: Calin De León M.D. 01/09/2021 10:19 AM
[2021-01-09] MEDS: NITROGLYCERIN 2% OINTMENT 30GM TUBE EXT SCH ×3 (10:56→20:59)
[2021-01-09] MEDS: ASPIRIN 81 MG ECTAB PO SCH (12:30)
--- NOTE | 2021-01-09 13:37 | Electrocardiogram Report ---
Test Reason : Blood Pressure : / mmHG Vent. Rate : 076 BPM Atrial Rate : 075 BPM P-R Int : 250 ms QRS Dur : 158 ms QT Int : 454 ms P-R-T Axes : 087 -59 110 degrees QTc Int : 510 ms Atrial-paced rhythm with prolonged AV conduction Left axis deviation Non-specific intra-ventricular conduction block Abnormal ECG When compared with ECG of 22-SEP-2020 18:49, No significant change was found Confirmed by Marco Alvarado ([id number]) on 01/09/2021 1:37:13 PM Referred By: REFERRED SELF Confirmed By:Marco Alvarado
[2021-01-09] MEDS ORDERED: ALBUT/IPRATROP 3MG/0.5MG NEB 3 ML VIAL NEB PRN (13:55)
[2021-01-09] MEDS ORDERED: AZITHROMYCIN 500 MG in DEXTROSE 5% 250 ML IV SCH (14:00)
[2021-01-09] MEDS ORDERED: BENZONATATE 100 MG CAPSULE PO ONE (14:08)
[2021-01-09] MEDS: ALBUT/IPRATROP 3MG/0.5MG NEB 3 ML VIAL NEB SCH ×2 (15:08→19:38)
[2021-01-09] MEDS: cefTRIAXone SODIUM 1,000 MG in DEXTROSE 5% 50 ML IV SCH (15:26)
[2021-01-09] MEDS: DOXYCYCLINE HYCLATE 100 MG in DEXTROSE 5% 100 ML IV SCH (15:31)
[2021-01-09 17:12] LABS: Adenovirus PCR Not Detected (NotDetected); Bordetella parapertussis PCR Not Detected (NotDetected); Bordetella pertussis PCR Not Detected (NotDetected); Chlamydia pneumoniae PCR Not Detected (NotDetected); Coronavirus 229E PCR Not Detected (NotDetected); Coronavirus CoV-2 (COVID19)PCR Not Detected (NotDetected); Coronavirus HKU1 PCR Not Detected (NotDetected); Coronavirus NL63 PCR Not Detected (NotDetected); Coronavirus OC43PCR Not Detected (NotDetected); Human Metapneumovirus PCR Not Detected (NotDetected); Influenza A PCR Not Detected (NotDetected); Influenza B PCR Not Detected (NotDetected); Mycoplasma pneumoniae PCR Not Detected (NotDetected); Parainfluenza Virus 1 PCR Not Detected (NotDetected); Parainfluenza Virus 2 PCR Not Detected (NotDetected); Parainfluenza Virus 3 PCR Not Detected (NotDetected); Parainfluenza Virus 4 PCR Not Detected (NotDetected); Respiratory Syncytial VirusPCR Not Detected (NotDetected); Rhinovirus/Enterovirus PCR Not Detected (NotDetected)
[2021-01-09] MEDS ORDERED: COUGH DROP (SUGAR FREE) LOZ 24 LOZ/1 BOX BUCCAL STA (19:24)
[2021-01-09] MEDS ORDERED: SODIUM CHLORIDE 0.65% NA SOLN 45 ML (OCEAN) ONE (19:25)
[2021-01-09] MEDS: carvediloL 12.5 MG TAB PO SCH (20:59)
[2021-01-09] MEDS: ATORVASTATIN 10 MG TAB PO SCH (21:00)
[2021-01-09] MEDS: guaiFENesin 600 MG TABCR PO SCH (21:00)
--- NOTE | 2021-01-09 21:01 | Billing Data ---
Date of Service January 09, 2021 Coding Level of Care Code 48940 Initial Inpt Care Lvl 3
[2021-01-09] MEDS: BENZONATATE 100 MG CAPSULE PO SCH (21:10)
[2021-01-10] MEDS: DOXYCYCLINE HYCLATE 100 MG in DEXTROSE 5% 100 ML IV SCH ×2 (01:31→12:36)
[2021-01-10] MEDS: NITROGLYCERIN 2% OINTMENT 30GM TUBE EXT SCH ×3 (03:24→12:30)
[2021-01-10] MEDS: LEVOTHYROXINE SODIUM 100 MCG TABLET PO SCH (06:14)
[2021-01-10 06:46] LABS: Hematocrit (blood only) 39.8 % (37-47); Hemoglobin 13.4 g/dL (12.0-16.0); Mean Corpuscular Hemoglobin 30.3 pg (25-34); Mean Corpuscular Hgb Conc 33.7 g/dL (32-36); Mean Platelet Volume 10.3 fL (7.4-10.4); Platelet Count 269 K/uL (130-400); RDW Coefficient of Variation 16.2 % (11.5-14.5); RDW Standard Deviation 53.3 fL (36.4-46.3); Red Blood Count 4.42 M/uL (4.2-5.4); White Blood Count 11.67 K/uL (4.8-10.8)
[2021-01-10] MEDS: ALBUT/IPRATROP 3MG/0.5MG NEB 3 ML VIAL NEB SCH ×2 (07:19→10:28)
[2021-01-10 07:31] LABS: BUN Creatinine Ratio 16.7 (10-20); Creatinine Clr Calc Pharmacy 29.6 ml/min; Est GFR (African American) 42.3 ml/min; Est GFR (Non-African American) 36.5 ml/min; Magnesium 2.2 mg/dl (1.8-2.4); Potassium 3.3 mmol/L (3.5-5.1)
[2021-01-10] MEDS: AMIODARONE 200 MG TAB PO SCH (08:49)
[2021-01-10] MEDS: carvediloL 12.5 MG TAB PO SCH ×2 (08:49→20:49)
[2021-01-10] MEDS: guaiFENesin 600 MG TABCR PO SCH ×2 (08:49→20:48)
[2021-01-10] MEDS: BENZONATATE 100 MG CAPSULE PO SCH ×3 (08:49→20:49)
[2021-01-10] MEDS: FUROSEMIDE 40 MG/4 ML VIAL IV SCH ×2 (08:50→20:49)
[2021-01-10] MEDS: POTASSIUM CHLORIDE CRTAB 20 MEQ TABCR PO SCH ×2 (09:01→16:46)
--- NOTE | 2021-01-10 11:49 | XRay Report ---
XR chest 1V portable CLINICAL HISTORY: post diuresis. COMPARISON STUDY: 01/08/2021 TECHNIQUE: 1 view of the chest FINDINGS: Single frontal view of the chest demonstrates the heart size again be enlarged with ICD pacer in plac e. The spite the patient's history of postdiuresis, there is still moderate diffuse interstitial king a present. There is also left basilar atelectasis. There is no evidence for pleural effusion. No conf luent alveolar opacities are seen. There is no acute osseous pathology. IMPRESSION: Compared to the previous examination, there has been slight improvement of pulmonary king a with moderate diffuse interstitial edema still present. ACT 112: Negative or not required by law. Electronically signed by: Calin De León M.D. 01/10/2021 11:48 AM
--- NOTE | 2021-01-10 12:30 | Hospitalist Progress Note ---
Date of Service January 10, 2021 Assessment & Plan (1) Pulmonary edema: Plan: - patient presented with ~10 day h/o increasing SOB, subjective F/C, URI symptoms which progressed into worsening SOB, increased edema,dry cough, 2-3 pillow orthopnea and PND. Son recently ill - patient with known CHF and severe LVD (EF 20-25%--has ICD, on BB and lasix 40mg daily)-- follows CHF clinic - covid is negative x2 - CXR showing severe pulm edema with elevated BNP of 11,024 - troponin negative - although there is definitely a component of uncompensated CHF- CT done as it was thought there was more of an infectious process ongoing - CT showed no pulm edema and significant groundglass opacities throughout consistent with a viral pneumonia. AGAIN, covid negative x2 while in house and negative [employer] (per patient) - continue lasix 40mg IV Q12 hour for now as renal function actually improved. I believe there is a slight component of CHF but that this is mostly PNA (viral vs atypical bacterial) - monitor I&O's/daily weights closely. Goal fluid balance= -1L/24 hours - fluid/sodium restrict - d/c topicall nitropaste for preload reduction as BP will not tolerate - continue BB for afterload reduction (was on Coreg 25mg BID-- but this has since been decreased to 12.5 as BP was not allowing for this an added diuresis) - patient currently not on ACEI/ARB given reported h/o hypotension with this in the past. Would also not tolerate Entresto (although would be great med given poor EF) - Echo done 11/2020: EF 20-25% with severe global hypokinesia. no sig. change from 2019. No need to update this at this time - seen by and plan of care D/W Valorie Maya PA-C (CHF clinic)-- appreciate recommendations. (2) Multifocal pneumonia: Plan: -Although there is a component of acute on compensated CHFI believe the major issue is a multifocal pneumonia. CT scan does not suggest any pulmonary edema but instead severe groundglass opacities scattered throughout which is indicative of an infectious process such as viral pneumonia/COVID-19 -Patient's Covid test has been negative X2 while in house and one negative prior to arrival -This very well could be a viral pneumonia. A bio fire was obtained and currently she is negative for parainfluenza, pertussis, coronavirus, influenza a/B, rhinovirus, RSV, and mycoplasma -In addition, may have an atypical pneumonia. Continue Rocephin/doxycycline for now (avoiding azithromycin due to slightly prolonged QT) -Continue nebulized treatments, mucolytic agents, and antitussives -Add IV steroids as patient is slightly bronchospastic (3) Respiratory failure with hypoxia: Plan: -Secondary to #1 and 2 -Continue supplemental oxygen to maintain a pulse ox of 90 to 92% (4) CHRIS (acute kidney injury): Plan: -Presenting creatinine was 1.6. With diuresis is down to 1.3 -Given her poor EF (20 to 25%) and mild acute on compensated CHFshe probably had a component of acute cardiorenal syndrome. Continue with IV diuresis as her renal function will allow (5) Hypothyroidism: Plan: Continue Synthroid (6) Cardiomyopathy: Plan: - severe LVF (EF 20-25%) - ICD in place - on BB - no JEAN-PAUL/ARB given issues with hypotension in past - likely not candidate for Entresto given issues with BP from ARB in past - patient noted to be on Amiodarone. With review of old records, this was d/t defibrillator discharge August 2020. Has since has interrogation (showing no dysrhythmia). Is to be on this x6 months (Jan) (7) CAD (coronary artery disease): Plan: - continue ASA, Lipitor, BB - no evidence of ACS (8) HTN (hypertension): Plan: -continue BB and monitor closely (for hypotension-- see above) Plan: Plan of care discussed with Dr. Zafar Admission and Anticipated Discharge Date Admission Date: January 09, 2021 Subjective Patient seen on daily rounds today. Still with persistent dry cough. Currently on 6 L of supplemental oxygen but was able to be turned down to 3 L last evening. Needed uptitrated while she slept. Daughter reports that she feels that patient has needed supplemental oxygen when sleeping for quite some time. Other than this dry persistent cough, patient vocalizes no significant complaints or concerns. She is not short of breath at rest but is still complaining of dyspnea with minimal exertion (such as toileting). She denies fevers or chills. Uncertain if she is having orthopnea as she slept upright using the hospital bed last evening. Denied any PND. Started on IV antibiotic therapy last evening given concern for multifocal pneumonia that appears viral in nature. She has had 2 - Covid test while in house and a negative Covid test prior to arrival. Review of Systems Review of Systems: All systems reviewed and are unremarkable except as noted in HPI and below Denies fevers, chills, headache, nasal congestion, sore throat, chest pain, shortness of breath, palpitations, orthopnea, PND, abdominal pain, nausea, vomiting, diarrhea, constipation, dysuria, hematuria, frequency, back pain, joint pain or swelling, easy bruising or bleeding, skin lesions or rashes. Physical Exam Physical Exam: General: Resting comfortably in her hospital bed. Very comfortable at rest but persistent dry cough when she tries to talk. Does not appear ill or toxic NAD. HEENT: Head is AT/NC buccal mucosa is moist and pink Neck: No significant JVD appreciated. Negative hepatojugular reflex today Cardiac: RRR with 1/6 to 2/6 KLAUS Lungs: Persistent dry cough noted at rest. This is worse when she talks. Diminished breath sounds throughout with end expiratory wheezes. No crackles. Still with faint positive egophony at the right base. Abdomen: Normoactive X4. Soft and nontender in all quadrants. Extremities: Trace pitting edema of the lower extremities (right slightly worse than left) Neuro: A&O X4 cranial nerves II through XII are grossly intact no focal neuro deficits Skin: No obvious skin lesions or rashes Psych: Appropriate affect pleasant and cooperative Results & Data Results & Data ([facility]) Vital Signs (Past 12 Hours) Vital Signs Temp Pulse Resp BP BP Pulse Ox 01/10/21 11:57 36.8 C 64 16 98/58 L 88 L 01/10/21 10:28 59 L 18 90 01/10/21 07:38 36.5 C 65 19 119/66 96 01/10/21 07:19 64 18 93 01/10/21 04:00 36.6 C 60 18 112/69 91 Laboratory Results 01/10/21 06:22 01/10/21 06:[address] of the chest without contrast: IMPRESSION: 1. Extensive groundglass opacities are present throughout both lungs characteristic of a viral type pneumonitis and Covid 19 pneumonia. 2. No evidence for interstitial edema. 3. Cardiomegaly with coronary artery calcification Post diuresis CXR: Improved pulmonary vascular congestion with persistent interstitial opacities noted PG Care Time/CCT Total # of Minutes Spent Total Time Spent with Patient: Total time spent is greater than 50% in coordination of care (as documented) at patient's floor/unit and/or counseling patient: Coding Level of Care Code 19843 Subseq Hosp Care Lvl 3 Diagnoses Pulmonary edema J81.0 Chronicity: acute Respiratory failure with hypoxia J96.01 Chronicity: acute Hypothyroidism E03.9 Multifocal pneumonia J18.9 CHRIS (acute kidney injury) N17.9 Cardiomyopathy I42.9 Cardiomyopathy type: unspecified CAD (coronary artery disease) I25.10 HTN (hypertension) I10 (1) Pulmonary edema Chronicity: acute Qualified Code(s): J81.0 - Acute pulmonary edema (2) Respiratory failure with hypoxia Chronicity: acute Qualified Code(s): J96.01 - Acute respiratory failure with hypoxia (3) Cardiomyopathy Cardiomyopathy type: unspecified Qualified Code(s): I42.9 - Cardiomyopathy, unspecified
[2021-01-10] MEDS: methylPREDNISolone 60 MG in SYRINGE 0 ML IV SCH (12:32)
[2021-01-10] MEDS: ASPIRIN 81 MG ECTAB PO SCH (12:32)
[2021-01-10] MEDS: cefTRIAXone SODIUM 1,000 MG in DEXTROSE 5% 50 ML IV SCH (12:35)
--- NOTE | 2021-01-10 12:52 | Heart Failure Consultation ---
Date of Consultation January 10, 2021 Assessment & Plan (1) HFrEF (heart failure with reduced ejection fraction): (2) Cardiomyopathy: (3) CAD (coronary artery disease): (4) ICD (implantable cardioverter-defibrillator) in place: Acute on chronic systolic CHF: Currently NYHA Class IV symptoms. Patient appears near euvolemic on exam today. She has stable chronic edema in her lower extremities which is improving today. Her weight is below her baseline. She continues to have significant dyspnea, cough, and O2 requirement. COVID negative. Current symptoms inconsistent with her exam. Suspect her symptoms are more consistent with primary pulmonary etiology. She did have an adequate respo nse to IV diuretic. Continue current dose until creatinine increases. Home dose is 40 mg daily. Would consider 60 mg daily on discharge with close monitoring. Continue to monitor for signs of dehydration. Continue to monitor kidney function and electrolytes. Continue daily STANDING weights. Dry weight 150-153 lb. Continue low sodium diet, less than 2,000 mg daily. We discussed the nature of heart failure and the goals of the program. She is agreeable to ongoing participation. Cardiomyopathy: Long standing. EF 20-25%. She has an ICD. Continue Carvedilol. Losartan has been discontinued due to hypotension. Further optimization is limited by hypotension at this time. She is having nausea and orthostatic symptoms, possibly from low output failure. We will continue to focus on her volume status and her acute illness. If BP improves, will then continue to further optimize her heart failure regimen as an outpatient. Would also like to add Spironolactone at some time in the future as able. For now she is limited by her hypotension and is actually cutting back on therapy. Hypertension: Well controlled. Actually hypotensive today. ICD: Defibrillation in July 2020. Continue Amiodarone. Continue routine device checks with Dr. Alvarado. Disposition: Will continue to follow during hospitalization. Spoke with daughter Vijay with an update. Discussed today's plan with Shea Mcdowell PA-C. Follow up with Dr. Alvarado as scheduled in March. History of Present Illness Attending Physician: Michael Zafar, DO History of Present Illness Juanita is an 80 year old female with history of CAD, chronic systolic CHF, cardiomyopathy, HTN, dyslipidemia, and pacemaker/ICD. Dr. Alvarado is her primary camp program director. She is well known to the heart failure program as an outpatient. Recent cardiac studies: 1. Echo 06/07/20: LVEF severely reduced, 20-25%. Severe global hypokinesis. Moder ate MR. Mild-mod TR. 2. 11/22/20 Echo: LV systolic function severely reduced, 20-25%. Moderate MR. Moderate TR. Patient appeared hypovolemic with symptomatic hypotension at her October visit therefore Lasix was decreased to 40 mg every other day. Her last outpatient evaluation was 12/26/20. She was slightly hypervolemic at that time but it was limited to the lower extremities. Weight was at baseline. Lasix was increased from every other day dosing back to daily dosing. Dry weight 150-153 lb. Titration of her HF regimen was limited by hypotension. She was actually deescalating therapy with stopping her Losartan. Patient presented on 01/09/21 with cough, shortness of breath, and runny nose. COVID test was negative. Her weight had been stable at home. She did attempt to increase her Lasix the day before without improvement. O2 65% on admission. She was treated with Lasix 40 mg IV in the ED. BNP 11k. CXR with pulmonary edema. CT consistent with diffuse ground glass opacities concerning for COVID vs viral pneumonitis. Mucinex, nebs, and Tessalon Perles added. Also started on Doxycycline. Patient is resting in bed. She continues to have shortness of breath and cough but feels she is slightly improved from admission. She remains on supplemental O2, 6L.She responded well to diuretics, negative 1.2 L overnight. Weight 148 lb on standing scale today. She remains symptomatic. Kidney function and electrolytes stable. Allergies Allergy/AdvReac Type Severity Reaction Status Date / Time amoxicillin AdvReac Unknown Rash Unverified 01/08/21 22:30 Home Medications Medication Instructions Recorded Confirmed Type atorvastatin 10 mg tablet (Lipitor) 5 mg PO HS 06/24/18 01/08/21 History levothyroxine 100 mcg tablet 100 mcg PO QAM 06/24/18 01/08/21 History (Synthroid) aspirin 81 mg tablet,delayed 81 mg PO QDL 09/22/20 01/08/21 History release (Aspirin Low Dose) carvedilol 25 mg tablet 25 mg PO BID #180 tab 10/27/20 01/08/21 Rx cholecalciferol (vitamin D3) 25 1,000 unit PO DAILY tab 10/31/20 01/08/21 History mcg (1,000 unit) tablet (Vitamin D3) amiodarone 200 mg tablet (Pacerone) 200 mg PO DAILY #90 tab 12/01/20 01/08/21 Rx furosemide 40 mg tablet (Lasix) 40 mg PO DAILY 01/08/21 01/08/21 History Patient History Medical History (Updated 01/10/21 @ 14:21 by Valorie Maya PA-C) Dyslipidemia HFrEF (heart failure with reduced ejection fraction) EF 20-25% 06/21 HTN (hypertension) Hypothyroidism Presence of combination internal cardiac defibrillator (ICD) and pacemaker Surgical History (Updated 10/02/20 @ 11:27 by Valorie Maya PA-C) History of bladder surgery History of hysterectomy Social History Smoking Status: Never smoker Hx Alcohol Use: No Hx Substance Use: No Preferred Language: Irish Communication Ability: Effective 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 Supplemental O2 via NC, 6L. HEENT: Head is atraumatic and normocephalic. EOMs intact. Sclera anicteric. Face is symmetric. No perioral cyanosis. Mucous membranes dry Neck: Supple, no JVD Pulmonary: Normal respiratory effort, decreased breath sounds. Bibasilar crackles noted. Cardiac: Regular rate and rhythm. Normal S1 and S2, no gallops, no rubs, 2/6 systolic murmur Extremities: 2+ radial pulses bilaterally. 2+ posterior tibialis pulses bilaterally. 1+ pitting edema. No cyanosis or clubbing. Abdomen: Normal bowel sounds, soft, non-tender, no abdominal mass palpated Skin: Normal skin color, turgor, and pigmentation, no rash, no skin lesions Neurological: Patient is awake, alert, and oriented. Pleasant and cooperative. Answers questions appropriately. Speech is clear. Normal movement in all 4 extremities. Gait pattern is unremarkable. Results & Data ([facility]) Vital Signs (Past 12 Hours) Vital Signs Temp Pulse Resp BP BP Pulse Ox 01/10/21 11:57 98.2 F 64 16 98/58 L 88 L 01/10/21 10:28 59 L 18 90 01/10/21 07:38 97.7 F 65 19 119/66 96 01/10/21 07:19 64 18 93 01/10/21 04:00 97.9 F 60 18 112/69 91 Heart Failure Data/Metrics Heart Failure Type: Systolic Ejection Fraction: 20-25% Implanted Cardiac Defibrillator (ICD): Yes Evidenced Based Beta Terri Therapy Beta Terri Therapy: Yes Beta Terri Name: Carvedilol Beta Terri Target Therapy: Target Therapy JEAN-PAUL/ARB/ARNI Therapy JEAN-PAUL/ARB/ARNI Therapy: Contraindicated JEAN-PAUL/ARB/ANI Contraindications: Hypotension Coding Level of Care Code 52561 Initial In Care Lvl 3 Diagnoses HFrEF (heart failure with reduced ejection fraction) I50.20 Cardiomyopathy I42.9 Cardiomyopathy type: unspecified CAD (coronary artery disease) I25.10 ICD (implantable cardioverter-defibrillator) in place Z95.810 (1) Cardiomyopathy Cardiomyopathy type: unspecified Qualified Code(s): I42.9 - Cardiomyopathy, unspecified
[2021-01-10] MEDS ORDERED: Nursing to Pharmacy Communication SCH (15:45)
[2021-01-10] MEDS ORDERED: POTASSIUM CHLORIDE PWD 20 MEQ PACK PO ONE (16:00)
[2021-01-10] MEDS: ATORVASTATIN 10 MG TAB PO SCH (20:49)
[2021-01-11] MEDS: DOXYCYCLINE HYCLATE 100 MG in DEXTROSE 5% 100 ML IV SCH ×2 (02:01→14:50)
[2021-01-11] MEDS: LEVOTHYROXINE SODIUM 100 MCG TABLET PO SCH (06:01)
[2021-01-11] MEDS ORDERED: metOLazone 5 MG TABLET PO ONE (07:56)
--- NOTE | 2021-01-11 08:44 | Hospitalist Progress Note ---
Date of Service January 11, 2021 Assessment & Plan (1) Respiratory failure with hypoxia: Plan: - pulse ox 76% on RA on arrival - was initially requiring 7L O2 - with diuresis, O2 need was down to 3L - now requiring 8-9L - despite the increased O2 requirements-- she vocalizes improvement in symptoms (cough improving, no longer feeling SOB at rest, not nearly MONTIEL, no PND and orthopnea improving) - I suspect that the hypoxemia is multifactorial at this point. Clearly there was some uncompensated CHF upon arrival (as her EF is poor). - She continues to receive Lasix IV with goal fluid balance of -1L (which we did achieve on 01/10 but today, her FB is +) - Creatinine pending today but renal function has improved with diuresis - give 1 dose of zaroxolyn today for added diuresis. Creatinine currently downtrending with added diuresis (which deafly corresponds with more of a cardiorenal syndrome) - Patient with Multifocal PNA. Covid negative x3. Appears consistent with viral PNA and procal neg. Biofire done and negative. Continue empiric abx therapy (rocephin/doxy-- gram+/- and atypical coverage) - ENCOURAGE INCENTIVE SPIROMETRY USE along with continued neb treatments. Add Chest PT and Acapella flutter valve to help mobilize secreations (2) Pulmonary edema: Plan: - patient presented with ~10 day h/o increasing SOB, subjective F/C, URI symptoms which progressed into worsening SOB, increased edema,dry cough, 2-3 pillow orthopnea and PND. Son recently ill - patient with known CHF and severe LVD (EF 20-25%--has ICD, on BB and lasix 40mg daily)-- follows CHF clinic - covid is negative x2 - CXR showing severe pulm edema with elevated BNP of 11,024 - troponin negative - although there is definitely a component of uncompensated CHF- CT done as it was thought there was more of an infectious process ongoing - CT showed no pulm edema and significant groundglass opacities throughout consistent with a viral pneumonia. 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 I believe there is a slight component of CHF but that this is mostly PNA (viral vs atypical bacterial) - goal FB -1L/24 hours (which we have been meeting until today-- FB is +)= given 1 dose zaroxolyn and watch renal function closely. - monitor I&O's/daily weights closely - fluid/sodium restrict - d/c topicall nitropaste for preload reduction as BP will not tolerate - continue BB for afterload reduction (was on Coreg 25mg BID-- but this has since been decreased to 12.5 as BP was not allowing for this an added diuresis)--> current BP is 123/70 - patient currently not on ACEI/ARB given reported h/o hypotension with this in the past. Would also not tolerate Entresto (although would be great med given poor EF) - Echo done 11/2020: EF 20-25% with severe global hypokinesia. no sig. change from 2019. No need to update this at this time - seen by and plan of care D/W Valorie Maya PA-C (CHF clinic)-- appreciate recommendations. (3) Multifocal pneumonia: Plan: -Although there is a component of acute on compensated CHFI believe the major issue is a multifocal pneumonia. CT scan does not suggest any pulmonary edema but instead severe groundglass opacities scattered throughout which is indicative of an infectious process such as viral pneumonia/COVID-19 -Patient's Covid test has been negative X2 while in house and one negative prior to arrival -This very well could be a viral pneumonia. A biofire was obtained and currently she is negative for parainfluenza, pertussis, coronavirus, influenza a/B, rhinovirus, RSV, and mycoplasma -imaging consistent with atypical pneumonia. Continue Rocephin/doxycycline for now (avoiding azithromycin due to slightly prolonged QT) -Continue nebulized treatments, mucolytic agents, and antitussives -now on IV steroids for associated bronchospasm -encourage IS and add acapella flutter valve and chest PT -ordered SC if patient able to produce -Is noted to have leukocytosis today but this is likely steroid-induced. Continue steroids x5 days likely (4) CHRIS (acute kidney injury): Plan: -Presenting creatinine was 1.6. With diuresis is down to 1.15. Continue monitoring -Given her poor EF (20 to 25%) and mild acute on compensated CHFshe probably had a component of acute cardiorenal syndrome. Continue with IV diuresis as her renal function will allow -watch renal function closely (5) Hypothyroidism: Plan: Continue Synthroid (6) Cardiomyopathy: Plan: - severe LVF (EF 20-25%) - ICD in place - on BB - no JEAN-PAUL/ARB given issues with hypotension in past - likely not candidate for Entresto given issues with BP from ARB in past - patient noted to be on Amiodarone. With review of old records, this was d/t defibrillator discharge August 2020. Has since has interrogation (showing no dysrhythmia). Is to be on this x6 months (Dec) - given poor EF, I do have concern for her overall prognosis. (7) CAD (coronary artery disease): Plan: - continue ASA, Lipitor, BB - no evidence of ACS (8) HTN (hypertension): Plan: -continue BB and monitor closely (for hypotension-- see above) Plan: Plan of care to be discussed with Dr. Zafar Patient seen and examined while daughter was on speaker phone. All questions from patient and daughter answered Admission and Anticipated Discharge Date Admission Date: January 09, 2021 Subjective Patient seen on daily rounds today. Is requiring increased amounts of supplemental oxygen today but overall she reports that she "feels better". Her cough is not nearly as bad. She is no longer winded with rest and not getting quite as dyspneic with exertion. Last night was the first night she was able to sleep through the night. She denies orthopnea or PND. Feels that her cough is becoming loose but unable to expectorate. Review of Systems Review of Systems: All systems reviewed and are unremarkable except as noted in HPI and below Denies fevers, chills, headache, nasal congestion, sore throat, cough, chest pain, shortness of breath, palpitations, orthopnea, PND, abdominal pain, nausea, vomiting, diarrhea, constipation, dysuria, hematuria, frequency, back pain, joint pain or swelling, easy bruising or bleeding, skin lesions or rashes. Physical Exam Physical Exam: General: Resting comfortably in her bedside chair. Her cough seems significantly improved today NAD. HEENT: Head is AT/NC buccal mucosa is moist and pink Neck: No JVD. Negative hepatojugular reflex Cardiac: RRR with 2/6 KLAUS Lungs: Speaking full sentences on supplemental oxygen. Although she is requiring increased amounts of nasal cannula, she has no accessory muscle use and her breathing is nonlabored. She has improved air exchange throughout with coarse scattered rhonchi that mobilizes when she coughs. Positive egophony in the right base. Abdomen: Normoactive X4. Soft and nontender in all quadrants. Extremities: Trace pitting edema of the bilateral lower extremities (right slightly worse than left) Neuro: A&O X4 cranial nerves II through XII are grossly intact no focal neuro deficits Skin: No obvious skin lesions or rashes Psych: Appropriate affect pleasant and cooperative Results & Data Results & Data ([facility]) Vital Signs (Past 12 Hours) Vital Signs Temp Pulse Pulse Resp BP Pulse Ox 01/11/21 07:30 36.9 C 61 18 123/70 91 01/11/21 03:57 91 01/11/21 03:50 36.0 C L 61 18 122/68 91 01/10/21 23:10 35.6 C L 62 18 111/67 91 01/10/21 22:19 64 Laboratory Results 01/11/21 08:40 01/11/21 08:40 PG Care Time/CCT Total # of Minutes Spent Total Time Spent with Patient: Total time spent is greater than 50% in coordination of care (as documented) at patient's floor/unit and/or counseling patient: Coding Level of Care Code 31675 Subseq Hosp Care Lvl 3 Diagnoses Pulmonary edema J81.0 Chronicity: acute Multifocal pneumonia J18.9 Respiratory failure with hypoxia J96.01 Chronicity: acute CHRIS (acute kidney injury) N17.9 Hypothyroidism E03.9 Cardiomyopathy I42.9 Cardiomyopathy type: unspecified CAD (coronary artery disease) I25.10 HTN (hypertension) I10 (1) Respiratory failure with hypoxia Chronicity: acute Qualified Code(s): J96.01 - Acute respiratory failure with hypoxia (2) Pulmonary edema Chronicity: acute Qualified Code(s): J81.0 - Acute pulmonary edema (3) Cardiomyopathy Cardiomyopathy type: unspecified Qualified Code(s): I42.9 - Cardiomyopathy, unspecified
[2021-01-11] MEDS: carvediloL 12.5 MG TAB PO SCH ×2 (08:52→21:18)
[2021-01-11] MEDS: AMIODARONE 200 MG TAB PO SCH (08:52)
[2021-01-11] MEDS: BENZONATATE 100 MG CAPSULE PO SCH ×3 (08:53→21:18)
[2021-01-11] MEDS: guaiFENesin 600 MG TABCR PO SCH ×2 (08:53→21:18)
[2021-01-11] MEDS: methylPREDNISolone 60 MG in SYRINGE 0 ML IV SCH (08:53)
[2021-01-11 09:20] LABS: Hematocrit (blood only) 40.1 % (37-47); Hemoglobin 13.4 g/dL (12.0-16.0); Immature Granulocytes # (auto) 0.06 K/uL (0.00-0.02); Immature Granulocytes % (auto) 0.4 %; Lymphocytes % (auto) 4.6 %; Mean Corpuscular Hemoglobin 30.4 pg (25-34); Mean Corpuscular Hgb Conc 33.4 g/dL (32-36); Mean Corpuscular Volume 90.9 fL (80-100); Mean Platelet Volume 10.4 fL (7.4-10.4); Monocytes # (auto) 0.29 K/uL (0.11-0.59); Monocytes % (auto) 1.9 %; Neutrophils # (auto) 14.19 K/uL (1.4-6.5); Neutrophils % (auto) 93.1 %; Platelet Count 254 K/uL (130-400); RDW Coefficient of Variation 16.2 % (11.5-14.5); Red Blood Count 4.41 M/uL (4.2-5.4); White Blood Count 15.24 K/uL (4.8-10.8)
[2021-01-11 10:08] LABS: BUN Creatinine Ratio 21.1 (10-20); Calcium 9.3 mg/dl (8.5-10.1); Creatinine Clr Calc Pharmacy 34.5 ml/min; Est GFR (African American) 51.3 ml/min; Est GFR (Non-African American) 44.3 ml/min; Magnesium 2.3 mg/dl (1.8-2.4); Potassium 4.3 mmol/L (3.5-5.1)
[2021-01-11] MEDS: FUROSEMIDE 40 MG/4 ML VIAL IV SCH ×2 (10:20→21:18)
[2021-01-11] MEDS: ASPIRIN 81 MG ECTAB PO SCH (10:21)
[2021-01-11] MEDS ORDERED: methylPREDNISolone 125 MG in SYRINGE 0 ML IV ONE (14:45)
[2021-01-11] MEDS: cefTRIAXone SODIUM 1,000 MG in DEXTROSE 5% 50 ML IV SCH (15:31)
[2021-01-11] MEDS: ATORVASTATIN 10 MG TAB PO SCH (21:18)
[2021-01-12] MEDS: DOXYCYCLINE HYCLATE 100 MG in DEXTROSE 5% 100 ML IV SCH ×2 (00:59→15:01)
[2021-01-12] MEDS: methylPREDNISolone 40 MG in SYRINGE 0 ML IV SCH ×3 (01:44→17:02)
[2021-01-12] MEDS: LEVOTHYROXINE SODIUM 100 MCG TABLET PO SCH (05:42)
[2021-01-12 07:44] LABS: Basophils # (auto) 0.01 K/uL (0-0.2); Basophils % (auto) 0.1 %; Hematocrit (blood only) 40.7 % (37-47); Hemoglobin 13.7 g/dL (12.0-16.0); Immature Granulocytes # (auto) 0.05 K/uL (0.00-0.02); Immature Granulocytes % (auto) 0.3 %; Lymphocytes # (auto) 0.64 K/uL (1.2-3.4); Lymphocytes % (auto) 3.5 %; Mean Corpuscular Hemoglobin 30.5 pg (25-34); Mean Corpuscular Hgb Conc 33.7 g/dL (32-36); Mean Corpuscular Volume 90.6 fL (80-100); Mean Platelet Volume 10.5 fL (7.4-10.4); Monocytes # (auto) 0.46 K/uL (0.11-0.59); Monocytes % (auto) 2.5 %; Neutrophils # (auto) 17.07 K/uL (1.4-6.5); Neutrophils % (auto) 93.6 %; Platelet Count 262 K/uL (130-400); RDW Coefficient of Variation 15.9 % (11.5-14.5); RDW Standard Deviation 53.1 fL (36.4-46.3); Red Blood Count 4.49 M/uL (4.2-5.4); White Blood Count 18.23 K/uL (4.8-10.8)
[2021-01-12] MEDS: carvediloL 12.5 MG TAB PO SCH ×2 (08:01→21:44)
[2021-01-12] MEDS: FUROSEMIDE 40 MG/4 ML VIAL IV SCH (08:01)
[2021-01-12] MEDS: BENZONATATE 100 MG CAPSULE PO SCH (08:02)
[2021-01-12] MEDS: guaiFENesin 600 MG TABCR PO SCH ×2 (08:02→21:43)
[2021-01-12 08:18] LABS: BUN Creatinine Ratio 27.9 (10-20); Calcium 9.1 mg/dl (8.5-10.1); Creatinine Clr Calc Pharmacy 33.1 ml/min; Est GFR (African American) 49.7 ml/min; Est GFR (Non-African American) 42.9 ml/min; Magnesium 2.1 mg/dl (1.8-2.4); Potassium 3.1 mmol/L (3.5-5.1)
--- NOTE | 2021-01-12 08:53 | Hospitalist Progress Note ---
Date of Service January 12, 2021 Assessment & Plan (1) Respiratory failure with hypoxia: Plan: - pulse ox 76% on RA on arrival - was initially requiring 7L O2 - with diuresis, O2 need was down to 3L - on 01/12-->requiring 8-9L - despite the increased O2 requirements-- she vocalized improvement in symptoms (cough improving, no longer feeling SOB at rest, not nearly MONTIEL, no PND and orthopnea improving) - I suspect that the hypoxemia is multifactorial at this point. Clearly there was some uncompensated CHF upon arrival (as her EF is poor). - She received multiple days of IV lasix along with zaroxolyn. FB -4L since admission and clinically she appears euvolemic - Creatinine actually improved with diuresis (suspect component of cardiorenal syndrome) - CT of the chest done showing Multifocal opacities concerning for PNA Covid negative x3. procal neg. Biofire negative. ?viral etiology vs atypicaly PNA--> on empiric abx therapy (rocephin/doxy-- gram+/- and atypical coverage)- de-escalate to doxy. Not convinced this is infectious but amiodarone toxicity - ? component of atelectasis contributing to hypoxemia as patient was not taking deep breathing an account of the cough ENCOURAGE INCENTIVE SPIROMETRY USE continue neb treatments. continue Chest PT and Acapella flutter valve to help mobilize secretions (as patient was rhonchorous; however, this has since improved) - case D/W Dr. 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 Son recently ill - patient with known CHF and severe LVD (EF 20-25%--has ICD, on BB and lasix 40 mg daily)-- follows CHF clinic - covid is negative x2 - CXR showing severe pulm edema with elevated BNP of 11,024 - troponin negative - although there is definitely a component of uncompensated CHF- CT done as it was thought there was more of an infectious process ongoing - CT showed no pulm edema and significant groundglass opacities throughout consistent with a viral pneumonia. 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 - FB -4L to date - at dry weight - at this point, APPEARS EUVOLEMIC - did not tolerated topicall nitropaste for preload reduction as BP will not tolerate - continue BB for afterload reduction (was on Coreg 25mg BID-- but this has since been decreased to 12.5 as BP was not allowing for this an added diuresis)--> current BP is 123/70 - patient currently not on ACEI/ARB given reported h/o hypotension with this in the past. Would also not tolerate Entresto (although would be great med given poor EF) - Echo done 11/2020: EF 20-25% with severe global hypokinesia. no sig. change from 2019. No need to update this at this time - seen by and plan of care D/W Valorie Maya PA-C (CHF clinic)-- she knows this patient well and agrees that patient appears euvolemic (3) Multifocal pneumonia: Plan: -CT showing multifocal opacities--> ??PNA vs perhaps amiodarone toxicity -Patient's Covid test has been negative X2 while in house and one negative prior to arrival -biofire was obtained and currently she is negative for parainfluenza, pertussis, coronavirus, influenza a/B, rhinovirus, RSV, and mycoplasma -?atypical pneumonia. Continue empiric abx doxycycline (avoiding azithromycin due to slightly prolonged QT)--> although procal was negative--> de-escalate and stop the rocephin. No convinced this is infectious but will complete full course -Continue nebulized treatments, mucolytic agents, and antitussives -now on IV steroids for associated bronchospasm and ?amiodarone toxicity -encourage IS and add acapella flutter valve and chest PT -ordered SC if patient able to produce -Is noted to have leukocytosis today but this is likely steroid-induced. (4) Hypokalemia: Plan: - from diuresis-- will replace (5) CHRIS (acute kidney injury): Plan: -Presenting creatinine was 1.6. creatinine downtrended with diuresis -Given her poor EF (20 to 25%) and mild acute on compensated CHFshe probably had a component of acute cardiorenal syndrome. -watch renal function closely (6) Hypothyroidism: Plan: Continue Synthroid (7) Cardiomyopathy: Plan: - severe LVF (EF 20-25%) - ICD in place - on BB - no JEAN-PAUL/ARB given issues with hypotension in past - likely not candidate for Entresto given issues with BP from ARB in past - patient noted to be on Amiodarone. With review of old records, this was d/t defibrillator discharge August 2020. Has since has interrogation (showing no dysrhythmia). Is to be on this x6 months (Dec) - given poor EF, I do have concern for her overall prognosis. (8) CAD (coronary artery disease): Plan: - continue ASA, Lipitor, BB - no evidence of ACS (9) HTN (hypertension): Plan: -continue BB and monitor closely (for hypotension-- see above) (10) Leukocytosis: Plan: Plan of care to be discussed with Dr. Zafar Patient seen and examined while daughter was on speaker phone. All questions from patient and daughter answered Admission and Anticipated Discharge Date Admission Date: January 09, 2021 Subjective Patient seen on daily rounds today. Overall reports that she is feeling better. Cough is slightly productive with yellow mucus. Still getting easily winded and requiring increased oxygen with ambulation and when sleeping. Denies fevers, chills, chest pain, orthopnea, PND. Review of Systems Review of Systems: All systems reviewed and are unremarkable except as noted in HPI and below Denies fevers, chills, headache, nasal congestion, sore throat, cough, chest pain, shortness of breath, palpitations, orthopnea, PND, abdominal pain, nausea, vomiting, diarrhea, constipation, dysuria, hematuria, frequency, back pain, joint pain or swelling, easy bruising or bleeding, skin lesions or rashes. Physical Exam Physical Exam: General: Resting comfortably in her hospital bed. NAD. HEENT: Head is AT/NC buccal mucosa is moist and pink Neck: No JVD. Negative hepatojugular reflex Cardiac: RRR with 2/6 KLAUS Lungs: Speaking full sentences on supplemental oxygen. No cough today. No accessory muscle use. Significantly improved air exchange throughout without wheezes, rales or rhonchi Abdomen: Normoactive X4. Soft and nontender in all quadrants. Extremities: Adiposity of the bilateral legs without true pitting edema Neuro: A&O X4 cranial nerves II through XII are grossly intact no focal neuro deficits Skin: No obvious skin lesions or rashes Psych: Appropriate affect pleasant and cooperative Results & Data Results & [facility] ([facility]) Vital Signs (Past 12 Hours) Vital Signs Temp Pulse Pulse Resp BP BP Pulse Ox 01/12/21 07:33 36.4 C L 62 18 113/63 91 01/12/21 07:26 60 01/12/21 03:32 36.3 C L 63 18 106/63 90 01/11/21 23:01 36.4 C L 70 20 119/72 01/11/21 22:19 66 01/11/21 21:15 66 124/74 Laboratory Results 01/12/21 07:24 01/12/21 07:24 PG Care Time/CCT Total # of Minutes Spent Total Time Spent with Patient: Total time spent is greater than 50% in coordination of care (as documented) at patient's floor/unit and/or counseling patient: Coding Level of Care Code 37287 Subseq Hosp Care Lvl 3 Diagnoses Respiratory failure with hypoxia J96.01 Chronicity: acute Pulmonary edema J81.0 Chronicity: acute Multifocal pneumonia J18.9 CHRIS (acute kidney injury) N17.9 Hypothyroidism E03.9 Cardiomyopathy I42.9 Cardiomyopathy type: unspecified CAD (coronary artery disease) I25.10 HTN (hypertension) I10 Hypokalemia E87.6 Leukocytosis D72.829 (1) Respiratory failure with hypoxia Chronicity: acute Qualified Code(s): J96.01 - Acute respiratory failure with hypoxia (2) Pulmonary edema Chronicity: acute Qualified Code(s): J81.0 - Acute pulmonary edema (3) Cardiomyopathy Cardiomyopathy type: unspecified Qualified Code(s): I42.9 - Cardiomyopathy, unspecified
[2021-01-12] MEDS ORDERED: BENZONATATE 100 MG CAPSULE PO PRN (09:05)
[2021-01-12] MEDS: POTASSIUM CHLORIDE CRTAB 20 MEQ TABCR PO SCH ×3 (09:47→21:42)
[2021-01-12] MEDS: ASPIRIN 81 MG ECTAB PO SCH (11:53)
[2021-01-12] MEDS: cefTRIAXone SODIUM 1,000 MG in DEXTROSE 5% 50 ML IV SCH (14:24)
[2021-01-12] MEDS: ATORVASTATIN 10 MG TAB PO SCH (21:44)
[2021-01-13] MEDS: methylPREDNISolone 40 MG in SYRINGE 0 ML IV SCH ×3 (01:05→17:28)
[2021-01-13] MEDS: DOXYCYCLINE HYCLATE 100 MG in DEXTROSE 5% 100 ML IV SCH ×2 (01:05→15:28)
[2021-01-13] MEDS: LEVOTHYROXINE SODIUM 100 MCG TABLET PO SCH (05:59)
[2021-01-13 06:12] LABS: Basophils # (auto) 0.01 K/uL (0-0.2); Basophils % (auto) 0.1 %; Hematocrit (blood only) 40.8 % (37-47); Hemoglobin 13.6 g/dL (12.0-16.0); Immature Granulocytes # (auto) 0.07 K/uL (0.00-0.02); Immature Granulocytes % (auto) 0.4 %; Lymphocytes # (auto) 0.56 K/uL (1.2-3.4); Lymphocytes % (auto) 3.2 %; Mean Corpuscular Hemoglobin 30.4 pg (25-34); Mean Corpuscular Hgb Conc 33.3 g/dL (32-36); Mean Corpuscular Volume 91.1 fL (80-100); Mean Platelet Volume 10.6 fL (7.4-10.4); Monocytes # (auto) 0.38 K/uL (0.11-0.59); Monocytes % (auto) 2.2 %; Neutrophils # (auto) 16.37 K/uL (1.4-6.5); Neutrophils % (auto) 94.1 %; Platelet Count 258 K/uL (130-400); RDW Coefficient of Variation 15.8 % (11.5-14.5); RDW Standard Deviation 52.5 fL (36.4-46.3); Red Blood Count 4.48 M/uL (4.2-5.4); White Blood Count 17.39 K/uL (4.8-10.8)
[2021-01-13 07:02] LABS: BUN Creatinine Ratio 34.7 (10-20); Calcium 9.4 mg/dl (8.5-10.1); Creatinine Clr Calc Pharmacy 29.5 ml/min; Est GFR (African American) 44.7 ml/min; Est GFR (Non-African American) 38.5 ml/min; Magnesium 2.2 mg/dl (1.8-2.4); Potassium 3.7 mmol/L (3.5-5.1)
[2021-01-13] MEDS: carvediloL 12.5 MG TAB PO SCH ×2 (08:53→21:29)
[2021-01-13] MEDS: POTASSIUM CHLORIDE CRTAB 20 MEQ TABCR PO SCH (09:59)
[2021-01-13] MEDS: guaiFENesin 600 MG TABCR PO SCH ×2 (10:00→21:29)
[2021-01-13] MEDS: FUROSEMIDE 20 MG TAB PO SCH (10:00)
[2021-01-13] MEDS: ASPIRIN 81 MG ECTAB PO SCH (10:05)
--- NOTE | 2021-01-13 14:47 | Hospitalist Progress Note ---
Date of Service January 13, 2021 Assessment & Plan (1) Respiratory failure with hypoxia: Plan: - pulse ox 76% on RA on arrival - Initially requiring 9L suppemental O2 - initially thought to be all uncompensated CHF and she was aggressively diuresed with LAsix IV and zaroxolyn trials. - She did respond to diuresis (Fluid balance of -6L) and clinically she appeared euvolemic but she was still requiring significant amounts of supplemental O2 (7- 9L) - Etiology thought to be multifactorial at this point. Clearly there was some uncompensated CHF upon arrival (as her EF is poor). - CT of the chest done showing Multifocal opacities concerning for PNA (viral) Covid negative x3. procal neg. Biofire negative. ?viral etiology vs atypicaly PNA--> started on empiric abx therapy for atypical coverage (although not conviced that there is a component of PNA at t his point) - ? component of atelectasis contributing to hypoxemia as patient was not taking deep breathing an account of the cough INCENTIVE SPIROMETRY USE neb treatments. - Althought there was some improvement in symptoms, patient continued to required supplemental O2. 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 --at this time, patient IS responding to the IV steroids that were started-- now tapered down to 3L O2 at rest and 5L with ambulation) -- She is at her dry weight, she has no adventitious breathsounds, her edema has resolved, no longer with orthopnea/PND or cough. She has been pushed to her max with IV diuretics and she is now euvolemic. I suspect that there was a component of CHF but that this is more so related to amio toxicity -- 2 step in am -- plan is for long taper of prednisone and FU to see pulmonology as an OP with serial imaging and continued prednisone taper. (family requesting [facility] as Daughter Familiar with [facility] given her work) (2) Pulmonary edema: Plan: - patient presented with ~10 day h/o increasing SOB, subjective F/C, URI symptoms which progressed into worsening SOB, increased edema,dry cough, 2-3 pillow orthopnea and PND. Son recently ill - patient with known CHF and severe LVD (EF 20-25%--has ICD, on BB and lasix 40mg daily)-- follows CHF clinic - covid is negative x2 - CXR showing severe pulm edema with elevated BNP of 11,024 - troponin negative - although there is definitely a component of uncompensated CHF- CT done as it was thought there was more of an infectious process ongoing - CT showed no pulm edema and significant groundglass opacities throughout consistent with a viral pneumonia. 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 - FB -6L to date - at dry weight - at this point, APPEARS EUVOLEMIC - did not tolerated topical nitropaste for preload reduction d/t hypotension - continue BB for afterload reduction (was on Coreg 25mg BID-- but this has since been decreased to 12.5 as BP was not allowing for this an added diuresis)--> current BP is 115/73 - patient currently not on ACEI/ARB given reported h/o hypotension with this in the past. Would also not tolerate Entresto (although would be great med given poor EF) - Echo done 11/2020: EF 20-25% with severe global hypokinesia. no sig. change from 2019. No need to update this at this time - seen by and plan of care D/W Valorie Maya PA-C (CHF clinic)-- she knows this patient well and agrees that patient appears euvolemic (3) Multifocal pneumonia: Plan: -CT showing multifocal opacities -Patient's Covid test has been negative X2 while in house and one negative prior to arrival -biofireall negative -empiric abx started for atypical pneumonia-->doxycycline (avoiding azithromycin due to slightly prolonged QT). subtle improvement but thought to be more amio tox (will complete full course of abx therapy) -Continue nebulized treatments, mucolytic agents, and antitussives -now on IV steroids for associated bronchospasm and ?amiodarone toxicity -encourage IS -SC ordered but patient unable to produce -Is noted to have leukocytosis--> likely steroid-induced. (4) Hypokalemia: Plan: - replaced and resolved (5) CHRIS (acute kidney injury): Plan: -Presenting creatinine was 1.6. did downtrend initially with diuresis -Given her poor EF (20 to 25%) and mild acute on compensated CHFshe probably had a component of acute cardiorenal syndrome. -did bump slightly today (as was pushed to the max with diuresis) (6) Hypothyroidism: Plan: Continue Synthroid (7) Cardiomyopathy: Plan: - severe LVF (EF 20-25%) - ICD in place - on BB - no JEAN-PAUL/ARB given issues with hypotension in past - likely not candidate for Entresto given issues with BP from ARB in past - patient noted to be on Amiodarone. With review of old records, this was d/t defibrillator discharge August 2020. Has since has interrogation (showing no dysrhythmia). was to be on this x6 months (Jan) but stopped prematurely as outlined above - given poor EF, I do have concern for her overall prognosis. Lengthy D/W daughter who is a manager social services for hospice and reports that her "mother is not ready for that yet" although I did discuss that given her poor EF, she would qualify (8) CAD (coronary artery disease): Plan: - continue ASA, Lipitor, BB - no evidence of ACS (9) HTN (hypertension): Plan: -continue BB and monitor closely (for hypotension-- see above) (10) Leukocytosis: Plan: - steroid induced Plan: Plan of care to be discussed with Dr. Zafar Patient seen and examined while daughter was on speaker phone. All questions from patient and daughter answered 2 step in am with plan for likely D/C tomorrow Admission and Anticipated Discharge Date Admission Date: January 09, 2021 Subjective Patient seen on daily rounds today. Overall she continues to feel better. Her oxygen saturation needs have been able to be tapered down to 3 L. She denies shortness of breath at rest. Is still getting winded when she exerts herself (such as toileting) but overall this has greatly improved. Her cough has nearly resolved. She denies fevers, chills, chest pain, shortness of breath, abdominal pain, nausea or vomiting. Review of Systems Review of Systems: All systems reviewed and are unremarkable except as noted in HPI and below Denies fevers, chills, headache, nasal congestion, sore throat, cough, chest pain, shortness of breath, palpitations, orthopnea, PND, abdominal pain, nausea, vomiting, diarrhea, constipation, dysuria, hematuria, frequency, back pain, joint pain or swelling, easy bruising or bleeding, skin lesions or rashes. Physical Exam Physical Exam: General: Resting comfortably in her hospital bed. NAD. HEENT: Head is AT/NC buccal mucosa is moist and pink Neck: No JVD. Negative hepatojugular reflex Cardiac: RRR with 2/6 KLAUS Lungs: No longer with persistent cough. Speaking full sentences on supplemental oxygen. Significantly improved air exchange throughout without wheezes, rales or rhonchi. Abdomen: Normoactive X4. Soft and nontender in all quadrants. Extremities: No peripheral clubbing cyanosis or edema Neuro: A&O X4 cranial nerves II through XII are grossly intact no focal neuro deficits Skin: No obvious skin lesions or rashes Psych: Appropriate affect pleasant and cooperative Results & Data Results & Data ([facility]) Vital Signs (Past 12 Hours) Vital Signs Temp Pulse Resp BP Pulse Ox Pulse Ox 01/13/21 12:02 36.6 C 63 19 108/66 96 01/13/21 11:24 95 01/13/21 07:59 36.6 C 73 18 91/57 L 96 01/13/21 04:27 36.4 C L 62 18 119/76 94 Laboratory Results 01/13/21 05:26 01/13/21 05:26 PG Care Time/CCT Total # of Minutes Spent Total Time Spent with Patient: Total time spent is greater than 50% in coordination of care (as documented) at patient's floor/unit and/or counseling patient: Coding Level of Care Code 96373 Subseq Hosp Care Lvl 2 Diagnoses Respiratory failure with hypoxia J96.01 Chronicity: acute Pulmonary edema J81.0 Chronicity: acute Multifocal pneumonia J18.9 Hypokalemia E87.6 CHRIS (acute kidney injury) N17.9 Hypothyroidism E03.9 Cardiomyopathy I42.9 Cardiomyopathy type: unspecified CAD (coronary artery disease) I25.10 HTN (hypertension) I10 Leukocytosis D72.829 (1) Respiratory failure with hypoxia Chronicity: acute Qualified Code(s): J96.01 - Acute respiratory failure with hypoxia (2) Pulmonary edema Chronicity: acute Qualified Code(s): J81.0 - Acute pulmonary edema (3) Cardiomyopathy Cardiomyopathy type: unspecified Qualified Code(s): I42.9 - Cardiomyopathy, unspecified
[2021-01-13] MEDS: ATORVASTATIN 10 MG TAB PO SCH (21:29)
[2021-01-14] MEDS: methylPREDNISolone 40 MG in SYRINGE 0 ML IV SCH ×2 (02:24→08:02)
[2021-01-14] MEDS: DOXYCYCLINE HYCLATE 100 MG in DEXTROSE 5% 100 ML IV SCH ×2 (02:27→15:08)
[2021-01-14] MEDS: LEVOTHYROXINE SODIUM 100 MCG TABLET PO SCH (05:47)
[2021-01-14] MEDS: carvediloL 12.5 MG TAB PO SCH (08:01)
[2021-01-14] MEDS: guaiFENesin 600 MG TABCR PO SCH (08:01)
[2021-01-14] MEDS: FUROSEMIDE 20 MG TAB PO SCH (08:02)
[2021-01-14] MEDS: POTASSIUM CHLORIDE CRTAB 20 MEQ TABCR PO SCH (08:02)
[2021-01-14 08:22] LABS: Hematocrit (blood only) 41.8 % (37-47); Hemoglobin 14.1 g/dL (12.0-16.0); Immature Granulocytes # (auto) 0.06 K/uL (0.00-0.02); Immature Granulocytes % (auto) 0.4 %; Lymphocytes # (auto) 0.49 K/uL (1.2-3.4); Lymphocytes % (auto) 2.9 %; Mean Corpuscular Hemoglobin 30.7 pg (25-34); Mean Corpuscular Hgb Conc 33.7 g/dL (32-36); Mean Corpuscular Volume 90.9 fL (80-100); Mean Platelet Volume 10.4 fL (7.4-10.4); Monocytes # (auto) 0.45 K/uL (0.11-0.59); Monocytes % (auto) 2.7 %; Neutrophils # (auto) 15.68 K/uL (1.4-6.5); Platelet Count 270 K/uL (130-400); RDW Coefficient of Variation 15.9 % (11.5-14.5); White Blood Count 16.68 K/uL (4.8-10.8)
[2021-01-14 08:47] LABS: BUN Creatinine Ratio 35.2 (10-20); Calcium 9.1 mg/dl (8.5-10.1); Creatinine Clr Calc Pharmacy 36.5 ml/min; Est GFR (African American) 57.9 ml/min
[2021-01-14 08:48] LABS: Potassium 3.1 mmol/L (3.5-5.1)
[2021-01-14] MEDS: ASPIRIN 81 MG ECTAB PO SCH (11:53)
--- NOTE | 2021-01-14 15:37 | Discharge Summary ---
Date of Service January 14, 2021 Principal Diagnosis 1. Acute hypoxic respiratory failurelikely multifactorial 2. Acute on compensated CHFresolved 3. 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 CHRIS 5. Hypokalemiareplaced Discharge Exam General: Resting comfortably in her hospital bed. NAD. HEENT: Head is AT/NC buccal mucosa is moist and pink Neck: No JVD. Negative hepatojugular reflex Cardiac: RRR with 2/6 KLAUS Lungs: No longer with persistent cough. Speaking full sentences on supplemental oxygen. Significantly improved air exchange throughout without wheezes, rales or rhonchi. Abdomen: Normoactive X4. Soft and nontender in all quadrants. Extremities: No peripheral clubbing cyanosis or edema Neuro: A&O X4 cranial nerves II through XII are grossly intact no focal neuro deficits Skin: No obvious skin lesions or rashes Psych: Appropriate affect pleasant and cooperative Discharge Data Allergies Allergy/AdvReac Type Severity Reaction Status Date / Time amoxicillin AdvReac Unknown Rash Unverified 01/08/21 22:30 Consultations 01/08/21 23:15 ED Decision to Admit Stat 01/09/21 13:47 [facility] CHF Program Referral Routine 01/14/21 12:03 Burn CD for patient Routine Consult [facility] photographic developer and printer Routine Ordered Studies CXR: IMPRESSION: Moderate to severe pulmonary edema with diffuse airspace opacities which may represent atelectasis, pneumonia, and/or aspiration. 01/09/21 08:42 CT chest diagnostic wo con Routine IMPRESSION: 1. Extensive groundglass opacities are present throughout both lungs characteristic of a viral type pneumonitis and Covid 19 pneumonia. 2. No evidence for interstitial edema. 3. Cardiomegaly with coronary artery calcification. Post diuresis CXR: (After fluid balance -6 L) IMPRESSION: Compared to the previous examination, there has been slight improvement of pulmonary edema with moderate diffuse interstitial edema still present. Hospital Course (1) Respiratory failure with hypoxia: - pulse ox 76% on RA on arrival - Initially requiring 9L-11L suppemental O2 - initially thought to be all uncompensated CHF and she was aggressively diuresed with Lasix IV and zaroxolyn trials. - She did respond to diuresis (Fluid balance of -6L/down 15 lbs). Clinically she appeared euvolemic but she was still requiring significant amounts of supplement al O2 (7-9L) - Etiology thought to be multifactorial at this point. Clearly there was some uncompensated CHF upon arrival (as her EF is poor). - follow up CXR showed imprvement PVC with persistent interstitial opacities - CT of the chest done showing Multifocal opacities concerning for PNA (viral) and NO EVIDENCE OF CHF Covid negative x3. procal neg. Biofire (viral testing) negative. ?atypicaly PNA--> started on empiric abx therapy for atypical coverage (although not conviced that there is a component of PNA at this point) - ? component of atelectasis contributing to hypoxemia as patient was not taking deep breathing an account of the cough INCENTIVE SPIROMETRY USE neb treatments. - Although there was some improvement in symptoms, patient continued to require significant amounts if supplemental O2. 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 --at this time, patient IS responding to the IV steroids that were started-- now tapered down to 2L O2 -- She is at her dry weight, she has no adventitious breathsounds, her edema has resolved, no longer with orthopnea/PND or cough. She has been pushed to her max with IV diuretics and she is now euvolemic. I suspect that there was a component of CHF but that this is more so related to amio toxicity -- 2 step donw showing 2L supplemental O2 needed at rest and with exertion -- plan is for long taper of prednisone and FU to see pulmonology as an OP with serial imaging and continued prednisone taper. (family requesting [facility] as Daughter Familiar with [place] given her work) (2) Pulmonary edema: - patient presented with ~10 day h/o increasing SOB, subjective F/C, URI symptoms which progressed into worsening SOB, increased edema,dry cough, 2-3 pillow orthopnea and PND. Son recently ill - patient with known CHF and severe LVD (EF 20-25%--has ICD, on BB and lasix 40mg daily)-- follows CHF clinic - covid is negative x3 - CXR showing severe pulm edema with elevated BNP of 11,024 - troponin negative - although there was definitely a component of uncompensated CHF- CT done as it was thought there was more of an infectious process ongoing - CT showed no pulm edema and significant groundglass opacities throughout consistent with a viral pneumonia. 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 - FB -6L to date - at dry weight (139 on day of discharge) - at this point, APPEARS EUVOLEMIC - transitioned from IV lasic to increased dose of oral Lasix (60mg daily as oppossed to 40mg as TECHNICAL TESTING ENGINEER) - did not tolerated topical nitropaste for preload reduction d/t hypotension - continue BB for afterload reduction (was on Coreg 25mg BID-- but this has since been decreased to 12.5 as BP was not allowing for this an added diuresis) --> current BP is 120/71 on day of D/C - patient currently not on ACEI/ARB given reported h/o hypotension with this in the past. Would also not tolerate Entresto (although would be great med given poor EF) - Echo done 11/2020: EF 20-25% with severe global hypokinesia. no sig. change from 2019. No need to update this at this time - seen by and plan of care D/W Valorie Maya PA-C (CHF clinic)-- she knows this patient well and agrees that patient appears euvolemic (3) Multifocal pneumonia: -CT showing multifocal opacities -Patient's Covid test has been negative X2 while in house and one negative prior to arrival -biofireall negative -empiric abx started for atypical pneumonia-->doxycycline (avoiding azithromycin due to slightly prolonged QT). subtle improvement but thought to be more amio tox (will complete full course of abx therapy) -utilized nebulized treatments, mucolytic agents, and antitussives -now on IV steroids for associated ?amiodarone toxicity -encourage IS -SC ordered but patient unable to produce -Is noted to have leukocytosis--> likely steroid-induced. (4) Hypokalemia: - replaced - continue upon D/C (5) CHRIS (acute kidney injury): -Presenting creatinine was 1.6. did downtrend initially with diuresis -Given her poor EF (20 to 25%) and mild acute on compensated CHFshe probably had a component of acute cardiorenal syndrome. -fluid status optimized with IV diuresis and oral zaroxolyn (6) Hypothyroidism: Continue Synthroid (7) Cardiomyopathy: - severe LVF (EF 20-25%) - ICD in place - on BB - no JEAN-PAUL/ARB given issues with hypotension in past - likely not candidate for Entresto given issues with BP from ARB in past - patient noted to be on Amiodarone. With review of old records, this was d/t defibrillator discharge August 2020. Has since has interrogation (showing no dysrhythmia). was to be on this x6 months (Jan) but stopped prematurely as outlined above - given poor EF, I do have concern for her overall prognosis. Lengthy D/W daughter who is a social worker psychiatric for hospice and reports that her "mother is not ready for that yet" although I did discuss that given her poor EF, she would qualify (8) CAD (coronary artery disease): - continue ASA, Lipitor, BB - no evidence of ACS (9) HTN (hypertension): -continue BB and monitor closely (for hypotension-- see above) (10) Leukocytosis: - steroid induced Plan of care discussed with Dr. Zafar Patient seen and examined while daughter was on speaker phone. All questions from patient and daughter answered patient to FU with pulmonology, CHF clinic, cardiology and PCP I have asked that her CT scan of her chest be burned onto a disc so she can bring it with her to her follow-up with pulmonology as daughter requesting out of network physician -We will need long taper of prednisone (at discretion of pulmonology) -We will need follow-up metabolic panel in approximately 1 to 2 weeks (to follow-up on her renal function and potassium given increased Lasix dosing) -Patient being sent home with supplemental oxygen (which may not be long-term. May be able to down taper/titrate as she continues to heal from this amiodarone toxicity) Home Health Attestation I certify that this patient is under my care and that I, or a physicians business services assistant working with me, had a face to-face encounter that meets the home health [id number] encounter requirements with this patient. The encounter with the patient was in whole, or in part, for the following medical condition, which is the primary reason for home health care (list medical condition): CHF I certify that, based on my findings, the following services are medically necessary home health services: My clinical findings support the need for the above services because: Skilled Nsg Assessment Teach on Disease Management and Interventions Vital Signs Further, I certify that my clinical findings support that this patient is homebound (i.e. absences from home require considerable and taxing effort and are for medical reasons or jew services or infrequently or of short duration when for other reasons) because: Transportation Assistance/Unable to Leave Home Unassisted Certification for Home Health Services: Based on the above findings, I certify that this patient is confined to the home and needs intermittent jail care, physical therapy and/or speech therapy or continues to need occupational therapy. The patient is under my care, and I have initiated the establishment of the plan of care. This patient will be followed by a physician who will periodically review the plan of care. Total Time Total Time Spent Total Time Spent (In Minutes): 90 minutes including time spent with patient, discussion with daughter, discussion with case management, coordination of care, and preparation of documentation Discharge Plan Discharge Items Patient Disposition: Home - Home Health Services Reason For Visit: HYPOXIA, CHF EXACERBATION Discharge Diagnosis: 1. Acute Hypoxic Respiratory Failure- likely multifactorial 2. Uncompensated CHF 3. Pneumonitis- suspect Amiodarone Toxicity Activity: As commented below Activity Comment: use supplemental O2 Non-emergency contact: Primary Care Provider, Security Researcher and Retail Training Manager Call non-emergency contact if: you have any medication questions and your symptoms worsen Follow-up/Referrals: Yamilet Soto MD [Primary Care Provider] - Valorie Maya PA-C [Physician Special Education Resource Room Teacher] - 01/19/21 10:30 am (Congestive Heart Failure Program Appointment Information Early follow up is essential to managing your heart failure. An appointment has been scheduled for you with the [facility] Heart Failure Program within 7 days of discharge. Anticipate this visit to be 30-60 minutes long. Please expect a search marketing specialist phone call from one of our nurses approximately 48 hours from discharge. They will also be placing an order for lab work to be completed 1-2 days prior to your heart failure follow up appointment. Please be sure to have this done so we can go over the results when you come in. Office Location The cardiology office building is located in front of the hospital at [address] Bring the following with you to your follow-up doctor appointments: Please bring your daily weight log any discharge paperwork all of your medication bottles with you to this visit. ) Diet: Low Sodium (2gm) Fluids: 1500ml (6 cups) Addtl Attending Provider Instructions: - you were hospitalized with acute hypoxemia respiratory failure (very low oxygen level) - There was definitely a component of too much fluid on board (CHF) but with additional lasix/diuresis, you still were requiring 9-11L of oxygen - CT scan was done showing concern for "pneumonitis" (was uncertain if this was infectious or perhaps related to amiodarone toxicity) - you were treated with antibiotic therapy (complete full course of this) for possible underlying infectious process (however favoring amiodarone toxicity) - amiodarone was due to be stopped in January (per Dr. Alvarado)-- we stopped this while in the hospital - you have been treated with Steroids (to help with the inflammatory response to amiodarone toxicity) - the prednisone is to be a long taper (and further guided by Pulmonology) - I spoke with your daughter who is requesting follow up with Pulmonology in [place] and she will take you to this appointment. - STOP AMIODARONE - wear Oxygen (2L needed at all times-- both at rest and with walking in addition to when you sleep) - Lasix was increased to 60mg daily while in house to help manage the fluid - your blood pressure did not tolerate the increased lasix with current dose of Coreg so this was decreased 12.5mg twice a day - can monitor oxygen levels while at home (goal is >88%) - follow up with your Family Physician next week - Recommend follow up labs in 1-2 weeks (to reassess kidney function given increase in Lasix)-- at discretion of PCP/Valorie Maya PA-C - recommend trending chest x-rays (which will be arranged by pulmonology) - return to the ED with new or worsening symptoms Pending Studies at Discharge: No Stand-Alone Forms: My [facility] [employer] Medications and DC Order Prescriptions: New carvedilol 12.5 mg Tablet 12.5 mg PO BID Qty: 60 RF: 0 furosemide 20 mg Tablet 60 mg PO QAM Qty: 90 RF: 0 potassium chloride 20 mEq Tablet,Er Particles/Crystals 20 meq PO QAM Qty: 30 RF: 0 doxycycline hyclate 100 mg capsule 100 mg PO BID Qty: 5 RF: 0 prednisone 10 mg tablet 40 mg PO BID Qty: 120 RF: 5 Continued amiodarone [Pacerone] 200 mg tablet 200 mg PO DAILY Qty: 90 RF: 3 atorvastatin [Lipitor] 10 mg Tablet 5 mg PO HS RF: 0 levothyroxine [Synthroid] 100 mcg Tablet 100 mcg PO QAM RF: 0 cholecalciferol (vitamin D3) [Vitamin D3] 25 mcg (1,000 unit) tablet 1,000 unit PO DAILY RF: 0 aspirin [Aspirin Low Dose] 81 mg Tablet,Delayed Release (Dr/Ec) 81 mg PO QDL RF: 0 Discontinued carvedilol 25 mg tablet 25 mg PO BID Qty: 180 RF: 3 furosemide [Lasix] 40 mg tablet 40 mg PO DAILY RF: 0 Discharge Orders: Discharge Order (Routine); Ordered 01/14/21 Ordered By: Valorie Mcdowell Admission Data Admit Date/Time: 01/09/21 04:40 Attending Provider: Michael Zafar Admit Provider: Nisreen Johnson Primary Care Provider: Yamilet Soto Other Providers: Kash Gayle ; Valorie Maya ; [facility] Other Interventions: Discharge Summary Assessment (RN) Last Done: 01/14/21 13:38 Supervising Physician Co-Signing Physician Notes Patient seen and examined on the day of discharge. I agree with the discharge summary by Valorie JOHANSEN. I have reviewed the chart including labs, imaging and plans for discharge. 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 daily weight, fluid restriction, follow with CHF clinic - Possible amiodarone toxicity: on amiodarone for 5 months, now discontinued CT chest with evidence of pneumonitis, not necessarily pulmonary edema and patient's oxygen requirements got worse despite aggressive diuresis started on high dose steroids, good response will discharge on Prednisone with taper and follow up with pulmonology in [place] Coding Level of Care Code D/C DAY MANAGEMENT >30 MINS Diagnoses Respiratory failure with hypoxia J96.01 Chronicity: acute Pulmonary edema J81.0 Chronicity: acute Multifocal pneumonia J18.9 Hypokalemia E87.6 CHRIS (acute kidney injury) N17.9 Hypothyroidism E03.9 Cardiomyopathy I42.9 Cardiomyopathy type: unspecified CAD (coronary artery disease) I25.10 HTN (hypertension) I10 Leukocytosis D72.829
== END 2021-01-14 15:15 | disposition home health service (06) | DRG 205 ==
LOC: ED 19:52 → 2W 01-09 04:22 → SUATTDRO 01-09 04:40

== ENCOUNTER 2021-07-16 16:35 | Inpatient (IN) ==
[2021-07-16] MEDS ORDERED: ACETAMINOPHEN 325 MG TAB PO PRN (16:46)
[2021-07-16] MEDS ORDERED: ONDANSETRON INJ 2 MG/ML 2 ML VIAL IV PRN (16:46)
[2021-07-16] MEDS ORDERED: METOCLOPRAMIDE HCL INJ 5 MG/ML 2 ML VIAL IV PRN (16:46)
[2021-07-16] MEDS ORDERED: diphenhydrAMINE 50 MG/ML VIAL IV PRN (16:46)
[2021-07-16] MEDS ORDERED: ZOLPIDEM TARTRATE 5 MG TAB PO PRN (16:46)
[2021-07-16] MEDS ORDERED: MAGNESIUM HYDROXIDE SUSP 30 ML UDC PO PRN (16:46)
[2021-07-16] MEDS ORDERED: oxyCODONE HCL IR 5 MG TAB (IMMEDIATE RELEASE) PO PRN (16:56)
[2021-07-16] MEDS ORDERED: VANCOMYCIN CONSULT ACTIVE PRN (17:02)
--- NOTE | 2021-07-16 17:09 | History & Physical Report ---
Date of Service July 16, 2021 Assessment & Plan (1) Swelling of right index finger: Plan: Patient will be admitted for further work-up and to rule out infection. Possibility of I&D of the finger has already been discussed with the patient. Will obtain stat MRI imaging of the hand to rule out subcutaneous abscess infectious tenosynovitis Start vancomycin every 12 prophylactically. Patient may eat tonight. N.p.o. after midnight. Consult hospitalist service for medical management. She may require additional consultation from infectious disease if infection is found. Will institute ice and elevation of the hand to reduce pain and swelling. Last Tetanus was Mar 2015. Does not require an update. Present on Admission?: Yes History of Present Illness Chief Complaint: Right index finger swelling Primary Care Provider: Yamilet Soto MD This 81-year-old female presented to the office today with complaints of right index finger swelling that has been ongoing for approximately 2 weeks. She states she thought it would go away but it has not. 3 days ago she developed acute onset of pain in the finger. She states it has been getting worse daily. The pain is keeping her from sleep. She notes loss of motion of the finger. She was seen by Dr. Farley today and referred to orthopedics. She denies any known insect bite or break in the skin. She denies any known trauma. She is not sure why it is swelling. No prior history of similar episode. She will be admitted for evaluation, antibiotics, and further imaging. Her last tetanus vaccine was Mar 2015. Allergies Allergy/AdvReac Type Severity Reaction Status Date / Time amiodarone Allergy Severe Verified 07/16/21 16:52 amoxicillin AdvReac Unknown Rash Unverified 07/03/21 10:05 Home Medications Medication Instructions Recorded Confirmed Type aspirin 81 mg tablet,delayed 81 mg PO QDL 09/22/20 07/03/21 History release (Aspirin Low Dose) cholecalciferol (vitamin D3) 25 1,000 unit PO DAILY tab 10/31/20 07/03/21 History mcg (1,000 unit) tablet (Vitamin D3) carvedilol 12.5 mg tablet 12.5 mg PO BID #180 tab 02/08/21 07/03/21 Rx furosemide 20 mg tablet 40 mg PO QAM #180 tab 02/08/21 07/03/21 Rx potassium chloride 20 mEq 20 meq PO QAM #90 tab 02/08/21 07/03/21 Rx tablet,extended release(part/cryst) atorvastatin 10 mg tablet (Lipitor) 5 mg PO HS #90 tab 03/12/21 07/03/21 Rx levothyroxine 100 mcg tablet 100 mcg PO QAM #90 tab 03/12/21 07/03/21 Rx (Synthroid) Past Med/Surg History Medical History Cataract Congestive heart failure Dyslipidemia HFrEF (heart failure with reduced ejection fraction) EF 20-25% 06/21 HTN (hypertension) Hypothyroidism Lumbar back pain Osteoarthritis Presence of combination internal cardiac defibrillator (ICD) and pacemaker Surgical History H/O hemorrhoidectomy H/O wisdom tooth extraction History of bladder surgery History of colonoscopy History of hysterectomy History of permanent cardiac pacemaker placement Family History Brother Cancer Other Diabetes Heart disease Social History Smoking Status: Never smoker Hx Alcohol Use: No Hx Substance Use: No Preferred Language: Iraqi Communication Ability: Effective Hearing Ability: Normal 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 Sitting in a chair. Alert and oriented. Skin: Warm and dry with fair turgor. No rashes. She does have significant edema present in the right index finger. It extends from the MCP joint to the tip of the finger. No puncture wounds. No drainage. Mild warmth. No erythema. HEENT: Normocephalic atraumatic. Eyes PERRLA EOMI. Wearing glasses. Ears: Right canal is occluded by cerumen. Left canal is clear. Normal TM. No erythema. Nares: Patent bilaterally without turbinate enlargement. No drainage. Oropharynx: Without erythema or exudate. Full upper denture plate. Lower partial plate. Heart: Heart RRR. No MGR. Peripheral pulses are 2+. Lungs: Lungs are clear to auscultation. No crackles rhonchi or wheezing. Good air movement. The patient is able to take a deep breath. Abdomen: Abdomen was inspected, auscultated, and palpated. Bowel sounds present x 4. Soft, nontender to palpation. Musculoskeletal: Right index finger has the above-stated edema. She has pain with palpation across the proximal phalanx, PIP joint, middle phalanx, and DIP joint. No pain over her tuft. She has no motion at the DIP joint flexion or extension. There is intact function at the PIP and MCP joints for both flexion and extension. Motion is limited secondary to the amount of edema. There is no involvement of the thumb, long, ring, or little fingers. Neurologic: Gross sensation is intact across each of the digits of the right hand by soft touch. Capillary refill is equal for each of the digits. Peripheral pulses are 2+. Results & Data Results & Data ([facility]) Vital Signs (Past 12 Hours) Temperature 36.3, BP 108/58 pulse 65 respirations 20 Diagnostic Findings 3 views Right hand Radiographic imaging obtained today showed Right index finger, soft tissue swelling, degenerative changes DIP joint versus inflammatory process versus osteomyelitis. Code Status & VTE Plan VTE Prophylaxis Plan VTE Prophylaxis will be ordered: Yes Supervising Physician Co-Signing Physician Notes I, Dr. Rodriguez, saw and examined the patient and discussed the management with my PA. I reviewed my PAs note and agree with the documented findings and the plan of care I developed and discussed with PA and Dr. Farley.
[2021-07-16] MEDS ORDERED: Patient's HEIGHT &/or WEIGHT Needed SCH (18:15)
[2021-07-16] MEDS ORDERED: VANCOMYCIN HCL 1,250 MG in SODIUM CHLORIDE 0.9% 250 ML IV ONE (20:15)
[2021-07-16 20:51] LABS: Basophils # (auto) 0.04 K/uL (0-0.2); Basophils % (auto) 0.6 %; Eosinophils # (auto) 0.38 K/uL (0-0.5); Hemoglobin 12.5 g/dL (12.0-16.0); Immature Granulocytes # (auto) 0.02 K/uL (0.00-0.02); Immature Granulocytes % (auto) 0.3 %; Lymphocytes # (auto) 0.93 K/uL (1.2-3.4); Lymphocytes % (auto) 14.7 %; Mean Corpuscular Hgb Conc 32.9 g/dL (32-36); Mean Corpuscular Volume 94.3 fL (80-100); Mean Platelet Volume 10.7 fL (7.4-10.4); Monocytes # (auto) 0.59 K/uL (0.11-0.59); Monocytes % (auto) 9.3 %; Neutrophils # (auto) 4.37 K/uL (1.4-6.5); Neutrophils % (auto) 69.1 %; Platelet Count 170 K/uL (130-400); RDW Coefficient of Variation 13.7 % (11.5-14.5); RDW Standard Deviation 47.8 fL (36.4-46.3); Red Blood Count 4.03 M/uL (4.2-5.4); White Blood Count 6.33 K/uL (4.8-10.8)
[2021-07-16 21:12] LABS: Anion Gap 8 (3-11); BUN Creatinine Ratio 17.9 (10-20); Blood Urea Nitrogen 21 mg/dl (6-23); C Reactive Protein < 0.50 mg/dl (0-0.5); Calcium 9.4 mg/dl (8.5-10.1); Carbon Dioxide 29 mmol/L (21-32); Chloride 99 mmol/L (98-107); Creatinine Clr Calc Pharmacy 28.8 ml/min; Est GFR (African American) 49.9 ml/min; Est GFR (Non-African American) 43.1 ml/min; Glucose 83 mg/dl (70-99(Fasting)); Sodium 136 mmol/L (136-145)
--- NOTE | 2021-07-16 21:29 | Pharmacy Report ---
Pharmacy Vanc AUC Short Note - Date of Service July 16, 2021 - Assessment & Plan Assessment 81 year old F receiving Vancomycin for empiric treatment of cellulitis. * Afebrile. No leukocytosis. ESR/CRP normal. * Planning on MRI of hand and possible I&D tomorrow. * Blood cultures pending. Plan Vancomycin * AUC/JOSEPH is the preferred PK/PD target for vancomycin * AUC guided dosing is effective and associated with decreased risk of nephrotoxicity compared to traditional trough targets * Loading dose of 1250 mg x 1 * Maintenance dose of 750 mg IV every 24 hours is predicted to achieve target AUC/JOSEPH of 400-600 mg/L.hr and may be associated with a 9% risk of nephrotoxicity * No trough will be ordered unless therapy extends beyond 48 hours. Pharmacy will continue to follow and will adjust dose/frequency as necessary. Thank you.
[2021-07-16] MEDS: DOCUSATE SODIUM 100 MG CAP PO SCH (21:42)
[2021-07-16] MEDS: carvediloL 12.5 MG TAB PO SCH (21:42)
[2021-07-16] MEDS: ATORVASTATIN 10 MG TAB PO SCH (21:42)
[2021-07-17] MEDS: LEVOTHYROXINE SODIUM 100 MCG TABLET PO SCH (05:59)
[2021-07-17 07:25] LABS: Creatinine Clr Calc Pharmacy 35.9 ml/min; Est GFR (Non-African American) 56.1 ml/min
--- NOTE | 2021-07-17 08:47 | Anesthesiology Consultation ---
Date of Service July 17, 2021 Assessment & Plan (1) Encounter for pre-operative examination: Chart Review Chart Review: Acceptable Risk for Surgery and Patient NOT seen in Pre Admission Testing Consults Requested none History Surgery Operation Date: 07/17/21 09:55 Proposed Procedures p Right Index Finger Irrigation and Debridement - Luis Sony Rodriguez MD Height/Weight Height: 5 ft 2 in Weight: 58.967 kg Allergies Allergy/AdvReac Type Severity Reaction Status Date / Time amiodarone Allergy Severe Verified 07/16/21 16:52 amoxicillin AdvReac Unknown Rash Unverified 07/03/21 10:05 Medications Home Medications Medication Instructions Recorded Confirmed Last Taken aspirin 81 mg tablet,delayed 81 mg PO QDL 09/22/20 07/03/21 01/08/21 release (Aspirin Low Dose) cholecalciferol (vitamin D3) 25 1,000 unit PO DAILY tab 10/31/20 07/03/21 01/08/21 mcg (1,000 unit) tablet (Vitamin D3) carvedilol 12.5 mg tablet 12.5 mg PO BID #180 tab 02/08/21 07/03/21 Unknown furosemide 20 mg tablet 40 mg PO QAM #180 tab 02/08/21 07/03/21 Unknown potassium chloride 20 mEq 20 meq PO QAM #90 tab 02/08/21 07/03/21 Unknown tablet,extended release(part/cryst) atorvastatin 10 mg tablet (Lipitor) 5 mg PO HS #90 tab 03/12/21 07/03/21 Unknown levothyroxine 100 mcg tablet 100 mcg PO QAM #90 tab 03/12/21 07/03/21 Unknown (Synthroid) Active Medications Generic Name Dose Route Start Last Admin Trade Name Freq PRN Reason Stop Dose Admin Atorvastatin Calcium 5 mg 07/16/21 21:00 07/16/21 21:42 Atorvastatin 10 Mg Tab PO 08/15/21 20:59 Not Given HS SHERI Carvedilol 12.5 mg 07/16/21 21:00 07/16/21 21:42 Carvedilol 12.5 Mg Tab PO 08/15/21 20:59 Not Given BID SHERI Docusate Sodium 100 mg 07/16/21 21:00 07/16/21 21:42 Docusate Sodium 100 Mg Cap PO 08/15/21 20:59 Not Given BID SHERI Levothyroxine Sodium 100 mcg 07/17/21 06:30 07/17/21 05:59 Levothyroxine Sodium 100 Mcg Tablet PO 08/16/21 06:29 100 mcg DAILYBB SHERI Administration Past Medical History Medical History Cataract Congestive heart failure Dyslipidemia HFrEF (heart failure with reduced ejection fraction) EF 20-25% 06/21 HTN (hypertension) Hypothyroidism Lumbar back pain Osteoarthritis Presence of combination internal cardiac defibrillator (ICD) and pacemaker Past Family History Family History Brother Cancer Other Diabetes Heart disease Past Surgical History Surgical History H/O hemorrhoidectomy H/O wisdom tooth extraction History of bladder surgery History of colonoscopy History of hysterectomy History of permanent cardiac pacemaker placement Social History Smoking Status: Never smoker Hx Alcohol Use: No Hx Substance Use: No Physical Exam Vital Signs Last Vital Signs Temp 36.6 C 07/17/21 07:08 Pulse 76 07/17/21 07:08 Resp 14 07/17/21 07:08 BP 119/71 07/17/21 07:08 Pulse Ox 93 07/17/21 07:08 Testing Laboratory Results 07/16/21 20:38 07/17/21 06:41 Electrocardiogram Date: 01/08/21 DICTATED BY:Marco Alvarado MD Test Reason : Blood Pressure : / mmHG Vent. Rate : 076 BPM Atrial Rate : 075 BPM P-R Int : 250 ms QRS Dur : 158 ms QT Int : 454 ms P-R-T Axes : 087 -59 110 degrees QTc Int : 510 ms Atrial-paced rhythm with prolonged AV conduction Left axis deviation Non-specific intra-ventricular conduction block Abnormal ECG When compared with ECG of 22-SEP-2020 18:49, No significant change was found Confirmed by Marco Alvarado ([id number]) on 01/09/2021 1:37:13 PM Referred By: REFERRED SELF Confirmed By:Marco Alvarado Signed By: Echocardiogram Date: 11/22/20 EF: 20-25 LV Function: dysfunctional RWMA: + hypokinetic (severe global) Valvular Disease: + MR (moderate) moderate TR
--- NOTE | 2021-07-17 09:35 | Orthopedic Progress Note ---
Date of Service July 17, 2021 Assessment & Plan (1) Swelling of right index finger: Plan: Patient has been n.p.o. since midnight last night. MRI studies are pending. Patient may possibly undergo an irrigation and debridement of the right index finger after the MRI study has been obtained. Consult hospitalist service for medical management. She may require additional consultation from infectious disease if infection is found. Will institute ice and elevation of the hand to reduce pain and swelling. Last Tetanus was Mar 2015. Does not require an update. Admission and Anticipated Discharge Date Admission Date: July 16, 2021 Subjective This 81-year-old female seen this morning. She was a direct admission from our office yesterday for an infected right index finger. Patient denies any trauma to the finger she states that over the past few weeks the swelling has increased. Most of her pain is localized to the MCP joint. Patient has not yet had her MRI study. A stat order was placed however she needs to be cleared because of her pacemaker before she can have the study performed. Patient currently denies chest pain, shortness of breath, fever, chills, sweats, lethargy or numbness or tingling in the affected digit. Review of Systems Review of Systems: All systems reviewed & are unremarkable except as noted in Subjective Physical Exam Physical Exam: Right index finger: Moderate edema affecting the entire digit. Very limited ability to flex at the DIP, PIP and MCP joint. No tenderness to palpation over the DIP or PIP, however there is exquisite tenderness to palpation over the MCP with some warmth noted over the dorsal surface. Otherwise she is neurovascularly intact. She is able to detect light sensation to touch. Her peripheral pulses 2+. Capillary fill is less than 2 seconds. No other fingers are affected in the right hand. Results & Data ([facility]) Vital Signs (Past 12 Hours) Vital Signs Temp Pulse Resp BP Pulse Ox 07/17/21 07:08 36.6 C 76 14 119/71 93 07/16/21 23:52 36.8 C 64 16 104/62 98 Diagnostic Findings Laboratory Results WBC 6.33 K/uL (4.8-10.8) 07/16/21 20:38 RBC 4.03 M/uL (4.2-5.4) L 07/16/21 20:38 Hgb 12.5 g/dL (12.0-16.0) 07/16/21 20: Hct 38.0 % (37-47) 07/16/21 20: MCV 94.3 fL (80-100) 07/16/21: MCH 31.0 pg (25-34) 07/16/21 20: MCHC 32.9 g/dL (32-36) 07/16/21 20: RDW Std Deviation 47.8 fL (36.4-46.3) H 07/16/21: RDW Coeff of [place] 13.7 % (11.5-14.5) 07/16/21: Plt Count 170 K/uL (130-400) 07/16/21: MPV 10.7 fL (7.4-10.4) H 07/16/21: Immature Gran % (Auto) 0.3 % 07/16/21: Neut % (Auto) 69.1 % 07/16/21: Lymph % (Auto) 14.7 % 07/16/21: [place] % (Auto) 9.3 % 07/16/21: Eos % (Auto) 6.0 % 07/16/21: Baso % (Auto) 0.6 % 07/16/21: Neut # (Auto) 4.37 K/uL (1.4-6.5) 07/16/21 20: Lymph # (Auto) 0.93 K/uL (1.2-3.4) L 07/16/21: [place] # (Auto) 0.59 K/uL (0.11-0.59) 07/16/21: Eos # (Auto) 0.38 K/uL (0-0.5) 07/16/21 20: Baso # (Auto) 0.04 K/uL (0-0.2) 07/16/21: Immature Gran # (Auto) 0.02 K/uL (0.00-0.02) 07/16/21: ESR 16 mm/hr (0-30) 07/16/21 20: Sodium 136 mmol/L (136-145) 07/16/21: Potassium 4.1 mmol/L (3.5-5.1) 07/16/21 21:24 Chloride 99 mmol/L (98-107) 07/16/21 20:38 Carbon Dioxide 29 mmol/L (21-32) 07/16/21 20:38 Anion Gap 8 (3-11) 07/16/21 20:38 BUN 21 mg/dl (6-23) 07/16/21 20:38 Creatinine 0.94 mg/dl (0.6-1.2) 07/17/21 06:41 Est Cr Clr Drug Dosing 35.9 ml/min 07/17/21 06:41 Est GFR ( Amer) 65.0 ml/min 07/17/21 06:41 Est GFR (Non-Af Amer) 56.1 ml/min 07/17/21 06:41 BUN/Creatinine Ratio 17.9 (10-20) 07/16/21 20:38 Glucose 83 mg/dl (70-99(Fasting)) 07/16/21 20:38 Calcium 9.4 mg/dl (8.5-10.1) 07/16/21 20:38 C-Reactive Protein < 0.50 mg/dl (0-0.5) 07/16/21 20:38
--- NOTE | 2021-07-17 12:14 | Magnetic Resonance Report ---
MRI OF THE RIGHT HAND WITHOUT IV CONTRAST CLINICAL HISTORY: Second finger infection. COMPARISON STUDY: Radiographs of the right second digit dated 07/16/2021. TECHNIQUE: MRI of the right hand is performed utilizing various T1 and T2-weighted sequences in the a xial, sagittal, and coronal planes. IV contrast was not administered for this examination. Examinatio n is significantly degraded by motion artifact. FINDINGS: Marrow signal intensity is heterogeneous. There is mild marrow edema within the base of the second distal phalanx, with coarse bony drop in signal on T1-weighted sequences. There is trace flui d in the joint space of the second distal interphalangeal joint. When correlated with the recent x-ra y, this likely represents erosive osteoarthritis. Underlying osteomyelitis would be impossible to exc lude and clinical correlation will be essential. No similar appearing foci of marrow change are seen throughout the remainder of the hand. Moderate to advanced osteoarthritic change is seen throughout t he metacarpophalangeal and interphalangeal joints. Erosive osteoarthritis is seen involving the first phalangeal joint, as well as the third through fifth distal interphalangeal joints. Foci of cystic d egenerative change and mild marrow edema are present in the base of the third proximal phalanx, as we ll as the second and third metacarpal heads. There are hooked osteophytes involving the metacarpals. Cystic degenerative change is also seen throughout the partially visualized wrist. Soft tissue edema is present throughout the fingers, greatest in the second digit. No organized fluid collection is see n to suggest abscess. The flexor and extensor tendons are grossly intact as visualized. Fluid around the flexor tendons in the second digit may represent tenosynovitis. The regional musculature is gross ly unremarkable. IMPRESSION: 1. There is erosive change at the base of the second distal phalanx with corresponding marrow edema a nd trace fluid in the joint space. These findings are nonspecific and likely related to erosive osteo arthritis. In the appropriate clinical setting, osteomyelitis is not excluded and clinical correlatio n will be essential. 2. Advanced arthritic change with evidence of erosive osteoarthritis is seen throughout the remainder of the hand as detailed above. 3. No acute fracture is identified. 4. Soft tissue edema is present throughout the fingers, greatest in the second digit. 5. There is fluid identified around the flexor tendons in the second digit. Correlate clinically for evidence of tenosynovitis. Dictated: 07/17/2021 11:31 AM Transcribed: 07/17/2021 12:04 PM [facility] [id number] [facility]_[place] Electronically signed by: Pablito Simons M.D. 07/17/2021 12:12 PM
[2021-07-17] MEDS: DOCUSATE SODIUM 100 MG CAP PO SCH ×2 (14:57→20:35)
[2021-07-17] MEDS: POTASSIUM CHLORIDE CRTAB 20 MEQ TABCR PO SCH (14:57)
[2021-07-17] MEDS: FUROSEMIDE 40 MG TAB PO SCH (14:58)
[2021-07-17] MEDS: CHOLECALCIFEROL 1,000 UNITS 25 MCG TAB PO SCH (14:58)
[2021-07-17] MEDS: carvediloL 12.5 MG TAB PO SCH ×2 (14:59→20:34)
[2021-07-17] MEDS: VANCOMYCIN HCL 750 MG in SODIUM CHLORIDE 0.9% 250 ML IV SCH (15:05)
--- NOTE | 2021-07-17 15:35 | Hospitalist Consultation ---
Date of Consultation July 17, 2021 Assessment & Plan (1) Swelling of right index finger: Admitted to [facility] under orthopedic service MRI shows concerning findings for tenosynovitis Empirically on vancomycin N.p.o. after midnight, patient is on the OR schedule for tomorrow for I&D If she does undergo I&D, obtain culture data to determine if course of IV abx is warranted Continue ice and elevation Pain medications as ordered (2) Cardiomyopathy: Chronic and longstanding, follows with heart failure program LVEF of 20 to 25% as of most recent echocardiogram Continue Coreg, Lasix According to documentation, patient has not been able to tolerate JEAN-PAUL/ARB due to hypotension Would limit IV fluids to avoid putting her into acute CHF (3) CAD (coronary artery disease): Continue beta-elizabeth and Lipitor Follows with cardiology (4) Hypothyroidism: Continue Synthroid 100 mcg daily Recommend follow-up labs in the morning including CBC, BMP. Continue empiric abx as written, Vanco will cover for MRSA/staph/strep. Thank you for allowing me to participate in the care of your patient. We will continue to follow along and make additional recommendations as her hospitalization progresses. Plan of care has been discussed with Dr. Emery Lopez. Supervising Physician Co-Signing Physician Notes I supervised Miladys Mtz PA-C on the care of this patient. I interviewed and examined the patient independently of her. The plan is as written in her note except for any following changes/exceptions: None Overall stable. Discuss with Dr. Rodriguez. Not a clear-cut tenosynovitis as it is improving slightly already. Will trial celecoxib with GI ppx. If finger gets worse, can always move to OR, but if it improves, this may be a mild inflammatory arthritis. History of Present Illness Reason for Consultation: Medical management Requesting Physician: Dr. Rodriguez Attending Physician: Luis Rodriguez MD History of Present Illness Mrs. Kamara is a pleasant 81 yo wf with a pmhx of cardiomyopathy with severe LV dysfunction (EF 20-25%) CAD, HTN, and hypothyroidism who was admitted overnight by Dr. Rodriguez due to swelling of the right 2nd finger which has been ongoing x 2 weeks. She is now having increased pain and inability to bend/use finger. She was seen by Dr. Farley in office on 07/16 and referred to orthopedics. Pt denies fever/chills, known breaks in the skin, or trauma to the finger. It appears she was admitted to orthopedic service with initiation of empiric Vancomycin. She was kept NPO today in the event that she would need to have and I&D performed of the finger. She underwent an MRI today of the right hand which demonstrated findings of fluid around the flexor tendons c/f tenosynovitis. Apparently, surgery was cancelled for today with plans to continue monitoring overnight to monitor for improvement prior to committing to surgical intervention (this was per pt). Presently, she is seen at bedside, has no complaints/concerns. She denies cp, dyspnea, n/v/d, f/c, headache, or gu symptoms. She was just seen in the HF clinic and by her associate manager affiliate marketing recently in July and June respectively. She denies any symptoms concerning for a/c HF including weight gain, LE edema, PND, or orthopnea. Allergies Allergy/AdvReac Type Severity Reaction Status Date / Time amiodarone Allergy Severe Verified 07/16/21 16:52 amoxicillin AdvReac Unknown Rash Unverified 07/03/21 10:05 Home Medications Medication Instructions Recorded Confirmed Type aspirin 81 mg tablet,delayed 81 mg PO QDL 09/22/20 07/03/21 History release (Aspirin Low Dose) cholecalciferol (vitamin D3) 25 1,000 unit PO DAILY tab 10/31/20 07/03/21 History mcg (1,000 unit) tablet (Vitamin D3) carvedilol 12.5 mg tablet 12.5 mg PO BID #180 tab 02/08/21 07/03/21 Rx furosemide 20 mg tablet 40 mg PO QAM #180 tab 02/08/21 07/03/21 Rx potassium chloride 20 mEq 20 meq PO QAM #90 tab 02/08/21 07/03/21 Rx tablet,extended release(part/cryst) atorvastatin 10 mg tablet (Lipitor) 5 mg PO HS #90 tab 03/12/21 07/03/21 Rx levothyroxine 100 mcg tablet 100 mcg PO QAM #90 tab 03/12/21 07/03/21 Rx (Synthroid) Patient History Medical History Cataract Congestive heart failure Dyslipidemia HFrEF (heart failure with reduced ejection fraction) EF 20-25% 06/21 HTN (hypertension) Hypothyroidism Lumbar back pain Osteoarthritis Presence of combination internal cardiac defibrillator (ICD) and pacemaker Surgical History H/O hemorrhoidectomy H/O wisdom tooth extraction History of bladder surgery History of colonoscopy History of hysterectomy History of permanent cardiac pacemaker placement Family History Brother Cancer Other Diabetes Heart disease Social History Smoking Status: Never smoker Hx Alcohol Use: No Hx Substance Use: No Preferred Language: Lithuanian Communication Ability: Effective Hearing Ability: Normal Clam Grader Required: No Beliefs That Will Affect Care: None marital status: Current Living Situation: Spouse Current Living Situation Comment: house with spouse current occupational status: retired Other Information That Helps Us Care for You: No Feels Safe at Home: Yes Safety Concerns: Feels Safe At This Time Assistive Devices: None Review of Systems Review of Systems: All systems reviewed and are unremarkable except as noted in HPI and below. Denies fever, chills, fatigue, headache, nasal congestion, sore throat, cough, chest pain, shortness of breath, palpitations, orthopnea, PND, abdominal pain, n/v/d, constipation, dysuria, hematuria, frequency, back pain, easy bruising or bleeding, skin lesions or rashes. Physical Exam Physical Exam: GENERAL: 81 yo well-developed, well-nourished WF. NAD. LUNGS: Clear to auscultation bilaterally. No accessory muscle use. No W/R/R. CARDIOVASCULAR: Regular rate and rhythm. No M/G/R. No JVD. ABDOMEN: Soft, non-tender and non-distended. BS normal x 4 quad. EXTREMITIES: No edema. Non-tender. Peripheral pulses +2/4. R 2nd finger is edematous and tender to palpation over MCP joint. Some erythema is noted as well as warmth. NEUROLOGIC: A&O x3. PSYCHIATRIC: Cooperative. Appropriate mood and affect. SKIN: Warm, dry, intact. No rashes or lesions. Results & Data Results & Data ([facility]) Vital Signs (Past 12 Hours) Vital Signs Temp Pulse Resp BP Pulse Ox 07/17/21 15:00 36.6 C 63 14 135/68 98 07/17/21 07:08 36.6 C 76 14 119/71 93 Laboratory Results no labs drawn today Diagnostic Findings Hand MRI 07/17/21 16:56 MRI OF THE RIGHT HAND WITHOUT IV CONTRAST CLINICAL HISTORY: Second finger infection. COMPARISON STUDY: Radiographs of the right second digit dated 07/16/2021. TECHNIQUE: MRI of the right hand is performed utilizing various T1 and T2- weighted sequences in the axial, sagittal, and coronal planes. IV contrast was not administered for this examination. Examination is significantly degraded by motion artifact. FINDINGS: Marrow signal intensity is heterogeneous. There is mild marrow edema within the base of the second distal phalanx, with coarse bony drop in signal on T1-weighted sequences. There is trace fluid in the joint space of the second distal interphalangeal joint. 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 Underlying osteomyelitis would be impossible to exclude and clinical correlation will be essential. No similar appearing foci of marrow change are seen throughout the remainder of the hand. Moderate to advanced osteoarthritic change is seen throughout the metacarpophalangeal and interphalangeal joints. Erosive osteoarthritis is seen involving the first phalangeal joint, as well as the third through fifth distal interphalangeal joints. Foci of cystic degenerative change and mild marrow edema are present in the base of the third proximal phalanx, as well as the second and third metacarpal heads. There are hooked osteophytes involving the metacarpals. Cystic degenerative change is also seen throughout the partially visualized wrist. Soft tissue edema is present throughout the fingers, greatest in the second digit. No organized fluid collection is seen to suggest abscess. The flexor and extensor tendons are grossly intact as visualized. Fluid around the flexor tendons in the second digit may represent tenosynovitis. The regional musculature is grossly unremarkable. IMPRESSION: 1. There is erosive change at the base of the second distal phalanx with corresponding marrow edema and trace fluid in the joint space. 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 In the appropriate clinical setting, osteomyelitis is not excluded and clinical correlation will be essential. 2. Advanced arthritic change with evidence of erosive osteoarthritis is seen throughout the remainder of the hand as detailed above. 3. No acute fracture is identified. 4. Soft tissue edema is present throughout the fingers, greatest in the second digit. 5. There is fluid identified around the flexor tendons in the second digit. Correlate clinically for evidence of tenosynovitis. Dictated: 07/17/2021 11:31 AM Transcribed: 07/17/2021 12:04 PM Ramona [id number] [facility]_[place] Electronically signed by: Pablito Simons M.D. 07/17/2021 12:12 PM PG Care Time/CCT Total # of Minutes Spent Total Time Spent with Patient: Total time spent is greater than 50% in coordination of care (as documented) at patient's floor/unit and/or counseling patient: Coding Level of Care Code 56973 Inpt Consult Level 4 Diagnoses Swelling of right index finger M79.89 Cardiomyopathy I42.9 Cardiomyopathy type: unspecified CAD (coronary artery disease) I25.10 Hypothyroidism E03.9 (1) Cardiomyopathy Cardiomyopathy type: unspecified Qualified Code(s): I42.9 - Cardiomyopathy, unspecified
--- NOTE | 2021-07-17 18:36 | Orthopedic Progress Note ---
Date of Service July 17, 2021 Assessment & Plan (1) Swelling of right index finger: Plan: Right Index Finger Swelling and pain, decreased today. Discussed lab findings which are suggestive of non-infectious cause, and MRI findings. Will allow her to eat today, but NPO after midnight and re-evaluate tomorrow am. Has been added to add-on OR schedule. Will start Celebrex 200 mg BID, max 2 weeks and then once a day prn. Appreciate hospitalist service input for medical management. She may require additional consultation from infectious disease if infection is found. Continue RICE. Last Tetanus was Mar 2015. Does not require an update. Admission and Anticipated Discharge Date Admission Date: July 16, 2021 Subjective R IF pain Review of Systems Review of Systems: All systems reviewed & are unremarkable except as noted in HPI & below Physical Exam Physical Exam: R IF: BCR < 2 sec. Sensation to light touch intact. Only able to flex at MCP ~ 30 degrees. Decreased swelling. No erythema. + tenderness to palpation over Metacarpal head. Results & Data ([facility]) Vital Signs (Past 12 Hours) Vital Signs Temp Pulse Resp BP Pulse Ox 07/17/21 15:00 36.6 C 63 14 135/68 98 07/17/21 07:08 36.6 C 76 14 119/71 93 Diagnostic Findings Laboratory Results WBC 6.33 K/uL (4.8-10.8) 07/16/21 20:38 RBC 4.03 M/uL (4.2-5.4) L 07/16/21 20:38 Hgb 12.5 g/dL (12.0-16.0) 07/16/21 20:38 Hct 38.0 % (37-47) 07/16/21 20:38 MCV 94.3 fL (80-100) 07/16/21 20:38 MCH 31.0 pg (25-34) 07/16/21 20:38 MCHC 32.9 g/dL (32-36) 07/16/21 20:38 RDW Std Deviation 47.8 fL (36.4-46.3) H 07/16/21 20:38 RDW Coeff of Sumanth 13.7 % (11.5-14.5) 07/16/21 20:38 Plt Count 170 K/uL (130-400) 07/16/21 20:38 MPV 10.7 fL (7.4-10.4) H 07/16/21 20:38 Immature Gran % (Auto) 0.3 % 07/16/21 20:38 Neut % (Auto) 69.1 % 07/16/21 20:38 Lymph % (Auto) 14.7 % 07/16/21 20:38 Benton % (Auto) 9.3 % 07/16/21 20:38 Eos % (Auto) 6.0 % 07/16/21 20:38 Baso % (Auto) 0.6 % 07/16/21 20:38 Neut # (Auto) 4.37 K/uL (1.4-6.5) 07/16/21 20:38 Lymph # (Auto) 0.93 K/uL (1.2-3.4) L 07/16/21 20:38 Benton # (Auto) 0.59 K/uL (0.11-0.59) 07/16/21 20:38 Eos # (Auto) 0.38 K/uL (0-0.5) 07/16/21 20:38 Baso # (Auto) 0.04 K/uL (0-0.2) 07/16/21 20:38 Immature Gran # (Auto) 0.02 K/uL (0.00-0.02) 07/16/21 20:38 ESR 16 mm/hr (0-30) 07/16/21 20:38 Sodium 136 mmol/L (136-145) 07/16/21 20:38 Potassium 4.1 mmol/L (3.5-5.1) 07/16/21 21:24 Chloride 99 mmol/L (98-107) 07/16/21 20:38 Carbon Dioxide 29 mmol/L (21-32) 07/16/21 20:38 Anion Gap 8 (3-11) 07/16/21 20:38 BUN 21 mg/dl (6-23) 07/16/21 20:38 Creatinine 0.94 mg/dl (0.6-1.2) 07/17/21 06:41 Est Cr Clr Drug Dosing 35.9 ml/min 07/17/21 06:41 Est GFR ( Amer) 65.0 ml/min 07/17/21 06:41 Est GFR (Non-Af Amer) 56.1 ml/min 07/17/21 06:41 BUN/Creatinine Ratio 17.9 (10-20) 07/16/21 20:38 Glucose 83 mg/dl (70-99(Fasting)) 07/16/21 20:38 Uric Acid 6.2 mg/dl (2.6-7.2) 07/17/21 06:41 Calcium 9.4 mg/dl (8.5-10.1) 07/16/21 20:38 C-Reactive Protein < 0.50 mg/dl (0-0.5) 07/16/21 20:38 Impressions Hand MRI 07/17/21 16:56 MRI OF THE RIGHT HAND WITHOUT IV CONTRAST CLINICAL HISTORY: Second finger infection. COMPARISON STUDY: Radiographs of the right second digit dated 07/16/2021. TECHNIQUE: MRI of the right hand is performed utilizing various T1 and T2- weighted sequences in the axial, sagittal, and coronal planes. IV contrast was n ot administered for this examination. Examination is significantly degraded by motion artifact. FINDINGS: Marrow signal intensity is heterogeneous. There is mild marrow edema within the base of the second distal phalanx, with coarse bony drop in signal on T1-weighted sequences. There is trace fluid in the joint space of the second distal interphalangeal joint. 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 Underlying osteomyelitis would be impossible to exclude and clinical correlation will be essential. No similar appearing foci of marrow change are seen throughout the remainder of the hand. Moderate to advanced osteoarthritic change is seen throughout the metacarpophalangeal and interphalangeal joints. Erosive osteoarthritis is seen involving the first phalangeal joint, as well as the third through fifth distal interphalangeal joints. Foci of cystic degenerative change and mild marrow edema are present in the base of the third proximal phalanx, as well as the second and third metacarpal heads. There are hooked osteophytes involving the metacarpals. Cystic degenerative change is also seen throughout the partially visualized wrist. Soft tissue edema is present throughout the fingers, greatest in the second digit. No organized fluid collection is seen to suggest abscess. The flexor and extensor tendons are grossly intact as visualized. Fluid around the flexor tendons in the second digit may represent tenosynovitis. The regional musculature is grossly unremarkable. IMPRESSION: 1. There is erosive change at the base of the second distal phalanx with corresponding marrow edema and trace fluid in the joint space. 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 In the appropriate clinical setting, osteomyelitis is not excluded and clinical correlation will be essential. 2. Advanced arthritic change with evidence of erosive osteoarthritis is seen throughout the remainder of the hand as detailed above. 3. No acute fracture is identified. 4. Soft tissue edema is present throughout the fingers, greatest in the second digit. 5. There is fluid identified around the flexor tendons in the second digit. Correlate clinically for evidence of tenosynovitis. Dictated: 07/17/2021 11:31 AM Transcribed: 07/17/2021 12:04 PM Ramona [id number] [facility] Electronically signed by: Pablito Simons M.D. 07/17/2021 12:12 PM
[2021-07-17] MEDS: ATORVASTATIN 10 MG TAB PO SCH (20:34)
[2021-07-17] MEDS: CeleBREX 200 MG CAP PO SCH (20:34)
[2021-07-18 05:47] LABS: Basophils # (auto) 0.03 K/uL (0-0.2); Basophils % (auto) 0.6 %; Eosinophils # (auto) 0.39 K/uL (0-0.5); Eosinophils % (auto) 8.2 %; Hematocrit (blood only) 35.5 % (37-47); Hemoglobin 11.7 g/dL (12.0-16.0); Immature Granulocytes # (auto) 0.01 K/uL (0.00-0.02); Immature Granulocytes % (auto) 0.2 %; Lymphocytes # (auto) 1.12 K/uL (1.2-3.4); Lymphocytes % (auto) 23.6 %; Mean Corpuscular Hemoglobin 31.8 pg (25-34); Mean Corpuscular Volume 96.5 fL (80-100); Mean Platelet Volume 10.6 fL (7.4-10.4); Monocytes # (auto) 0.56 K/uL (0.11-0.59); Monocytes % (auto) 11.8 %; Neutrophils # (auto) 2.63 K/uL (1.4-6.5); Neutrophils % (auto) 55.6 %; Platelet Count 145 K/uL (130-400); RDW Coefficient of Variation 13.5 % (11.5-14.5); RDW Standard Deviation 47.9 fL (36.4-46.3); Red Blood Count 3.68 M/uL (4.2-5.4); White Blood Count 4.74 K/uL (4.8-10.8)
[2021-07-18] MEDS: LEVOTHYROXINE SODIUM 100 MCG TABLET PO SCH (05:55)
[2021-07-18 06:31] LABS: Creatinine Clr Calc Pharmacy 28.1 ml/min; Est GFR (African American) 48.4 ml/min; Est GFR (Non-African American) 41.8 ml/min; Potassium 4.5 mmol/L (3.5-5.1)
[2021-07-18] MEDS: carvediloL 12.5 MG TAB PO SCH ×2 (08:46→09:44)
[2021-07-18] MEDS: POTASSIUM CHLORIDE CRTAB 20 MEQ TABCR PO SCH ×2 (08:46→09:44)
[2021-07-18] MEDS: CHOLECALCIFEROL 1,000 UNITS 25 MCG TAB PO SCH (08:50)
[2021-07-18] MEDS: FUROSEMIDE 40 MG TAB PO SCH ×2 (08:50→09:44)
[2021-07-18] MEDS: CeleBREX 200 MG CAP PO SCH (08:51)
[2021-07-18] MEDS: DOCUSATE SODIUM 100 MG CAP PO SCH (08:51)
--- NOTE | 2021-07-18 09:51 | Hospitalist Progress Note ---
Date of Service July 18, 2021 Assessment & Plan (1) Swelling of right index finger: Plan: Admitted to [facility] under orthopedic service MRI shows concerning findings for tenosynovitis but no clear clinical evidence of infection Continue ice and elevation Pain medications as ordered Trial of Celebrex as ordered by Ortho Ortho plans to discharge today on prophylactic course of Bactrim Follow-up in the office with Dr. Rodriguez as scheduled. (2) Cardiomyopathy: Plan: Chronic and longstanding, follows with heart failure program LVEF of 20 to 25% as of most recent echocardiogram Continue Coreg, Lasix According to documentation, patient has not been able to tolerate JEAN-PAUL/ARB due to hypotension Would limit IV fluids to avoid putting her into acute CHF (3) CAD (coronary artery disease): Plan: Continue beta-elizabeth and Lipitor Follows with cardiology (4) Hypothyroidism: Plan: Continue Synthroid 100 mcg daily Plan: Plan is clearly outlined above. No additional recommendations at this time, thank you for allowing us to participate in the care of your patient, medical team will sign off. Plan of care has been discussed with Dr. Emery Lopez. Admission and Anticipated Discharge Date Admission Date: July 16, 2021 Subjective Patient seen on daily rounds this morning, no complaints or concerns. Reports that her finger feels much better today. Swelling has gone down and not nearly as tender. Denies fever, chills, chest pain, N/V/D, or shortness of breath. Review of Systems Review of Systems: All systems reviewed and are unremarkable except as noted in HPI and below. Denies fever, chills, fatigue, headache, nasal congestion, sore throat, cough, chest pain, shortness of breath, palpitations, orthopnea, PND, abdominal pain, n/v/d, constipation, dysuria, hematuria, frequency, back pain, easy bruising or bleeding, skin lesions or rashes. Physical Exam Physical Exam: GENERAL: 81 yo well-developed, well-nourished WF. NAD. LUNGS: Clear to auscultation bilaterally. No accessory muscle use. No W/R/R. CARDIOVASCULAR: Regular rate and rhythm. No M/G/R. No JVD. ABDOMEN: Soft, non-tender and non-distended. BS normal x 4 quad. EXTREMITIES: No edema. Non-tender. Peripheral pulses +2/4. R 2nd finger is edematous and tender to palpation over MCP joint. Not red or hot. NEUROLOGIC: A&O x3. PSYCHIATRIC: Cooperative. Appropriate mood and affect. SKIN: Warm, dry, intact. No rashes or lesions. Results & Data Results & Data ([facility]) Vital Signs (Past 12 Hours) Vital Signs Temp Pulse Resp BP Pulse Ox 07/18/21 07:11 36.5 C 78 16 102/69 95 07/17/21 22:02 36.3 C L 65 15 119/66 92 Laboratory Results 07/18/21 05:28 07/18/21 05:28 PG Care Time/CCT Total # of Minutes Spent Total Time Spent with Patient: Total time spent is greater than 50% in coordination of care (as documented) at patient's floor/unit and/or counseling patient: Coding Level of Care Code 90444 Subseq Hosp Care Lvl 2 Diagnoses Swelling of right index finger M79.89 Cardiomyopathy I42.9 Cardiomyopathy type: unspecified CAD (coronary artery disease) I25.10 Hypothyroidism E03.9 (1) Cardiomyopathy Cardiomyopathy type: unspecified Qualified Code(s): I42.9 - Cardiomyopathy, unspecified
[2021-07-18] MEDS: VANCOMYCIN HCL 750 MG in SODIUM CHLORIDE 0.9% 250 ML IV SCH (09:59)
--- NOTE | 2021-07-18 11:13 | Orthopedic Progress Note ---
Date of Service July 18, 2021 Assessment & Plan (1) Swelling of right index finger: Plan: Right Index Finger Swelling and pain, decreased today. Discussed lab findings which are suggestive of non-infectious cause, and MRI findings. Will allow her to eat today, will remove from OR add-on schedule. Continue Celebrex 200 mg BID, max 2 weeks and may switch to once a day prn, continue Celebrex for 2 weeks. Will switch to antibiotic to Bactrim BID for 5 days. Continue RICE. Last Tetanus was Mar 2015. Does not require an update. Appreciate hospitalist service input for medical management. Will discharge home. Follow-up next week. Admission and Anticipated Discharge Date Admission Date: July 16, 2021 Subjective Feeling better Review of Systems Review of Systems: All systems reviewed & are unremarkable except as noted in HPI & below Physical Exam Physical Exam: R IF: BCR < 2 sec. Sensation to light touch intact. Improved ROM. Decreased swelling. No erythema. + tenderness to palpation over Metacarpal head, decreased. Results & Data ([facility]) Vital Signs (Past 12 Hours) Vital Signs Temp Pulse Resp BP Pulse Ox 07/18/21 07:11 36.5 C 78 16 102/69 95 Laboratory Results 07/18/21 07/18/21 07/18/21 Range/Units 09:45 05:28 05:28 WBC 4.74 L (4.8-10.8) K/uL RBC 3.68 L (4.2-5.4) M/uL Hgb 11.7 L (12.0-16.0) g/dL Hct 35.5 L (37-47) % MCV 96.5 (80-100) fL MCH 31.8 (25-34) pg MCHC 33.0 (32-36) g/dL RDW Std Deviation 47.9 H (36.4-46.3) fL RDW Coeff of Sumanth 13.5 (11.5-14.5) % Plt Count 145 (130-400) K/uL MPV 10.6 H (7.4-10.4) fL Immature Gran % (Auto) 0.2 % Neut % (Auto) 55.6 % Lymph % (Auto) 23.6 % Alexander % (Auto) 11.8 % Eos % (Auto) 8.2 % Baso % (Auto) 0.6 % Neut # (Auto) 2.63 (1.4-6.5) K/uL Lymph # (Auto) 1.12 L (1.2-3.4) K/uL Alexander # (Auto) 0.56 (0.11-0.59) K/uL Eos # (Auto) 0.39 (0-0.5) K/uL Baso # (Auto) 0.03 (0-0.2) K/uL Immature Gran # (Auto) 0.01 (0.00-0.02) K/uL Sodium 136 (136-145) mmol/L Potassium 4.5 (3.5-5.1) mmol/L Chloride 104 (98-107) mmol/L Carbon Dioxide 24 (21-32) mmol/L Anion Gap 8 (3-11) BUN 24 H (6-23) mg/dl Creatinine 1.20 (0.6-1.2) mg/dl Est Cr Clr Drug Dosing 28.1 ml/min Est GFR ( Amer) 48.4 ml/min Est GFR (Non-Af Amer) 41.8 ml/min BUN/Creatinine Ratio 20.0 (10-20) Glucose 77 (70-99(Fasting)) mg/dl Uric Acid (2.6-7.2) mg/dl Calcium 9.0 (8.5-10.1) mg/dl SARS-CoV-2, RNA, NAAT NEGATIVE (NEGATIVE) 07/17/21 Range/Units 06:41 WBC (4.8-10.8) K/uL RBC (4.2-5.4) M/uL Hgb (12.0-16.0) g/dL Hct (37-47) % MCV (80-100) fL MCH (25-34) pg MCHC (32-36) g/dL RDW Std Deviation (36.4-46.3) fL RDW Coeff of Sumanth (11.5-14.5) % Plt Count (130-400) K/uL MPV (7.4-10.4) fL Immature Gran % (Auto) % Neut % (Auto) % Lymph % (Auto) % Alexander % (Auto) % Eos % (Auto) % Baso % (Auto) % Neut # (Auto) (1.4-6.5) K/uL Lymph # (Auto) (1.2-3.4) K/uL Alexander # (Auto) (0.11-0.59) K/uL Eos # (Auto) (0-0.5) K/uL Baso # (Auto) (0-0.2) K/uL Immature Gran # (Auto) (0.00-0.02) K/uL Sodium (136-145) mmol/L Potassium (3.5-5.1) mmol/L Chloride (98-107) mmol/L Carbon Dioxide (21-32) mmol/L Anion Gap (3-11) BUN (6-23) mg/dl Creatinine (0.6-1.2) mg/dl Est Cr Clr Drug Dosing ml/min Est GFR ( Amer) ml/min Est GFR (Non-Af Amer) ml/min BUN/Creatinine Ratio (10-20) Glucose (70-99(Fasting)) mg/dl Uric Acid 6.2 (2.6-7.2) mg/dl Calcium (8.5-10.1) mg/dl SARS-CoV-2, RNA, NAAT (NEGATIVE)
--- NOTE | 2021-07-19 10:03 | Discharge Summary ---
Date of Service July 19, 2021 Admission HPI Per Admitting Provider This 81-year-old female presented to the ED 07/16 from [facility] Orthopedics office with complaints of right index finger swelling that has been ongoing for approximately 2 weeks. She states she thought it would go away but it has not. 3 days prior she developed acute onset of pain in the finger. She states it has been getting worse daily. The pain is keeping her from sleep. She notes loss of motion of the finger. She was seen by Dr. Farley 07/16 and referred to orthopedics. She denies any known insect bite or break in the skin. She denies any known trauma. She is not sure why it is swelling. No prior history of s imilar episode. She was admitted for evaluation, antibiotics, and further imaging. Her last tetanus vaccine was Mar 2015. X rays were done that showed some soft tissue swelling and degenerative changed in the hand. The patient was placed on IV vancomycin and during the course of her stay she had improvement in pain, swelling and ROM. Her ESR, CRP and WBC unremarkable. MRI was done that did not show any concerning findings for osteomyelitis or tenosynovitis. She continued to improve with conservative treatment and was stable for discharge 07/18. Admission Exam Per Admitting Provider General: Pt laying in hospital bed AA&O, in NAD, calm and cooperative during exam Upper Extremity: Minor swelling noted about right index finger with improved erythema. No warmth or purulent drainage. Pt has full ROM of wrist. Improved range of motion of index finger. Good ROM of other digits. Pt has 4+/5 upper tier strength. NVI with sensation to light touch distally and good distal pulses present. Upper extremity noted to have good color and temperature with no signs of vascular or lymphatic insufficiency. Principal Diagnosis right index finger swelling likely due to inflammatory etiology Discharge Data Allergies Allergy/AdvReac Type Severity Reaction Status Date / Time amiodarone Allergy Severe Verified 07/16/21 16:52 amoxicillin AdvReac Unknown Rash Unverified 07/03/21 10:05 Consultations 07/16/21 16:51 Consult Internal Medicine Routine Procedures Performed Operation Date: 07/17/21 09:55 <No data on this case meets the specified criteria> Operation Date: 07/18/21 07:00 <No data on this case meets the specified criteria> Ordered Studies 07/17/21 10:24 US point of care ultrasound Stat 07/17/21 16:56 MR hand RT wo con Stat Hospital Course (1) Swelling of right index finger: Right Index Finger Swelling and pain, decreased today. Discussed lab findings which are suggestive of non-infectious cause, and MRI findings. Will allow her to eat today, will remove from OR add-on schedule. Continue Celebrex 200 mg BID, max 2 weeks and may switch to once a day prn, continue Celebrex for 2 weeks. Will switch to antibiotic to Bactrim BID for 5 days. Continue RICE. Last Tetanus was Mar 2015. Does not require an update. Appreciate hospitalist service input for medical management. Will discharge home. Follow-up next week as scheduled with [facility] Total Time Total Time Spent Total Time Spent (In Minutes): 30 minutes Discharge Plan Discharge Items Patient Disposition: Home - Self-Care Reason For Visit: RT INDEX FINGER INFECTION Discharge Diagnosis: Right index finger infection versus inflammatory process Activity: Per Instructions section Non-emergency contact: Surgeon Call non-emergency contact if: you have any medication questions, your symptoms worsen, your temperature is above 101, your wound has increased redness, your wound has increased drainage and your wound pain has increased Follow-up/Referrals: Yamilet Soto MD [Primary Care Provider] - Dorinda Schulte PA-C [Physician [employer]] - 07/25/21 9:15 am Diet: Regular Addtl Attending Provider Instructions: Ice to right index finger as needed for pain and swelling. Elevate right finger above your heart as needed for pain and swelling. Work on full range of motion with bending and straightening your right index finger as frequently as possible. Advance activities as tolerated to your right hand. You may resume your regular diet. May use your right hand for light daily activities as tolerated. Celebrex 200 mg twice daily for up to 2 weeks. You may drop this to once daily if your finger continues to improve. Bactrim 1 tablet twice daily for 5 days. This is your antibiotic. Take until completed. We will hold your potassium for 5 days while you are taking this medication due to an interaction. Once completed, you can resume your potassium. Call [phone] with any increased pain, swelling, fevers, chills, redness or warmth to the joint. Call if you develop any drainage. Follow-up as scheduled in approximately 7 to 10 days for repeat evaluation of your right index finger. Pending Studies at Discharge: No Stand-Alone Forms: [facility], Smoking Cessation Medications and DC Order Prescriptions: New celecoxib [Celebrex] 200 mg Capsule 200 mg PO BID 14 Days Qty: 28 RF: 0 acetaminophen 325 mg Tablet 650 mg PO Q6H PRN (Reason: pain) Qty: 30 RF: 0 oxycodone 5 mg Tablet 5 mg PO Q4 PRN (Reason: pain) Qty: 12 RF: 0 sulfamethoxazole-trimethoprim [Bactrim DS] 800-160 mg tablet 1 tab PO BID 5 Days Qty: 10 RF: 0 Continued carvedilol 12.5 mg tablet 12.5 mg PO BID Qty: 180 RF: 1 furosemide 20 mg tablet 40 mg PO QAM Qty: 180 RF: 3 atorvastatin [Lipitor] 10 mg tablet 5 mg PO HS Qty: 90 RF: 3 levothyroxine [Synthroid] 100 mcg tablet 100 mcg PO QAM Qty: 90 RF: 3 cholecalciferol (vitamin D3) [Vitamin D3] 25 mcg (1,000 unit) tablet 1,000 unit PO DAILY RF: 0 aspirin [Aspirin Low Dose] 81 mg Tablet,Delayed Release (Dr/Ec) 81 mg PO QDL RF: 0 Discontinued potassium chloride 20 mEq tablet,ER particles/crystals 20 meq PO QAM Qty: 90 RF: 3 Discharge Orders: Discharge Order (Routine); Ordered 07/18/21 Ordered By: Valorie Henao/Other Patient Handouts: Celebrex Oral Capsule 200 mg, Bactrim DS Oral Tablet 800 mg/160 mg Admission Data Admit Date/Time: 07/16/21 16:46 Attending Provider: Luis Rodriguez Admit Provider: Luis Rodriguez Primary Care Provider: Yamilet Soto Other Providers: Luz Marina Coelho ; Braden Branham ; Nik Ling ; Andrade Valerio ; Jarod Aguirre ; Pablito Alvarez ; Bere Barron ; Nader Meng ; Tere Don ; Emery Lopez ; Mic Lord ; Mary Arroyo ; Omaira Martinez ; Pacheco Dickinson ; Luz Marina Reed ; Pablito Pitts ; Donato Farley ; Navi Stuart ; Braden Hernandez ; Wanda Johnson ; Miladys Mtz ; Lalito Kaufman ; Valorie Mcdowell ; Jed Mchugh ; Lionel Franklin ; Dorothy Godinez ; Etta Kaur ; Callum Walden Other Interventions: Discharge Summary Assessment (RN) Last Done: 07/18/21 12:16
== END 2021-07-18 13:30 | disposition home or self-care (01) | DRG 556 ==
LOC: 3E 19:43

== ENCOUNTER 2023-12-21 11:56 | Observation (INO) ==
--- NOTE | 2023-12-21 12:25 | Emergency Department Note ---
History of Present Illness General Chief complaint: Hypotension Stated complaint: HYPOTENSION, NOT FEELING WELL Time Seen by Provider: 12/21/23 12:09 Source: patient, family (Daughter who is at the bedside), RN notes reviewed and old records reviewed (12/07/23-cardiology office visit where she had her pacemaker interrogated and was diagnosed with A-fib and started on Eliquis) Mode of arrival: ambulatory Limitations: no limitations History of Present Illness This patient is a 83-year-old female who comes in after having concerns over having low blood pressure. She says it normally runs low but it was more low today. She also felt off yesterday at times she has had no fever or any infectious type symptoms. She has been overdoing it she thinks she felt slightly short of breath yesterday more than normal she saw her middle school counselor on the fourth and they made some adjustments to her pacemaker and she said she was feeling a lot better for a while she does have a history of CHF and monitors her weight and if her weight goes up she takes extra Lasix. She weight was 132 this morning so she just took 3 pills. She says she feels funny when her blood pressure gets low she feels okay at present. No fall or trauma no headache no lightheadedness or dizziness. No fever or cough . no blood or melena in her stool. no dysuria or hematuria. no abdominal or back pain. She feels weak in her legs but this been chronic. No focal numbness or weakness. They recently started on Eliquis when she was diagnosed with A-fib. Home Medications Medication Instructions Recorded Confirmed Type aspirin 81 mg tablet,delayed 81 mg PO HS 09/22/20 12/21/23 History release (Maggie Low Dose Aspirin) cholecalciferol (vitamin D3) 25 1,000 unit PO DAILY 10/31/20 12/21/23 History mcg (1,000 unit) tablet (Vitamin D3) acetaminophen 325 mg tablet 650 mg (2 x 325 mg) PO Q6H PRN 07/18/21 12/21/23 Rx pain #30 tabs carvedilol 12.5 mg tablet 12.5 mg PO BID #180 tabs 01/17/23 12/21/23 Rx potassium chloride 20 mEq 20 meq PO QAM #90 tabs 01/17/23 12/21/23 Rx tablet,extended release(part/cryst) furosemide 20 mg tablet 40 mg (2 x 20 mg) PO QAM #180 tabs 01/20/23 12/21/23 Rx levothyroxine 100 mcg tablet 100 mcg PO QAM #90 tabs 05/09/23 12/21/23 Rx (Synthroid) atorvastatin 10 mg tablet (Lipitor) 5 mg (1/2 x 10 mg) PO HS #90 tabs 07/29/23 12/21/23 Rx apixaban 2.5 mg tablet (Eliquis) 2.5 mg PO BID #60 tabs 12/05/23 12/21/23 Rx Allergies Allergy/AdvReac Type Severity Reaction Status Date / Time amiodarone Allergy Severe Verified 12/21/23 13:16 amoxicillin AdvReac Unknown Rash Unverified 12/21/23 13:16 Past Med/Surg History Problem List (Updated 12/21/23 @ 15:06 by Tyson Licea MD) Tachycardia (Acute) Acute renal insufficiency (Acute) Weakness (Acute) Hypotension (Acute) Hypotension PAF (paroxysmal atrial fibrillation) Encounter for pre-operative examination Swelling of right index finger Leukocytosis Hypokalemia Multifocal pneumonia ICD (implantable cardioverter-defibrillator) in place CHRIS (acute kidney injury) CHF exacerbation Pulmonary edema (Acute) Respiratory failure with hypoxia (Acute) Acute congestive heart failure (Acute) Cardiomyopathy (Acute) Elevated troponin (Acute) HFrEF (heart failure with reduced ejection fraction) EF 20-25% 06/21 CAD (coronary artery disease) 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) Dyslipidemia (Chronic) Hypothyroidism (Chronic) HTN (hypertension) (Chronic) Medical History Cataract Lumbar back pain Osteoarthritis Congestive heart failure Surgical History H/O wisdom tooth extraction H/O hemorrhoidectomy History of colonoscopy History of permanent cardiac pacemaker placement History of bladder surgery Family History Brother Cancer Other Diabetes Heart disease Social History Smoking Status: Never smoker Hx Alcohol Use: No Hx Substance Use: No Preferred Language: Mauritian Communication Ability: Effective Hearing Ability: Normal Diagrammer Required: No Beliefs That Will Affect Care: None marital status: Current Living Situation: Spouse Current Living Situation Comment: house with spouse current occupational status: retired Feels Safe at Home: Yes Assistive Devices: None Review of Systems A total of 10 systems reviewed and were otherwise negative Physical Exam Vital Signs Vital Signs - 24 hr 12/21/23 11:58 12/21/23 12:10 12/21/23 12:20 Temperature 35.9 C L Temperature Source Temporal Artery Scan Pulse Rate 78 83 88 Pulse Rhythm Respiratory Rate 16 24 Respiratory Effort / Characteristics Non-Labored Spontaneous Respiratory Depth Normal Blood Pressure 105/69 115/71 Blood Pressure Mean 81 77 Blood Pressure Position Sitting Pulse Oximetry 96 94 Oxygen Delivery Method Room Air Sepsis Recent Fever Within 48 Hours No Sepsis New/Unexplained Change in Mental Status N/A Sepsis Action Taken by Nursing No Action Required 12/21/23 12:23 12/21/23 12:39 Temperature Temperature Source Pulse Rate 97 H 83 Pulse Rhythm Regular Respiratory Rate 20 21 Respiratory Effort / Characteristics Respiratory Depth Blood Pressure 113/79 Blood Pressure Mean 90 Blood Pressure Position Pulse Oximetry 95 94 Oxygen Delivery Method Room Air Sepsis Recent Fever Within 48 Hours Sepsis New/Unexplained Change in Mental Status Sepsis Action Taken by Nursing General: Well developed well nourished older female who appears not ill and in no acute distress, breathing comfortably on room air. Normal speech HEENT: Normal cephalic atraumatic. Pupils are equal round and reactive to light. Extraocular movements are intact. Oropharynx is pink with moist mucous membranes. No swelling of the mouth lips or tongue. Neck: Supple with a midline trachea. No meningeal signs or stiffness, no JVD or bruits. No Stridor. Chest: Clear to auscultation bilaterally. No wheezes or rhonchi. No increased work of breathing. Heart: Regular rate and rhythm without murmurs or gallops. Abdomen: Soft nontender, nondistended without rebound guarding or rigidity. Extremities: No cyanosis clubbing. Minimal/trace bilateral lower extremity edema. No redness or warmth no calf tenderness or assymetry Spine/Back. Non tender to palpation. No CVA tenderness Skin: Good turgor without rashes. Neurologic exam: Cranial nerves two through 12 are intact. Motor and sensation are intact and symmetrical throughout. Medical Decision Making Differential Diagnosis Electrolyte or metabolic abnormality, dehydration, cardiac disease, anemia, infection/sepsis, CHF, pulmonary disease Medical Records Attestation: I reviewed the patient's medical records. Home Medications Current Medication List: was personally reviewed by me Laboratory Data Attestation: I reviewed the patient's lab results. 12/21/23 12:15 12/21/23 12:15 Lab Results 12/21/23 Range/Units 12:15 WBC 5.08 (4.8-10.8) K/ul RBC 4.12 L (4.20-5.40) M/uL Hgb 12.4 (12.0-16.0) g/dl Hct 37.7 (37.0-47.0) % MCV 91.5 (80.0-100.0) fL MCH 30.1 (25.0-34.0) pg MCHC 32.9 (32.0-36.0) g/dL RDW Std Deviation 48.5 H (36.4-46.3) fL RDW Coeff of Sumanth 14.4 (11.5-14.5) % Plt Count 145 (130-400) K/uL MPV 11.1 (9.4-12.4) fL Immature Gran % (Auto) 0.2 % Neut % (Auto) 55.9 % Lymph % (Auto) 28.9 % Dillon % (Auto) 11.6 % Eos % (Auto) 2.4 % Baso % (Auto) 1.0 % Neut # (Auto) 2.84 (1.40-6.50) K/uL Lymph # (Auto) 1.47 (1.20-3.40) K/uL Dillon # (Auto) 0.59 (0.11-0.59) K/uL Eos # (Auto) 0.12 (0.00-0.50) K/uL Baso # (Auto) 0.05 (0.00-0.20) K/uL Immature Gran # (Auto) 0.01 (0.01-0.20) K/uL Sodium 134 L (136-145) mmol/L Potassium 4.5 (3.5-5.1) mmol/L Chloride 99 (98-107) mmol/L Carbon Dioxide 28 (21-32) mmol/L Anion Gap 7 (3-11) BUN 41 H (6-23) mg/dl Creatinine 1.42 H (0.6-1.2) mg/dl Est Cr Clr Drug Dosing 23.6 ml/min eGFR 36.25 BUN/Creatinine Ratio 28.9 H (10-20) Glucose 96 (70-99(Fasting)) mg/dl Calcium 9.6 (8.6-10.3) mg/dl Total Bilirubin 0.6 (0.2-1.0) mg/dl AST 35 (13-39) U/L ALT 30 (7-52) U/L Alkaline Phosphatase 73 (34-104) U/L Troponin I High Sens 54.9 H* (0-14) pg/ml B-Natriuretic Peptide 1279 H (0-100) pg/ml Total Protein 7.4 (6.0-8.3) gm/dl Albumin 4.7 (3.4-5.0) gm/dl Globulin 2.7 (2.5-4.0) gm/dl Albumin/Globulin Ratio 1.7 (0.9-2) Lipase 45 (11-82) U/L TSH 3.355 (0.300-4.500) uIu/ml Imaging Data Attestation: I personally reviewed and interpreted this imaging study as follows: My Impression: Chest x-raycardiomegaly. Mild increased interstitial marking. No pneumonia or pneumothorax seen Radiologist's Impression: Chest X-Ray 12/21/23 12:21 XR chest 1V portable CLINICAL HISTORY: Chest pain, nonspecific TECHNIQUE: Single frontal radiograph of the chest was obtained. Comparison: Comparison is made to chest radiograph 01/10/2021 FINDINGS: Pacemaker defibrillator is seen. Cardiomegaly is noted. The aortic arch is calcified. Reticular interstitial opacities are seen. No evidence of pleural effusion or pneumothorax. IMPRESSION: No acute chest disease. Cardiomegaly is noted. Interstitial thickening likely represents interstitial lung disease, although superimposed edema cannot be excluded. ACT 112: Negative or not required by law. Electronically signed by: Michael Pena M.D. 12/21/2023 12:56 PM ECG Data Attestation: I personally reviewed and interpreted this ECG as follows: Indication: + weakness Rate (beats per minute): 94 Rhythm: + other (Atrial paced rhythm. Likely underlying A-fib) ECG Intervals/blocks: + Left bundle branch block ECG [place]: + Left axis deviation ECG ST segments: + Nonspecific ST abnormalities ECG Findings: no PACs or no PVCs Comparison ECG Date: from (01/08/21) Change: the following changes noted (Suspected A-fib under the paced rhythm) MDM Narrative This patient comes in described above she was placed on a cardiac exercise physiologist room B6. She has a very complex medical history with CHF. She was recently started on a blood thinner and hit her pacemaker readjusted and was feeling much better initially. She has ongoing issues with cardiac disease. Based on her history and physical exam, she has nothing to suggest infection or sepsis so far. Her blood pressure is actually much better here than it was at home and she is normotensive. Her EKG shows a paced rhythm with likely underlying A-fib. I did have her pacemaker interrogated and talk to [facility] at length. She tells me that yesterday the patient had several episodes of nonsustained either V. tach or SVT she said her heart rate was in the 190s both atrial and ventricular. She also has had recent atrial arrhythmias where her pacemaker appears to be trying to overdrive them and that has occurred over 12-hour period as well. I suspect that her symptoms are related to underlying arrhythmias and the pacemaker adjustments. Additionally her BUN and creatinine are elevated so she may be somewhat dry or over diuresed. She may have a mild congestive heart failure component on x-ray but does not appear to be in overt CHF. She has no other significant acrylate or metabolic abnormalities. She is no fever white count to suggest infection she has no significant anemia. Her BNP and troponin are also elevated. Her renal function is also elevated suggesting that she could be prerenal/dry clinically I do not feel she is likely fluid overloaded. I do think she needs to be admitted/observed given her arrhythmias and her recent pacemaker changes. 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 It is listed as an allergy in her chart. Also discussed this with the admitting team as well. I did discuss case with Dr. Valerio in consultation and he will be admitting/observing her. Continuous cardiac monitoring: Order was placed in EMR for continuous cardiac monitoring: Upon my evaluation patient was noted to have a mostly paced rhythm in the 90s. Occasional irregularity Impression & Plan Hypotension, Elevated troponin, Cardiomyopathy, Weakness, Acute renal insufficiency, Tachycardia Discharge Plan Visit Data Chief Complaint: Hypotension Stated Complaint: HYPOTENSION, NOT FEELING WELL ED Provider: Tyson Licea Discharge Problem: Hypotension, Elevated troponin, Cardiomyopathy, Weakness, Acute renal insufficiency, Tachycardia Patient Disposition: Admitted As Inpatient Discharge Instructions Interventions: ED Discharge Assessment Last Done: 12/21/23 14:46 Forms Stand Alone Forms: My [facility] Prescriptions Prescriptions: No Action furosemide 20 mg tablet 40 mg PO QAM Qty: 180 3RF levothyroxine [Synthroid] 100 mcg tablet 100 mcg PO QAM Qty: 90 3RF atorvastatin [Lipitor] 10 mg tablet 5 mg PO HS Qty: 90 3RF Eliquis 2.5 mg tablet 2.5 mg PO BID Qty: 60 2RF carvedilol 12.5 mg tablet 12.5 mg PO BID Qty: 180 3RF potassium chloride 20 mEq tablet,ER particles/crystals 20 meq PO QAM Qty: 90 3RF cholecalciferol (vitamin D3) [Vitamin D3] 25 mcg (1,000 unit) tablet 1,000 unit PO DAILY aspirin [Maggie Low Dose Aspirin] 81 mg Tablet,Delayed Release (Dr/Ec) 81 mg PO HS acetaminophen 325 mg Tablet 650 mg PO Q6H PRN (Reason: pain) Qty: 30 0RF Referrals Referrals: Yamilet Soto MD [Primary Care Provider] - Discharge Problem: Hypotension Qualifiers: Hypotension type: unspecified hypotension type Qualified Code(s): I95.9 - Hypotension, unspecified Cardiomyopathy Qualifiers: Cardiomyopathy type: unspecified Qualified Code(s): I42.9 - Cardiomyopathy, unspecified
[2023-12-21 12:57] LABS: Basophils # (auto) 0.05 K/uL (0.00-0.20); Eosinophils # (auto) 0.12 K/uL (0.00-0.50); Eosinophils % (auto) 2.4 %; Hematocrit (blood only) 37.7 % (37.0-47.0); Hemoglobin 12.4 g/dl (12.0-16.0); Immature Granulocytes # (auto) 0.01 K/uL (0.01-0.20); Immature Granulocytes % (auto) 0.2 %; Lymphocytes # (auto) 1.47 K/uL (1.20-3.40); Lymphocytes % (auto) 28.9 %; Mean Corpuscular Hemoglobin 30.1 pg (25.0-34.0); Mean Corpuscular Hgb Conc 32.9 g/dL (32.0-36.0); Mean Corpuscular Volume 91.5 fL (80.0-100.0); Mean Platelet Volume 11.1 fL (9.4-12.4); Monocytes # (auto) 0.59 K/uL (0.11-0.59); Monocytes % (auto) 11.6 %; Neutrophils # (auto) 2.84 K/uL (1.40-6.50); Neutrophils % (auto) 55.9 %; Platelet Count 145 K/uL (130-400); RDW Coefficient of Variation 14.4 % (11.5-14.5); RDW Standard Deviation 48.5 fL (36.4-46.3); Red Blood Count 4.12 M/uL (4.20-5.40); White Blood Count 5.08 K/ul (4.8-10.8)
--- NOTE | 2023-12-21 12:57 | XRay Report ---
XR chest 1V portable CLINICAL HISTORY: Chest pain, nonspecific TECHNIQUE: Single frontal radiograph of the chest was obtained. Comparison: Comparison is made to chest radiograph 01/10/2021 FINDINGS: Pacemaker defibrillator is seen. Cardiomegaly is noted. The aortic arch is calcified. Reticular inter stitial opacities are seen. No evidence of pleural effusion or pneumothorax. IMPRESSION: No acute chest disease. Cardiomegaly is noted. Interstitial thickening likely represents interstitial lung disease, although superimposed edema cannot be excluded. ACT 112: Negative or not required by law. Electronically signed by: Michael Pena M.D. 12/21/2023 12:56 PM
[2023-12-21 13:05] LABS: Albumin Globulin Ratio 1.7 (0.9-2); Albumin Level 4.7 gm/dl (3.4-5.0); BUN Creatinine Ratio 28.9 (10-20); Bilirubin,Total 0.6 mg/dl (0.2-1.0); Calcium 9.6 mg/dl (8.6-10.3); Creatinine Clr Calc Pharmacy 23.6 ml/min; Globulin 2.7 gm/dl (2.5-4.0); Potassium 4.5 mmol/L (3.5-5.1); Total Protein 7.4 gm/dl (6.0-8.3)
[2023-12-21 13:19] LABS: Thyroid Stimulating Hormone 3.355 uIu/ml (0.300-4.500)
[2023-12-21 13:39] LABS: Troponin I High Sensitivity 54.9 pg/ml (0-14)
--- NOTE | 2023-12-21 13:59 | History & Physical Report ---
Date of Service December 21, 2023 Assessment & Plan (1) Hypotension: Plan: Patient with low blood pressure on presentation. She typically has a cardiomyopathy and takes carvedilol. Patient appears to have recently diagnosed with A-fib and had pacemaker adjustment earlier in December. Patient appears to have had possibly ICD discharges on interrogation. Pending magnesium. Electrodes are otherwise within normal limits. Will give a gram magnesium while we are waiting for the results to come back and trend magnesium in the morning. Will have a cardiology consultation to interpret her Medtronic interrogation and amend her medications. At this point time we will reduce her carvedilol from 12.5-6.25 twice daily. Continued monitoring for arrhythmia while being observed. . Most recent echocardiogram is from August 2023at showed EF of 20 to 25% with severe global hypokinesis of the left ventricle and mild to moderate mitral regurgitation It is noted in the past the patient has failed afterload reduction and Entresto due to severe hypotension (2) Elevated troponin: Plan: Elevated troponin likely may be from defibrillation no anginal symptoms are voiced and this likely may also be demand ischemia (3) CHRIS (acute kidney injury): Plan: h/o CKD3 Patient runs a sliding scale Lasix for her body weight reportedly took a dditional Lasix therapy. Intravascular volume depletion could lead to her symptoms. Patient is chest x-ray changes can be can considered interpreted for pulmonary edema however there is notation of possible pulmonary fibrosis.(history of amiodarone toxicity) She is euvolemic on examination. typically takes lasix 40 mg daily and adds additional 20 mg if wt is up, all lasix on hold currently (4) PAF (paroxysmal atrial fibrillation): Plan: Patient's anticoagulation is with age and weight reduced Eliquis therapy. Carvedilol for rate control along with her device Plan Chronic problems clued hypothyroidism will continue her replacement and TSH checked on admission was a continues atorvastatin for cardiovascular risk reduction ppropriate Continues aspirin and atorvastatin for cardiovascular risk reduction and dyslipidemia treatment History of Present Illness Primary Care Provider: Yamilet Soto MD 83-year-old female who comes in after having concerns over having low blood pressure. Patient has a cardiomyopathy and typically sees Dr. Alvarado. Most recently she had her AICD adjusted in the office earlier in December. Emergency department evaluation does not feel she is any septic or infectious type symptomatology. Patient does take sliding scale Lasix and she may be slightly prerenal with lower blood pressure that could be causing her symptoms. Regarding her blood pressure, she says it normally runs low but it was more low today. She also felt off yesterday at times she has had no fever or any infectious type symptoms. She has been overdoing it she thinks she felt slightly short of breath patient recently been started on Eliquis for diagnose of atrial fibrillation in the office. Medtronic pacemaker interpretation suggest patient may have had discharges from AICD. Currently patient is being observed for arrhythmia which is symptomatic and prerenal azotemia from likely diuresis.. Allergies Allergy/AdvReac Type Severity Reaction Status Date / Time amiodarone Allergy Severe Verified 12/21/23 13:16 amoxicillin AdvReac Unknown Rash Unverified 12/21/23 13:16 Home Medications Medication Instructions Recorded Confirmed Type aspirin 81 mg tablet,delayed 81 mg PO HS 09/22/20 12/21/23 History release (Maggie Low Dose Aspirin) cholecalciferol (vitamin D3) 25 1,000 unit PO DAILY 10/31/20 12/21/23 History mcg (1,000 unit) tablet (Vitamin D3) acetaminophen 325 mg tablet 650 mg (2 x 325 mg) PO Q6H PRN 07/18/21 12/21/23 Rx pain #30 tabs carvedilol 12.5 mg tablet 12.5 mg PO BID #180 tabs 01/17/23 12/21/23 Rx potassium chloride 20 mEq 20 meq PO QAM #90 tabs 01/17/23 12/21/23 Rx tablet,extended release(part/cryst) furosemide 20 mg tablet 40 mg (2 x 20 mg) PO QAM #180 tabs 01/20/23 12/21/23 Rx levothyroxine 100 mcg tablet 100 mcg PO QAM #90 tabs 05/09/23 12/21/23 Rx (Synthroid) atorvastatin 10 mg tablet (Lipitor) 5 mg (1/2 x 10 mg) PO HS #90 tabs 07/29/23 12/21/23 Rx apixaban 2.5 mg tablet (Eliquis) 2.5 mg PO BID #60 tabs 12/05/23 12/21/23 Rx Past Med/Surg History Problem List (Updated 12/21/23 @ 13:54 by Andrade Valerio MD) Hypotension PAF (paroxysmal atrial fibrillation) Encounter for pre-operative examination Swelling of right index finger Leukocytosis Hypokalemia Multifocal pneumonia ICD (implantable cardioverter-defibrillator) in place CHRIS (acute kidney injury) CHF exacerbation Pulmonary edema (Acute) Respiratory failure with hypoxia (Acute) Acute congestive heart failure (Acute) Cardiomyopathy (Acute) Elevated troponin HFrEF (heart failure with reduced ejection fraction) EF 20-25% 06/21 CAD (coronary artery disease) 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) Dyslipidemia (Chronic) Hypothyroidism (Chronic) HTN (hypertension) (Chronic) Medical History Cataract Lumbar back pain Osteoarthritis Congestive heart failure Surgical History H/O wisdom tooth extraction H/O hemorrhoidectomy History of colonoscopy History of permanent cardiac pacemaker placement History of bladder surgery Family History Brother Cancer Other Diabetes Heart disease Social History Smoking Status: Never smoker Hx Alcohol Use: No Hx Substance Use: No Preferred Language: German Communication Ability: Effective Hearing Ability: Normal Business Account Specialist Required: No Beliefs That Will Affect Care: None marital status: Current Living Situation: Spouse Current Living Situation Comment: house with spouse current occupational status: retired Feels Safe at Home: Yes Assistive Devices: None Review of Systems Review of Systems: Mild distress and fatigue no headache, no visual changes no speech or swallowing issues no chest pain, pressure or palpitations no shortness of breath, cough or wheezes no abdominal pain, nausea or vomiting, diarrhea or constipation no dysuria, hematuria or frequency no focal joint pain or swelling no back pain, CVA tenderness or radicular pain no bruising, bleeding or rashes no focal signs of weakness or numbness or altered sensation no complaints of anxiety or depression.. Physical Exam Physical Exam: The patient appeared well nourished and normally developed. Vital signs as documented. Head exam is normocephalic atraumatic Neck is without JVD, thyromegaly, or carotid bruits. Lungs are clear to auscultation, no focal loss of breath sounds Cardiac exam, Rhythm is regular.. No murmurs, rubs or gallops. Abdominal exam reveals normal bowel sounds, soft non tender, no masses Extremities are nonedematous and both pedal pulses are present Neurologic exam is alert and oriented, no focal loss of strength or sensation Skin is without bruises or rashes Psychologically is without concerns for anxiety or depression.. Results & Data Results & Data Vital Signs (Past 12 Hours) Vital Signs Temp Pulse Resp BP Pulse Ox O2 Del Method 12/21/23 12:39 83 21 113/79 94 12/21/23 12:23 97 H 20 95 Room Air 12/21/23 12:20 88 12/21/23 12:10 83 24 115/71 94 12/21/23 11:58 96.6 F L 78 16 105/69 96 Room Air Laboratory Results Reviewed CBC reviewed chemistry pending magnesium Elevated troponin Chest x-ray shows an increased interstitial markings with may be pulmonary fibrosis. Code Status & VTE Plan VTE Prophylaxis Plan VTE Prophylaxis will be ordered: Yes PG Care Time/CCT Total # of Minutes Spent Total Time Spent with Patient: Total time spent is greater than 50% in coordination of care (as documented) at patient's floor/unit and/or counseling patient: Coding Level of Care Code 54925 INT INP/OBS CARE 3/75MIN Diagnoses Hypotension I95.9 Elevated troponin R77.8 CHRIS (acute kidney injury) N17.9 PAF (paroxysmal atrial fibrillation) I48.0
[2023-12-21] MEDS ORDERED: METOPROLOL TARTRATE 1 MG/ML VIAL IV PRN (15:54)
[2023-12-21] MEDS ORDERED: ONDANSETRON INJ 2 MG/ML 2 ML VIAL IV PRN (15:54)
[2023-12-21] MEDS ORDERED: ACETAMINOPHEN 325 MG TAB PO PRN (15:54)
[2023-12-21] MEDS ORDERED: POLYETHYLENE (MIRALAX) 17 GM PACK PO PRN (15:54)
[2023-12-21] MEDS: MAGNESIUM SULFATE / D5W 1 GM/100 ML BAG IV ONE (16:20)
[2023-12-21 16:56] LABS: Magnesium 2.1 mg/dl (1.7-2.4)
[2023-12-21 17:03] LABS: Troponin I High Sensitivity 46.1 pg/ml (0-14)
[2023-12-21 18:55] LABS: Appearance Urine Clear (Clear); Bacteria Urine Automated None Seen (None Seen); Bilirubin Urine Negative (Negative); Blood Urine Trace (Negative); Cast Urine Automated 0-2 /lpf (0-2); Color Urine Yellow; Epithelial Cell Urine Auto 0-2 /hpf (0-2); Glucose Urine UA Negative (Negative); Ketones Urine Negative (Negative); Leukocyte Esterase Urine 1+ (Negative); Nitrite Urine Negative (Negative); Protein Urine Negative (Negative); RBC Urine Automated 0-2 /hpf (0-2); Specific Gravity Urine 1.011 (1.000-1.030); Urobilinogen Urine Negative (Negative); WBC Urine Automated 0-5 /hpf (0-5); pH Urine 5.5 (4.5-7.5)
[2023-12-21] MEDS: ATORVASTATIN 10 MG TAB PO SCH (19:57)
[2023-12-21] MEDS: APIXABAN 2.5 MG TAB PO SCH (19:58)
[2023-12-21] MEDS: ASPIRIN 81 MG ECTAB PO SCH (19:58)
[2023-12-21] MEDS: carvediloL 6.25 MG TAB PO SCH (20:00)
--- NOTE | 2023-12-21 21:50 | Communication Note ---
Date of Service: December 21, 2023 Notified by nursing that patient was found to have a tick on her back. Tick was removed by nursing staff with tweezers, no rash/surrounding erythema and tick was reported to not be engorged. It is unknown how long the tick was attached. Will order doxycycline 200mg as a one time dose for post exposure prophylaxis considering endemic nature of Lyme disease in the area. Resident Activity Tracking Resident Involvement: Resident Care Provided Care Provided: Adult [facility] Medicine
[2023-12-21] MEDS: DOXYCYCLINE HYCLATE 100 MG CAP PO STA (22:12)
[2023-12-22] MEDS: LEVOTHYROXINE SODIUM 100 MCG TABLET PO SCH (06:04)
[2023-12-22 07:14] LABS: Hematocrit (blood only) 32.5 % (37.0-47.0); Hemoglobin 11.2 g/dl (12.0-16.0); Mean Corpuscular Hemoglobin 30.4 pg (25.0-34.0); Mean Corpuscular Hgb Conc 34.5 g/dL (32.0-36.0); Mean Corpuscular Volume 88.1 fL (80.0-100.0); Platelet Count 121 K/uL (130-400); RDW Coefficient of Variation 14.4 % (11.5-14.5); RDW Standard Deviation 46.8 fL (36.4-46.3); Red Blood Count 3.69 M/uL (4.20-5.40); White Blood Count 4.51 K/ul (4.8-10.8)
[2023-12-22 07:25] LABS: BUN Creatinine Ratio 29.6 (10-20); Creatinine Clr Calc Pharmacy 30.2 ml/min; Magnesium 2.3 mg/dl (1.7-2.4); Potassium 4.1 mmol/L (3.5-5.1)
[2023-12-22] MEDS: CHOLECALCIFEROL 25 MCG (1000 UNITS) TAB PO SCH (08:32)
[2023-12-22] MEDS: POTASSIUM CHLORIDE CRTAB 20 MEQ TABCR PO SCH (08:36)
--- NOTE | 2023-12-22 09:34 | Cardiology Consultation ---
Date of Consultation December 22, 2023 Assessment & Plan (1) HFrEF (heart failure with reduced ejection fraction): (2) PAF (paroxysmal atrial fibrillation): (3) Cardiomyopathy: (4) Elevated troponin: (5) CAD (coronary artery disease): (6) Mitral regurgitation: (7) Pulmonary hypertension: (8) Hypotension: (9) ICD (implantable cardioverter-defibrillator) in place: Plan ASSESSMENT/PLAN: 1. Chronic heart failure with reduced EF: She does not appear to be hypervolemic. NYHA class II/III. Continue home dose of diuretic, Lasix 40 mg daily. Reportedly unable to tolerate more aggressive heart failure therapy due to symptomatic hypotension in the past, including unable to tolerate ARB or ARNI. She has declined SGLT2 inhibitors and mineralocorticoid antagonist. Recommend resuming her home dose of carvedilol 12.5 mg twice daily as she is asymptomatic with occasional mild hypotension and has been on this dose chronically. Low-sodium diet, less than 2000 mg daily. Daily weights at home. Has been seen in the past in the heart failure program. 2. Paroxysmal atrial fibrillation: Continue Eliquis 2.5 mg twice daily. Continue carvedilol. Monitor renal function and CBC. 3. Nonischemic cardiomyopathy: Severely reduced LV systolic function. Wide QRS with left bundle branch block morphology. Symptoms may improved with biventricular pacing. Discussed with electrophysiology, who agrees that she may qualify for biventricular ICD. Awaiting further discussion with EP for timing purposes. If patient wants to be discharged, can be done as an outpatient as this is not urgent. She and her daughter are interested in meeting with the EP to discuss. Biventricular pacing may improve quality of life. 4. Mitral regurgitation: Appears nonsevere. Can follow-up in the outpatient setting. 5. Pulmonary hypertension: Moderate. She does not appear to be significantly hypervolemic. 6. Elevated troponin: She did not present with acute coronary syndrome. No angina. Urgent ischemic evaluation is not necessary at this time. 7. CAD: Very mild nonobstructive CAD several years ago. No definite angina. Can continue risk factor modification. 8. Hypotension: Seems to be asymptomatic. Had near syncope presumably from more A-fib burden, which has since resolved after ATP therapies enabled on ICD earlier this month. Continue home dose of diuretic and carvedilol. 9. ICD: Recommend consideration for upgrading to BiV device to see if it improves her quality of life and possibly her LV systolic dysfunction. Awaiting further input from EP. If patient chooses to be discharged home, we will try to arrange soon appointment in the outpatient setting with EP to further discuss. No shocks delivered based on interrogation. 10. Disposition: Continue to follow-up with Dr. Alvarado in the outpatient setting. EP evaluation recommended as above. Patient care communicated with primary hospitalist, Dr. Nava. Highly complex medical issues. Today's visit was 65 minutes in duration, which includes [id number] time, counseling patient, coordinating care, reviewing records, completing documentation. Thank you for allowing me to participate in the care of your patient. Please call for any other questions or concerns. Sincerely, Jose D Turcios M.D. History of Present Illness Reason for Consultation: "ICD interrogation, lower blood pressures" Requesting Physician: Andrade Valerio MD Attending Physician: Ave Nava MD History of Present Illness Mrs. Kamara is a very pleasant 83-year-old female with a history significant for nonischemic cardiomyopathy, dual-chamber ICD, heart failure with reduced EF, non obstructive CAD (LAD 20% in August 2004), ventricular arrhythmia (2020), paroxysmal atrial fibrillation/flutter (November 2023), and dyslipidemia. Her primary trainer is Dr. Alvarado. She was admitted on 12/21/2023 after presenting to the ER for concerns of hypotension and feeling weak in the legs. She had been experiencing dyspnea on exertion for a few weeks prior to her ICD adjustment on 12/05/2023 in the outpatient setting. During that visit, she was noted to have 47 episodes of atrial fibrillation/flutter and antitachycardia therapies were enabled to help treat. Eliquis 2.5 mg twice daily was initiated. The dyspnea on exertion had been occurring prior to that appointment. She has mild occasional orthopnea but her oxygen saturation remains in the 90s at home. She has occasional palpitations. She believes that her exercise tolerance in general has declined over time compared to 6 months to 12 months ago. She was having near syncope prior to her 12/05/[address] visit [address] Dr[address] Alvarado. No further near syncope has occurred. She denies syncope. She has had left lower chest discomfort described as a light sensation lasting less than 1 minute. This is not triggered by exertion and has occurred at rest. She is active. She denies melena, hematochezia, hematuria, or edema. According to records, she has failed trials of ARB and Entresto due to symptomatic hypotension and was reportedly not interested in SGLT2 inhibitor. It was reported on the admitting history and physical report that she had received possible ICD discharges, but according to interrogation, she received antitachycardia pacing on 12/20/2023 for probable atrial fibrillation, not ventricular tachycardia. There was no shock. Review of systems: As above. Family history: Mother at 55 with diabetes. Social history: She denies tobacco, alcohol, or drug abuse. She lives at home with her . She has 3 children (1 son and 2 daughters). Her daughter, Ebony (family service worker), accompanies her today. Allergies Allergy/AdvReac Type Severity Reaction Status Date / Time amiodarone Allergy Severe Verified 12/21/23 13:16 amoxicillin AdvReac Unknown Rash Unverified 12/21/23 13:16 Home Medications Medication Instructions Recorded Confirmed Type aspirin 81 mg tablet,delayed 81 mg PO HS 09/22/20 12/21/23 History release (Maggie Low Dose Aspirin) cholecalciferol (vitamin D3) 25 1,000 unit PO DAILY 10/31/20 12/21/23 History mcg (1,000 unit) tablet (Vitamin D3) acetaminophen 325 mg tablet 650 mg (2 x 325 mg) PO Q6H PRN 07/18/21 12/21/23 Rx pain #30 tabs carvedilol 12.5 mg tablet 12.5 mg PO BID #180 tabs 01/17/23 12/21/23 Rx potassium chloride 20 mEq 20 meq PO QAM #90 tabs 01/17/23 12/21/23 Rx tablet,extended release(part/cryst) furosemide 20 mg tablet 40 mg (2 x 20 mg) PO QAM #180 tabs 01/20/23 12/21/23 Rx levothyroxine 100 mcg tablet 100 mcg PO QAM #90 tabs 05/09/23 12/21/23 Rx (Synthroid) atorvastatin 10 mg tablet (Lipitor) 5 mg (1/2 x 10 mg) PO HS #90 tabs 07/29/23 12/21/23 Rx apixaban 2.5 mg tablet (Eliquis) 2.5 mg PO BID #60 tabs 12/05/23 12/21/23 Rx Problem List (Updated 12/22/23 @ 16:06 by Félix Turcios MD) Pulmonary hypertension Mitral regurgitation Tachycardia (Acute) Acute renal insufficiency (Acute) Weakness (Acute) Hypotension (Acute) Hypotension PAF (paroxysmal atrial fibrillation) Encounter for pre-operative examination Swelling of right index finger Leukocytosis Hypokalemia Multifocal pneumonia ICD (implantable cardioverter-defibrillator) in place CHRIS (acute kidney injury) CHF exacerbation Pulmonary edema (Acute) Respiratory failure with hypoxia (Acute) Acute congestive heart failure (Acute) Cardiomyopathy (Acute) Elevated troponin (Acute) HFrEF (heart failure with reduced ejection fraction) EF 20-25% 06/21 CAD (coronary artery disease) 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) Dyslipidemia (Chronic) Hypothyroidism (Chronic) HTN (hypertension) (Chronic) Patient History Medical History Cataract Lumbar back pain Osteoarthritis Congestive heart failure Surgical History H/O wisdom tooth extraction H/O hemorrhoidectomy History of colonoscopy History of permanent cardiac pacemaker placement History of bladder surgery Family History Brother Cancer Other Diabetes Heart disease Social History Smoking Status: Never smoker Hx Alcohol Use: No Hx Substance Use: No Preferred Language: Malaysian Communication Ability: Effective Hearing Ability: Normal Advanced Registered Nurse Required: No Beliefs That Will Affect Care: None marital status: Current Living Situation: Spouse Current Living Situation Comment: house with spouse current occupational status: retired Feels Safe at Home: Yes Assistive Devices: None Physical Exam Physical Exam: Gen.: No acute distress. Alert. HEENT: Anicteric sclera. Neck: No JVD. No hepatojugular reflux. No bruits. Normal carotid upstrokes bilaterally. Cardiac: Regular with ectopy. Normal S1-S2. No murmurs, rubs, or gallops. Pulmonary: Clear to auscultation bilaterally without wheezes, rales, or rhonchi. Abdomen: Soft, nontender, nondistended, with normoactive bowel sounds. No bruits noted. Extremities: 2+ radial pulses bilaterally. 1+ posterior tibialis pulses bilaterally. No significant pitting edema or cyanosis. Psychiatric: Affect appears appropriate. Results & Data Vital Signs (Past 12 Hours) Vital Signs Temp Pulse Pulse Resp BP Pulse Ox O2 Del Method 12/22/23 08:59 98 H 12/22/23 07:59 36.7 C 71 18 109/74 94 Room Air 12/22/23 03:05 36.6 C 87 18 95/62 L 94 Room Air 12/21/23 23:00 36.5 C 74 16 90/57 L 93 Room Air 12/21/23 22:54 96 H Intake & Output 12/20/23 12/21/23 12/22/23 12/23/23 06:59 06:59 06:59 06:59 Intake Total 490 / 490 Output Total 450 / 450 Balance 40 / 40 Weight 126 lb 6 oz Laboratory Results Laboratory Results - last 24 hr 12/21/23 12/21/23 12/21/23 12:15 13:20 16:22 WBC 5.08 RBC 4.12 L Hgb 12.4 Hct 37.7 MCV 91.5 MCH 30.1 MCHC 32.9 RDW Std Deviation 48.5 H RDW Coeff of Sumanth 14.4 Plt Count 145 MPV 11.1 Immature Gran % (Auto) 0.2 Neut % (Auto) 55.9 Lymph % (Auto) 28.9 Anson % (Auto) 11.6 Eos % (Auto) 2.4 Baso % (Auto) 1.0 Neut # (Auto) 2.84 Lymph # (Auto) 1.47 Anson # (Auto) 0.59 Eos # (Auto) 0.12 Baso # (Auto) 0.05 Immature Gran # (Auto) 0.01 Sodium 134 L Potassium 4.5 Chloride 99 Carbon Dioxide 28 Anion Gap 7 BUN 41 H Creatinine 1.42 H Est Cr Clr Drug Dosing 23.6 eGFR 36.25 BUN/Creatinine Ratio 28.9 H Glucose 96 Calcium 9.6 Magnesium 2.1 Total Bilirubin 0.6 AST 35 ALT 30 Alkaline Phosphatase 73 Troponin I High Sens 54.9 H* 49.8 H 46.1 H B-Natriuretic Peptide 1279 H Total Protein 7.4 Albumin 4.7 Globulin 2.7 Albumin/Globulin Ratio 1.7 Lipase 45 TSH 3.355 Urine Color Urine Appearance Urine pH Ur Specific [place] Urine Protein Urine Glucose (UA) Urine Ketones Urine Blood Urine Nitrite Urine Bilirubin Urine Urobilinogen Ur Leukocyte Esterase Urine WBC (Auto) Urine RBC (Auto) U Hyaline Cast (Auto) U Epithel Cells (Auto) Urine Bacteria (Auto) 12/21/23 12/22/23 12/22/23 18:31 00:03 06:50 WBC 4.51 L RBC 3.69 L Hgb 11.2 L Hct 32.5 L MCV 88.1 MCH 30.4 MCHC 34.5 RDW Std Deviation 46.8 H RDW Coeff of Sumanth 14.4 Plt Count 121 L MPV 11.0 Immature Gran % (Auto) Neut % (Auto) Lymph % (Auto) Anson % (Auto) Eos % (Auto) Baso % (Auto) Neut # (Auto) Lymph # (Auto) Anson # (Auto) Eos # (Auto) Baso # (Auto) Immature Gran # (Auto) Sodium 137 Potassium 4.1 Chloride 103 Carbon Dioxide 27 Anion Gap 7 BUN 32 H Creatinine 1.08 D Est Cr Clr Drug Dosing 30.2 eGFR 50.34 BUN/Creatinine Ratio 29.6 H Glucose 91 Calcium 9.0 Magnesium 2.3 Total Bilirubin AST ALT Alkaline Phosphatase Troponin I High Sens 43.4 H B-Natriuretic Peptide Total Protein Albumin Globulin Albumin/Globulin Ratio Lipase TSH Urine Color Yellow Urine Appearance Clear Urine pH 5.5 Ur Specific [place] 1.011 Urine Protein Negative Urine Glucose (UA) Negative Urine Ketones Negative Urine Blood Trace H Urine Nitrite Negative Urine Bilirubin Negative Urine Urobilinogen Negative Ur Leukocyte Esterase 1+ H Urine WBC (Auto) 0-5 Urine RBC (Auto) 0-2 U Hyaline Cast (Auto) 0-2 U Epithel Cells (Auto) 0-2 Urine Bacteria (Auto) None Seen Diagnostic Findings Labs reviewed and notable for mild pancytopenia, normal transaminase levels, normal TSH, normal magnesium, stable renal function compared to baseline, normal potassium, elevated BNP, mildly elevated high-sensitivity troponin, peaking at 54 on presentation and since trending downward. ECG personally reviewed: ECG 2024-02-23: Atrial paced with PVCs 94 bpm. LBBB. ECG 12/22/2023 6:41 AM: Atrial paced 91 bpm. LBBB. History and physical report reviewed. Chest x-ray 12/21/2023: No acute chest disease. Interstitial thickening likely interstitial lung disease per radiology. Chest x-ray image personally reviewed: No obvious infiltrate or pleural effusion. Dual-chamber pacemaker noted. ECHO 12/22/23: Severely reduced LV systolic function. EF 15 to 20%. Akinesis involving the basal to mid inferior, basal to mid inferoseptal, and anteroseptum. Mildly reduced RV systolic function. Biatrial dilation. Otherwise, global hypokinesis. Moderate MR. Sclerotic aortic valve with mild AI. Moderate pulmonary hypertension. Medications Administered Current Inpatient Medications Acetaminophen (Acetaminophen 325 Mg Tab) 650 mg PO Q6H PRN PRN Reason: pain Stop: 01/20/24 15:53 Apixaban (Apixaban 2.5 Mg Tab) 2.5 mg PO BID SHERI Stop: 01/20/24 20:59 Last Admin: 12/22/23 08:32 Dose: 2.5 mg Aspirin (Aspirin 81 Mg Ectab) 81 mg PO HS SHERI Stop: 01/20/24 20:59 Last Admin: 12/21/23 19:58 Dose: 81 mg Atorvastatin Calcium (Atorvastatin 10 Mg Tab) 5 mg PO HS SHERI Stop: 01/20/24 20:59 Last Admin: 12/21/23 19:57 Dose: 5 mg Carvedilol (Carvedilol 6.25 Mg Tab) 6.25 mg PO BID SHERI Stop: 01/20/24 20:59 Last Admin: 12/22/23 08:32 Dose: 6.25 mg Levothyroxine Sodium (Levothyroxine Sodium 100 Mcg Tablet) 100 mcg PO DAILYBB SHERI Stop: 01/21/24 06:29 Last Admin: 12/22/23 06:04 Dose: 100 mcg Metoprolol Tartrate (Metoprolol Tartrate 1 Mg/Ml Vial) 5 mg IV Q4H PRN PRN Reason: HTN,TACHYCARDIA Stop: 01/20/24 15:53 Ondansetron HCl (Ondansetron Inj 2 Mg/Ml 2 Ml Vial) 4 mg IV Q6H PRN PRN Reason: Nausea Stop: 01/20/24 15:53 Polyethylene Glycol (Polyethylene (Miralax) 17 Gm Pack) 17 gm PO DAILY PRN PRN Reason: Constipation Stop: 01/20/24 15:53 Potassium Chloride (Potassium Chloride Crtab 20 Meq Tabcr) 20 meq PO QAM SHERI Stop: 01/21/24 08:59 Last Admin: 12/22/23 08:36 Dose: 20 meq Vitamin D (Cholecalciferol 25 Mcg (1000 Units) Tab) 25 mcg PO DAILY SHERI Stop: 01/21/24 08:59 Last Admin: 12/22/23 08:32 Dose: 25 mcg PG Care Time/CCT Total # of Minutes Spent Total Time Spent: 65 Total Time Spent with Patient: Total time spent is greater than 50% in coordination of care (as documented) at patient's floor/unit and/or counseling patient: Coding Level of Care Code 08009 INT INP/OBS CARE 3/75MIN Diagnoses HFrEF (heart failure with reduced ejection fraction) I50.20 PAF (paroxysmal atrial fibrillation) I48.0 Cardiomyopathy I42.9 Cardiomyopathy type: unspecified Elevated troponin R77.8 CAD (coronary artery disease) I25.10 Mitral regurgitation I34.0 Pulmonary hypertension I27.20 Hypotension I95.9 Hypotension type: unspecified hypotension type ICD (implantable cardioverter-defibrillator) in place Z95.810 Time Spent (min) 65 (3) Cardiomyopathy Cardiomyopathy type: unspecified Qualified Code(s): I42.9 - Cardiomyopathy, unspecified (8) Hypotension Hypotension type: unspecified hypotension type Qualified Code(s): I95.9 - Hypotension, unspecified
--- NOTE | 2023-12-22 15:54 | XCELERA ---
[id number]
--- NOTE | 2023-12-22 18:07 | Hospitalist Progress Note ---
Date of Service December 22, 2023 Assessment & Plan (1) Hypotension: Plan: Patient with low blood pressure on presentation. She typically has a cardiomyopathy and takes carvedilol. Patient appears to have recently diagnosed with A-fib and had pacemaker adjustment earlier in December. Patient seems to be dehydrated. Hydrated her. Cardiology saw the patient. Pacemaker interrogation completed. No arrhythmia Echocardiogram today showed stable EF of 15 to 20%. Cardiology plans on upgrading the defibrillator to bi V device in near future. EP cardiology will call the patient to schedule appointment Cardiology recommends continuing carvedilol at 6.25 mg and continuing diuretics (2) Elevated troponin: Plan: Elevated troponin likely from demand ischemia. (3) CHRIS (acute kidney injury): Plan: h/o CKD3 Most likely related to intravascular volume repletion. Improved with holding Lasix. Psychological Examiner recommends discharging her on usual dose of Lasix. (4) PAF (paroxysmal atrial fibrillation): Plan: Patient's anticoagulation is with age and weight reduced Eliquis therapy. Carvedilol for rate control along with her device (5) Food bolus obstruction of intestine: Plan: Patient says she was eating chicken and feels like it stuck in her throat She is unable to handle her own saliva. She is not able to swallow water GI consulted stat Discharge has been canceled for today Plan Chronic problems including hypothyroidism will continue her replacement and TSH checked on admission was a continues atorvastatin for cardiovascular risk redu ction appropriate Continues aspirin and atorvastatin for cardiovascular risk reduction and dyslipidemia treatment Admission and Anticipated Discharge Date Admission Date: December 21, 2023 Subjective Patient is cleared for discharge by cardiology. I went to admit the patient and we talked about discharge. However she told me that she ate a piece of chicken and that seems to be stuck in her throat. After my encounter, the nurse informed me that she is not able to swallow her own saliva because of the chicken being stuck. She cannot drink water, it is coming right out. I canceled the discharge and consulted GI stat for food bolus. Review of Systems Review of Systems: All systems reviewed & are unremarkable except as noted in Subjective Physical Exam Physical Exam: General: Awake, conversant Heart: S1, S2/regular rate and rhythm, no murmur rubs or gallops Lungs: Clear to auscultation bilaterally. Normal effort Abdomen: Soft/nontender/nondistended. No hepatosplenomegaly Extremities: No clubbing/cyanosis. No edema Behavior: Appropriate, cooperative Results & Data Results & Data Vital Signs (Past 12 Hours) Vital Signs Temp Pulse Pulse Resp BP Pulse Ox O2 Del Method 12/22/23 16:27 36.5 C 72 18 100/62 98 Room Air 12/22/23 15:54 12/22/23 11:16 36.3 C L 72 18 99/64 L 96 Room Air 12/22/23 08:59 98 H 12/22/23 07:59 36.7 C 71 18 109/74 94 Room Air O2 Del Method 12/22/23 16:27 12/22/23 15:54 Room Air 12/22/23 11:16 12/22/23 08:59 12/22/23 07:59 PG Care Time/CCT Total # of Minutes Spent Total Time Spent with Patient: Total time spent is greater than 50% in coordination of care (as documented) at patient's floor/unit and/or counseling patient: Coding Level of Care Code 85746 SUB INP/OBS CARE 2/35MIN Diagnoses Hypotension I95.9 Elevated troponin R77.8 CHRIS (acute kidney injury) N17.9 PAF (paroxysmal atrial fibrillation) I48.0 Food bolus obstruction of intestine K56.699; [id number]
--- NOTE | 2023-12-22 19:24 | Anesthesiology Consultation ---
Date of Service December 22, 2023 Assessment & Plan Chart Review Chart Review: Acceptable Risk for Surgery and Patient NOT seen in Pre Admission Testing Consults Requested Pulmonary History Surgery Operation Date: 12/22/23 18:10 Proposed Procedures p Esophagogastroduodenoscopy Dr. Tanya Martínez Jr, MD Height/Weight Height: 5 ft Weight: 57.323 kg Allergies Allergy/AdvReac Type Severity Reaction Status Date / Time amiodarone Allergy Severe Verified 12/21/23 13:16 amoxicillin AdvReac Unknown Rash Unverified 12/21/23 13:16 Medications Home Medications Medication Instructions Recorded Confirmed Last Taken aspirin 81 mg tablet,delayed 81 mg PO HS 09/22/20 12/21/23 12/20/23 release (Magige Low Dose Aspirin) cholecalciferol (vitamin D3) 25 1,000 unit PO DAILY 10/31/20 12/21/23 12/21/23 mcg (1,000 unit) tablet (Vitamin D3) acetaminophen 325 mg tablet 650 mg (2 x 325 mg) PO Q6H PRN 07/18/21 12/21/23 08/07/21 pain #30 tabs 650 mg carvedilol 12.5 mg tablet 12.5 mg PO BID #180 tabs 01/17/23 12/21/23 12/21/23 potassium chloride 20 mEq 20 meq PO QAM #90 tabs 01/17/23 12/21/23 12/21/23 tablet,extended release(part/cryst) furosemide 20 mg tablet 40 mg (2 x 20 mg) PO QAM #180 tabs 01/20/23 12/21/23 12/21/23 levothyroxine 100 mcg tablet 100 mcg PO QAM #90 tabs 05/09/23 12/21/23 12/21/23 (Synthroid) atorvastatin 10 mg tablet (Lipitor) 5 mg (1/2 x 10 mg) PO HS #90 tabs 07/29/23 12/21/23 12/20/23 apixaban 2.5 mg tablet (Eliquis) 2.5 mg PO BID #60 tabs 12/05/23 12/21/23 12/21/23 Active Medications Generic Name Dose Route Start Last Admin Trade Name Freq PRN Reason Stop Dose Admin Apixaban 2.5 mg 12/21/23 21:00 12/22/23 08:32 Apixaban 2.5 Mg Tab PO 01/20/24 20:59 2.5 mg BID SHERI Administration Aspirin 81 mg 12/21/23 21:00 12/21/23 19:58 Aspirin 81 Mg Ectab PO 01/20/24 20:59 81 mg HS SHERI Administration Atorvastatin Calcium 5 mg 12/21/23 21:00 12/21/23 19:57 Atorvastatin 10 Mg Tab PO 01/20/24 20:59 5 mg HS SHERI Administration Carvedilol 6.25 mg 12/21/23 21:00 12/22/23 08:32 Carvedilol 6.25 Mg Tab PO 01/20/24 20:59 6.25 mg BID SHERI Administration Levothyroxine Sodium 100 mcg 12/22/23 06:30 12/22/23 06:04 Levothyroxine Sodium 100 Mcg Tablet PO 01/21/24 06:29 100 mcg DAILYBB SHERI Administration Potassium Chloride 20 meq 12/22/23 09:00 12/22/23 08:36 Potassium Chloride Crtab 20 Meq Tabcr PO 01/21/24 08:59 20 meq QAM SHERI Administration Vitamin D 25 mcg 12/22/23 09:00 12/22/23 08:32 Cholecalciferol 25 Mcg (1000 Units) Tab PO 01/21/24 08:59 25 mcg DAILY SHERI Administration NPO Date Last Intake of Fluids: 12/22/23 Time Last Intake of Fluids: 17:00 Date Last Intake of Solids: 12/22/23 Time Last Intake of Solids: 17:00 Past Medical History Medical History Cataract Lumbar back pain Osteoarthritis Congestive heart failure Past Family History Family History Brother Cancer Other Diabetes Heart disease Past Surgical History Surgical History H/O wisdom tooth extraction H/O hemorrhoidectomy History of colonoscopy History of permanent cardiac pacemaker placement History of bladder surgery Social History Smoking Status: Never smoker Hx Alcohol Use: No Hx Substance Use: No Physical Exam Vital Signs Last Vital Signs Temp 36.9 C 12/22/23 19:13 Pulse 84 12/22/23 19:13 Resp 18 12/22/23 19:13 BP 120/74 12/22/23 19:13 Pulse Ox 96 12/22/23 19:13 O2 Del Method Room Air 12/22/23 19:13 Testing Laboratory Results 12/22/23 06:50 12/22/23 06:50 Urine Color Yellow 12/21/23 18:31 Urine Appearance Clear (Clear) 12/21/23 18:31 Urine pH 5.5 (4.5-7.5) 12/21/23 18:31 Ur Specific [place] 1.011 (1.000-1.030) 12/21/23 18:31 Urine Protein Negative (Negative) 12/21/23 18:31 Urine Glucose (UA) Negative (Negative) 12/21/23 18:31 Urine Ketones Negative (Negative) 12/21/23 18:31 Urine Nitrite Negative (Negative) 12/21/23 18:31 Ur Leukocyte Esterase 1+ (Negative) H 12/21/23 18:31 Urine WBC (Auto) 0-5 /hpf (0-5) 12/21/23 18:31 Urine RBC (Auto) 0-2 /hpf (0-2) 12/21/23 18:31 U Hyaline Cast (Auto) 0-2 /lpf (0-2) 12/21/23 18:31 U Epithel Cells (Auto) 0-2 /hpf (0-2) 12/21/23 18:31 Urine Bacteria (Auto) None Seen (None Seen) 12/21/23 18:31 Echocardiogram Date: 12/22/23 EF: 15-20 LV Function: dysfunctional
--- NOTE | 2023-12-22 20:07 | Communication Note ---
Date of Service: December 22, 2023 Came in to take care of patient. Anesthesia felt perhaps the food bolus had passed and with EF of 15% and still some cardiac fine tuning to do as an out patient he wanted me to see her and decide what needed to be done. She told me she felt fine and that she thought things had passed. We gave her 12 ounces of water that she drank without difficulty. She does admit to some recent indigestion and this did happen to her about 6 months ago. With the fact that she can swallow without difficulty, the fact that she is on eliquis and is due for more cardiac work we decided it would be best to approach this electively so she can be in her best condition and also be off eliquis to limit the risk of bleeding. I told her we would watch her till tomorrow and if she is still doing okay she can go home to be done electively after she is better.
[2023-12-23 04:20] VITALS: O2SAT 94
[2023-12-23 07:11] LABS: BUN Creatinine Ratio 25.3 (10-20); Calcium 9.3 mg/dl (8.6-10.3); Creatinine Clr Calc Pharmacy 33.5 ml/min; Magnesium 2.2 mg/dl (1.7-2.4); Potassium 4.3 mmol/L (3.5-5.1)
[2023-12-23 07:54] VITALS: RESP 16; TEMP 97.5
--- NOTE | 2023-12-23 09:52 | Discharge Summary ---
Date of Service December 23, 2023 Admission HPI Per Admitting Provider 83-year-old female who comes in after having concerns over having low blood pressure. Patient has a cardiomyopathy and typically sees Dr. Alvarado. Most recently she had her AICD adjusted in the office earlier in December. Emergency department evaluation does not feel she is any septic or infectious type symptomatology. Patient does take sliding scale Lasix and she may be slightly prerenal with lower blood pressure that could be causing her symptoms. Regarding her blood pressure, she says it normally runs low but it was more low today. She also felt off yesterday at times she has had no fever or any infe ctious type symptoms. She has been overdoing it she thinks she felt slightly short of breath patient recently been started on Eliquis for diagnose of atrial fibrillation in the office. [employer] pacemaker interpretation suggest patient may have had discharges from AICD. Currently patient is being observed for arrhythmia which is symptomatic and prerenal azotemia from likely diuresis.. Admission Exam Per Admitting Provider The patient appeared well nourished and normally developed. Vital signs as documented. Head exam is normocephalic atraumatic Neck is without JVD, thyromegaly, or carotid bruits. Lungs are clear to auscultation, no focal loss of breath sounds Cardiac exam, Rhythm is regular.. No murmurs, rubs or gallops. Abdominal exam reveals normal bowel sounds, soft non tender, no masses Extremities are nonedematous and both pedal pulses are present Neurologic exam is alert and oriented, no focal loss of strength or sensation Skin is without bruises or rashes Psychologically is without concerns for anxiety or depression.. Principal Diagnosis Dehydration leading to hypotension Acute kidney injury. Resolved. Nonischemic cardiomyopathy with EF of 15%, chronic systolic congestive heart failure Discharge Exam General: Awake, conversant Heart: S1, S2/regular rate and rhythm, no murmur rubs or gallops Lungs: Clear to auscultation bilaterally. Normal effort Abdomen: Soft/nontender/nondistended. No hepatosplenomegaly Extremities: No clubbing/cyanosis. No edema Behavior: Appropriate, cooperative Discharge Data Allergies Allergy/AdvReac Type Severity Reaction Status Date / Time amiodarone Allergy Severe Verified 12/21/23 13:16 amoxicillin AdvReac Unknown Rash Unverified 12/21/23 13:16 Consultations 12/21/23 13:57 ED Decision to Admit Stat 12/21/23 15:54 Consult Cardiology Routine 12/22/23 17:54 Consult Gastroenterology Stat Procedures Performed Operation Date: 12/22/23 18:10 <No data on this case meets the specified criteria> Hospital Course (1) Hypotension: Patient with low blood pressure on presentation. She typically has a cardiomyopathy and takes carvedilol. Patient appears to have recently diagnosed with A-fib and had pacemaker adjustment earlier in December. Patient seemed to be dehydrated. Hydrated her. Cardiology saw the patient. Pacemaker interrogation completed. No arrhythmia Echocardiogram today showed stable EF of 15 to 20%. Cardiology plans on upgrading the defibrillator to bi V device in near future. EP cardiology will call the patient to schedule appointment Cardiology recommends continuing carvedilol at 6.25 mg and continuing diuretics (2) Elevated troponin: Elevated troponin likely from demand ischemia. (3) CHRIS (acute kidney injury): h/o CKD3 Most likely related to intravascular volume repletion. Improved with holding Lasix. Transition Mgr recommends discharging her on usual dose of Lasix. (4) PAF (paroxysmal atrial fibrillation): Patient's anticoagulation is with age and weight reduced Eliquis therapy. Carvedilol for rate control along with her device (5) Food bolus obstruction of intestine: Patient says she was eating chicken and felt like it got stuck in her throat last night She was unable to handle her own saliva. She was not able to swallow water GI was consulted stat Discharge was canceled on 12/21 PM. Patient was getting ready to go for EGD. She suddenly felt like the bolus had passed. She was able to swallow water afterward. This morning, she was able to tolerate a solid breakfast without any problems. GI recommends discharging her on Nexium GI recommends follow-up with GI after her cardiac issues have been cleared Follow-up with GI in 1 to 2 months Plan Chronic problems including hypothyroidism will continue her replacement Continues aspirin and atorvastatin for cardiovascular risk reduction and dyslipidemia treatment Total Time Total Time Spent Total Time Spent (In Minutes): 35 Discharge Plan Discharge Items Patient Disposition: Home - Self-Care Reason For Visit: SYMPTOMATIC ARRYTHMIA Discharge Diagnosis: Dehydration leading to hypotension Acute kidney injury. Resolved. Nonischemic cardiomyopathy with EF of 15%, chronic systolic congestive heart failure Fluid bolus. Passed Activity: Resume your previous activity Non-emergency contact: Primary Care Provider Call non-emergency contact if: you have any medication questions and your symptoms worsen Follow-up/Referrals: Marco Alvarado MD [Physician] - (Appointment scheduled with cardiology on January 18.) Yamilet Soto MD [Primary Care Provider] - 12/25/23 10:45 am (Hospital follow up schedule December 24 at 10:[address] Swenson at the [facility] location. Dr. Soto will be precepting at this appointment. ) Candi Martínez Jr, MD [Physician] - 01/07/24 8:20 am (Hospital/ new patient follow up scheduled with Padmaja LOZADA at the [facility] location on January 06 at 8:20 am, with Heavenly Arroyo. ) Diet: Low Sodium (2gm) Fluids: 2000ml (8 cups) Addtl Attending Provider Instructions: Advised to follow-up with PCP in 1 week Advised to note that you will need upgrading to a biventricular device. You will get a call from EP cardiology office to schedule an appointment soon. Advised to follow-up with Dr. Alvarado in 1 month Advised to follow-up with GI Dr. Martínez in 1 month Pending Studies at Discharge: No Stand-Alone Forms: My [facility] Medications and DC Order Prescriptions: New esomeprazole magnesium [Nexium] 20 mg capsule,delayed release(DR/EC) 20 mg PO DAILY 30 Days Qty: 30 0RF Continued furosemide 20 mg tablet 40 mg PO QAM Qty: 180 3RF levothyroxine [Synthroid] 100 mcg tablet 100 mcg PO QAM Qty: 90 3RF atorvastatin [Lipitor] 10 mg tablet 5 mg PO HS Qty: 90 3RF Eliquis 2.5 mg tablet 2.5 mg PO BID Qty: 60 2RF carvedilol 12.5 mg tablet 12.5 mg PO BID Qty: 180 3RF potassium chloride 20 mEq tablet,ER particles/crystals 20 meq PO QAM Qty: 90 3RF cholecalciferol (vitamin D3) [Vitamin D3] 25 mcg (1,000 unit) tablet 1,000 unit PO DAILY aspirin [Maggie Low Dose Aspirin] 81 mg Tablet,Delayed Release (Dr/Ec) 81 mg PO HS acetaminophen 325 mg Tablet 650 mg PO Q6H PRN (Reason: pain) Qty: 30 0RF Discharge Orders: Discharge Order- CHF (Routine); Ordered 12/23/23 Ordered By: Ave Nava Admission Data Admit Date/Time: 12/21/23 13:49 Attending Provider: Ave Nava Admit Provider: Andrade Valerio Primary Care Provider: Yamilet Soto Other Providers: Marco Alvarado; Andrade Valerio; Felipe Rizo; Candi Martínez Jr Other Interventions: Discharge Summary Assessment (RN) Last Done: 12/23/23 10:17
[2023-12-23 10:19] VITALS: BP 106/66; PULSE 79
[2023-12-23] MEDS: INFLUENZA VACC TS2024-25(65y+)/PF (IIV3) 0.5mL Syr IM ONE (11:15)
--- NOTE | 2023-12-24 22:46 | Electrocardiogram Report ---
Test Reason : Blood Pressure : */* mmHG Vent. Rate : 94 BPM Atrial Rate : 94 BPM P-R Int : 200 ms QRS Dur : 154 ms QT Int : 430 ms P-R-T Axes : 83 -56 113 degrees QTcB Int : 537 ms Atrial-paced rhythm with occasional Premature ventricular complexes Left axis deviation Left bundle branch block Abnormal ECG When compared with ECG of 08-Jan-2021 20:15, No significant change Confirmed by Félix Turcios ([id number]) on 12/24/2023 10:46:38 PM Referred By: REFERRED SELF Confirmed By: Félix Turcios
--- NOTE | 2023-12-25 05:23 | Electrocardiogram Report ---
Test Reason : Blood Pressure : */* mmHG Vent. Rate : 91 BPM Atrial Rate : 91 BPM P-R Int : 208 ms QRS Dur : 164 ms QT Int : 432 ms P-R-T Axes : 78 -66 104 degrees QTcB Int : 531 ms Atrial-paced rhythm Left axis deviation Left bundle branch block Abnormal ECG When compared with ECG of 21-Dec-2023 12:23, Premature ventricular complexes are no longer Present Confirmed by Félix Turcios ([id number]) on 12/25/2023 5:22:40 AM Referred By: REFERRED SELF Confirmed By: Félix Turcios
== END 2023-12-23 11:22 | disposition home or self-care (01) ==
LOC: 2S 11:56 → ED 11:56 → SUATTDRO 13:49 → 2S 14:46

== ENCOUNTER 2024-03-16 08:10 | Observation (INO) ==
[2024-03-16 09:09] LABS: Basophils # (auto) 0.06 K/uL (0.00-0.20); Basophils % (auto) 1.4 %; Eosinophils # (auto) 0.16 K/uL (0.00-0.50); Eosinophils % (auto) 3.8 %; Hematocrit (blood only) 39.7 % (37.0-47.0); Hemoglobin 13.5 g/dl (12.0-16.0); Immature Granulocytes # (auto) 0.01 K/uL (0.01-0.20); Immature Granulocytes % (auto) 0.2 %; Lymphocytes # (auto) 1.05 K/uL (1.20-3.40); Lymphocytes % (auto) 25.2 %; Mean Corpuscular Hemoglobin 30.1 pg (25.0-34.0); Mean Corpuscular Volume 88.6 fL (80.0-100.0); Mean Platelet Volume 10.6 fL (9.4-12.4); Monocytes # (auto) 0.42 K/uL (0.11-0.59); Monocytes % (auto) 10.1 %; Neutrophils # (auto) 2.46 K/uL (1.40-6.50); Neutrophils % (auto) 59.3 %; Platelet Count 137 K/uL (130-400); RDW Coefficient of Variation 13.8 % (11.5-14.5); RDW Standard Deviation 45.1 fL (36.4-46.3); Red Blood Count 4.48 M/uL (4.20-5.40); White Blood Count 4.16 K/ul (4.8-10.8)
--- NOTE | 2024-03-16 09:12 | Emergency Department Note ---
Impression & Plan Near syncope, Elevated troponin, Defibrillator discharge ED Provider Note NAME: SHAWN MENDOZA AGE: 83 SEX: F : 1940 ARRIVES VIA: Walk-In INFORMANT: [Patient] ED PROVIDER(S): [Pablito Abebe MD] CHIEF COMPLAINT: Cardiac assessment HISTORY OF PRESENT ILLNESS: The patient is an 83-year-old female who has been in baseline health. She has a pacer defibrillator. She states that at 730 today, 1.5 hours ago, she felt dizzy and woozy like she might faint. She was warm. No chest pain, no palpitations, no shortness of breath. She felt her defibrillator fire 2 times. Afterwards, she felt back to baseline. She spoke with her doctors office, she was referred to the ER. The patient states that last year, in January, about 2 months ago, she had her Coreg decreased to half the previous dose. This is the only recent medication change. Of note, the patient felt near syncopal 2 days ago while at conf[employer]ian[employer] although, did not feel a defibrillator firing at that time PMHx/PSHx/Social Hx: See Below PHYSICAL EXAM: GENERAL: Patient is in no acute distress. HEENT: No acute trauma, normocephalic atraumatic, mucous membranes moist, no nasal congestion. NECK: No stridor, no adenopathy, no meningismus, trachea is midline. LUNGS: Clear to auscultation bilaterally, no wheeze, no rhonchi, breath sounds equal. HEART: Subtle systolic murmur with an occasional extra beat. ABDOMEN: Soft, nontender, no peritonitis. EXTREMITIES: No cyanosis, full range of motion of all the joints without pain or difficulty. NEUROLOGIC: Oriented x 3, no acute motor or sensory deficits, no focal weakness. SKIN: No jaundice, no diaphoresis. DIFFERENTIAL DIAGNOSIS: Dysrhythmia, V. tach or V-fib, anemia, electrolyte imbalance, among others. EMERGENCY DEPARTMENT PROCEDURES: MEDICAL DECISION MAKING: There is no leukocytosis. There is no anemia. There is a normal platelet count. No coagulopathy. No renal failure or significant electrolyte abnormality. No evidence for pancreatitis. Patient appeared to be in a euthyroid state. ECG showed an AV pacemaker. Cardiac enzyme testing was somewhat elevated. This troponin elevation could be secondary to cardiac injury or potentially dysrhythmia. Chest x-ray shows cardiomegaly, no CHF. On exam, the patient had no complaints, she was resting comfortably. I did speak with cardiology. The patient will be hospitalized for monitoring. Her troponin will need to be trended. A pacemaker/defibrillator evaluation was performed. As per the [employer] radiography technician, there was no defibrillator discharge and no dysrhythmia recorded. I did speak with the patient and case management, the on-call hospitalist was consulted. Prior/Outside records/notes reviewed: None ECG per my interpretation: Indication was near syncope. The ECG shows an AV pacemaker with a rate of 81. There is a PVC present. No concerning ST elevation. QTc was 497. Continuous Cardiac Monitoring per my interpretation: An order was placed for continuous cardiac monitoring. The monitor shows a rate of 94 with an AV pacemaker. Imaging/x-ray results per my interpretation: Chest x-ray shows cardiomegaly and some basilar congestion, possibly atelectasis. Chronic Medical/Social conditions affecting care: Advanced age, history of pacer defibrillator. Care/Management discussed with: On-call cardiology-Dr. Turcios. Case management and the on-call hospitalist. Level of care consideration(s): After review of the information above and other included data: --I believe the patient requires escalation of care to admission DISPOSITION: Admission Past Med/Surg History Problem List (Updated 03/16/24 @ 15:36 by Pablito Abebe MD) Defibrillator discharge (Acute) Elevated troponin (Acute) Near syncope (Acute) Defibrillator discharge Pre-syncope Biventricular implantable cardioverter-defibrillator (ICD) in situ Food bolus obstruction of intestine Pulmonary hypertension Mitral regurgitation Tachycardia (Acute) Acute renal insufficiency (Acute) Weakness (Acute) Hypotension (Acute) Hypotension PAF (paroxysmal atrial fibrillation) Encounter for pre-operative examination Swelling of right index finger Leukocytosis Hypokalemia Multifocal pneumonia ICD (implantable cardioverter-defibrillator) in place CHRIS (acute kidney injury) CHF exacerbation Pulmonary edema (Acute) Respiratory failure with hypoxia (Acute) Acute congestive heart failure (Acute) Cardiomyopathy (Acute) Elevated troponin (Acute) HFrEF (heart failure with reduced ejection fraction) EF 20-25% 06/21 CAD (coronary artery disease) 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) Dyslipidemia (Chronic) Hypothyroidism (Chronic) HTN (hypertension) (Chronic) Medical History Cataract Lumbar back pain Osteoarthritis Congestive heart failure Surgical History H/O wisdom tooth extraction H/O hemorrhoidectomy History of colonoscopy History of permanent cardiac pacemaker placement History of bladder surgery Family History Brother Cancer Other Diabetes Heart disease Social History Smoking Status: Never smoker Hx Alcohol Use: No Hx Substance Use: No Preferred Language: Portuguese Communication Ability: Effective Hearing Ability: Normal Certified Ski Patroller Required: No Beliefs That Will Affect Care: None marital status: Current Living Situation: Spouse Current Living Situation Comment: house with spouse current occupational status: retired Other Information That Helps Us Care for You: No Feels Safe at Home: Yes Safety Concerns: Feels Safe At This Time Assistive Devices: None Allergies Allergies Allergy/AdvReac Type Severity Reaction Status Date / Time amiodarone Allergy Severe Verified 03/16/24 10:54 amoxicillin AdvReac Unknown Rash Unverified 03/16/24 10:54 Home Meds Home Medications Medication Instructions Recorded Confirmed aspirin 81 mg tablet,delayed 81 mg PO HS 09/22/20 03/16/24 release (Maggie Low Dose Aspirin) cholecalciferol (vitamin D3) 25 1,000 unit PO DAILY 10/31/20 03/16/24 mcg (1,000 unit) tablet (Vitamin D3) carvedilol 12.5 mg tablet 6.25 mg PO BID 03/16/24 03/16/24 furosemide 20 mg tablet 20 mg PO UD 03/16/24 03/16/24 Previous Rx's Medication Instructions Recorded acetaminophen 325 mg tablet 650 mg (2 x 325 mg) PO Q6H PRN 07/18/21 pain #30 tabs levothyroxine 100 mcg tablet 100 mcg PO QAM #90 tabs 05/09/23 (Synthroid) atorvastatin 10 mg tablet (Lipitor) 5 mg (1/2 x 10 mg) PO HS #90 tabs 07/29/23 apixaban 2.5 mg tablet (Eliquis) 2.5 mg PO BID #60 tabs 10/04/24 potassium chloride 20 mEq 20 meq PO QAM #90 tabs 01/28/24 tablet,extended release(part/cryst) Results & Data (ED) Vital Signs Vital Signs - 24 hr 03/16/24 08:15 03/16/24 08:30 03/16/24 08:51 Temperature 36.5 C Temperature Source Oral Pulse Rate 92 H 94 H Pulse Rate [Apical] 80 Respiratory Rate 20 18 Respiratory Effort / Characteristics Non-Labored Spontaneous Non-Labored Spontaneous Respiratory Depth Normal Normal Respiratory Pattern Regular Regular Blood Pressure 145/80 H Blood Pressure [Left Arm] 142/101 H Blood Pressure Mean 101 Blood Pressure Mean [Left Arm] 114 Pulse Oximetry 97 96 Oxygen Delivery Method Room Air Room Air Sepsis Recent Fever Within 48 Hours No Sepsis New/Unexplained Change in Mental Status N/A Sepsis Action Taken by Nursing No Action Required 03/16/24 08:52 03/16/24 10:11 Temperature Temperature Source Pulse Rate Pulse Rate [Apical] 78 Respiratory Rate 18 Respiratory Effort / Characteristics Non-Labored Spontaneous Respiratory Depth Normal Respiratory Pattern Regular Blood Pressure Blood Pressure [Left Arm] 117/84 Blood Pressure Mean Blood Pressure Mean [Left Arm] 95 Pulse Oximetry 98 95 Oxygen Delivery Method Room Air Room Air Sepsis Recent Fever Within 48 Hours Sepsis New/Unexplained Change in Mental Status Sepsis Action Taken by Correction Medications Current Medication List: was personally reviewed by me Laboratory Data Attestation: I reviewed the patient's lab results. 03/16/24 08:45 03/16/24 08:45 Lab Results 03/16/24 03/16/24 Range/Units 08:45 10:33 WBC 4.16 L (4.8-10.8) K/ul RBC 4.48 (4.20-5.40) M/uL Hgb 13.5 (12.0-16.0) g/dl Hct 39.7 (37.0-47.0) % MCV 88.6 (80.0-100.0) fL MCH 30.1 (25.0-34.0) pg MCHC 34.0 (32.0-36.0) g/dL RDW Std Deviation 45.1 (36.4-46.3) fL RDW Coeff of Sumanth 13.8 (11.5-14.5) % Plt Count 137 (130-400) K/uL MPV 10.6 (9.4-12.4) fL Immature Gran % (Auto) 0.2 % Neut % (Auto) 59.3 % Lymph % (Auto) 25.2 % [place] % (Auto) 10.1 % Eos % (Auto) 3.8 % Baso % (Auto) 1.4 % Neut # (Auto) 2.46 (1.40-6.50) K/uL Lymph # (Auto) 1.05 L (1.20-3.40) K/uL [place] # (Auto) 0.42 (0.11-0.59) K/uL Eos # (Auto) 0.16 (0.00-0.50) K/uL Baso # (Auto) 0.06 (0.00-0.20) K/uL Immature Gran # (Auto) 0.01 (0.01-0.20) K/uL PT 11.9 (9.0-12.0) Seconds INR 1.1 (0.9-1.1) APTT 28 (21-31) Seconds PTT Ratio 1.0 Sodium 136 (136-145) mmol/L Potassium 4.2 (3.5-5.1) mmol/L Chloride 101 (98-107) mmol/L Carbon Dioxide 29 (21-32) mmol/L Anion Gap 6 (3-11) BUN 18 (6-23) mg/dl Creatinine 1.03 (0.6-1.2) mg/dl Est Cr Clr Drug Dosing 32.1 ml/min eGFR 53.28 BUN/Creatinine Ratio 17.5 (10-20) Glucose 92 (70-99(Fasting)) mg/dl Calcium 9.6 (8.6-10.3) mg/dl Magnesium 2.1 (1.7-2.4) mg/dl Total Bilirubin 0.9 (0.2-1.0) mg/dl AST 23 (13-39) U/L ALT 14 (7-52) U/L Alkaline Phosphatase 56 (34-104) U/L Troponin I High Sens 389.6 H* 780.0 H* D (0-14) pg/ml Total Protein 6.9 (6.0-8.3) gm/dl Albumin 4.7 (3.4-5.0) gm/dl Globulin 2.2 L (2.5-4.0) gm/dl Albumin/Globulin Ratio 2.1 H (0.9-2) Lipase 28 (11-82) U/L TSH 3.196 (0.300-4.500) uIu/ml Administered Medications Discontinued Medications Apixaban (Apixaban 2.5 Mg Tab) 2.5 mg PO NOW STA Stop: 03/16/24 11:20 Last Admin: 03/16/24 11:34 Dose: 2.5 mg Documented By: AMBER Carvedilol (Carvedilol 6.25 Mg Tab) 6.25 mg PO NOW STA Stop: 03/16/24 11:22 Last Admin: 03/16/24 11:34 Dose: 6.25 mg Documented By: AMBER Furosemide (Furosemide 20 Mg Tab) 20 mg PO NOW STA Stop: 03/16/24 11:22 Last Admin: 03/16/24 11:34 Dose: 20 mg Documented By: AMBER Potassium Chloride (Potassium Chloride Crtab 20 Meq Tabcr) 20 meq PO NOW STA Stop: 03/16/24 11:08 Last Admin: 03/16/24 11:34 Dose: 20 meq Documented By: AMBER Imaging Data Radiologist's Impression: Chest X-Ray 03/16/24 08:49 XR chest 1V portable HISTORY: 83 years-old Female Chest pain, nonspecific COMPARISON: 01/15/2024 TECHNIQUE: AP view the chest FINDINGS: Cardiac silhouette is enlarged. Left subclavian pacer/AICD. Pulmonary vascular congestion with interstitial coarsening. Trace pleural effusions with bibasilar densities. Bones appear grossly intact. IMPRESSION: 1. Cardiomegaly with interstitial pulmonary edema. 2. Small pleural effusions with mild bibasilar opacities which may represent atelectasis versus pneumonitis. ACT 112: Negative or not required by law. The above report was generated using voice recognition software. It may contain grammatical, syntax or spelling errors. Electronically signed by: Alfonso Lerma M.D. 03/16/2024 9:57 AM Discharge Plan Visit Data Chief Complaint: Cardiac Assessment Stated Complaint: PACE MAKER WENT OFF ED Provider: Pablito Abebe Discharge Problem: Near syncope, Elevated troponin, Defibrillator discharge Patient Disposition: Admitted As Inpatient Condition: Fair Discharge Instructions Interventions: ED Discharge Assessment Last Done: 03/16/24 11:58
--- OUTSIDE RECORDS SUMMARY | 2024-03-16 09:13 | External Medical Summary | Continuity of Care Document ---
Author Name Unknown Organization [facility] [id number] [place] [id number] Care Team Providers Care Supervisor [employer] Name Role Phone Yamilet Soto Primary Care Physician [phone] Encounter [facility] [id number] Date(s): 03/09/24 - 03/09/[address] [facility] [address] [address] [place] [phone] Encounter Diagnosis Acute on chronic systolic (congestive) heart failure(Final) - Hypothyroidism, unspecified(Final) - Dilated cardiomyopathy(Final) - Discharge Disposition: Home or Self Care Attending Physician: MD Soto Amy L Referring Physician: MD Soto Amy L Allergies, Adverse Reactions, Alerts Substance Criticality Severity Reaction Reaction Severity Status amiodarone pulmonary toxicity Active amoxicillin Hives, rash Active Immunizations Given and Recorded Vaccine Date Status Refusal Reason influenza virus vaccine, inactivated 12/23/22 Give n influenza virus vaccine, inactivated 12/21/21 Give n influenza virus vaccine, inactivated 12/19/20 Give n influenza virus vaccine, inactivated 12/28/19 Give n influenza virus vaccine, inactivated 12/01/18 Give n influenza virus vaccine, inactivated 12/08/17 Give n influenza virus vaccine, inactivated 12/18/16 Give n influenza virus vaccine, inactivated 12/18/15 Give n influenza virus vaccine, inactivated 03/06/15 Give n influenza virus vaccine, inactivated 12/21/13 Give n influenza virus vaccine, inactivated 12/25/11 Give n SARS-CoV-2 (COVID-19) mRNA [id number] vax 1 05/11/20 Recorded tetanus/diphtheria/pertuss, acel (Tdap) 03/06/15 G iven tetanus/diphtheria/pertuss, acel (Tdap) 01/31/06 R ecorded pneumococcal 13-valent vaccine 09/08/14 Given zoster vaccine live 10/29/13 Recorded pneumococcal 23-valent vaccine 02/12/11 Given 1Result Comment: 2021-01-03: Historical information-source unspecified Medications aspirin 81 mg oral tablet Start: 03/25/16 10:06:00 AM EST, 1 tab, PO, Daily Start Date: 03/25/16 Status: Ordered atorvastatin 10 mg oral tablet Start: 04/07/20 9:16:00 AM EST, See Instructions, Disp# 45 tab, Refills: 3, take one-half tablet by mouth once daily at bedtime Start Date: 04/07/20 Status: Ordered carvedilol 6.25 mg oral tablet Start: 12/25/23 12:09:00 PM EDT, 1 tab, PO, bid, Disp# 60 tab, Refills: 3, Pharmacy: [id number] Start Date: 12/25/23 Stop Date: 04/23/24 Status: Ordered Coenzyme Q10 Start: 03/22/10 1:21:53 PM EST, 200 mg =, PO, Daily, Refills: 0, current medication from another provider Start Date: 03/22/10 Status: Ordered Eliquis 2.5 mg oral tablet Start: 12/25/23 12:02:00 PM EDT, 1 tab, PO, bid, Disp# 60 tab, Refills: 3, Pharmacy: [id number] Start Date: 12/25/23 Stop Date: 04/23/24 Status: Ordered furosemide 20 mg oral tablet Start: 03/14/21 9:59:00 AM EST, 1 tab, PO, bid Start Date: 03/14/21 Status: Ordered levothyroxine 100 mcg (0.1 mg) oral tablet Start: 05/09/23 11:45:00 AM EST, See Instructions, Disp# 90 tab, Refills: 1, TAKE 1 TABLET PO on 6 days of the week, take 2 tablets PO on 1 day of the week., Pharmacy: [id number] Start Date: 05/09/23 Status: Ordered NexIUM 20 mg oral delayed release capsule Start: 12/25/23 12:01:00 PM EDT, 1 cap, PO, Daily, Disp# 30 cap, Pharmacy: [id number] Start Date: 12/25/23 Stop Date: 01/24/24 Status: Ordered Potassium Chloride (Xap-Ompx-Zrn 10) 10 mEq oral tablet, extended release Start: 01/16/21 9:43:00 AM EST, 1 tab, PO, Daily Start Date: 01/16/21 Status: Ordered Vitamin D Start: 12/25/09 9:32:08 AM EDT, 1,000 units, PO, bid, Refills: 0, PRN: 2000 iu, current medication from another provider Start Date: 12/25/09 Status: Ordered Problem List Condition Confirmation Course Effective Dates Status H ealth Status Informant Acute COVID-19 Confirmed Active Acute on chronic systolic CHF (congestive heart failure) Confirmed Active Arthritis of right foot Confirmed Active Xerosis of skin Confirmed Active Atrial fibrillation Confirmed Active Atypical chest pain Confirmed Active CAD (coronary artery disease) Confirmed Active Chronic back pain Confirmed Active Chronic constipation Confirmed Active Chronic kidney disease (CKD) Confirmed Active Congestive heart failure (CHF) Confirmed Active Lumbar degenerative disc disease Confirmed Active Degenerative lumbar spinal stenosis Confirmed Active Diverticulosis Confirmed Active Difficulty in swallowing Confirmed Active MONTIEL (dyspnea on exertion) Confirmed Active Excessive cerumen in ear canal Confirmed Active GERD Confirmed Active Hammertoe of right foot Confirmed Active HEMORRHOIDS Confirmed Active Rectocele Confirmed Active Acute right hip pain Confirmed Active Borderline hyperlipidemia Confirmed Active Hypertension Confirmed Active Hyponatremia Confirmed Active Hypothyroidism Confirmed Active Left trigger finger 1 Confirmed Active Localized, primary osteoarthritis of the hand Confirmed Active Hypotension Confirmed Active Left lumbar radiculopathy Confirmed Active Spondylolisthesis, lumbar region Confirmed Active Osteoarthritis of lower back Confirmed Active Hematuria, microscopic Confirmed Active Mitral regurgitation Confirmed Active Myalgia Confirmed Active Cardiomyopathy, dilated, nonischemic Confirmed Active Olecranon bursitis Confirmed Active Osteopenia Confirmed Active Body mass index [BMI] 26.0-26.9, adult Confirmed Active Finger pain Confirmed Active Bilateral leg pain Confirmed Active Paresthesia of left arm Confirmed Active Annual physical exam Confirmed Active Positive H. pylori test Confirmed Active Preop examination Confirmed Active Skin lesion 2 Confirmed Active Lumbar spinal stenosis Confirmed Active Chronic venous stasis dermatitis Confirmed Active Cardiac syncope Confirmed Active Pes planus of right foot Confirmed Active VITAMIN D DEFICIENCY Confirmed Active Weight disorder Confirmed Active 1fifth 2nose Procedures Procedure Date Related Diagnosis Body Site Status Mammogram 1 10/18/22 Completed Mammogram 2 10/12/21 Completed Left elbow 3 03/14/21 Completed Mammogram 4 10/10/20 Completed Mammogram 5 10/07/19 Completed Mammogram 6 10/01/17 Completed Anterior colporrhaphy 10/07/16 Com pleted Cystourethroscopy 10/07/16 Complet ed Uterosacral ligament 10/07/16 Comp leted Vaginal hysterectomy 10/07/16 Comp leted Mammogram 7 09/27/16 Completed MRI of lumbar spine 8 09/02/[address] of chest 9 05/22/16 Completed X-ray of lumbar spine and sa croiliac joints 10 04/04/16 Completed Bilateral digital screening mammogram with CAD 11 09/22/[address] of chest 12 08/14/15 Completed Chest x-ray 13 05/03/15 Completed Implantation of heart pacemaker 14, 15 05/03/15 Completed Chest x-ray 16 04/29/[address] brain w/o contrast 17 04/29/15 Completed EKG 18 04/29/15 Completed Emergency medical services 19 04/29/15 Completed Ultrasound scan of carotid 20 04/29/15 Completed Colonoscopy 21 10/07/14 Completed Mammogram - screening 22 09/19/14 Completed Mammogram - screening 23 09/16/13 Completed mammo 24 09/15/12 Completed mammogram 09/11/11 Completed dexa scan 05/07/11 Completed Cath-Coronary AUGUST 200408/31/04 Completed COLONOSCOPY AUGUST 2004 08/01/04 Com pleted Stress ECHO 26 12/20/00 Completed Redig teeth 1999 Completed D and C 03/03/88 Completed BTL 03/03/75 Completed hemorrhoids 03/03/69 Completed Cataract surgery-B/L eyes 27 Completed 1IMPRESSION ACR Bl-RADS CATEGORY 2 BENIGN There is no mammographic evidence of malignancy A 1 year screening mammogram is recommended (10/18/2023) The patient will receive written notification of the results Some breast cancers are not detected with mammog 2No mammographic evidence of malignancy. 1 year screening is recommended. [address] [place] [address] Impression: 1. Soft tissue swelling without evidence of acute abnormality 4No mammographic evidence of malignancy. 1 year screening mammogram is recommended. 5IMPRESSIONS: ACR BI-RADS CATEGORY 2: BENIGN There is no mammographic evidence of malignancy. A 1 year screening mammogram is recommended. () 6No mammographic evidence of malignancy. 1 year screening is recommended. 7There is no mammographic evidence of malignancy. 1 year screening mammogram is recommended. 8[facility] Impression: 1. 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 Multilevel foraminal narrowing 9Improved exam with no significant pulmonary nodularity at the current time. Mild stable cardiomegaly. 10Moderate rather significant degenerative change of the mid to lower lumbar spine. No acute body abnormality. 11[facility] Impression: ACR BI-RADS CATEGORY 2: BENIGN There is no mammographic evidence of malignancy. A 1 year screening mammogram is recommended 121. Cardiomegaly and coronary artery calcifications. 2. Trace right pleural effusion. 3. Marked improvement in the previous identified interstitial edema. 4. Near complete interval resolution of the previous described pulmonary nodules. 5. Hepatic hypodensities consistent with cysts. 13no pneumothorax post status insertion of a dual lead left subclavial pacer. Interval improvement inpulmonary edema 14dual chamber AICD 15MN Dr. Rizo 16marked cardiac enlargement. There is evidence of at least mild congestive failure. 17Age-related changes as above with no hemorrhage, mass effect or evidence of acute territorial ischemia by CT criteria 18no acute changes per Michael Zafar DO 19Cardiomyopathy and syncope 20There is no sonographic evidence of hemodynamically significant stenosis in the right or left carotid arterial system 21Repeat in 10 years 22WNL-1 yr 23normal 24wnl,repeat 1 yr 25July 2004 26LAst Oct 2007 27Left Eye- 11/19/2016 Right Eye-10/29/2016 Results Laboratory List Name Date Comprehensive Metabolic Panel (COMP META B PANEL) 03/09/24 Lipid Profile (LIPOPROTEINS) 03/09/24 Thyroid Stimulating Hormone (TSH) 03/09/24 Most recent to oldest [Reference Range]: 1 eGFR CKD-EPI [>60 mL/min/1.73 m2] 63 mL/ min/1.73 m2 1 (03/09/24 10:14 AM) Non-HDL 63 mg/dL 2 (03/09/24 10:14 AM) Estimated CrCl 35.80 mL/min (03/09/24 12:32 PM) Anion Gap [5-14 mmol/L] 1 mmol/L *LOW* (03/09/24 10:14 AM) Alb [3.5-5.0 g/dL] 4.3 g/dL (03/09/24 10:14 AM) Alk Phos [38-126 unit/L] 66 unit/L (03/09/24 10:14 AM) ALT [<35 unit/L] 16 unit/L (03/09/24 10:14 AM) AST [15-46 unit/L] 38 unit/L (03/09/24 10:14 AM) BUN [7-20 mg/dL] 23 mg/dL *HI* (03/09/24 10:14 AM) Ca [8.4-10.2 mg/dL] 9.5 mg/dL (03/09/24 10:14 AM) Chol/HDL 2 (03/09/24 10:14 AM) Chol [125-200 mg/dL] 132 mg/dL (03/09/24 10:14 AM) Cl- [96-107 mmol/L] 106 mmol/L (03/09/24 10:14 AM) HCO3 [22-30 mmol/L] 33 mmol/L *HI* (03/09/24 10:14 AM) Cret [0.60-1.00 mg/dL] 0.90 mg/dL (03/09/24 10:14 AM) Glu [74-106 mg/dL] 91 mg/dL (03/09/24 10:14 AM) HDL [>35 mg/dL] 69 mg/dL (03/09/24 10:14 AM) K [3.5-5.1 mmol/L] 4.4 mmol/L (03/09/24 10:14 AM) LDL Chol, Calculated [50-130 mg/dL] 48 m g/dL *LOW* (03/09/24 10:14 AM) Na [137-145 mmol/L] 140 mmol/L (03/09/24 10:14 AM) T Bili [0.2-1.3 mg/dL] 0.9 mg/dL (03/09/24 10:14 AM) Prot [6.3-8.2 g/dL] 7.0 g/dL (03/09/24 10:14 AM) TG [<200 mg/dL] 77 mg/dL (03/09/24 10:14 AM) TSH [0.47-4.68 uIU/mL] 2.39 uIU/mL 3 (03/09/24 10:14 AM) 1Result Comment: Testing Performed By: Dept of Pathology [facility], [address] [place] [address], [place] [address] 2Result Comment: Testing Performed By: Dept of Pathology [facility], [address] [place] [address], [place] [address] 3Result Comment: Testing Performed By: Dept of Pathology [facility], [address] [place] [address], [place] [address] Social History Social History Type Response Smoking Status Never smoked cigaret yeny Sex Female Sex Representation Female (finding) Patient Care team information Care Team Personnel Name: MD Charles, Yamilet Su Position: Physician - Family Med Member Role: Primary Care Provider Address: [address] [place] [address] [address] [place] [address] [place] Name: INOCENCIA Bass Anna L Position: Nurse Pract - Female Pelvic Med Member Role: Lifetime Relationship Address: [address] [place] [address] [address] [place] [address] [place] Care Team Related Persons Name: DEBBIE MENDOZA
--- OUTSIDE RECORDS SUMMARY | 2024-03-16 09:13 | External Medical Summary | Continuity of Care Document ---
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 Name Role Phone Yamilet Soto Primary Care Physician [phone] [facility]counter [facility] [id number] Date(s): 03/12/24 - 03/12/24 [facility] [address], [address] [place] [address] [phone] Encounter Diagnosis Acute on chronic systolic CHF (congestive heart failure)(Discharge Diagnosis) - 03/12/24 Atrial fibrillation(Discharge Diagnosis) - 03/12/24 Acute eczema(Discharge Diagnosis) - 03/12/24 Hypothyroidism(Discharge Diagnosis) - 03/12/24 Borderline hyperlipidemia(Discharge Diagnosis) - 03/12/24 Chronic kidney disease (CKD)(Discharge Diagnosis) - 03/12/24 Chronic constipation(Discharge Diagnosis) - 03/12/24 GERD(Discharge Diagnosis) - 03/12/24 Excessive cerumen in right ear canal(Discharge Diagnosis) - 03/12/24 Cardiomyopathy, dilated, nonischemic(Discharge Diagnosis) - 03/12/24 Hypertension(Discharge Diagnosis) - 03/12/24 Chronic venous stasis dermatitis(Discharge Diagnosis) - 03/12/24 Discharge Disposition: Home or Self Care Attending Physician: MD Soto Amy L Allergies, Adverse Reactions, Alerts Substance Criticality Severity Reaction Reaction Severity Status amiodarone pulmonary toxicity Active amoxicillin Hives, rash Active Assessment and Plan Extracted from: Title:Office Visit Note Author:MD Soto Amy L D ate:03/12/24 1.Acute on chronic systoli c CHF (congestive heart failure) STATUS : chronic, controlled. DATA : hx, exam, weights& CHF clinic notereviewed. GOAL : maintain euvolemia & cardiovascular stability. PLAN : she followswithCHF clinic& remainscompliantwithlimiting salt intake, monitoring weights & takingdiuretics, as directed. Return for worsening edema or other sx. 2.Cardiomyopathy, dilated, nonischemic STATUS : chronic, controlled. DATA : hx, exam & remarketing rep note reviewed. GOAL : maintain euvolemia, stable cardiac rhythm. PLAN : hasbeenstablefrom cardiacstandpoint.Shewillcontinue cardiology follow up.She has felt much better , since biventricular pacer has been placed. 3.Atrial fibrillation STATUS : recentrecurrence,now anti-coagulated& ratecontrolled. DATA : hx,exam & cardiologynotereviewed. GOAL : maintain euvolemia, stable cardiac rhythm. PLAN : she hasdonewell,withnocomplicationson herapixaban (renal-adjusted dose).Continuecardiology & electrophysiology follow up. 4.Hypertension Status : chronic, muchbettercontrolled. Data : BP readings reviewed. Goal : maintain normal BP. Plan : no furtherhypotension, so willcontinue current BPmeds. Reviewedrecentelectrolytes & renal function, all satisfactory. 5.Chronic venous stasis dermatitis STATUS: Chronic stable. DATA: hx & exam reviewed. GOAL: resolve edema/skin changes. PLAN: discussed salt restriction, elevation & wearing compression garments faithfully. Advised on specifictypesofcompression stockings.Also,discussedskincarefordryness. 6.Acute eczema STATUS: Chronic stable. DATA:hx &examreviewed. GOAL: reolve skin lesion, relieveitching. PLAN: use OTC hydrocortisone cream prn. 7.Hypothyroidism Status : chronic, stable. Data : sx reviewed. Goal : maintain euthyroid state. Plan : reviewedrecentTSH, so nomedadjustmentneeded. 8.GERD STATUS: Chronic, controlled. DATA: hx & examreviewed. GOAL: relieve sx of acid reflux. PLAN: Cont current dose of Esomeprazole. Stay vigilant with diet & non-pharmacological measures. 9.Borderline hyperlipidemia STATUS : chronic, stable. DATA : diet & exercise reviewed. GOAL: improve metabolic profile. PLAN : continue Atorvastatin&to monitor lifestyle. Reviewedrecentlipids, which are at goal, & normalLFTs. 10.Excessive cerumen in right ear canal Advised to use OTC Debrox & may return for ear lavage, if desired. 11.Chronic constipation STATUS : chronic, stable. DATA : hx & exam reviewed. GOAL : restore normal stooling pattern. PLAN: discussed chronic constipation & likely course of improvement. Continue Miralax, increase water intake, continue high fiber diet. 12.Chronic kidney disease (CKD) STATUS: Chronic, renal functionstable. DATA: hx & labs reviewed. GOAL: Maintain renal stability. PLAN: Cont to encourage drinking fluids & current GFRis stable. Return in6 months. Time:Total time spent with this patient on day of evaluation including chart review, ordering, education and coordination of care elements: _39minutes Immunizations Given and Recorded Vaccine Date Status [...] bid, Disp# 60 tab, Refills: 3, Pharmacy: [id number] Start Date: 12/25/23 Stop Date: 04/23/24 Status: Ordered Coenzyme Q10 Start: 03/22/10 1:21:53 PM EST, 200 mg =, PO, Daily, Refills: 0, current medication from another provider Start Date: 03/22/10 Status: Ordered Eliquis 2.5 mg oral tablet Start: 12/25/23 12:02:00 PM EDT, 1 tab, PO, bid, Disp# 60 tab, Refills: 3, Pharmacy: [id number] Start Date: 12/25/23 Stop [...] on 1 day of the week., Pharmacy: [id number] Start Date: 05/09/23 Status: Ordered NexIUM 20 mg oral delayed release capsule Start: 12/25/23 12:01:00 PM EDT, 1 cap, PO, Daily, Disp# 30 cap, Pharmacy: [id number] Start Date: 12/25/23 Stop Date: 01/24/24 Status: Ordered Potassium Chloride (Ffp-Kcso-Kth 10) 10 mEq oral tablet, extended release Start: 01/16/21 9:43:00 AM EST, 1 tab, PO, Daily Start Date: 01/16/21 Status: Ordered Shingrix intramuscular injection Start: 03/12/24 9:33:00 AM EST, 0.5 mL, IM, ONCE, Disp# 1 each, Refills: 1 Start Date: 03/12/24 Status: Ordered Vitamin D Start: 12/25/09 9:32:08 AM EDT, 1,000 units, PO, bid, Refills: 0, PRN: 2000 iu, current medication from another provider Start Date: 12/25/09 Status: Ordered Mental Status 03/12/24 Barriers to Learning one year None evide nt Mandatory Health Literacy Documentation Yes Health Literacy Communication Barriers N ever Primary Language Ukrainian Problem List Condition Confirmation Course Effective Dates Status H ealth Status Informant Acute COVID-19 Confirmed Active Acute eczema Confirmed Active Acute on chronic systolic CHF [...] Excessive cerumen in ear canal Confirmed Active Excessive cerumen in right ear canal Confirmed Active GERD Confirmed Active [...] Active Chronic venous stasis dermatitis Confirmed Active Chronic venous stasis dermatitis Confirmed Active Cardiac syncope Confirmed Active Pes planus of right foot Confirmed Active VITAMIN D DEFICIENCY Confirmed Active Weight disorder Confirmed Active 1fifth 2nose Diagnosis Diagnosis Type Effective Dates Health Status Clinical Service Informant Cardiomyopathy, dilated, nonischemic Discharge Diagnosis 03/12/24 Non-Specified Hypertension Discharge Diagnosis 03/12/24 Non-Specified Hypothyroidism Discharge Diagnosis 03/12/24 Non-Specified Acute on chronic systolic CHF (congestive heart failure) Discharge Diagnosis 03/12/24 Non-Specified Borderline hyperlipidemia Discharge Diagnosis 03/12/24 Non-Specified Atrial fibrillation Discharge Diagnosis 03/12/24 Non-Specified Chronic kidney disease (CKD) Discharge Diagnosis 03/12/24 Non-Specified Chronic constipation Discharge Diagnosis 03/12/24 Non-Specified GERD Discharge Diagnosis 03/12/24 Non-Specified Chronic venous stasis dermatitis Discharge Diagnosis 03/12/24 Non-Specified Acute eczema Discharge Diagnosis 03/12/24 Non-Specified Excessive cerumen in right ear canal Discharge Diagnosis 03/12/24 Non-Specified Procedures Procedure Date Related Diagnosis Body Site [...] Com pleted Stress ECHO 26 12/20/00 Completed [place] teeth 1999 Completed D and C 03/03/88 [...] of malignancy. 1 year screening is recommended. 3[facility] Impression: 1. Soft tissue swelling without evidence [...] 1 year screening mammogram is recommended. 8[facility] Impression: 1. 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 Multilevel foraminal narrowing 9Improved exam with no significant pulmonary nodularity at the current time. Mild stable cardiomegaly. 10Moderate rather significant degenerative change of the mid to lower lumbar spine. No acute body abnormality. 11[facility] Impression: ACR BI-RADS CATEGORY 2: BENIGN There [...] Interval improvement inpulmonary edema 14dual chamber AICD 15[facility] Dr. Rizo 16marked cardiac enlargement. There is [...] Oct 2007 27Left Eye- 11/19/2016 Right Eye-10/29/2016 Vital Signs Most recent to oldest [Reference Range]: 1 Patient Weight 58.1 kg (03/12/24 9:01 AM) Heart Rate 64 bpm (03/12/24 9:01 AM) Blood Pressure 112/72mmHg (03/12/24 9:01 AM) Cuff Pulse Pressure 40 mmHg (03/12/24 9:01 AM) Social History Social History Type Response Smoking Status Never smoked cigaret yeny Sex Female Sex Representation Female (finding) FCM Outpt Note * MD Charles, Yamilet Su: PERFORM Event Display: [facility]CM Outpt Note Authored Date: Chief Complaint 6 month f/u - discuss L leg, and nexium History of Present Illness * This patient is being followed longitudinally for chronic serious medical problems by Dr. Yamilet Soto. Their most recent visitwith Dr. Soto:09/10/23. Here for recheckoffollowing concerns : 1) CHF - she has been going to CHF clinic. They are telling her that she's doing well, has not had any recent episodes of fluid overload. 2) Cardiomyopathy - she got a new Biventricular pacerplaced, due to uncontrolledAFib. She hashad somewhat more energy & stamina since then 3) AFib- she hadnoted some heart racing & felt weak. Thisiswhen theyfoundthat shewas in sustainedAFib.Her cardiologistrecommendedbiventricularpacer, whichhas apparently beensuccessful. Shewas alsostartedonEliquis.No falls, but she bruises very easily. 4) Edema - she has not been wearing her compression stockings. However, she is getting discoloration of skin in her lower legs & ankles. She gets some itchy spots, which she has been putting Neosporin on. Has another area on left thigh, which gets very itchy. She wondered if having a procedure for varicose veins would help with these. 5) Hypothyroidism - her energy has been good. Weight stays pretty stable. 6) HTN - she has not had any episodes of low BP like she had been having before. Review of Systems Review of Systems- Constitutional: no fatigue or changes in weight. HEENT: no vision changes, or sinus congestion. Respiratory: no cough, SOB, or wheezing. Cardiac: no chest pain, resolvedpalpitations, +pedal edema. GI: no abdominal pain, vomiting or change in bowel habits. : no dysuria. Neurologic: no headaches. Musculoskeletal: No joint pains. Physical Exam Vitals & Measurements HR:64(Monitored) BP:112/72 SpO2:96% WT:58.100kg(Dosing) WT:58.1kg PHQ2 Data(Data Documented on:03/12/2024 08:59) Emotional health assessment NEGATIVE PE : Alert, in NAD. HEENT - PERRL. L TM- normal. R TM unable to see TM due to excessive black cerumen.Nares - clear. Oropharynx - normal. Neck - supple, without thyromegaly or lymphadenopathy. Lungs - clear, with good breath sounds bilaterally. Heart - RRR without murmur. LE's- 1+pedal edema. Abdomen - +BS, soft, NT without HSM or mass. Neuro - alert & oriented, speech & cognition normal. Skin - warm & dry. R>L lower legs with hyperpigmentation & area of faint pink with scaling L inner ankle. Left ant thigh with 2-3 cm patch of erythema & scaling. Psych - affect appropriate. Assessment/Plan 1.Acute on chronic systolic CHF (congestive heart failure) STATUS : chronic, controlled. DATA : hx, exam, weights& CHF clinic notereviewed. GOAL : maintain euvolemia & cardiovascular stability. PLAN : she followswithCHF clinic& remainscompliantwithlimiting salt intake, monitoring weights & takingdiuretics, as directed. Return for worsening edema or other sx. 2.Cardiomyopathy, dilated, nonischemic STATUS : chronic, controlled. DATA : hx, exam & remarketing rep note reviewed. GOAL : maintain euvolemia, stable cardiac rhythm. PLAN : hasbeenstablefrom cardiacstandpoint.Shewillcontinue cardiology follow up.She has felt much better , since biventricular pacer has been placed. 3.Atrial fibrillation STATUS : recentrecurrence,now anti-coagulated& ratecontrolled. DATA : hx,exam & cardiologynotereviewed. GOAL : maintain euvolemia, stable cardiac rhythm. PLAN : she hasrashmiewell,withnocomplicationson herapixaban (renal- adjusted dose).Continuecardiology & electrophysiology follow up. 4.Hypertension Status : chronic, muchbettercontrolled. Data : BP readings reviewed. Goal : maintain normal BP. Plan : no furtherhypotension, so willcontinue current BPmeds. Reviewedrecentelectrolytes & renal function, all satisfactory. 5.Chronic venous stasis dermatitis STATUS: Chronic stable. DATA: hx & exam reviewed. GOAL: resolve edema/skin changes. PLAN: discussed salt restriction, elevation & wearing compression garments faithfully. Advised on specifictypesofcompression stockings.Also,discussedskincarefordryness. 6.Acute eczema STATUS: Chronic stable. DATA:hx &examreviewed. GOAL: reolve skin lesion, relieveitching. PLAN: use OTC hydrocortisone cream prn. 7.Hypothyroidism Status : chronic, stable. Data : sx reviewed. Goal : maintain euthyroid state. Plan : reviewedrecentTSH, so nomedadjustmentneeded. 8.GERD STATUS: Chronic, controlled. DATA: hx & examreviewed. GOAL: relieve sx of acid reflux. PLAN: Cont current dose of Esomeprazole. Stay vigilant with diet & non- pharmacological measures. 9.Borderline hyperlipidemia STATUS : chronic, stable. DATA : diet & exercise reviewed. GOAL: improve metabolic profile. PLAN : continue Atorvastatin&to monitor lifestyle. Reviewedrecentlipids, which are atgoal, & normalLFTs. 10.Excessive cerumen in right ear canal Advised to use OTC Debrox & may return for ear lavage, if desired. 11.Chronic constipation STATUS : chronic, stable. DATA : hx & exam reviewed. GOAL : restore normal stooling pattern. PLAN: discussed chronic constipation & likely course of improvement. Continue Miralax, increase water intake, continue high fiber diet. 12.Chronic kidney disease (CKD) STATUS: Chronic, renal functionstable. DATA: hx & labs reviewed. GOAL: Maintain renal stability. PLAN: Cont to encourage drinking fluids & current GFRis stable. Return in6 months. Time:Total time spent with this patient on day of evaluation including chart review, ordering, education and coordination of care elements: _39minutes Problem List/Past Medical History Ongoing Acute COVID-19 Acute eczema Acute on chronic systolic CHF (congestive heart failure) Acute right hip pain Annual physical exam Arthritis of right foot Atrial fibrillation Atypical chest pain Bilateral leg pain Body mass index [BMI] 26.0-26.9, adult Borderline hyperlipidemia CAD (coronary artery disease) Cardiac syncope Cardiomyopathy, dilated, nonischemic Chronic back pain Chronic constipation Chronic kidney disease (CKD) Chronic venous stasis dermatitis Chronic venous stasis dermatitis Congestive heart failure (CHF) Cystocele, grade 3| Status: Inactive Degenerative lumbar spinal stenosis Difficulty in swallowing Diverticulosis MONTIEL (dyspnea on exertion) Excessive cerumen in ear canal Excessive cerumen in right ear canal Fibroid uterus| Status: Inactive Finger pain GERD Hammertoe of right foot Hematuria, microscopic HEMORRHOIDS Hypertension Hyponatremia Hypotension Hypothyroidism Left lumbar radiculopathy Left trigger finger Localized, primary osteoarthritis of the hand Lumbar degenerative disc disease Lumbar spinal stenosis Mitral regurgitation Myalgia Olecranon bursitis Osteoarthritis of lower back Osteopenia Paresthesia of left arm Pes planus of right foot Positive H. pylori test Preop examination Rectocele Skin lesion Spondylolisthesis, lumbar region VITAMIN D DEFICIENCY Weight disorder Xerosis of skin Resolved Amiodarone pulmonary toxicity Interstitial lung disease Procedure/Surgical History Mammogram| Service Date: 10/18/2022Mammogram| Service Date: 10/12/2021Left elbow| Service Date: 03/14/2021Mammogram| Service Date: 10/10/2020Mammogram| Service Date: 10/07/2019Mammogram| Service Date: 10/01/2017Vaginal hysterectomy| Service Date: 10/07/2016Uterosacral ligament| Service Date: 10/07/2016Cystourethroscopy| Service Date: 10/07/2016Anterior colporrhaphy| Service Date: 10/07/2016Mammogram| Service Date: 09/27/2016MRI of lumbar spine| Service Date: 09/02/2016CT of chest| Service Date: 05/22/2016X-ray of lumbar spine and sacroiliac joints| Service Date: 04/04/2016Bilateral digital screening mammogram with CAD| Service Date: 09/22/2015CT of chest| Service Date: 08/14/2015Implantation of heart pacemaker| Service Date: 05/03/2015Chest x-ray| Service Date: 05/03/2015EKG| Service Date: 04/29/2015CT brain w/o contrast| Service Date: 04/29/2015Chest x-ray| Service Date: 04/29/2015Ultrasound scan of carotid| Service Date: 04/29/2015Emergency medical services| Service Date: 04/29/2015Colonoscopy| Service Date: 10/07/2014Mammogram - screening| Service Date: 09/19/2014Mammogram - screening| Service Date: mammo| Service Date: 09/15/2012mammogram| Service Date: 09/11/2011dexa scan| Service Date: 05/07/2011Cath-Coronary AUGUST 2004| Service Date: 08/31/2004COLONOSCOPY AUGUST 2004| Service Date: 08/01/2004Stress ECHO| Service Date: 12/20/2000[place] teeth| Service Date: 1999Dand C| Service Date: 03/03/1988BTL| Service Date: 03/03/1975hemorrhoids| Service Date: 03/03/1969Cataract surgery-B/L eyes Medications apixaban(Eliquis 2.5 mg oral tablet), 2.5 mg= 1 tab, PO, bid, 3 refills aspirin(aspirin 81 mg oral tablet), 81 mg= 1 tab, PO, Daily atorvastatin(atorvastatin 10 mg oral tablet), See Instructions, 3 refills carvedilol(carvedilol 6.25 mg oral tablet), 6.25 mg= 1 tab, PO, bid, 3 refills ergocalciferol(Vitamin D), 1,000 units, PO, bid, PRN esomeprazole(NexIUM 20 mg oral delayed release capsule), 20 mg= 1 cap, PO, Daily furosemide(furosemide 20 mg oral tablet), 20 mg= 1 tab, PO, bid levothyroxine(levothyroxine 100 mcg (0.1 mg) oral tablet), See Instructions, 1 refills potassium chloride(Potassium Chloride (Tsg-Buga-Jcz 10) 10 mEq oral tablet, extended release), 10 mEq= 1 tab, PO, Daily ubiquinone(Coenzyme Q10), 200 mg, PO, Daily zoster vaccine, inactivated(Shingrix intramuscular injection), 0.5 mL, IM, ONCE, 1 refills Allergies amiodaronepulmonary toxicity amoxicillinHives, rash Social History Smoking Status Never smoked cigarettes Alcohol - Denies Alcohol Use Employment/School - Not employed or in school Status:Retired 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 COPD: Father. Cancer: Brother. Cardiovascular disease: Mother and Father. Diabetes: Mother and Sister. Health Status Family Member(s) Sister: History is negative Family Member(s) Relationship: Mother, Age: 55 Years Relationship: Father, Age: 73 Years, Cause: CAD Relationship: Brother, Age: 83 Years, Cause: Pancreatic [place] Immunizations Vaccine Date Status influenza virus vaccine, inactivated 12/23/2022 Given influenza virus vaccine, inactivated 12/21/2021 Given influenza virus vaccine, inactivated 12/19/2020 Given SARS-CoV-2 (COVID-19) mRNA BNT-162b2 vax 05/11/2020 Recorded Comments : 2021-01-03: Historical information-source unspecified influenza virus vaccine, inactivated 12/28/2019 Given influenza virus vaccine, inactivated 12/01/2018 Given influenza virus vaccine, inactivated 12/08/2017 Given influenza virus vaccine, inactivated 12/18/2016 Given influenza virus vaccine, inactivated 12/18/2015 Given influenza virus vaccine, inactivated 03/06/2015 Given tetanus/diphtheria/pertuss, acel (Tdap) 03/06/2015 Given pneumococcal 13-valent vaccine 09/08/2014 Given influenza virus vaccine, inactivated 12/21/2013 Given zoster vaccine live 10/29/2013 Recorded influenza virus vaccine, inactivated 12/25/2011 Given pneumococcal 23-valent vaccine 02/12/2011 Given tetanus/diphtheria/pertuss, acel (Tdap) 01/31/2006 Recorded Recommendations Health Maintenance Pending(in the next year) OverDue Adult Influenza Vaccine due09/01/23and every 1year Due Adult COVID-19 Vaccination due03/12/24Unknown Frequency Adult Social Determinants of Health Screening due03/12/24Unknown Frequency Osteoporosis Screening due03/12/24One-time only Shingles Vaccine due03/12/24One-time only Refused Medicare Annual Wellness Visit due03/12/24and every 1year Satisfied(in the past 1 year) Satisfied Body Mass Index on12/25/23.Satisfied by LUZ Lopez [place] [facility] on10/22/23.Satisfied by LUZ Valiente [facility] Lipid Screening on03/09/24.Satisfied by Contributor_system, [employer] Electronic Signature on File Electronically Reviewed/Signed by: Yamilet Soto MD Author Signature Dt/Tm:03/12/2024 11:02 AM Director [facility] [address], [facility] [address] [place] [address] [facility] Patient Care team information Care Team Personnel Name: MD Charles, Yamilet Su Position: Physician - Family Med Member Role: Primary Care Provider Address: [address] [place] [address] [address] [place] [address] [place] Name: INOCENCIA Bass Anna L Position: Nurse Pract - Female Pelvic Med Member Role: Lifetime Relationship Address: [address] [place] [address] [address] [place] [address] [place] Care Team Related Persons Name: DEBBIE MENDOZA"
[2024-03-16 09:23] LABS: Albumin Globulin Ratio 2.1 (0.9-2); Albumin Level 4.7 gm/dl (3.4-5.0); BUN Creatinine Ratio 17.5 (10-20); Bilirubin,Total 0.9 mg/dl (0.2-1.0); Calcium 9.6 mg/dl (8.6-10.3); Creatinine Clr Calc Pharmacy 32.1 ml/min; Globulin 2.2 gm/dl (2.5-4.0); Magnesium 2.1 mg/dl (1.7-2.4); Potassium 4.2 mmol/L (3.5-5.1); Total Protein 6.9 gm/dl (6.0-8.3)
[2024-03-16 09:37] LABS: INR 1.1 (0.9-1.1); Partial Thromboplastin Time 28 Seconds (21-31); Prothrombin Time 11.9 Seconds (9.0-12.0); Thyroid Stimulating Hormone 3.196 uIu/ml (0.300-4.500)
[2024-03-16 09:44] LABS: Troponin I High Sensitivity 389.6 pg/ml (0-14)
--- NOTE | 2024-03-16 09:58 | XRay Report ---
XR chest 1V portable HISTORY: 83 years-old Female Chest pain, nonspecific COMPARISON: 01/15/2024 TECHNIQUE: AP view the chest FINDINGS: Cardiac silhouette is enlarged. Left subclavian pacer/AICD. Pulmonary vascular congestion with inters titial coarsening. Trace pleural effusions with bibasilar densities. Bones appear grossly intact. IMPRESSION: 1. Cardiomegaly with interstitial pulmonary edema. 2. Small pleural effusions with mild bibasilar opacities which may represent atelectasis versus pneum onitis. ACT 112: Negative or not required by law. The above report was generated using voice recognition software. It may contain grammatical, syntax o r spelling errors. Electronically signed by: Alfonso Lerma M.D. 03/16/2024 9:57 AM
--- NOTE | 2024-03-16 10:18 | History & Physical Report ---
Date of Service March 16, 2024 Assessment & Plan (1) Defibrillator discharge: Plan: Juanita is a pleasant 83-year-old female cardiomyopathy, ICD, pacemaker, dyslipidemia, HTN, HFrEF, and paroxysmal atrial fibrillation (on Eliquis). She presented on 03/16 after experiencing a pre-syncopal episode around 0730 while sitting in her kitchen. At that time, her defibrillator fired twice in short succession. No LOC, fall, or head strike One prior episode of lightheadedness / heat intolerance that occurred on 03/14 while patient was at [employer] Troponin elevated at [phone] on arrival Patient is chest pain-free at time of admission Clinically, patient denies chest pain, shoulder/jaw pain pressure, or SOB before or after her defibrillator went off Lower suspicion for ACS at this time, but will continue to trend troponin to peak Pacemaker interrogation ordered from [employer] Cardiology consult appreciated Continuous telemetry monitoring for cardiac arrhythmias (2) Presence of combination internal cardiac defibrillator (ICD) and pacemaker: Plan: Device was upgraded from dual-chamber ICD to biventricular ICD on 01/15/2024 (3) HFrEF (heart failure with reduced ejection fraction): Plan: Last echocardiogram on 12/22/2023 revealed severely reduced EF at 15 to 20%; severe global hypokinesis Patient follows with HF clinic Continue Lasix + K supplementation Strict I&O monitoring Daily weights (4) PAF (paroxysmal atrial fibrillation): Plan: Rate controlled Continue dose reduced Eliquis Continue carvedilol Plan Disposition: Obs - Admit to PCU telemetry Full code Heart healthy diet VTE PPx: Eliquis History of Present Illness Chief Complaint: Cardiac/ICD assessment Primary Care Provider: Yamilet Soto MD Juanita is a pleasant 83-year-old female cardiomyopathy, ICD, pacemaker, dyslipidemia, HTN, HFrEF, and paroxysmal atrial fibrillation (on Eliquis). She presented on 03/16 after experiencing a pre-syncopal episode around 0730 while sitting in her kitchen. At that time, her defibrillator fired twice in short succession. Patient's daughter and at the bedside and provides additional history. The patient reports that she got up this morning, went to take her thyroid medication, and went to the kitchen. While she was sitting at the counter, she was reading, and then her daughter from [place] called. While she was on the phone with her daughter, she reports her head started to "feel funny". She then got lightheaded and felt 2 shocks from her defibrillator, which occurred within seconds of one another. No headache. No LOC. No fall or head strike; she stayed in her chair. She has had her defibrillator discharge in the past, which usually causes her to jump when it shocks, but this did not feel like prior episodes of defibrillation to her (not as severe). She denies any chest pain or SOB before or after her ICD discharged. No prior history of MIs, heart stents, or stroke to her knowledge. She reports she takes aspirin daily for primary ppx. Patient did not take any of her regular morning medicine besides her levothyroxine. She manages her own medicine at home. Recent changes in medication include reducing her carvedilol from 12-6 in January, as well as decreasing her Lasix from 20 mg twice daily to 20 mg daily (except for 1 day of the week). Patient last took her Eliquis last night. No sick contacts. She denies any fever, chills, night sweats, or infectious symptoms. Additionally, she had an episode at [employer] on Tuesday 03/14 where she felt warm and lightheaded, but her defibrillator did not go off. No prior history of issues with ICD before. She did recently have her ICD replaced on January 15, [address] Barreto. At that time it was switched to a biventricular pacer. Patient denies smoking or tobacco use. Patient is hypertensive 142/101 at time of admission; vitals otherwise stable. ED course: ROS: Patient endorses lightheadedness and presyncopal episode. Patient denies fever, chills, night-sweats, dizziness, syncope, headache, changes in vision or hearing, tick bites, chest pain, shoulder pain, jaw pain/pressure, chest palpitations, SOB, cough, pleuritic CP, abd pain, N/V/D, burning with urination, blood in the urine or stool, or numbness or tingling in the arms or legs. Allergies Allergy/AdvReac Type Severity Reaction Status Date / Time amiodarone Allergy Severe Verified 03/16/24 10:54 amoxicillin AdvReac Unknown Rash Unverified 03/16/24 10:54 Home Medications Medication Instructions Recorded Confirmed Type aspirin 81 mg tablet,delayed 81 mg PO HS 09/22/20 03/16/24 History release (Maggie Low Dose Aspirin) cholecalciferol (vitamin D3) 25 1,000 unit PO DAILY 10/31/20 03/16/24 History mcg (1,000 unit) tablet (Vitamin D3) acetaminophen 325 mg tablet 650 mg (2 x 325 mg) PO Q6H PRN 07/18/21 03/16/24 Rx pain #30 tabs levothyroxine 100 mcg tablet 100 mcg PO QAM #90 tabs 05/09/23 03/16/24 Rx (Synthroid) atorvastatin 10 mg tablet (Lipitor) 5 mg (1/2 x 10 mg) PO HS #90 tabs 07/29/23 03/16/24 Rx apixaban 2.5 mg tablet (Eliquis) 2.5 mg PO BID #60 tabs 12/05/23 03/16/24 Rx potassium chloride 20 mEq 20 meq PO QAM #90 tabs 01/28/24 03/16/24 Rx tablet,extended release(part/cryst) furosemide 20 mg tablet 20 mg PO UD 03/16/24 03/16/24 History metoprolol succinate 50 mg 50 mg PO DAILY 30 days #30 tabs 03/18/24 Rx tablet,extended release 24 hr (Toprol XL) Past Med/Surg History Problem List (Updated 03/20/24 @ 00:07 by Background [place]) Defibrillator discharge (Acute) Elevated troponin (Acute) Near syncope (Acute) Defibrillator discharge Pre-syncope Biventricular implantable cardioverter-defibrillator (ICD) in situ Food bolus obstruction of intestine Pulmonary hypertension Mitral regurgitation Tachycardia (Acute) Acute renal insufficiency (Acute) Weakness (Acute) Hypotension (Acute) Hypotension PAF (paroxysmal atrial fibrillation) Encounter for pre-operative examination Swelling of right index finger Leukocytosis Hypokalemia Multifocal pneumonia ICD (implantable cardioverter-defibrillator) in place CHRIS (acute kidney injury) CHF exacerbation Pulmonary edema (Acute) Respiratory failure with hypoxia (Acute) Acute congestive heart failure (Acute) Cardiomyopathy (Acute) Elevated troponin (Acute) HFrEF (heart failure with reduced ejection fraction) EF 20-25% 06/21 CAD (coronary artery disease) 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) Dyslipidemia (Chronic) Hypothyroidism (Chronic) HTN (hypertension) (Chronic) Medical History Cataract Lumbar back pain Osteoarthritis Congestive heart failure Surgical History H/O wisdom tooth extraction H/O hemorrhoidectomy History of colonoscopy History of permanent cardiac pacemaker placement History of bladder surgery Family History Brother Cancer Other Diabetes Heart disease Social History Smoking Status: Never smoker Hx Alcohol Use: No Hx Substance Use: No Preferred Language: Martiniquais Communication Ability: Effective Hearing Ability: Normal Drafting Clerk Required: No Beliefs That Will Affect Care: None marital status: Current Living Situation: Spouse Current Living Situation Comment: house with spouse current occupational status: retired Feels Safe at Home: Yes Assistive Devices: None Review of Systems 2 Review of Systems: See HPI above Physical Exam Physical Exam: General: no acute distress; family at bedside; non-toxic appearing; frail appearing; cooperative; SpO2 95% on RA HEENT: normocephalic, atraumatic; no scleral icterus; PERRLA; vision and hearing grossly intact Neck: supple; no lymphadenopathy; trachea midline Skin: warm, dry without signs of tenting; no cyanosis; eczema noted on the left medial malleolus CV: chest wall NTP; patient's ICD is NTP; no signs of erythema, swelling, or drainage from the pacemaker site; RRR; S1/S2 normal; no murmurs/rubs/gallops; pulses intact and symmetric at radial, DP, and PT Lungs: no acute respiratory distress; symmetrical chest wall expansion; clear breath sounds across all lung kamara w/o adventitious sounds; no wheezing ABD: Soft, NTP; BS present; no rebound/guarding; no distention MSK: no tics or fasciculations; no edema noted in the LEs b/l, nonerythematous Neuro: A&Ox3; normal mood and affect; fluent speech; no focal deficits; sensation grossly intact in the LEs b/l Results & Data Results & Data Vital Signs (Past 12 Hours) Vital Signs Temp Pulse Pulse Resp BP BP Pulse Ox 03/16/24 08:52 98 03/16/24 08:51 94 H 03/16/24 08:30 80 18 142/101 H 96 03/16/24 08:15 36.5 C 92 H 20 145/80 H 97 O2 Del Method 03/16/24 08:52 Room Air 03/16/24 08:51 03/16/24 08:30 Room Air 03/16/24 08:15 Room Air Laboratory Results Abnormal lab results 03/16/24 Range/Units 08:45 WBC 4.16 L (4.8-10.8) K/ul Lymph # (Auto) 1.05 L (1.20-3.40) K/uL Troponin I High Sens 389.6 H* (0-14) pg/ml Globulin 2.2 L (2.5-4.0) gm/dl Albumin/Globulin Ratio 2.1 H (0.9-2) Diagnostic Findings Chest X-Ray 03/16/24 08:49 XR chest 1V portable HISTORY: 83 years-old Female Chest pain, nonspecific COMPARISON: 01/15/2024 TECHNIQUE: AP view the chest FINDINGS: Cardiac silhouette is enlarged. Left subclavian pacer/AICD. Pulmonary vascular congestion with interstitial coarsening. Trace pleural effusions with bibasilar densities. Bones appear grossly intact. IMPRESSION: 1. Cardiomegaly with interstitial pulmonary edema. 2. Small pleural effusions with mild bibasilar opacities which may represent atelectasis versus pneumonitis. ACT 112: Negative or not required by law. The above report was generated using voice recognition software. It may contain grammatical, syntax or spelling errors. Electronically signed by: Alfonso Lerma M.D. 03/16/2024 9:57 AM ECG Additional Comments: ECG revealed AV dual paced rhythm with occasional ventricular paced complexes at 81 bpm; QTc 497 Code Status & VTE Plan Code Status Full code Discussed with patient and patient's family at bedside; currently in discussions for advanced directive, but no paperwork currently in place. VTE Prophylaxis Plan VTE Prophylaxis will be ordered: Yes Supervising Physician Co-Signing Physician Notes I personally saw and examined the patient. I independently reviewed the labs, EKG, imaging, problem list, medication list, past medical history and family history. I verified all markham points and agree with Korey Murphy PA-C with the following exceptions and/or additions: 83 year old female presents to the ER following defibrilator discharge. No chest pain or shortness of breath to suggest ACS. Currently she feels back to her baseline. O/E HS RRR, no murmurs, Chest CTAB A/P Defibrillator - discharge. Discussed with electrophysiology. Suspected to be att empted termination of a. fib RVR. Adjustments made by cardiology. Plan on observation overnight. PG Care Time/CCT Total # of Minutes Spent Total Time Spent with Patient: Total time spent is greater than 50% in coordination of care (as documented) at patient's floor/unit and/or counseling patient: Coding [place] [address] INT INP/OBS CARE 3/75MIN Patient Type Established Medical Decision Making High Complexity Diagnoses Defibrillator discharge Z45.02 Presence of combination internal cardiac defibrillator (ICD) and pacemaker Z95.810 HFrEF (heart failure with reduced ejection fraction) I50.20 PAF (paroxysmal atrial fibrillation) I48.0
[2024-03-16] MEDS: POTASSIUM CHLORIDE CRTAB 20 MEQ TABCR PO STA (11:34)
[2024-03-16] MEDS: carvediloL 6.25 MG TAB PO STA (11:34)
[2024-03-16] MEDS: APIXABAN 2.5 MG TAB PO STA (11:34)
[2024-03-16] MEDS: FUROSEMIDE 20 MG TAB PO STA (11:34)
[2024-03-16] MEDS ORDERED: ACETAMINOPHEN 325 MG TAB PO PRN (12:00)
[2024-03-16] MEDS ORDERED: carvediloL 6.25 MG TAB PO SCH (17:00)
--- NOTE | 2024-03-16 17:02 | Cardiology Consultation ---
Date of Consultation March 16, 2024 Assessment & Plan (1) Defibrillator discharge: (2) Biventricular implantable cardioverter-defibrillator (ICD) in situ: (3) PAF (paroxysmal atrial fibrillation): (4) Cardiomyopathy: (5) CAD (coronary artery disease): (6) Elevated troponin: Plan 1. Defibrillator therapy: The transmissions sent by her device to our clinic reveals an episode of atrial fibrillation and rapid ventricular response. An attempt to terminate with ATP was made without success. One therapy also failed to terminate the arrhythmia. A 2nd therapy did. The ventricular rate was in the VF zone and therefore discriminators were not used. This was essentially an inappropriate therapy for an atrial arrhythmia. 2. Atrial fibrillation: She is known to have paroxysmal atrial fibrillation. She has had episodes before with some higher ventricular rates but none to this degree. Unclear why her ventricular rate was so fast today. Perhaps this was a more organized atrial arrhythmia. She has also been on a lower dose of carvedilol recently. Given the therapy from her device it is imperative that we control the ventricular rate to prevent additional episodes. I provided her with 2 options. One would be intensification of her rate control medications. There seems to have been some concern about hypotension with higher doses of carvedilol. I will switch her to metoprolol which should have less of the hemodynamic effect. I think we can also add digoxin to her medical regimen. Whether this would be entirely effective at preventing additional episodes like she experienced today is unclear. A more reliable way to prevent these episodes would be AV node ablation. I described the procedure to her and her daughter today. This would be my preferred approach. However, she seemed to have some reservations. She wishes to think about her options and will try the medical therapy overnight. Continue systemic anticoagulation with apixaban 3. Cardiomyopathy: Severe. Not on much medication due to history of hypotension. 4. Congestive heart failure: She seems well compensated currently. Lung examination was normal. She can continue her current dose of diuretic. 5. Coronary disease: Nonobstructive. No current symptoms suggestive of coronary insufficiency or angina 6. Elevated troponin: She did not experience symptoms of ischemia or angina. I do not think the current episode is related to coronary disease or an acute coronary syndrome. Elevation is likely related to her chronic heart failure, rapid ventricular rate and device therapy. She is going to think about her options overnight. I switched her carvedilol to metoprolol and added digoxin. I will discuss the options with her again tomorrow. I would anticipate discharge tomorrow or possibly an overnight stay for procedure on . History of Present Illness Reason for Consultation: Defibrillator therapy Requesting Physician: Mary Attending Physician: Braden Hernandez MD History of Present Illness The patient is an 83-year-old woman with a history of an idiopathic cardiomyopathy, paroxysmal atrial fibrillation, heart failure with reduced ejection fraction and left bundle branch block who underwent an upgrade of a previously implanted ICD to a biventricular device in January of 2024. The patient presented subsequently with atrial fibrillation and associated symptoms. She appears to have spontaneously converted within 24 hours of that episode and her symptoms resolved. Apparently she was struggling with some edema and her recent diuretic dose was adjusted. On a daily dose of diuretic she seems to be doing quite well. This morning while reading her devotion or she experienced an episode of lightheadedness. This was quickly followed by a therapy from her device. She states there was a short period of time before she received a 2nd therapy. She did not lose consciousness. She did not have a sense of palpitation. She did not have associated chest pain. Due to the nature of the event she presented to the emergency room for evaluation. Electrolytes were normal. X-ray was unremarkable. She was admitted for observation. Currently she is feeling well. She stated that she had some mild dyspnea when get lead to the bathroom in her room. However, this was quite mild. No shortness of breath at rest. No other symptoms currently. Allergies Allergy/AdvReac Type Severity Reaction Status Date / Time amiodarone Allergy Severe Verified 03/16/24 10:54 amoxicillin AdvReac Unknown Rash Unverified 03/16/24 10:54 Home Medications Medication Instructions Recorded Confirmed Type aspirin 81 mg tablet,delayed 81 mg PO HS 09/22/20 03/16/24 History release (Maggie Low Dose Aspirin) cholecalciferol (vitamin D3) 25 1,000 unit PO DAILY 10/31/20 03/16/24 History mcg (1,000 unit) tablet (Vitamin D3) acetaminophen 325 mg tablet 650 mg (2 x 325 mg) PO Q6H PRN 07/18/21 03/16/24 Rx pain #30 tabs levothyroxine 100 mcg tablet 100 mcg PO QAM #90 tabs 05/09/23 03/16/24 Rx (Synthroid) atorvastatin 10 mg tablet (Lipitor) 5 mg (1/2 x 10 mg) PO HS #90 tabs 07/29/23 03/16/24 Rx apixaban 2.5 mg tablet (Eliquis) 2.5 mg PO BID #60 tabs 12/05/23 03/16/24 Rx potassium chloride 20 mEq 20 meq PO QAM #90 tabs 01/28/24 03/16/24 Rx tablet,extended release(part/cryst) carvedilol 12.5 mg tablet 6.25 mg PO BID 03/16/24 03/16/24 History furosemide 20 mg tablet 20 mg PO UD 03/16/24 03/16/24 History Patient History Medical History Cataract Lumbar back pain Osteoarthritis Congestive heart failure Surgical History H/O wisdom tooth extraction H/O hemorrhoidectomy History of colonoscopy History of permanent cardiac pacemaker placement History of bladder surgery Family History Brother Cancer Other Diabetes Heart disease Social History Smoking Status: Never smoker Hx Alcohol Use: No Hx Substance Use: No Preferred Language: [place] Citizen Communication Ability: Effective Hearing Ability: Normal Servicer Travel Trailers Required: No Beliefs That Will Affect Care: None marital status: Current Living Situation: Spouse Current Living Situation Comment: house with spouse current occupational status: retired Other Information That Helps Us Care for You: No Feels Safe at Home: Yes Safety Concerns: Feels Safe At This Time Assistive Devices: None Review of Systems Review of Systems: Per HPI. Physical Exam 2 Physical Exam: She is alert and oriented x3. Mood affect appear normal. She answered all questions appropriately. HEENT: Sclerae are anicteric. Pupils are equal and reactive to light and accommodation. Extraocular movements were intact. Neuro: Cranial nerves intact Lungs: Lungs are clear to auscultation bilaterally. There are no rales wheezes or rhonchi. She has normal respiratory effort without use of accessory muscles. There is normal pulmonary excursion. Cardiac: The rhythm was regular. S1 and S2 were normal. There are no murmurs on examination. The PMI was not markedly displaced on palpation. Chest: Well-healed device implant site in the left upper pectoral area Extremities: Patient has bilateral radial pulses that are equal in intensity. There is no evidence cyanosis or clubbing. There was no evidence of significant peripheral edema bilaterally. Skin: There are no rashes noted on examination today. Results & Data Vital Signs (Past 12 Hours) Vital Signs Temp Pulse Pulse Resp BP BP Pulse Ox 03/16/24 15:53 36.4 C L 63 18 102/58 L 98 03/16/24 12:40 36.5 C 84 18 122/74 96 03/16/24 11:58 76 18 135/80 96 03/16/24 11:33 76 18 135/80 96 03/16/24 11:00 75 26 H 141/86 H 95 03/16/24 10:11 78 18 117/84 95 03/16/24 08:52 98 03/16/24 08:51 94 H 03/16/24 08:30 80 18 142/101 H 96 03/16/24 08:15 36.5 C 92 H 20 145/80 H 97 O2 Del Method 03/16/24 15:53 Room Air 03/16/24 12:40 Room Air 03/16/24 11:58 Room Air 03/16/24 11:33 03/16/24 11:00 03/16/24 10:11 Room Air 03/16/24 08:52 Room Air 03/16/24 08:51 03/16/24 08:30 Room Air 03/16/24 08:15 Room Air Laboratory Results Abnormal Lab Results 03/16/24 03/16/24 08:45 10:33 WBC 4.16 L RBC 4.48 Hgb 13.5 Hct 39.7 MCV 88.6 MCH 30.1 MCHC 34.0 RDW Std Deviation 45.1 RDW Coeff of [place] 13.8 Plt Count 137 MPV 10.6 Immature Gran % (Auto) 0.2 Neut % (Auto) 59.3 Lymph % (Auto) 25.2 [place] % (Auto) 10.1 Eos % (Auto) 3.8 Baso % (Auto) 1.4 Neut # (Auto) 2.46 Lymph # (Auto) 1.05 L [place] # (Auto) 0.42 Eos # (Auto) 0.16 Baso # (Auto) 0.06 Immature Gran # (Auto) 0.01 PT 11.9 INR 1.1 APTT 28 PTT Ratio 1.0 Sodium 136 Potassium 4.2 Chloride 101 Carbon Dioxide 29 Anion Gap 6 BUN 18 Creatinine 1.03 Est Cr Clr Drug Dosing 32.1 eGFR 53.28 BUN/Creatinine Ratio 17.5 Glucose 92 Calcium 9.6 Magnesium 2.1 Total Bilirubin 0.9 AST 23 ALT 14 Alkaline Phosphatase 56 Troponin I High Sens 389.6 H* 780.0 H* D Total Protein 6.9 Albumin 4.7 Globulin 2.2 L Albumin/Globulin Ratio 2.1 H Lipase 28 TSH 3.196 Diagnostic Findings Echocardiogram 12/22/2023: Mildly dilated left ventricle with severely reduced LV systolic function. Ejection fraction 15-20%. Severe left atrial dilation. Moderate right atrial dilation. Moderate mitral regurgitation. Moderate pulmonary hypertension. Chest x-ray obtained the time admission revealed cardiomegaly with interstitial pulmonary edema. PG Care Time/CCT Total # of Minutes Spent Total Time Spent with Patient: Total time spent is greater than 50% in coordination of care (as documented) at patient's floor/unit and/or counseling patient: Coding Level of Care Code 77964 INT INP/OBS CARE 3/75MIN Diagnoses Defibrillator discharge Z45.02 Biventricular implantable cardioverter-defibrillator (ICD) in situ Z95.810 PAF (paroxysmal atrial fibrillation) I48.0 Cardiomyopathy I42.9 Cardiomyopathy type: unspecified Coronary artery disease involving douglas coronary artery of douglas heart without angina pectoris I25.10 Coronary Disease-Associated Artery/Lesion type: douglas artery [place] vs. transplanted heart: douglas heart Associated angina: without angina Elevated troponin R77.8 (4) Cardiomyopathy Cardiomyopathy type: unspecified Qualified Code(s): I42.9 - Cardiomyopathy, unspecified (5) CAD (coronary artery disease) Coronary Disease-Associated Artery/Lesion type: douglas artery [place] vs. transplanted heart: douglas heart Associated angina: without angina Qualified Code(s): I25.10 - Atherosclerotic heart disease of douglas coronary artery without angina pectoris
[2024-03-16] MEDS: DIGOXIN 0.25 MG TAB PO SCH (17:48)
[2024-03-16] MEDS: ATORVASTATIN 10 MG TAB PO SCH (20:35)
[2024-03-16] MEDS: ASPIRIN 81 MG ECTAB PO SCH (20:35)
[2024-03-16] MEDS: APIXABAN 2.5 MG TAB PO SCH (20:36)
[2024-03-16] MEDS: METOPROLOL SUCC 25MG EXT REL TAB PO SCH (20:41)
[2024-03-17] MEDS: LEVOTHYROXINE SODIUM 100 MCG TABLET PO SCH (06:40)
[2024-03-17 06:45] LABS: Basophils # (auto) 0.04 K/uL (0.00-0.20); Eosinophils # (auto) 0.13 K/uL (0.00-0.50); Eosinophils % (auto) 3.3 %; Hematocrit (blood only) 35.8 % (37.0-47.0); Immature Granulocytes # (auto) 0.01 K/uL (0.01-0.20); Immature Granulocytes % (auto) 0.3 %; Lymphocytes # (auto) 1.07 K/uL (1.20-3.40); Lymphocytes % (auto) 27.2 %; Mean Corpuscular Hgb Conc 33.5 g/dL (32.0-36.0); Mean Corpuscular Volume 89.5 fL (80.0-100.0); Mean Platelet Volume 11.3 fL (9.4-12.4); Monocytes % (auto) 10.2 %; Neutrophils # (auto) 2.28 K/uL (1.40-6.50); Platelet Count 114 K/uL (130-400); RDW Coefficient of Variation 13.9 % (11.5-14.5); RDW Standard Deviation 45.5 fL (36.4-46.3); White Blood Count 3.93 K/ul (4.8-10.8)
[2024-03-17 07:08] LABS: BUN Creatinine Ratio 18.4 (10-20); Calcium 9.2 mg/dl (8.6-10.3); Creatinine Clr Calc Pharmacy 32.2 ml/min; Potassium 4.5 mmol/L (3.5-5.1)
[2024-03-17 07:16] LABS: Troponin I High Sensitivity 464.3 pg/ml (0-14)
--- NOTE | 2024-03-17 07:28 | Hospitalist Progress Note ---
Date of Service March 17, 2024 Assessment & Plan (1) Defibrillator discharge: (2) Elevated troponin: (3) PAF (paroxysmal atrial fibrillation): (4) Cardiomyopathy: (5) HFrEF (heart failure with reduced ejection fraction): (6) CAD (coronary artery disease): (7) Presence of combination internal cardiac defibrillator (ICD) and pacemaker: Dotty Grant is a pleasant 83-year-old female cardiomyopathy, ICD, pacemaker, dyslipidemia, HTN, HFrEF, and paroxysmal atrial fibrillation (on Eliquis). She presented on 03/16 after experiencing a pre-syncopal episode around 0730 while sitting in her kitchen. At that time, her defibrillator fired twice in short succession. *Cardio on [place]; Appreciate Recs #Defibrillator discharge: Sudden discharge; had h/o transient Lightheadedness on 03/14, otherwise no symptoms. Few Non specific CP overnight Transmission: Atrial fibrillation with RVR. Cardiac adjusted pacemaker setting this AM. #Insitu cardiac defibrillator (ICD) and pacemaker: Cardiac adjusted pacemaker setting this AM. #HFrEF (heart failure with reduced ejection fraction): Last Echo(Dec 2023): EF at 15 to 20%; severe global hypokinesis Patient follows with HF clinic Continue current dose of Lasix # PAF (paroxysmal atrial fibrillation): Rate controlled after admission Continue dose reduced Eliquis Carvedilol held, switched to Metoprolol. Tele: Afib with rate control, Transient non significant Vtach on tele, otherwise ok Plan for AV kylie Ablation tomorrow; Patient agrees with this plan. #Coronary disease: Non Obstructive No current symptoms suggestive of coronary insufficiency or angina. Troponin elevated but clinical presentation does not seem ACS. Cardiac on board #Elevated Troponin No current symptoms suggestive of coronary insufficiency or angina. Cardiac on board; appreciate recs. D/D: Chronic heart failure vs rapid ventricular rate vs device therapy. Full code Heart healthy diet VTE PPx: Eliquis Admission and Anticipated Discharge Date Admission Date: March 16, 2024 Supervising Physician Co-Signing Physician Notes I personally examined the patient and verified all [place] points of history and exam, discussed case, and agree with decision making with Dr Swenson Friend some palpitations around 6:30 PMreviewed on monitorhad a few stretches of PVCs. No other complaints. For procedure tomorrow. Vitals noted, in general she is awake and alert pleasant no distress. HEENT normocephalic atraumatic mucous membranes moist. Breathing unlabored no accessory muscle use good effort. Skin shows no rashes no pallor or icterus. Neuro without focal deficits. Inappropriate ICD firingfor ablation tomorrow. Otherwise as above. Subjective This Am Juanita is feeling ok. Reports period ofchest discomfort. Had a brief episode of nonsustained VT but vitals stable. No dizziness or lightheadedness. No dizziness or lightheadedness. She is not sure if she want to proceed with medical vs ablation treatment as per conversation with cardiology. Results & Data Results & Data Vital Signs (Past 12 Hours) Vital Signs Temp Pulse Pulse Resp BP BP Pulse Ox 03/17/24 07:21 65 03/17/24 04:55 66 03/17/24 03:37 36.7 C 65 16 109/67 97 03/17/24 00:09 64 03/16/24 23:39 36.7 C 61 16 104/65 98 03/16/24 23:12 62 O2 Del Method 03/17/24 07:21 03/17/24 04:55 03/17/24 03:37 Room Air 03/17/24 00:09 03/16/24 23:39 Room Air 03/16/24 23:12 Resident Activity Tracking Resident Involvement: Resident Care Provided Care Provided: Adult Hospital Medicine (4) Cardiomyopathy Cardiomyopathy type: unspecified Qualified Code(s): I42.9 - Cardiomyopathy, unspecified (6) CAD (coronary artery disease) Associated angina: without angina Coronary Disease-Associated Artery/Lesion type: [place] artery [place] vs. transplanted heart: [place] heart Qualified Code(s): I25.10 - Atherosclerotic heart disease of [place] coronary artery without angina pectoris
[2024-03-17] MEDS: FUROSEMIDE 20 MG TAB PO SCH (07:54)
[2024-03-17] MEDS: POTASSIUM CHLORIDE CRTAB 20 MEQ TABCR PO SCH (08:40)
--- NOTE | 2024-03-17 10:03 | Cardiology Progress Note ---
Date of Service March 17, 2024 Assessment & Plan (1) Defibrillator discharge: (2) Biventricular implantable cardioverter-defibrillator (ICD) in situ: (3) PAF (paroxysmal atrial fibrillation): (4) Cardiomyopathy: (5) CAD (coronary artery disease): (6) Elevated troponin: Plan 1. Defibrillator therapy: Inappropriate therapy related to rapidly conducted atrial fibrillation. Her VF detection was raised to 222 beats per minute. This would allow for some discrimination at higher heart rates in the hopes of avoiding inappropriate therapy. 2. Atrial fibrillation: Her carvedilol was switched to metoprolol last evening in the hopes that this would provide better rate control with less hemodynamic effect. Digoxin was also started. She will continue systemic anticoagulation. 3. Cardiomyopathy: Severe. Not on much medication due to history of hypotension. Carvedilol switch to metoprolol succinate. 4. Congestive heart failure: She seems well compensated currently. Lung examination was normal. She can continue her current dose of diuretic. 5. Coronary disease: Nonobstructive. No current symptoms suggestive of coronary insufficiency or angina 6. Elevated troponin: She did not experience symptoms of ischemia or angina. I do not think the current episode is related to coronary disease or an acute coronary syndrome. Elevation is likely related to her chronic heart failure, rapid ventricular rate and device therapy. I discussed her options again this morning. I would favor AV node ablation is a feel this is more reliable way to avoid inappropriate therapy. She still discussing the options with her daughter and wants to discuss them with her as well. If she wants to delay any procedure or avoided altogether I think she could be discharged today on metoprolol succinate 50 mg daily and digoxin 0.125 mg daily. She should return for an evaluation of her digoxin level on Friday if possible. If she consents to an AV node ablation and wants to stay in the hospital until tomorrow it could be performed tomorrow afternoon and she could likely be discharged tomorrow evening. We will need to hold her apixaban tonight and tomorrow morning. Admission and Anticipated Discharge Date Admission Date: March 16, 2024 Subjective This morning the patient is feeling well. She did not sleep well overnight and did have a period of fleeting chest discomfort. According to nursing staff this was around the time of a brief episode of nonsustained VT. No dizziness or lightheadedness. She has been back and forth to the bathroom. She is not clear if she has significant breathing difficulty or not. No dizziness or lightheadedness. Review of Systems Review of Systems: Per HPI. Physical Exam Physical Exam: She is alert and oriented x3. Mood affect appear normal. She answered all questions appropriately. HEENT: Sclerae are anicteric. Pupils are equal and reactive to light and accommodation. Extraocular movements were intact. Neuro: Cranial nerves intact Lungs: Normal respiratory effort. Cardiac: The rhythm was regular. Chest: Well-healed device implant site in the left upper pectoral area Extremities: Patient has bilateral radial pulses that are equal in intensity. There is no evidence cyanosis or clubbing. There was no evidence of significant peripheral edema bilaterally. Skin: There are no rashes noted on examination today. Results & Data Vital Signs (Past 12 Hours) Vital Signs Temp Pulse Pulse Resp BP BP Pulse Ox 03/17/24 08:02 03/17/24 07:49 36.9 C 78 18 125/73 98 03/17/24 07:21 65 03/17/24 04:55 66 03/17/24 03:37 36.7 C 65 16 109/67 97 03/17/24 00:09 64 03/16/24 23:39 36.7 C 61 16 104/65 98 03/16/24 23:12 62 O2 Del Method 03/17/24 08:02 Room Air 03/17/24 07:49 Room Air 03/17/24 07:21 03/17/24 04:55 03/17/24 03:37 Room Air 03/17/24 00:09 03/16/24 23:39 Room Air 03/16/24 23:12 Laboratory Results Abnormal Lab Results 03/16/24 03/16/24 03/17/24 10:33 16:24 05:25 WBC 3.93 L RBC 4.00 L Hgb 12.0 Hct 35.8 L MCV 89.5 MCH 30.0 MCHC 33.5 RDW Std Deviation 45.5 RDW Coeff of [place] 13.9 Plt Count 114 L MPV 11.3 Immature Gran % (Auto) 0.3 Neut % (Auto) 58.0 Lymph % (Auto) 27.2 [place] % (Auto) 10.2 Eos % (Auto) 3.3 Baso % (Auto) 1.0 Neut # (Auto) 2.28 Lymph # (Auto) 1.07 L [place] # (Auto) 0.40 Eos # (Auto) 0.13 Baso # (Auto) 0.04 Immature Gran # (Auto) 0.01 Sodium 137 Potassium 4.5 Chloride 103 Carbon Dioxide 30 Anion Gap 4 BUN 19 Creatinine 1.03 Est Cr Clr Drug Dosing 32.2 eGFR 53.28 BUN/Creatinine Ratio 18.4 Glucose 85 Calcium 9.2 Troponin I High Sens 780.0 H* D 1053.6 H* D 464.3 H* D Diagnostic Findings I performed a complete evaluation of her biventricular ICD. Normal sensing and threshold on all 3 leads. The VF detection was raised to 222 beats. PG Care Time/CCT Total # of Minutes Spent Total Time Spent with Patient: Total time spent is greater than 50% in coordination of care (as documented) at patient's floor/unit and/or counseling patient: Coding Level of Care Code 56057 SUB INP/OBS CARE 2/35MIN Diagnoses Defibrillator discharge Z45.02 Biventricular implantable cardioverter-defibrillator (ICD) in situ Z95.810 PAF (paroxysmal atrial fibrillation) I48.0 Cardiomyopathy I42.9 Cardiomyopathy type: unspecified Coronary artery disease involving [place] coronary artery of [place] heart without angina pectoris I25.10 Coronary Disease-Associated Artery/Lesion type: [place] artery [place] vs. transplanted heart: [place] heart Associated angina: without angina Elevated troponin R77.8 CPT Codes Implantable Defib Multi lead programming - 44068 ([id number]) 26 - PROFESSIONAL COMPONENT (4) Cardiomyopathy Cardiomyopathy type: unspecified Qualified Code(s): I42.9 - Cardiomyopathy, unspecified (5) CAD (coronary artery disease) Coronary Disease-Associated Artery/Lesion type: [place] artery [place] vs. transplanted heart: [place] heart Associated angina: without angina Qualified Code(s): I25.10 - Atherosclerotic heart disease of [place] coronary artery without angina pectoris
--- NOTE | 2024-03-17 17:12 | Electrocardiogram Report ---
Test Reason : Blood Pressure : */* mmHG Vent. Rate : 81 BPM Atrial Rate : 83 BPM P-R Int : * ms QRS Dur : 142 ms QT Int : 428 ms P-R-T Axes : * -37 131 degrees QTcB Int : 497 ms AV dual-paced rhythm Abnormal ECG When compared with ECG of 15-Jan-2024 13:46, Vent. rate has increased by 10 bpm Confirmed by Félix Turcios ([id number]) on 03/17/2024 5:11:47 PM Referred By: REFERRED SELF Confirmed By: Félix Turcios
--- NOTE | 2024-03-17 19:15 | Billing Data ---
Date of Service March 17, 2024 Coding Level of Care Code 49887 SUB INP/OBS CARE
[2024-03-18 06:45] LABS: Basophils # (auto) 0.04 K/uL (0.00-0.20); Eosinophils # (auto) 0.15 K/uL (0.00-0.50); Eosinophils % (auto) 3.6 %; Hematocrit (blood only) 36.4 % (37.0-47.0); Hemoglobin 12.2 g/dl (12.0-16.0); Immature Granulocytes # (auto) 0.01 K/uL (0.01-0.20); Immature Granulocytes % (auto) 0.2 %; Lymphocytes % (auto) 26.5 %; Mean Corpuscular Hemoglobin 29.6 pg (25.0-34.0); Mean Corpuscular Hgb Conc 33.5 g/dL (32.0-36.0); Mean Corpuscular Volume 88.3 fL (80.0-100.0); Mean Platelet Volume 10.7 fL (9.4-12.4); Monocytes # (auto) 0.44 K/uL (0.11-0.59); Monocytes % (auto) 10.6 %; Neutrophils # (auto) 2.41 K/uL (1.40-6.50); Neutrophils % (auto) 58.1 %; Platelet Count 118 K/uL (130-400); RDW Coefficient of Variation 13.7 % (11.5-14.5); RDW Standard Deviation 44.4 fL (36.4-46.3); Red Blood Count 4.12 M/uL (4.20-5.40); White Blood Count 4.15 K/ul (4.8-10.8)
[2024-03-18 07:09] LABS: Calcium 9.2 mg/dl (8.6-10.3); Creatinine Clr Calc Pharmacy 38.9 ml/min; Potassium 4.2 mmol/L (3.5-5.1)
--- NOTE | 2024-03-18 07:39 | Hospitalist Progress Note ---
Date of Service March 18, 2024 Assessment & Plan (1) Defibrillator discharge: (2) Elevated troponin: (3) PAF (paroxysmal atrial fibrillation): (4) Cardiomyopathy: (5) HFrEF (heart failure with reduced ejection fraction): (6) CAD (coronary artery disease): (7) Presence of combination internal cardiac defibrillator (ICD) and pacemaker: Dotty Grant is a pleasant 83-year-old female cardiomyopathy, ICD, pacemaker, dyslipidemia, HTN, HFrEF, and paroxysmal atrial fibrillation (on Eliquis). She presented on 03/16 after experiencing a pre-syncopal episode around 0730 while sitting in her kitchen. At that time, her defibrillator fired twice in short succession. *Cardio on [place]; Appreciate Recs #Defibrillator discharge: Sudden discharge; had h/o transient Lightheadedness on 03/14, otherwise no symptoms. Few Non specific CP overnight Transmission: Atrial fibrillation with RVR. Cardiac adjusted pacemaker setting this AM. #Insitu cardiac defibrillator (ICD) and pacemaker: Cardiac adjusted pacemaker setting this AM. #HFrEF (heart failure with reduced ejection fraction): Last Echo(Dec 2023): EF at 15 to 20%; severe global hypokinesis Patient follows with HF clinic Continue current dose of Lasix # PAF (paroxysmal atrial fibrillation): Rate controlled after admission Continue dose reduced Eliquis Carvedilol held, switched to Metoprolol. Tele: Afib with rate control, Transient non significant Vtach on tele, otherwise ok Plan for AV kylie Ablation tomorrow; Patient agrees with this plan. #Coronary disease: Non Obstructive No current symptoms suggestive of coronary insufficiency or angina. Troponin elevated but clinical presentation does not seem ACS. Cardiac on board #Elevated Troponin No current symptoms suggestive of coronary insufficiency or angina. Cardiac on board; appreciate recs. D/D: Chronic heart failure vs rapid ventricular rate vs device therapy. Full code Heart healthy diet VTE PPx: Eliquis Admission and Anticipated Discharge Date Admission Date: March 16, 2024 Review of Systems Review of Systems: Per HPI. Results & Data Results & Data Vital Signs (Past 12 Hours) Vital Signs Temp Pulse Pulse Resp BP Pulse Ox O2 Del Method 03/18/24 03:00 36.6 C 61 18 135/81 95 Room Air 03/17/24 22:23 36.6 C 65 17 133/79 95 Room Air 03/17/24 21:38 61 (4) Cardiomyopathy Cardiomyopathy type: unspecified Qualified Code(s): I42.9 - Cardiomyopathy, unspecified (6) CAD (coronary artery disease) Coronary Disease-Associated Artery/Lesion type: [place] artery [place] vs. transplanted heart: [place] heart Associated angina: without angina Qualified Code(s): I25.10 - Atherosclerotic heart disease of [place] coronary artery without angina pectoris
--- NOTE | 2024-03-18 09:17 | Pre Anesthesia Assessment ---
Date of Service March 18, 2024 Pre Sedation Assessment Vital Signs Temp Pulse Pulse Pulse Resp BP BP 03/18/24 08:17 70 03/18/24 07:46 36.8 C 74 20 143/69 H 03/18/24 03:00 36.6 C 61 18 135/81 03/17/24 22:23 36.6 C 65 17 133/79 03/17/24 21:38 61 03/17/24 19:34 36.7 C 64 20 131/76 03/17/24 16:20 36.8 C 78 68 16 129/64 03/17/24 14:28 71 03/17/24 11:22 36.6 C 82 70 16 115/73 Pulse Ox O2 Del Method 03/18/24 08:17 03/18/24 07:46 97 Room Air 03/18/24 03:00 95 Room Air 03/17/24 22:23 95 Room Air 03/17/24 21:38 03/17/24 19:34 97 Room Air 03/17/24 16:20 98 Room Air 03/17/24 14:28 03/17/24 11:22 98 Room Air Cardiovascular + regular rate and + regular rhythm Respiratory + respiratory effort normal Pre-Sedation Airway Assessment Smoking Status: Never smoker Hx Sleep Apnea: No Hx Difficult Intubation: No Short, Thick Neck: No Thyromental Distance: > or= 3.5 Finger Breadths Oral Cavity: + WNL Mallampati Class: III ASA: ASA3 Procedure Planning Contraindications for Sedation: none Current Medications Reviewed: Yes Notes The planned sedation has been discussed with the patient. Informed Consent was obtained. I have identified the patient, determined the appropriateness of sedation and have assessed the patient immediately prior to the procedure. All medicine(s) and interventions are by my order.
[2024-03-18] MEDS: ceFAZolin 330 MG/ML 1 GM VIAL ONE (09:42)
[2024-03-18] MEDS: LIDOCAINE 1% LOCAL 20 ML VIAL ONE (09:42)
--- NOTE | 2024-03-18 11:14 | Post Anesthesia Assessment ---
Date of Service March 18, 2024 Post Sedation Assessment Vital Signs Temp Pulse Pulse Pulse Resp BP BP 03/18/24 09:19 64 18 137/79 03/18/24 08:17 70 03/18/24 07:46 36.8 C 74 20 03/18/24 03:00 36.6 C 61 18 03/17/24 22:23 36.6 C 65 17 03/17/24 21:38 61 03/17/24 19:34 36.7 C 64 20 131/76 03/17/24 16:20 36.8 C 78 68 16 03/17/24 14:28 71 03/17/24 11:22 36.6 C 82 70 16 BP Pulse Ox O2 Del Method 03/18/24 09:19 98 Room Air 03/18/24 08:17 03/18/24 07:46 143/69 H 97 Room Air 03/18/24 03:00 135/81 95 Room Air 03/17/24 22:23 133/79 95 Room Air 03/17/24 21:38 03/17/24 19:34 97 Room Air 03/17/24 16:20 129/64 98 Room Air 03/17/24 14:28 03/17/24 11:22 115/73 98 Room Air Recovery Score Activity: Moves 4 extremities Respiration: Deep Breath/Cough Circulation: +/-20% PreAnes Value Consciousness: Arouseable (by name) Oxygen Saturation: O2 needed for >90% Discharge Sedation Level of Care: Fast Track Phase II Post Sedation Plan On clinical assessment, the patient appears to have tolerated the sedation without complications. Patient is recovering as anticipated. Patient will continue to be monitored by nursing and may be discharged when sedation discharge criteria are met per below protocol. Upon Completions of procedure up to 15 minutes continue every 5 minute vital signs and the P.A.R. score; then discharge to a Phase I or Fast Track to Phase II per the following guidelines: * Discharge Patient to appropriate Phase II area if PAR is 8 or greater or return to pre- procedure baseline. The post - procedure orders will be as directed. * If PAR score is less than 8 or not return to pre-procedure baseline then patient will follow Phase I monitoring till PAR is reached for Phase II. The Phase I may be done in procedure room or may call to secure a Phase I area. * If naloxone or flumazenil are used for reversal, hold in Phase I for continu ed monitoring from when last reversal dose was given for a minimum of 60 minutes or longer pending the nurse and/or physician discretion of patient condition before discharge to Phase II. Please call the Sedation Physician to re-evaluate and complete post-note for discharge to Phase II area. Do NOT discharge from procedure sedation or Phase 1 until post- sedation evaluation note is complete by procedure /sedation MD Sedation Discharge Instructions to be given to the patient at discharge to home.
[2024-03-18] MEDS ORDERED: ACETAMINOPHEN 325 MG TAB PO PRN (11:15)
--- NOTE | 2024-03-18 11:15 | Electrophysiology Report ---
Date of Service March 18, 2024 Electrophysiology Procedure Electrophysiology Procedure Report Procedure performed: Ablation of AV node, reprogramming of multilead ICD Staff operations superintendent: Sukh Barreto MD Indication: Patient is an 83-year-old woman with a history of a cardiomyopathy, prior biventricular ICD implantation and paroxysmal atrial fibrillation. She presented to the hospital with an episode of inappropriate therapy due to rapidly conducted atrial fibrillation. After discussion with the patient we elected to perform an AV node ablation in order to prevent additional inappropriate therapy from atrial fibrillation. Procedure in detail: The patient was informed Lane benefits and alternatives to the intended procedure. She understood and wished to proceed. She was taken to the electrophysiology suite in a fasting state. Conscious sedation was administered per protocol and the patient was monitored electrocardiography throughout today's procedure. The right femoral area was prepped and draped in usual sterile fashion. This area was anesthetized using subcutaneous ministration of a lidocaine solution. The right femoral vein was subsequently accessed using modified center technique and a sheath was placed over guidewire at this site. This sheath was used facilitate passage of the EP catheter to the area of the AV node under fluoroscopic guidance. Radiofrequency lesions were then placed until AV kylie conduction was affected. Subsequent to the procedure the catheter and sheath were removed. Hemostasis was achieved at the access site using manual pressure. The patient Toller procedure well. There were no immediate complications. Ablation: Ablation was carried out using an 8 [place] 8 mm radiofrequency ablation catheter Ablation was performed in a temperature limited mode The patient presented in a paced atrial rhythm with a slow sinus rate. During the procedure she did develop atrial fibrillation initially with rapid ventricular rates At the inclusion of the procedure there did appear to be some AV kylie conduction but no rapid ventricular rates. Patient was still in atrial fibrillation. Impression: Successful modification of the AV node resulting in poorly conducted atrial fibrillation [facility] Electrophysiology codes EP Procedure 1: Electrophysiology: 04170 Ablation AV Node w/wo pace ICD Procedure 1: ICD: 65671 ICD Multi program PG Moderate Sedation Codes Moderate Sedation Codes Procedure 1: Sedation/Anesthesia: 18830 Mod Sedation by the same physician;Init15 Min Child Age 5 & Up Procedure 2: Sedation/Anesthesia: 02176 Mod Sedation by the same physician; Ea [id number] Minutes
[2024-03-18] MEDS: ISOPROTERENOL HCL 0.2 MG/ML 5 ML AMP IV ONE (11:17)
[2024-03-18] MEDS: MIDAZOLAM HCL 5 MG/ML 1 ML VIAL ONE (11:17)
[2024-03-18] MEDS: fentaNYL citrate PF 100 MCG/2 ML VIAL ONE (11:17)
[2024-03-18 11:27] VITALS: RESP 16
--- NOTE | 2024-03-18 13:18 | Discharge Summary ---
Date of Service March 18, 2024 Admission HPI Per Admitting Provider Juanita is a pleasant 83-year-old female cardiomyopathy, ICD, pacemaker, dyslipidemia, HTN, HFrEF, and paroxysmal atrial fibrillation (on Eliquis). She presented on 03/16 after experiencing a pre-syncopal episode around 0730 while sitting in her kitchen. At that time, her defibrillator fired twice in short succession. Patient's daughter and at the bedside and provides additional history. The patient reports that she got up this morning, went to take her thyroid medication, and went to the kitchen. While she was sitting at the counter, she was reading, and then her daughter from [place] called. While she was on the phone with her daughter, she reports her head started to "feel funny". She then got lightheaded and felt 2 shocks from her defibrillator, which occurred within seconds of one another. No headache. No LOC. No fall or head strike; she stayed in her chair. She has had her defibrillator discharge in the past, which usually causes her to jump when it shocks, but this did not feel like prior episodes of defibrillation to her (not as severe). She denies any chest pain or SOB before or after her ICD discharged. No prior history of MIs, heart stents, or stroke to her knowledge. She reports she takes aspirin daily for primary ppx. Patient did not take any of her regular morning medicine besides her levothyroxine. She manages her own medicine at home. Recent ch anges in medication include reducing her carvedilol from 12-6 in January, as well as decreasing her Lasix from 20 mg twice daily to 20 mg daily (except for 1 day of the week). Patient last took her Eliquis last night. No sick contacts. She denies any fever, chills, night sweats, or infectious symptoms. Additionally, she had an episode at [facility] on Tuesday 03/14 where she felt warm and lightheaded, but her defibrillator did not go off. No prior history of issues with ICD before. She did recently have her ICD replaced on January 15, [address] Barreto. At that time it was switched to a biventricular pacer. Patient denies smoking or tobacco use. Patient is hypertensive 142/101 at time of admission; vitals otherwise stable. ED course: ROS: Patient endorses lightheadedness and presyncopal episode. Patient denies fever, chills, night-sweats, dizziness, syncope, headache, changes in vision or hearing, tick bites, chest pain, shoulder pain, jaw pain/pressure, chest palpitations, SOB, cough, pleuritic CP, abd pain, N/V/D, burning with urination, blood in the urine or stool, or numbness or tingling in the arms or legs. Admission Exam Per Admitting Provider General: no acute distress; family at bedside; non-toxic appearing; frail appearing; cooperative; SpO2 95% on RA HEENT: normocephalic, atraumatic; no scleral icterus; PERRLA; vision and hearing grossly intact Neck: supple; no lymphadenopathy; trachea midline Skin: warm, dry without signs of tenting; no cyanosis; eczema noted on the left medial malleolus CV: chest wall NTP; patient's ICD is NTP; no signs of erythema, swelling, or drainage from the pacemaker site; RRR; S1/S2 normal; no murmurs/rubs/gallops; pulses intact and symmetric at radial, DP, and PT Lungs: no acute respiratory distress; symmetrical chest wall expansion; clear breath sounds across all lung kamara w/o adventitious sounds; no wheezing ABD: Soft, NTP; BS present; no rebound/guarding; no distention MSK: no tics or fasciculations; no edema noted in the LEs b/l, nonerythematous Neuro: A&Ox3; normal mood and affect; fluent speech; no focal deficits; sensation grossly intact in the LEs b/l Principal Diagnosis Afib S/P Ablation Defibrillator Discharge Discharge Exam She is alert and oriented x3. Mood affect appear normal. She answered all questions appropriately. HEENT: Sclerae are anicteric. Pupils are equal and reactive to light and accommodation. Extraocular movements were intact. Neuro: Cranial nerves intact Lungs: Normal respiratory effort. Cardiac: The rhythm was regular. Chest: Well-healed device implant site in the left upper pectoral area Extremities: Patient has bilateral radial pulses that are equal in intensity. There is no evidence cyanosis or clubbing. There was no evidence of significant peripheral edema bilaterally. Skin: There are no rashes noted on examination today. Discharge Data Allergies Allergy/AdvReac Type Severity Reaction Status Date / Time amiodarone Allergy Severe Verified 03/16/24 10:54 amoxicillin AdvReac Unknown Rash Unverified 03/16/24 10:54 Consultations 03/16/24 10:11 ED Decision to Admit Stat 03/16/24 11:01 Consult Cardiology Routine Procedures Performed Operation Date: 03/18/24 11:00 Actual Procedures p AV Node Ablation - Sukh Barreto MD s Catheter Mapping - Sukh Barreto MD s Interrogation of ICD - Sukh Barreto MD Ordered Studies 03/18/24 07:00 EP Lab Images for PACS ONCE Hospital Course (1) Defibrillator discharge: (2) Elevated troponin: (3) PAF (paroxysmal atrial fibrillation): (4) Cardiomyopathy: (5) HFrEF (heart failure with reduced ejection fraction): (6) CAD (coronary artery disease): (7) Presence of combination internal cardiac defibrillator (ICD) and pacemaker: Dotty Grant is a pleasant 83-year-old female cardiomyopathy, ICD, pacemaker, dyslipidemia, HTN, HFrEF, and paroxysmal atrial fibrillation (on Eliquis).She presented on 03/16 after experiencing a pre-syncopal episode around 0730 while sitting in her kitchen. At that time, her defibrillator fired twice in short succession. #Defibrillator discharge: Sudden discharge; had h/o transient Lightheadedness on 03/14, otherwise no symptoms. Few Non specific CP overnight Transmission: Atrial fibrillation with RVR. Cardiac adjusted pacemaker setting #HFrEF (heart failure with reduced ejection fraction): Last Echo(Dec 2023): EF at 15 to 20%; severe global hypokinesis Patient follows with HF clinic Continue current dose of Lasix #PAF (paroxysmal atrial fibrillation): AV kylie Ablation done on 03/18/2024. Continue dose reduced Eliquis Carvedilol switched to Metoprolol. #Coronary disease: Non Obstructive No current symptoms suggestive of coronary insufficiency or angina. Troponin elevated but clinical presentation does not seem ACS. Cardiac on board #Elevated Troponin No current symptoms suggestive of coronary insufficiency or angina. Cardiac on board; appreciate recs. D/D: Chronic heart failure vs rapid ventricular rate vs device therapy. Dis: To home F/U PCP and Cardiology after a week. Total Time Total Time Spent Total Time Spent (In Minutes): See attending's attestation Discharge Plan Discharge Items Patient Disposition: Home - Self-Care Reason For Visit: PRE-SYNCOPE, ICD SHOCK X2; CONCERN FOR CARDIAC ARR Discharge Diagnosis: Afib CHF Cardiomyopathy Condition on Discharge: Fair Activity: Resume your previous activity Lifting: No more than 10 pounds Lifting Comment: No lifting greater than 10 lb or strenuous activity for 1 week Non-emergency contact: Primary Care Provider and Watch Leader Call non-emergency contact if: your symptoms worsen Follow-up/Referrals: Sukh Barreto MD [Physician] - (2 week follow-up appt) Yamilet Soto MD [Primary Care Provider] - 03/25/24 9:45 am (Scheduled with Dr. Henderson on Mar 25 9:45 at [facility] Location. [address] [facility] [address] [place] [id number] ) Diet: Heart Healthy Addtl Attending Provider Instructions: You were admitted to the hospital for your defibrillator device pacing. You were found to have increased heart rate along with your baseline Atrial fibrillation. Cardiology Dr. Barreto also evaluated you in hospital. On reviewing your data from Defibrillator, it was found it was discharged for Afib.Hence cardiology recommended definitive management for Afib. You were given option of further medical management and surgical procedure called ablation, which is considered more definitive treatment for Atrial fibrillation. Ended up doing ablation as per your preference. Procedure went smooth and you tolerated well. Post-op period was also smooth. A discharge summary will be sent to your primary care physician to ensure continuity of care. Please bring this discharge summary with you to your next office appointment so that your provider can review it at that time. Medications: Your medication list has been reviewed and reconciled upon discharge to ensure accuracy and continuity of care. An updated list of all your medications is included with your hospital discharge paperwork. Please review this list closely and make note of any changes to your medications. Carvedilol is changed to Metoprolol for better HR control. Your prescription has been sent to pharmacy. You are recommended to take Metoprolol 50 mg daily as per prescription. You can start your blood thinner Elliquis Tonight Follow up appointments: - Make a follow up appointment with your PCP within the next week. It is very important that you follow up with them shortly after discharge from the hospital. - Make Follow up appointment with Watch Leader next couple week. - Keep all of your follow up appointments as already scheduled. If you cannot make an appointment, notify your provider. CONTACT YOUR PRIMARY CARE PROVIDER if you experience any of the following: - Difficulty following your treatment plan - Difficulty taking any of your medications CALL 911 OR GO TO THE EMERGENCY DEPARTMENT if you experience any of the following: - Severe chest pain or chest pain that radiates to your jaw or arm - Sudden, severe abdominal pain or nausea/vomiting - Severe chest pain or chest pain that radiates to your jaw or arm - Sudden, severe shortness of breath or difficulty breathing Pending Studies at Discharge: No Stand-Alone Forms: My [facility] [employer], Smoking Cessation Medications and DC Order Prescriptions: New metoprolol succinate [Toprol XL] 50 mg tablet extended release 24 hr 50 mg PO DAILY 30 Days Qty: 30 0RF Continued levothyroxine [Synthroid] 100 mcg tablet 100 mcg PO QAM Qty: 90 3RF atorvastatin [Lipitor] 10 mg tablet 5 mg PO HS Qty: 90 3RF potassium chloride 20 mEq tablet,ER particles/crystals 20 meq PO QAM Qty: 90 3RF Eliquis 2.5 mg tablet 2.5 mg PO BID Qty: 60 2RF cholecalciferol (vitamin D3) [Vitamin D3] 25 mcg (1,000 unit) tablet 1,000 unit PO DAILY aspirin [Maggie Low Dose Aspirin] 81 mg Tablet,Delayed Release (Dr/Ec) 81 mg PO HS acetaminophen 325 mg Tablet 650 mg PO Q6H PRN (Reason: pain) Qty: 30 0RF furosemide 20 mg tablet 20 mg PO UD Rx Instructions: Starting 03/15/24. Take 40mg by mouth on Mondays and 20mg by mouth all other days Discontinued carvedilol 12.5 mg tablet 6.25 mg PO BID Discharge Orders: Discharge Order (Routine); Ordered 03/18/24 Ordered By: Nanda Henao/Other Patient Handouts: CAD, Cholesterol Measurement, Cardiomyopathy Dc, AFib, ED Atrial Fibrillation Admission Data Admit Date/Time: 03/16/24 10:58 Attending Provider: Jarod Aguirre Admit Provider: Braden Hernandez Primary Care Provider: Yamilet Soto Other Providers: Braden Hernandez; Félix Turcios Other Interventions: Discharge Summary Assessment (RN) Last Done: 03/18/24 13:17 Supervising Physician Co-Signing Physician Notes I personally examined the patient and verified all markham points of history and exam, discussed case, and agree with decision making with Dr Swenson Post procedure, feels okay. Discussed with cardiology, anticipate home later today.. Vitals noted, in general she is awake and alert pleasant no distress. HEENT normocephalic atraumatic mucous membranes moist. Breathing unlabored no accessory muscle use good effort. Skin shows no rashes no pallor or icterus. Neuro without focal deficits. Inappropriate ICD firing Atrial fibrillationstatus post ablationHome today. Outpatient cardiology follow-up. Otherwise as above.
[2024-03-18 15:01] VITALS: TEMP 97.7
--- NOTE | 2024-03-18 15:18 | Cardiology Progress Note ---
Date of Service March 18, 2024 Assessment & Plan (1) Defibrillator discharge: (2) Biventricular implantable cardioverter-defibrillator (ICD) in situ: (3) PAF (paroxysmal atrial fibrillation): (4) Cardiomyopathy: (5) CAD (coronary artery disease): (6) Elevated troponin: Plan 1. Defibrillator therapy: Inappropriate therapy related to rapidly conducted atrial fibrillation. Her VF detection was raised to 222 beats per minute. This would allow for some discrimination at higher heart rates in the hopes of avoiding inappropriate therapy. Av node ablation was performed today which hopefully will limit the ventricular response to any atrial fibrillation and eliminate inappropriate therapy. 2. Atrial fibrillation: We will continue metoprolol succinate and Eliquis. 3. Cardiomyopathy: Severe. Not on much medication due to history of hypotension. Carvedilol switch to metoprolol succinate. 4. Congestive heart failure: She seems well compensated currently. Lung examination was normal. She can continue her current dose of diuretic. 5. Coronary disease: Nonobstructive. No current symptoms suggestive of coronary insufficiency or angina 6. Elevated troponin: She did not experience symptoms of ischemia or angina. The patient underwent AV node ablation today. While there did appear to be some residual AV kylie conduction, the ventricular response to atrial fibrillation was significantly reduced. If she is ambulatory today in feeling well she could be discharged home with instructions to avoid significant lifting over 10 lb or strenuous activity for 1 week. She can be discharged metoprolol succinate 50 mg daily. Carvedilol has been discontinued. No need to initiate digoxin after today's procedure. She could restart Eliquis tonight and continue at her usual dose. I will make arrangements to have follow-up in our clinic in 2 weeks. Admission and Anticipated Discharge Date Admission Date: March 16, 2024 Subjective This morning the patient did report some occasional and fleeting chest pains. These appear to be infrequent, not associated with activity and longstanding in nature. She also reported some sense of dyspnea. Very vague and non severe. She has been ambulatory. No dizziness or lightheadedness. Review of Systems Review of Systems: Per HPI. Physical Exam Physical Exam: She is alert and oriented x3. Mood affect appear normal. She answered all questions appropriately. HEENT: Sclerae are anicteric. Pupils are equal and reactive to light and accommodation. Extraocular movements were intact. Neuro: Cranial nerves intact Lungs: Normal respiratory effort. Cardiac: The rhythm was regular. Chest: Well-healed device implant site in the left upper pectoral area Extremities: Patient has bilateral radial pulses that are equal in intensity. Evaluation of the right groin access site did not reveal any evidence of hematoma or bleeding. There is no evidence cyanosis or clubbing. There was no evidence of significant peripheral edema bilaterally. Skin: There are no rashes noted on examination today. ENMT: Mallampati Class: III Respiratory: normal respiratory effort Cardiovascular: Rate/Rhythm: regular rate and regular rhythm Results & Data Vital Signs (Past 12 Hours) Vital Signs Temp Pulse Pulse Pulse Resp BP BP 03/18/24 15:00 36.5 C 68 03/18/24 14:14 71 03/18/24 14:01 69 03/18/24 13:43 69 03/18/24 13:17 36.3 C L 80 69 16 118/72 03/18/24 13:01 69 03/18/24 12:31 69 03/18/24 12:11 70 03/18/24 12:00 70 03/18/24 11:48 36.3 C L 68 03/18/24 11:35 80 16 118/72 03/18/24 11:20 80 16 121/71 03/18/24 09:19 64 18 137/79 03/18/24 08:17 70 03/18/24 07:46 36.8 C 74 20 BP Pulse Ox O2 Del Method 03/18/24 15:00 123/73 95 Room Air 03/18/24 14:14 03/18/24 14:01 125/77 96 Room Air 03/18/24 13:43 123/76 96 Room Air 03/18/24 13:17 124/74 96 03/18/24 13:01 124/74 96 Room Air 03/18/24 12:31 118/71 96 Room Air 03/18/24 12:11 118/73 95 Room Air 03/18/24 12:00 123/70 95 Room Air 03/18/24 11:48 111/63 95 Room Air 03/18/24 11:35 94 Room Air 03/18/24 11:20 94 Room Air 03/18/24 09:19 98 Room Air 03/18/24 08:17 03/18/24 07:46 143/69 H 97 Room Air Laboratory Results Abnormal Lab Results 03/18/24 05:31 WBC 4.15 L RBC 4.12 L Hgb 12.2 Hct 36.4 L MCV 88.3 MCH 29.6 MCHC 33.5 RDW Std Deviation 44.4 RDW Coeff of Sumanth 13.7 Plt Count 118 L MPV 10.7 Immature Gran % (Auto) 0.2 Neut % (Auto) 58.1 Lymph % (Auto) 26.5 Centre % (Auto) 10.6 Eos % (Auto) 3.6 Baso % (Auto) 1.0 Neut # (Auto) 2.41 Lymph # (Auto) 1.10 L Centre # (Auto) 0.44 Eos # (Auto) 0.15 Baso # (Auto) 0.04 Immature Gran # (Auto) 0.01 Sodium 136 Potassium 4.2 Chloride 102 Carbon Dioxide 29 Anion Gap 5 BUN 17 Creatinine 0.85 Est Cr Clr Drug Dosing 38.9 eGFR 67.10 BUN/Creatinine Ratio 20.0 Glucose 84 Calcium 9.2 PG Care Time/CCT Total # of Minutes Spent Total Time Spent with Patient: Total time spent is greater than 50% in coordination of care (as documented) at patient's floor/unit and/or counseling patient: Coding Level of Care Code 06648 SUB INP/OBS CARE 2/35MIN Diagnoses Defibrillator discharge Z45.02 Biventricular implantable cardioverter-defibrillator (ICD) in situ Z95.810 PAF (paroxysmal atrial fibrillation) I48.0 Cardiomyopathy I42.9 Cardiomyopathy type: unspecified Coronary artery disease involving grindstone coronary artery of grindstone heart without angina pectoris I25.10 Coronary Disease-Associated Artery/Lesion type: grindstone artery [place] vs. transplanted heart: grindstone heart Associated angina: without angina Elevated troponin R77.8 (4) Cardiomyopathy Cardiomyopathy type: unspecified Qualified Code(s): I42.9 - Cardiomyopathy, unspecified (5) CAD (coronary artery disease) Coronary Disease-Associated Artery/Lesion type: grindstone artery [place] vs. transplanted heart: grindstone heart Associated angina: without angina Qualified Code(s): I25.10 - Atherosclerotic heart disease of grindstone coronary artery without angina pectoris
[2024-03-18 16:08] VITALS: BP 125/71; PULSE 72; O2SAT 96
--- NOTE | 2024-03-18 16:29 | Billing Data ---
Date of Service March 18, 2024 Coding Level of Care Code 41079 IN/OBS DISCH 30 MIN/LESS
[2024-03-22] MEDS ORDERED: FUROSEMIDE 40 MG TAB PO SCH (09:00)
== END 2024-03-18 16:34 | disposition home or self-care (01) ==
LOC: 2S 08:10 → ED 08:10 → SUATTDRO 10:58 → 2S 11:58